=== PATIENT | female | born 1990 | race Caucasian/White ===

== ENCOUNTER 2016-07-06 15:45 | Emergency (ER) | payer OTHER ==
[~2016-07-06] VITALS: Ht 162.6 cm; Wt 69.2 kg
[~2016-07-06 15:45] MED LIST: ALBUAER2 INH; DILT60TA PO; OMEP20CA9 PO; ONDA4TAB46 PO; ZPAK PO
[2016-07-06 15:48] VITALS: TEMP 37; Ht 162.6 cm; Wt 69.2 kg
--- NOTE | 2016-07-06 17:21 | EMERGENCY ROOM VISIT NOTE ---
History Report prepared by Azar: Marguerite Florian Under the Supervision of: Dr. Renae Corona M.D. First contact with patient: 17:01 Chief Complaint: REFERRED BY DOCTOR Stated Complaint: HEART PALPITATIONS History of Present Illness The patient is a 26 year old female who presents to the Emergency Room with complaints of intermittent heart palpitations for the past few days. She has a history of tachycardia that began when she was 20 after having her son. She states that over the past few days she has been having palpitations despite taking her Cardizem. Today she took 120mg of Cardizem and notes that her heart rate was in the 170s while she was watching TV. She began feeling lightheaded and nauseous. She denies experiencing any chest pain with her palpitations. Today she called her Dr. Rodriguez's office (her head machine feeder) and was told by the nurse to come to the ED for further evaluation. She denies any recent changes to her medications. She denies any chance of . She is not currently taking any OCP. She experienced cold symptoms 1 week ago that improved without any medication. The patient reports that she did drink coffee today. Source of History: patient Onset: a few days ago Position: chest Symptom Intensity: HR in 170s Quality: other (palpitations) Timing: intermittent Associated Symptoms: + nausea, No chest pain Note: Pt notes lightheadedness. Review of Systems See HPI for pertinent positives & negatives. A total of 10 systems reviewed and were otherwise negative. Past Medical & Surgical Medical Problems: (1) Asthma (2) Asthma, mild persistent (3) Atrial tachycardia (4) Cellulitis (5) GERD (gastroesophageal reflux disease) (6) HTN (hypertension) (7) Hx of fracture of tibia (8) Ovarian cyst (9) Pharyngitis (10) Sinus tachycardia (11) Sinusitis (12) Sinusitis (13) SVT (supraventricular tachycardia) Surgical Problems: (1) H/O cardiac radiofrequency ablation (2) H/O cardiac radiofrequency ablation (3) H/O section (4) S/P ablation operation for arrhythmia Family History Asthma SISTER Cardiac disorder FATHER GRANDFATHER GRANDMOTHER Gallbladder disease Heart disease Hypertension FATHER BROTHER GRANDFATHER GRANDMOTHER Kidney disease or stones Lung disease Social History Smoking Status: Never Smoker Smokeless Tobacco Use: No Alcohol Use: none Drug Use: none Housing Status: lives with family Occupation Status: employed Current/Historical Medications Scheduled Diltiazem Hcl (Diltiazem Hcl), 60 MG PO TID Fluticasone Prop/Salmeterol (Advair Diskus 500/50 60 Dose), 1 PUFF INH BID Omeprazole (Prilosec), 20 MG PO DAILY Scheduled PRN Albuterol (Ventolin Hfa), 1-2 PUFFS INH QID PRN for cough or wheezing Albuterol Sulf (Proventil 0.083% 2.5MG/3ML), 3 ML NEB Q4H PRN for SOB/Wheezing Allergies Coded Allergies: Penicillins (Verified Allergy, Intermediate, RASH, 06/24/16) Sulfa Antibiotics (Verified Allergy, Intermediate, hives, 06/24/16) Codeine (Verified Allergy, Mild, 06/24/16) Morphine (Verified Allergy, Mild, HALLUCINATES, 06/24/16) Levofloxacin (Verified Allergy, Unknown, RASH, joint pain, 06/24/16) Pseudoephedrine (Verified Allergy, Unknown, FEVER, 06/24/16) Egg (Verified Adverse Reaction, Unknown, HEADACHE, 06/24/16) Physical Exam Vital Signs Date Time Temp Pulse Resp B/P Pulse Ox O2 Delivery O2 Flow Rate FiO2 07/06/16 19:18 79 20 135/87 99 07/06/16 18:00 80 20 130/80 99 07/06/16 17:13 118 07/06/16 15:48 37.0 114 17 140/84 97 Room Air Physical Exam Vital signs reviewed. General: Well-appearing 26 year old female, in no significant distress. HEENT: No scleral icterus, PERRLA, neck supple. Atraumatic. Cardiovascular: Tachycardic rate and regular rhythm, no extra sounds. Pulmonary: Clear to auscultation bilaterally, normal work of breathing. Abdomen: Soft, nontender, nondistended, positive bowel sounds. Musculoskeletal: Atraumatic, no peripheral edema. Neurologic: Patient awake alert and oriented x 3, full strength in all 4 extremities. Cranial nerves 2 through 12 grossly intact. Skin: Warm, dry, no rash Medical Decision & Procedures Laboratory Results 07/06/16 17:31 Red Blood Count 4.32, Mean Corpuscular Volume 92.8, Mean Corpuscular Hemoglobin 32.2, Mean Corpuscular Hemoglobin Concent 34.7, Mean Platelet Volume 10.7, Neutrophils (%) (Auto) 86.1, Lymphocytes (%) (Auto) 7.4, Monocytes (%) (Auto) 5.7, Eosinophils (%) (Auto) 0.3, Basophils (%) (Auto) 0.1, Neutrophils # (Auto) 12.17, Lymphocytes # (Auto) 1.04, Monocytes # (Auto) 0.80, Eosinophils # (Auto) 0.04, Basophils # (Auto) 0.02 07/06/16 17:31 Test 07/06/16 17:31 07/06/16 17:35 07/06/16 17:59 White Blood Count 14.12 K/uL (4.8-10.8) Red Blood Count 4.32 M/uL (4.2-5.4) Hemoglobin 13.9 g/dL (12.0-16.0) Hematocrit 40.1 % (37-47) Mean Corpuscular Volume 92.8 fL (80-100) Mean Corpuscular Hemoglobin 32.2 pg (25-34) Mean Corpuscular Hemoglobin Concent 34.7 g/dl (32-36) Platelet Count 290 K/uL (130-400) Mean Platelet Volume 10.7 fL (7.4-10.4) Neutrophils (%) (Auto) 86.1 % Lymphocytes (%) (Auto) 7.4 % Monocytes (%) (Auto) 5.7 % Eosinophils (%) (Auto) 0.3 % Basophils (%) (Auto) 0.1 % Neutrophils # (Auto) 12.17 K/uL (1.4-6.5) Lymphocytes # (Auto) 1.04 K/uL (1.2-3.4) Monocytes # (Auto) 0.80 K/uL (0.11-0.59) Eosinophils # (Auto) 0.04 K/uL (0-0.5) Basophils # (Auto) 0.02 K/uL (0-0.2) RDW Standard Deviation 43.4 fL (36.4-46.3) RDW Coefficient of Variation 12.7 % (11.5-14.5) Immature Granulocyte % (Auto) 0.4 % Immature Granulocyte # (Auto) 0.05 K/uL (0.00-0.02) Anion Gap 11.0 mmol/L (3-11) Est Creatinine Clear Calc Drug Dose 95.3 ml/min Estimated GFR () 108.1 Estimated GFR (Non- 93.2 BUN/Creatinine Ratio 8.9 (10-20) Calcium Level 9.0 mg/dl (8.5-10.1) Magnesium Level 2.2 mg/dl (1.8-2.4) Total Bilirubin 0.3 mg/dl (0.2-1) Direct Bilirubin 0.1 mg/dl (0-0.2) Aspartate Amino Transf (AST/SGOT) 10 U/L (15-37) Alanine Aminotransferase (ALT/SGPT) 14 U/L (12-78) Alkaline Phosphatase 68 U/L (45-117) Total Creatine Kinase 44 U/L (26-192) Creatine Kinase MB < 0.5 ng/ml (0.5-3.6) Creatine Kinase MB Ratio (0-3.0) Total Protein 7.2 gm/dl (6.4-8.2) Albumin 4.0 gm/dl (3.4-5.0) Thyroid Stimulating Hormone (TSH) 0.466 uIu/ml (0.300-4.500) Urine Color YELLOW Urine Appearance CLOUDY (CLEAR) Urine pH 7.5 (4.5-7.5) Urine Specific [place] 1.013 (1.000-1.030) Urine Protein NEG (NEG) Urine Glucose (UA) NEG (NEG) Urine Ketones NEG (NEG) Urine Occult Blood 1+ (NEG) Urine Nitrite NEG (NEG) Urine Bilirubin NEG (NEG) Urine Urobilinogen NEG (NEG) Urine Leukocyte Esterase NEG (NEG) Urine WBC (Auto) 1-5 /hpf (0-5) Urine RBC (Auto) 0-4 /hpf (0-4) Urine Hyaline Casts (Auto) 1-5 /lpf (0-5) Urine Epithelial Cells (Auto) >30 /lpf (0-5) Urine Bacteria (Auto) NEG (NEG) Bedside D-Dimer 354 ng/mlFEU (0-450) Bedside Troponin I 0.000 ng/ml (0-0.045) Laboratory results per my review. ECG Indication: palpitations Rate (beats per minute): 95 Rhythm: normal sinus Findings: no acute ischemic change, no ectopy, other (RSR prime) ED Course 170: Past medical records reviewed. The patient was evaluated in room B5. A complete history and physical examination was performed. 1844: I reassessed the patient at this time. She is feeling better and resting comfortably. I discussed the results and treatment plan with the patient. I answered all pertaining questions that she had. She expressed understanding and verbalized agreement. The patient will be discharged home. She will follow-up with her head machine feeder this week. 1903: I spoke with Dr. Fleming of cardiology. We discussed the patient's case. He was in agreement with the treatment plan. The patient will be evaluated in the office later this week. Medical Decision Differential diagnoses includes metabolic abnormality, cardiac arrhythmia, PE, medication effect, stimulant use. This pt was evaluated and appeared to be in no distress. IV access was obtained and lab work was drawn. Pt was placed on the cardiac technician. She was found to be in a ST. EKG confirms ST without ectopy or ischemia. 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 This is an ongoing issue for her. Pt lab work is unrevealing. She did have coffee this morning, was advised against any stimulants. She was recently switched to cardizem 120 mg LA for which she has yet to start. This may provide more consistent coverage than the 60 mg TID she is on currently. I did speak with Dr Fleming regarding the case as she was referred from the office to the ED for evaluation. Pt was advised to f/u with cariology this week and return to the ED for worsening of symptoms or any medical concerns. Consults Time Called: 1829 Consulting Physician: Dr. Fleming Returned Call: [address] Fleming of cardiology. We discussed the patient's case. He was in agreement with the treatment plan. Impression Primary Impression: Sinus tachycardia Scribe Attestation The scribe's documentation has been prepared under my direction and personally reviewed by me in its entirety. I confirm that the note above accurately reflects all work, treatment, procedures, and medical decision making performed by me. Departure Information Dispostion Home / Self-Care Referrals Shazia David, (PCP) Eduardo Rodriguez M.D. Forms HOME CARE DOCUMENTATION FORM, IMPORTANT VISIT INFORMATION, WORK / SCHOOL INSTRUCTIONS Patient Instructions A Signature Page, My [facility] Additional Instructions Diagnosis: Sinus tachycardia Drink plenty of clear fluids. Avoid caffeine, alcohol, tobacco or any other stimulants such as energy drinks. Continue your medications as prescribed. Follow-up with cardiology this week, case management will contact you with assistance in making an appointment. Return to the ER for worsening of symptoms or any medical concerns.
[2016-07-06 18:09] LABS: BASO % 0.1 %; BASO ABS # 0.02 K/uL (0-0.2); COMPLETE YES; EOS % 0.3 %; HEMATOCRIT 40.1 % (37-47); IG% 0.4 %; LYMPH % 7.4 %; LYMPH ABS # 1.04 K/uL (1.2-3.4); MEAN CELL VOLUME 92.8 fL (80-100); MEAN CORPUSCULAR HEMOGLOBIN 32.2 pg (25-34); MEAN CORPUSCULAR HGB CONC 34.7 g/dl (32-36); MEAN PLATELET VOLUME 10.7 fL (7.4-10.4); MONO % 5.7 %; NEUT % 86.1 %; PLATELET COUNT 290 K/uL (130-400); RED BLOOD COUNT 4.32 M/uL (4.2-5.4); WHITE BLOOD COUNT 14.12 K/uL (4.8-10.8)
[2016-07-06 18:14] LABS: URINE APPEARANCE CLOUDY (CLEAR); URINE BILIRUBIN NEG (NEG); URINE COLOR YELLOW; URINE EPITHELIAL CELL AUTO >30 /lpf (0-5); URINE NITRITE NEG (NEG); URINE PH 7.5 (4.5-7.5); URINE SPECIFIC GRAVITY 1.013 (1.000-1.030); UROBILINOGEN NEG (NEG); ZZUR CULT IF INDIC CLEAN CATCH NO
[2016-07-06 18:16] LABS: MANUAL MICROSCOPIC REQUIRED? NO; REVIEW REQ? NO
[2016-07-06 18:28] LABS: ALT/SGPT 14 U/L (12-78); BLOOD UREA NITROGEN 8 mg/dl (7-18); BUN/CREATININE RATIO 8.9 (10-20); CARBON DIOXIDE 25 mmol/L (21-32); CHLORIDE 106 mmol/L (98-107); CREATININE 0.87 mg/dl (0.60-1.20); GLUCOSE 95 mg/dl (70-99); MAGNESIUM 2.2 mg/dl (1.8-2.4); POTASSIUM 3.9 mmol/L (3.5-5.1); SODIUM 142 mmol/L (136-145)
[2016-07-06 18:38] LABS: ALKALINE PHOSPHATASE 68 U/L (45-117); AST/SGOT 10 U/L (15-37); THYROID STIMULATING HORMONE 0.466 uIu/ml (0.300-4.500)
[2016-07-06 19:18] VITALS: BP 135/87; PULSE 79; O2SAT 99
[2016-07-10] MEDS ORDERED: AZIT-60 PO (13:20)
[2016-10-21] MEDS ORDERED: PANT40TA PO (10:41)
[2016-10-21] MEDS ORDERED: VNTHFA/IN INH (10:45)
[2016-10-21] MEDS ORDERED: ADVIN50/60 INH (12:48)
[2016-10-21] MEDS ORDERED: ALBINS/ NEB (18:38)
[2017-04-29] MEDS ORDERED: VALA1TAB31 PO (09:49)
[2017-04-29] MEDS ORDERED: NADO20TA PO (09:49)
[2017-04-29] MEDS ORDERED: OXYC1TAB3 PO (10:38)
== END 2016-07-06 19:20 | disposition home or self-care (01) ==
LOC: C.EDB 15:46
DX: R00.0 Tachycardia, unspecified (principal); J45.909 Unspecified asthma, uncomplicated; I10 Essential (primary) hypertension; K21.9 Gastro-esophageal reflux disease without esophagitis; Z82.5 Family history of asthma and other chronic lower respiratory diseases; Z82.49 Family history of ischemic heart disease and other diseases of the circulatory system; Z79.899 Other long term (current) drug therapy

== ENCOUNTER 2016-07-10 12:38 | Emergency (ER) | payer OTHER ==
[~2016-07-10] VITALS: Ht 162.6 cm; Wt 69.1 kg
[~2016-07-10 12:38] MED LIST changes: -ONDA4TAB46 PO; -ZPAK PO
[2016-07-10 12:39] VITALS: BP 131/89; PULSE 97; TEMP 37.1; O2SAT 100; Ht 162.6 cm; Wt 69.1 kg
[2016-07-10] MEDS ORDERED: DEXAMETHASONE SOD INJ 10 MG/ML VIAL IV STA (13:13)
[2016-07-10] MEDS ORDERED: AZIT250T5 PO (13:20)
[2016-07-10] MEDS ORDERED: ONDA4TAB65 PO (13:20)
--- NOTE | 2016-07-10 13:21 | EMERGENCY ROOM VISIT NOTE ---
History First contact with patient: 12:52 Chief Complaint: CONGESTION Stated Complaint: CONGESTION, CHEST TIGHTNESS, SINUS PRESSURE Nursing Triage Summary: having cough and congestion for the past several days. my 2 roommates have been sick as well. History of Present Illness The patient is a 26 year old female who presents to the Emergency Room via private vehicle accompanied by father with complaints of "congestion, chest tightness, sinus pressure". The patient states that 4 days ago she began with sinus pressure and drainage as well as sinus congestion. She notes she has postnasal drip into her chest. She has a history of this before. She's been taking prednisone with minimal relief. She is tried Robitussin and a breathing treatment. The sinus drainage is yellow in nature. For the associated cough and headache she has tried Tessalon Perles. She has used her rescue inhaler today with minimal relief. There is associated fever that is under 100F. There has been no chest pain, chills. Patient does have slight shortness of breath with the congestion. No history of blood clots. Patient states that when she experiences this she typically gets a steroid shot, and a Z-Tomi with Zofran. She states that her roommate has similar symptoms and is just getting over this. Review of Systems A complete 6-point Review of Systems was discussed with the patient, with pertinent positives and negatives listed in the History of Present Illness. All remaining Review of Systems questions can be considered negative unless otherwise specified. Past Medical/Surgical History Medical Problems: (1) Asthma (2) Asthma, mild persistent (3) Atrial tachycardia (4) Cellulitis (5) GERD (gastroesophageal reflux disease) (6) HTN (hypertension) (7) Hx of fracture of tibia (8) Ovarian cyst (9) Pharyngitis (10) Sinus tachycardia (11) Sinusitis (12) Sinusitis (13) SVT (supraventricular tachycardia) Surgical Problems: (1) H/O cardiac radiofrequency ablation (2) H/O cardiac radiofrequency ablation (3) H/O section (4) S/P ablation operation for arrhythmia Family History Asthma SISTER Cardiac disorder FATHER GRANDFATHER GRANDMOTHER Gallbladder disease Heart disease Hypertension FATHER BROTHER GRANDFATHER GRANDMOTHER Kidney disease or stones Lung disease Diabetes, heart disease, high blood pressure, gallbladder disease, kidney disease or Stones, seizures. Social History Smoking Status: Never Smoker Alcohol Use: none Drug Use: none Housing Status: lives with family Occupation Status: employed Social History: Patient lives at home, is not employed and denies tobacco or alcohol products. Current/Historical Medications Scheduled Azithromycin (Zithromax), 250 MG PO DIRECTED Diltiazem Hcl (Diltiazem Hcl), 60 MG PO TID Fluticasone Prop/Salmeterol (Advair Diskus 500/50 60 Dose), 1 PUFF INH BID Omeprazole (Prilosec), 20 MG PO DAILY Scheduled PRN Albuterol (Ventolin Hfa), 1-2 PUFFS INH QID PRN for cough or wheezing Albuterol Sulf (Proventil 0.083% 2.5MG/3ML), 3 ML NEB Q4H PRN for SOB/Wheezing Ondansetron Hcl (Zofran), 1 TAB PO Q6H PRN for Nausea or Vomiting Allergies Coded Allergies: Penicillins (Verified Allergy, Intermediate, RASH, 06/24/16) Sulfa Antibiotics (Verified Allergy, Intermediate, hives, 06/24/16) Codeine (Verified Allergy, Mild, 06/24/16) Morphine (Verified Allergy, Mild, HALLUCINATES, 06/24/16) Levofloxacin (Verified Allergy, Unknown, RASH, joint pain, 06/24/16) Pseudoephedrine (Verified Allergy, Unknown, FEVER, 06/24/16) Egg (Verified Adverse Reaction, Unknown, HEADACHE, 06/24/16) Physical Exam Vital Signs Date Time Temp Pulse Resp B/P Pulse Ox O2 Delivery O2 Flow Rate FiO2 07/10/16 12:39 37.1 97 16 131/89 100 Room Air Physical Exam VITAL SIGNS - Vital signs and nursing notes were reviewed. Patient is afebrile , she is normotensive, she is not tachycardic and saturating well on room air 100%. GENERAL - 26-year-old female appearing her stated age who is in no acute distress. Communicates well with provider and answers questions appropriately. SKIN - Without rashes. HEAD - NC/AT. EYES - PERRL with EOMI bilaterally. Sclera anicteric. Palpebral conjunctiva pink and moist with no injection noted. EARS - No deformities of external structures noted on gross examination bilaterally. No hemotympanum. External auditory canals without discharge or otorrhea. Tympanic membranes pearly haskins without retraction or bulging. No fluid or purulent material visualized behind the TM. Handle of malleus, umbo, cone of light, pars tensa/flaccid all easily visualized. NOSE - Midline and without cyanosis. No epistaxis or purulent drainage noted. Septum midline without deviation or septal hematoma noted. MOUTH/OROPHARYNX - Without perioral cyanosis. Buccal mucosa pink and moist and without leukoplakia. Tongue midline with equal elevation of palate bilaterally. No tonsillar hypertrophy, erythema, or exudates noted. Good dentition noted. NECK - Neck with FROM. Supple to palpation. No lymphadenopathy noted. No nuchal rigidity. LUNGS - Chest wall symmetric without accessory muscle use, intercostals retractions, or central cyanosis. Normal vesicular breath sounds CTA B/L. No wheezes, rales, or rhonchi appreciated. CARDIAC - RRR with S1/S2. No murmur, rubs, or gallops appreciated. EXTREMITIES - No clubbing or peripheral cyanosis. No pretibial edema present. +5 /5 strength noted in UE/LE bilaterally. NEUROLOGIC - Cranial nerves II through XII grossly intact. Sensory intact to light touch throughout. PSYCH - A&Ox3 and cooperates fully with examiner. Pt is very pleasant and interacts well with examiner. Medical Decision & Procedures Medications Administered Medications (Trade) Dose Ordered Sig/Anika Route Start Time Stop Time Status Last Admin Dose Admin Dexamethasone Sodium Phosphate (Decadron Inj) 10 mg NOW STAT IM 07/10/16 13:22 07/10/16 13:23 DC 07/10/16 13:25 10 MG Medical Decision Patient was seen as evaluated as above. After obtaining a thorough history and physical examination the patient was experiencing mildly clinically acute sinusitis with viral URI that may be developing into a bronchitis. Patient does have a history of asthma as well as bronchitis. No evidence of pneumonia on exam and she is afebrile. Then the patient states that due to her allergies she typically by private uses azithromycin, as well as an injection of dexamethasone and Zofran as azithromycin makes her nauseated. She status is what she typically receives. She was on these not long ago. She was given 10 mg IM of Decadron as well as a prescription for a Z-Tomi and Zofran tablets. She was cautioned that Zofran can cause QT prolongation. She will understanding. She was instructed to follow up from today's visit and return if worsening. She was educated on worrisome symptoms in which to return. She had questions answered prior to discharge and was discharged home in good condition. The patient was not tachycardic, did not have any chest pain or risk factors for pulmonary embolism. She has had these symptoms in the past and her roommate shared similar symptoms. She likely has a viral URI with sinusitis and potential early bronchitis. She'll be treated for such. In the evaluation and treatment of this patient the following differential diagnoses were entertained: Pulmonary embolism, viral URI, sinusitis, bronchitis , pneumonia, among others. Impression Primary Impression: Acute sinusitis Additional Impression: Bronchitis Departure Information Dispostion Home / Self-Care Condition GOOD Prescriptions Ondansetron Hcl (ZOFRAN) 4 Mg Tab 1 TAB PO Q6H Y for Nausea or Vomiting for 3 Days, #12 TAB 1 Refill Prov: Harsh Jefferson PA-C 07/10/16 Azithromycin (ZITHROMAX) 250 Mg Tab 250 MG PO DIRECTED for 5 Days, #6 TAB 500 mg by mouth on day 1, then 250 mg on days 2 through 5. Prov: Harsh Jefferson PA-C 07/10/16 Patient Instructions A Signature Page, My [facility] Additional Instructions You were seen emergency Department for a sinus infection/bronchitis. As we discussed and as per your request you have received an injection of dexamethasone here as well as a prescription for azithromycin and Zofran. Please use caution as Zofran may cause heart irregularities. Please schedule follow-up with her family doctor as soon as possible from today' s visit. Please continue your at home remedies that you indicated. Please return to the emergency department with any new/concerning symptoms.
[2016-07-10] MEDS ORDERED: DEXAMETHASONE SOD INJ 10 MG/ML VIAL IM STA (13:22)
[2016-10-21] MEDS ORDERED: PANT40TA PO (10:41)
[2016-10-21] MEDS ORDERED: VNTHFA/IN INH (10:45)
[2016-10-21] MEDS ORDERED: ADVIN50/60 INH (12:48)
[2016-10-21] MEDS ORDERED: ALBINS/ NEB (18:38)
== END 2016-07-10 13:30 | disposition home or self-care (01) ==
LOC: C.EDB 12:38 → C.EDD 13:30
DX: J01.90 Acute sinusitis, unspecified (principal); J40 Bronchitis, not specified as acute or chronic; I10 Essential (primary) hypertension; K21.9 Gastro-esophageal reflux disease without esophagitis; J45.909 Unspecified asthma, uncomplicated; N83.209 Unspecified ovarian cyst, unspecified side; Z87.81 Personal history of (healed) traumatic fracture; Z86.19 Personal history of other infectious and parasitic diseases; Z98.890 Other specified postprocedural states; Z79.899 Other long term (current) drug therapy; Z88.0 Allergy status to penicillin; Z88.1 Allergy status to other antibiotic agents; Z88.5 Allergy status to narcotic agent; Z88.8 Allergy status to other drugs, medicaments and biological substances; Z91.018 Allergy to other foods; Z83.79 Family history of other diseases of the digestive system; Z82.49 Family history of ischemic heart disease and other diseases of the circulatory system; Z84.1 Family history of disorders of kidney and ureter; Z83.3 Family history of diabetes mellitus; Z82.0 Family history of epilepsy and other diseases of the nervous system

== ENCOUNTER 2016-07-28 12:16 | Emergency (ER) | payer OTHER ==
[~2016-07-28] VITALS: Ht 162.6 cm; Wt 70.4 kg
[~2016-07-28 12:16] MED LIST changes: +ONDA4TAB65 PO
[2016-07-28 12:36] VITALS: TEMP 36.6; Ht 162.6 cm; Wt 70.4 kg
--- NOTE | 2016-07-28 13:15 | EMERGENCY ROOM VISIT NOTE ---
History Report prepared by Azar: Miki Perdomo Under the Supervision of: Dr. Lul Flowers M.D. First contact with patient: 12:54 Chief Complaint: PALPITATIONS Stated Complaint: HEART PALPITATIONS Nursing Triage Summary: I was placed on prednisone. I now feel jittery an like my heart is racing. no chest pain at this time. History of Present Illness The patient is a 26 year old female who presents to the Emergency Room with complaints of persistent heart palpitations that started prior to arrival today. The patient notes that she was started on Prednisone, and she took her first dose yesterday (10 mg) around dinner time. She then took 20 mg this morning. The patient has been feeling jittery today, and her heart rate has been ranging between 140 and 160 prior to arrival for a few hours. She takes Diltiazem for tachycardia, and she took it prior to arrival today. The patient has asthma and a history of an ablation. She was sent to [facility] recently to discuss the possibility of a second ablation. The patient took a nebulizer treatment this morning. She denies any chest pain. 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 No other associated symptoms noted. Review of Systems See HPI for pertinent positives & negatives. A total of 10 systems reviewed and were otherwise negative. Past Medical & Surgical Medical Problems: (1) Asthma (2) Asthma, mild persistent (3) Atrial tachycardia (4) Cellulitis (5) GERD (gastroesophageal reflux disease) (6) HTN (hypertension) (7) Hx of fracture of tibia (8) Ovarian cyst (9) Pharyngitis (10) Sinus tachycardia (11) Sinusitis (12) Sinusitis (13) SVT (supraventricular tachycardia) Surgical Problems: (1) H/O cardiac radiofrequency ablation (2) H/O cardiac radiofrequency ablation (3) H/O section (4) S/P ablation operation for arrhythmia Family History Asthma SISTER Cardiac disorder FATHER GRANDFATHER GRANDMOTHER Gallbladder disease Heart disease Hypertension FATHER BROTHER GRANDFATHER GRANDMOTHER Kidney disease or stones Lung disease Social History Smoking Status: Never Smoker Alcohol Use: none Drug Use: none Housing Status: lives with family Occupation Status: employed Current/Historical Medications Scheduled Diltiazem Hcl (Diltiazem Hcl), 60 MG PO TID Fluticasone Prop/Salmeterol (Advair Diskus 500/50 60 Dose), 1 PUFF INH BID Omeprazole (Prilosec), 20 MG PO DAILY Scheduled PRN Albuterol (Ventolin Hfa), 1-2 PUFFS INH QID PRN for cough or wheezing Albuterol Sulf (Proventil 0.083% 2.5MG/3ML), 3 ML NEB Q4H PRN for SOB/Wheezing Ondansetron Hcl (Zofran), 1 TAB PO Q6H PRN for Nausea or Vomiting Allergies Coded Allergies: Penicillins (Verified Allergy, Intermediate, RASH, 07/28/16) Sulfa Antibiotics (Verified Allergy, Intermediate, hives, 07/28/16) Codeine (Verified Allergy, Mild, 07/28/16) Morphine (Verified Allergy, Mild, HALLUCINATES, 07/28/16) Levofloxacin (Verified Allergy, Unknown, RASH, joint pain, 07/28/16) Pseudoephedrine (Verified Allergy, Unknown, FEVER, 07/28/16) Egg (Verified Adverse Reaction, Unknown, HEADACHE, 07/28/16) Physical Exam Vital Signs Date Time Temp Pulse Resp B/P Pulse Ox O2 Delivery O2 Flow Rate FiO2 07/28/16 13:39 118 18 131/84 96 07/28/16 12:54 131 07/28/16 12:48 99 Room Air 07/28/16 12:36 36.6 117 20 116/74 99 Room Air Physical Exam CONSTITUTIONAL: No acute distress. Lethargic. HEENT: No icterus, moist mucous membranes NECK: No meningismus, trachea is midline. CARDIOVASCULAR: Regular rate, normal perfusion RESPIRATORY: Unlabored breathing. Clear to auscultation. GASTROINTESTINAL: Non-tender GENITOURINARY: No flank tenderness MUSCULOSKELETAL: Full range of motion NEUROLOGIC: No acute gross focal deficits. PSYCHIATRIC: Normal affect SKIN: Normal for ethnicity. Medical Decision & Procedures ECG Indication: palpitations Rate (beats per minute): 120 Rhythm: sinus tachycardia Findings: other (normal axis, no WPW, RSR prime noted, no prolonged QT) ED Course 1307: Past medical records reviewed. The patient was evaluated in room B12B. A complete history and physical examination was performed. The patient verbally expressed agreement and understanding of the treatment plan. The patient will be discharged. Medical Decision 26-year-old presents into the emergency department for evaluation of acute on chronic tachycardia after taking prednisone yesterday for asthma exacerbation. She is in no distress on exam with clear lungs and heart rate of 120 in the monitor. EKG demonstrated sinus rhythm without evidence of WPW, prolonged QT or Brugada although an RSR prime was noted in V2. She notes long-standing history of tachycardia as high as [address] followed [address] Saad crockett as well as her she cardiology status post prior EPS evaluations and felt ablation. She has a loop monitor and is scheduled for follow-up at [facility] with possibility of a second ablation coming in August. She notes she takes Cardizem when necessary for this tachycardia. She was discussed with her doctor today who advised her to increase her dose to 90 mg. She was offered observation in the emergency department and declined but agrees to return for any worsening worrisome symptoms. Impression Primary Impression: Sinus tachycardia Scribe Attestation The scribe's documentation has been prepared under my direction and personally reviewed by me in its entirety. I confirm that the note above accurately reflects all work, treatment, procedures, and medical decision making performed by me. Departure Information Dispostion Home / Self-Care Referrals Ramila Welch PA-C (PCP) Forms HOME CARE DOCUMENTATION FORM, IMPORTANT VISIT INFORMATION, WORK / SCHOOL INSTRUCTIONS Patient Instructions My [facility]
[2016-07-28 13:39] VITALS: BP 131/84; PULSE 118; O2SAT 96
[2016-10-21] MEDS ORDERED: PANT40TA PO (10:41)
[2016-10-21] MEDS ORDERED: VNTHFA/IN INH (10:45)
[2016-10-21] MEDS ORDERED: ADVIN50/60 INH (12:48)
[2016-10-21] MEDS ORDERED: ALBINS/ NEB (18:38)
== END 2016-07-28 13:41 | disposition home or self-care (01) ==
LOC: C.EDB 12:17
DX: R00.0 Tachycardia, unspecified (principal); J45.909 Unspecified asthma, uncomplicated; I47.1 Supraventricular tachycardia; L03.90 Cellulitis, unspecified; K21.9 Gastro-esophageal reflux disease without esophagitis; I10 Essential (primary) hypertension; Z82.5 Family history of asthma and other chronic lower respiratory diseases; Z82.49 Family history of ischemic heart disease and other diseases of the circulatory system; Z84.1 Family history of disorders of kidney and ureter

== ENCOUNTER 2016-08-02 10:14 | Emergency (ER) | payer OTHER ==
[~2016-08-02] VITALS: Ht 162.6 cm; Wt 70.0 kg
[2016-08-02 10:17] VITALS: TEMP 36.7; Ht 162.6 cm; Wt 70.0 kg
[2016-08-02] MEDS ORDERED: RBTUDL5 PO (10:47)
[2016-08-02] MEDS ORDERED: ACET-1311 PO (10:47)
[2016-08-02] MEDS ORDERED: ALBUT/IPRATROP 3MG/0.5MG NEB 3 ML VIAL INH STA (11:16)
--- NOTE | 2016-08-02 11:50 | DIAGNOSTIC IMAGING REPORT ---
TWO VIEW CHEST CLINICAL HISTORY: Cough.. FINDINGS: PA and lateral chest radiographs are compared to study dated 05/25/2016. The cardiomediastinal silhouette is unremarkable. The lungs and pleural spaces are clear. There is no pneumothorax. The bony thorax appears intact. An electronic device projects over the left breast. IMPRESSION: No active disease in the chest. Electronically signed by: Ham Velasco M.D. 08/02/2016 11:49 AM Dictated Date/Time: 08/02/2016 11:48 AM
[2016-08-02] MEDS ORDERED: OSELTAMIVIR PHOSPHATE 75 MG CAP PO SCH (12:30)
[2016-08-02] MEDS ORDERED: OSEL75CA12 PO (12:31)
[2016-08-02 12:52] VITALS: BP 128/89; PULSE 97; O2SAT 98
[2016-08-02] MEDS ORDERED: OSELTAMIVIR PHOSPHATE 75 MG CAP PO STA (12:55)
--- NOTE | 2016-08-02 19:31 | EMERGENCY ROOM VISIT NOTE ---
History Report prepared by Azar: Jewell Martinez Under the Supervision of: Dr. Zay Perkins D.O. First contact with patient: 10:56 Chief Complaint: FLU LIKE SX Stated Complaint: FLU SX, CONGESTION, COUGH, CHEST TIGHTNESS History of Present Illness The patient is a 26 year old female who presents to the Emergency Room with complaints of persistent flu like symptoms that began yesterday morning. The patient states that her father tested positive for influenza A yesterday and she believes she developed the same symptoms as him. Today, the patient notes congestion, chest pain, a productive cough, low grade fever, tachycardia, and headache. She notes a history of asthma and states that her symptoms are exacerbating her asthma. The patient states that she could not get in to see her PCP today so she came here for further evaluation. Pt denies headache, change in vision, neck stiffness, shortness of breath, nausea, vomiting, diarrhea, pain with urination, and melena. Source of History: patient Onset: yesterday morning Position: other (global) Quality: other (flu like symptoms) Timing: other (persistent) Associated Symptoms: + chest pain, + cough, + fevers Note: Associated Symptoms: congestion. Review of Systems See HPI for pertinent positives & negatives. A total of 10 systems reviewed and were otherwise negative. Past Medical & Surgical Medical Problems: (1) Asthma (2) Asthma, mild persistent (3) Atrial tachycardia (4) Cellulitis (5) GERD (gastroesophageal reflux disease) (6) HTN (hypertension) (7) Hx of fracture of tibia (8) Ovarian cyst (9) Pharyngitis (10) Sinus tachycardia (11) Sinusitis (12) Sinusitis (13) SVT (supraventricular tachycardia) Surgical Problems: (1) H/O cardiac radiofrequency ablation (2) H/O cardiac radiofrequency ablation (3) H/O section (4) S/P ablation operation for arrhythmia Family History Asthma SISTER Cardiac disorder FATHER GRANDFATHER GRANDMOTHER Gallbladder disease Heart disease Hypertension FATHER BROTHER GRANDFATHER GRANDMOTHER Kidney disease or stones Lung disease Social History Smoking Status: Never Smoker Alcohol Use: none Drug Use: none Housing Status: lives with family Occupation Status: employed Current/Historical Medications Scheduled Acetaminophen (Tylenol), 650 MG PO DAILY Diltiazem Hcl (Diltiazem Hcl), 60 MG PO TID Fluticasone Prop/Salmeterol (Advair Diskus 500/50 60 Dose), 1 PUFF INH BID Guaifenesin (Robitussin), 15 ML PO DAILY Oseltamivir (Tamiflu), 75 MG PO BID Pantoprazole (Protonix), 40 MG PO DAILY Scheduled PRN Albuterol Hfa (Ventolin Hfa), 1-2 PUFFS INH QID PRN for Wheezing Albuterol Sulf (Proventil 0.083% 2.5MG/3ML), 3 ML NEB Q4H PRN for SOB/Wheezing Ondansetron Hcl (Zofran), 1 TAB PO Q6H PRN for Nausea or Vomiting Allergies Coded Allergies: Penicillins (Verified Allergy, Intermediate, RASH, 08/02/16) Sulfa Antibiotics (Verified Allergy, Intermediate, hives, 08/02/16) Codeine (Verified Allergy, Mild, 08/02/16) Morphine (Verified Allergy, Mild, HALLUCINATES, 08/02/16) Levofloxacin (Verified Allergy, Unknown, RASH, joint pain, 08/02/16) Pseudoephedrine (Verified Allergy, Unknown, FEVER, 08/02/16) Egg (Verified Adverse Reaction, Unknown, HEADACHE, 08/02/16) Physical Exam Vital Signs Date Time Temp Pulse Resp B/P Pulse Ox O2 Delivery O2 Flow Rate FiO2 08/02/16 12:52 97 18 128/89 98 08/02/16 10:17 36.7 91 18 138/82 97 Room Air Physical Exam GENERAL: Sitting up in bed, disheveled, nontoxic, no acute distress. Talking in full sentences, dry non-productive cough. EYE EXAM: normal conjunctiva. OROPHARYNX: no exudate, no erythema, lips, buccal mucosa, and tongue normal and mucous membranes are moist EARS: TMs clear bilaterally. NECK: supple, no nuchal rigidity, no adenopathy, non-tender LUNGS: Clear to auscultation. Normal chest wall mechanics HEART: no murmurs, S1 normal and S2 normal ABDOMEN: abdomen soft, non-tender, normo-active bowel sounds, no masses, no rebound or guarding. BACK: Back is symmetrical on inspection and there is no deformity, no midline tenderness, no CVA tenderness. SKIN: no rashes and no bruising UPPER EXTREMITIES: upper extremities are grossly normal. LOWER EXTREMITIES: No pitting edema. Calves are equal bilaterally NEURO EXAM: Normal sensorium, cranial nerves II-XII grossly intact, normal speech, no gross weakness of arms, no gross weakness of legs. Medical Decision & Procedures ER Provider Diagnostic Interpretation: Xray results per the radiologist and my interpretation. Other results have been interpreted by the radiologist and reviewed by me. TWO VIEW CHEST CLINICAL HISTORY: Cough.. FINDINGS: PA and lateral chest radiographs are compared to study dated 05/25/2016. The cardiomediastinal silhouette is unremarkable. The lungs and pleural spaces are clear. There is no pneumothorax. The bony thorax appears intact. An electronic device projects over the left breast. IMPRESSION: No active disease in the chest. Electronically signed by: Ham Velasco M.D. 08/02/2016 11:49 AM Dictated Date/Time: 08/02/2016 11:48 AM Laboratory Results Test 08/02/16 11:15 Influenza Type A Antigen POS for Influ A (NEG) Influenza Type B Antigen Neg for Influ B (NEG) Laboratory results per my review. Medications Administered Medications (Trade) Dose Ordered Sig/Anika Route Start Time Stop Time Status Last Admin Dose Admin Albuterol/ Ipratropium (Duoneb) 3 ml NOW STAT INH 08/02/16 11:16 08/02/16 13:45 DC 08/02/16 11:16 3 ML ED Course ED COURSE: Vital signs were reviewed and showed normal vitals The patients medical record was reviewed The above diagnostic studies were performed and reviewed. ED treatments and interventions as stated above. 1113: The patient was evaluated in room B2. A complete history and physical examination was performed. 1116: Ordered DuoNeb 3 ml INH. 1224: Upon reevaluation, the patient is resting comfortably.I discussed my findings with the patient and she understands and agrees with the treatment plan. Based on the patients age, coexisting illnesses, exam and lab findings the decision to treat as an outpatient was made. The patient remained stable while under my care. The patient appeared well at the time of discharge. 1230: Ordered Tamiflu Cap 75 mg PO. Medical Decision Differential diagnoses includes but is not limited to pneumonia, bronchitis, COPD/Asthma exacerbation, pneumothorax, pulmonary embolism, congestive heart failure, acute coronary syndrome Patient is a 26-year-old female with a past medical history of asthma who presents the ER for shortness of breath and wheezing. Decision shows no focal infiltrate. Vitals are stable. Her father was seen here yesterday and was diagnosed with same symptoms and had influenza A. Mom also has the same symptoms at home.. Was performed and she was influenza A positive. She was given a perception for Tamiflu following a neb treatment and discharged to follow-up with primary care doctor. Discussed with Pt concerning signs and symptoms to watch out for. Pt was instructed to follow up with their PCP and discussed with the patient their option to return to the ED at anytime for persistent or worsening symptoms. The appropriate anticipatory guidance and out- patient management, including indications for return to the emergency department , were explained at length to the patient and understood. Impression Primary Impression: Influenza A Scribe Attestation The scribe's documentation has been prepared under my direction and personally reviewed by me in its entirety. I confirm that the note above accurately reflects all work, treatment, procedures, and medical decision making performed by me. Departure Information Dispostion Home / Self-Care Prescriptions Oseltamivir (Tamiflu) 75 Mg Cap 75 MG PO BID, #10 CAP Prov: Zay Perkins, DO 08/02/16 Referrals No Doctor, Assigned (PCP) Forms HOME CARE DOCUMENTATION FORM, IMPORTANT VISIT INFORMATION Patient Instructions ED URI Viral, My [facility], Oseltamivir Phosphate Oral capsule Additional Instructions Please follow up with your primary care doctor with in the next 24 hours. Any worsening of your symptoms, please return to the ED immediately. This includes persistent fevers greater than 100.4 for 3 more days, passing out, worsening shortness of breath, or any other concerning signs or symptoms from your standpoint.
[2016-10-21] MEDS ORDERED: PANT40TA PO (10:41)
[2016-10-21] MEDS ORDERED: VNTHFA/IN INH (10:45)
[2016-10-21] MEDS ORDERED: ADVIN50/60 INH (12:48)
[2016-10-21] MEDS ORDERED: ALBINS/ NEB (18:38)
== END 2016-08-02 12:54 | disposition home or self-care (01) ==
LOC: C.EDB 10:15
DX: J09.X2 Influenza due to identified novel influenza A virus with other respiratory manifestations (principal); J45.909 Unspecified asthma, uncomplicated; I10 Essential (primary) hypertension; K21.9 Gastro-esophageal reflux disease without esophagitis; N83.209 Unspecified ovarian cyst, unspecified side; Z86.19 Personal history of other infectious and parasitic diseases; Z88.0 Allergy status to penicillin; Z88.2 Allergy status to sulfonamides; Z88.5 Allergy status to narcotic agent; Z88.8 Allergy status to other drugs, medicaments and biological substances; Z91.018 Allergy to other foods

== ENCOUNTER 2016-08-06 00:29 | Emergency (ER) | payer OTHER ==
[~2016-08-06] VITALS: Ht 162.6 cm; Wt 71.4 kg
[~2016-08-06 00:29] MED LIST changes: +ACET-1311 PO; -ALBUAER2 INH; -OMEP20CA9 PO; +OSEL75CA12 PO; +RBTUDL5 PO
[2016-08-06 00:34] VITALS: TEMP 36.7; Ht 162.6 cm; Wt 71.4 kg
[2016-08-06] MEDS ORDERED: ALBUT/IPRATROP 3MG/0.5MG NEB 3 ML VIAL INH STA (00:47)
[2016-08-06] MEDS ORDERED: DEXAMETHASONE SOD INJ 10 MG/ML VIAL PO ONE (01:00)
--- NOTE | 2016-08-06 02:10 | EMERGENCY ROOM VISIT NOTE ---
History First contact with patient: 00:38 Chief Complaint: COUGH Stated Complaint: CHEST TIGHTNESS,WHEEZY,COUGH,CONGEST Nursing Triage Summary: Patient states, "I've been sick with influenza A and now my asthma is acting up. I'm coughing a lot and my chest hurts from it." Dx 3 days ago. History of Present Illness The patient is a 26 year old female who presents to the Emergency Room with complaints of cough and wheezing for the past few days was diagnosed with influenza 3 days ago. She's been taking her Tamiflu. Patient denies neck stiffness, chest pain, abdominal pain, vomiting, ear pain. She is tolerate by mouth fluids and food. She has an inhaler and does have asthma. Review of Systems See HPI for pertinent positives & negatives. A total of 10 systems reviewed and were otherwise negative. Past Medical/Surgical History Medical Problems: (1) Asthma (2) Asthma, mild persistent (3) Atrial tachycardia (4) Cellulitis (5) GERD (gastroesophageal reflux disease) (6) HTN (hypertension) (7) Hx of fracture of tibia (8) Ovarian cyst (9) Pharyngitis (10) Sinus tachycardia (11) Sinusitis (12) Sinusitis (13) SVT (supraventricular tachycardia) Surgical Problems: (1) H/O cardiac radiofrequency ablation (2) H/O cardiac radiofrequency ablation (3) H/O section (4) S/P ablation operation for arrhythmia Family History Asthma SISTER Cardiac disorder FATHER GRANDFATHER GRANDMOTHER Gallbladder disease Heart disease Hypertension FATHER BROTHER GRANDFATHER GRANDMOTHER Kidney disease or stones Lung disease Social History Smoking Status: Never Smoker Alcohol Use: none Drug Use: none Housing Status: lives with family Occupation Status: employed Current/Historical Medications Scheduled Acetaminophen (Tylenol), 650 MG PO DAILY Diltiazem Hcl (Diltiazem Hcl), 60 MG PO TID Fluticasone Prop/Salmeterol (Advair Diskus 500/50 60 Dose), 1 PUFF INH BID Guaifenesin (Robitussin), 15 ML PO DAILY Oseltamivir (Tamiflu), 75 MG PO BID Pantoprazole (Protonix), 40 MG PO DAILY Scheduled PRN Albuterol Hfa (Ventolin Hfa), 1-2 PUFFS INH QID PRN for Wheezing Albuterol Sulf (Proventil 0.083% 2.5MG/3ML), 3 ML NEB Q4H PRN for SOB/Wheezing Ondansetron Hcl (Zofran), 1 TAB PO Q6H PRN for Nausea or Vomiting Allergies Coded Allergies: Penicillins (Verified Allergy, Intermediate, RASH, 08/06/16) Sulfa Antibiotics (Verified Allergy, Intermediate, hives, 08/06/16) Codeine (Verified Allergy, Mild, 08/06/16) Morphine (Verified Allergy, Mild, HALLUCINATES, 08/06/16) Levofloxacin (Verified Allergy, Unknown, RASH, joint pain, 08/06/16) Pseudoephedrine (Verified Allergy, Unknown, FEVER, 08/06/16) Egg (Verified Adverse Reaction, Unknown, HEADACHE, 08/06/16) Physical Exam Vital Signs Date Time Temp Pulse Resp B/P Pulse Ox O2 Delivery O2 Flow Rate FiO2 08/06/16 00:57 Room Air 08/06/16 00:39 98 Room Air 08/06/16 00:34 36.7 112 18 155/97 98 Room Air Physical Exam PHYSICAL EXAM: Vital Signs: Reviewed Nurse's notes. Oxygen saturation was 98% on room air. GENERAL: Pleasant female, Alert, oriented and coherent. The patient is able to speak in complete sentences. NECK: Supple, non-tender. CHEST : Symmetrical expansion. no retractions no accessory muscle use. HEART: Regular rate and normal heart sounds, no murmur, gallop or rub. LUNGS: Breath sounds equal but significantly diminished in intensity on both sides. Bilateral wheezes heard but no rales or pleuritic rub. SKIN: The skin was without rashes, erythema, edema, or bruising. There is no tenting of the skin. Capillary reflex less than 2 seconds. HEAD: Normocephalic atraumatic. EARS: External auditory canals clear, tympanic membranes pearly haskins without erythema or effusion bilaterally. EYES: Pupils equal round and reactive to light and accommodation. Conjunctivae without injection, sclerae without icterus. Extraocular movements intact. NOSE: Patent, turbinates without inflammation or discharge. No sinus tenderness. MOUTH: Mucous membranes moist. Tonsils are not enlarged. Pharynx without erythema or exudate. Uvula midline. Airway patent. Tongue does not deviate. ABDOMEN: Positive bowel sounds x 4. Normal tympanic percussion. Soft, nontender, without masses or organomegaly. Borden sign negative. No guarding or rebound tenderness. MUSCULOSKELETAL: No muscle atrophy, erythema, or edema noted. NEURO: Patient was alert and oriented to person place and time. Normal sensation to light and sharp touch. No focal neurological deficits. Medical Decision & Procedures Laboratory Results Test 08/06/16 00:47 Urine Test NEG (NEG) Medications Administered Medications (Trade) Dose Ordered Sig/Anika Route Start Time Stop Time Status Last Admin Dose Admin Dexamethasone Sodium Phosphate (Decadron Inj) 10 mg NOW ONCE PO 08/06/16 01:00 08/06/16 01:01 DC 08/06/16 00:55 10 MG Albuterol/ Ipratropium (Duoneb) 3 ml NOW STAT INH 08/06/16 00:47 08/06/16 00:50 DC 08/06/16 00:55 3 ML ED Course Prior records/ancillary studies reviewed. Triage Nursing notes reviewed. The patient's history was concerning for respiratory difficulties. Differential diagnosis: Etiologies such as infections, reactive airway disease, pneumonia, pneumothorax , COPD, CHF, cardiac ischemia, pulmonary embolism, musculoskeletal, gastrointestinal, as well as others were entertained. Physical examination: As above. ER treatment provided: Decadron, nebulizer On reassessment the patient felt better. Diagnostic interpretation by me: Negative hCG Imaging studies: Chest x-ray with no acute consolidation or pneumothorax or free air per my interpretation This appears to be consistent with asthmatic bronchitis with positive influenza. Patient felt much better after being medicated as above. She was started on prednisone. She is advised to continue her Tamiflu. She is advised to return to the intermediate for difficulty breathing, high fevers, worsening signs or symptoms or as needed. She will follow-up family medicine this week. By the evaluation outlined above emergent etiologies such as CHF, cardiac ischemia, pulmonary embolism, pneumonia, pneumothorax, musculoskeletal, serious bacterial infections, as well as others were deemed relatively unlikely. The pt informed about the findings as listed above. All questions were answered and pleased with the treatment. Return instructions were outlined and the patient was discharged in stable condition. Outpatient prescription management: prednisone Referral: The patient was referred back to their primary care physician for follow-up in 2 to 3 days for a recheck of the current condition. Medical Decision As above Impression Primary Impression: Asthmatic bronchitis Departure Information Dispostion Home / Self-Care Condition GOOD Referrals Ramila Welch PA-C (PCP) Patient Instructions My [facility] Additional Instructions Prednisone 50mg: Once daily until the prescription is finished. It is best to take this earlier in the day as some patients note occasional difficulty falling asleep when taken in the late evening. Continue your Tamiflu 75 mg as directed from prior visit Acetaminophen(Tylenol) may be used for fever or pain. Use 1000mg every six hours as needed. Avoid using more than 3000mg in a 24 hour period. (AND/OR) Ibuprofen(Motrin, Advil) may be used for fever or pain. Use 600mg every six hours as needed. Take with food. Avoid using more than 2400mg in a 24 hour period. Do not use 2400mg per day for more than three consecutive days without physician direction. Prolonged inappropriate use can lead to stomach upset or ulcers. Afrin nasal spray: 2-3 sprays to each nostril twice daily as needed for congestion. Do not use for more than 3-4 days because it can lead to worsening rebound congestion. Pseudoephedrine(Sudaphed): 30-60mg every 6 hours as needed for nasal congestion. Do not take this with other stimulant products or supplements. Albuterol Inhaler: Take 2 puffs four times daily for seven days, then as needed. Rest and drink plenty of fluids. Controlling your fever with Tylenol and Ibuprofen as above will make you feel better. Wash your hands after nose blowing, sneezing, or coughing. Most germs are spread through contact, therefore improper hygiene may result in your close contacts and loved ones becoming ill just like you. Continue current medications. Return to the ER for severe headache, neck stiffness, chest pain, difficulty breathing, fevers, vomiting, worsening of your condition, or as needed. Follow up with your primary physician this week for a recheck of your current condition. Problem Qualifiers Primary Impression: Asthmatic bronchitis Asthma severity: unspecified severity Asthma complication type: with acute exacerbation Qualified Codes: J45.901 - Unspecified asthma with (acute) exacerbation
[2016-08-06] MEDS ORDERED: PRED50TA PO (02:11)
[2016-08-06 02:17] VITALS: BP 126/69; PULSE 101; O2SAT 96
--- NOTE | 2016-08-06 07:31 | DIAGNOSTIC IMAGING REPORT ---
TWO VIEW CHEST CLINICAL HISTORY: Cough and fever. FINDINGS: PA and lateral chest radiographs are compared to study dated 08/02/2016. The cardiomediastinal silhouette is unremarkable. The lungs and pleural spaces are clear. There is no pneumothorax. The bony thorax appears intact. An electronic device projects over the left breast. IMPRESSION: No active disease in the chest and no significant change from 08/02/2016. Electronically signed by: Ham Velasco M.D. 08/06/2016 7:30 AM Dictated Date/Time: 08/06/2016 7:29 AM
[2016-10-21] MEDS ORDERED: PANT40TA PO (10:41)
[2016-10-21] MEDS ORDERED: VNTHFA/IN INH (10:45)
[2016-10-21] MEDS ORDERED: ADVIN50/60 INH (12:48)
[2016-10-21] MEDS ORDERED: ALBINS/ NEB (18:38)
== END 2016-08-06 02:33 | disposition home or self-care (01) ==
LOC: C.EDB 00:30 → C.EDA 02:33
DX: J44.1 Chronic obstructive pulmonary disease with (acute) exacerbation (principal); K21.9 Gastro-esophageal reflux disease without esophagitis; I10 Essential (primary) hypertension; Z83.3 Family history of diabetes mellitus; Z82.49 Family history of ischemic heart disease and other diseases of the circulatory system; Z84.1 Family history of disorders of kidney and ureter

== ENCOUNTER 2016-08-11 22:23 | Emergency (ER) | payer OTHER ==
[~2016-08-11] VITALS: Ht 162.6 cm; Wt 68.0 kg
[~2016-08-11 22:23] MED LIST changes: +PRED50TA PO
[2016-08-11] MEDS ORDERED: ALBUT/IPRATROP 3MG/0.5MG NEB 3 ML VIAL INH STA ×2 (22:29→23:57)
[2016-08-11] MEDS ORDERED: METHYLPREDNISOLONE 125 MG VIAL IV STA (22:29)
[2016-08-11 22:33] VITALS: TEMP 36.7; Ht 162.6 cm; Wt 68.0 kg
[2016-08-11 22:55] LABS: BASO % 0.2 %; BASO ABS # 0.03 K/uL (0-0.2); COMPLETE YES; HEMATOCRIT 39.7 % (37-47); IG% 1.2 %; LYMPH % 7.5 %; LYMPH ABS # 1.49 K/uL (1.2-3.4); MEAN CELL VOLUME 91.7 fL (80-100); MEAN CORPUSCULAR HEMOGLOBIN 31.4 pg (25-34); MEAN CORPUSCULAR HGB CONC 34.3 g/dl (32-36); MEAN PLATELET VOLUME 10.2 fL (7.4-10.4); MONO % 8.9 %; NEUT % 82.2 %; PLATELET COUNT 347 K/uL (130-400); RED BLOOD COUNT 4.33 M/uL (4.2-5.4); WHITE BLOOD COUNT 19.76 K/uL (4.8-10.8)
--- NOTE | 2016-08-11 22:55 | DIAGNOSTIC IMAGING REPORT ---
CHEST ONE VIEW PORTABLE CLINICAL HISTORY: Atypical chest pain COMPARISON STUDY: August 06, 2016 FINDINGS: The cardiac and mediastinal contours are normal. There is no evidence of focal pulmonary consolidation. There is no evidence of failure. No pleural effusions are visualized.[ IMPRESSION: No active disease in the chest. Electronically signed by: Layton Garcia M.D. 08/11/2016 10:54 PM Dictated Date/Time: 08/11/2016 10:54 PM
[2016-08-11] MEDS ORDERED: PRED10TA PO (23:07)
[2016-08-11] MEDS ORDERED: CEFD300C3 PO (23:07)
[2016-08-11] MEDS ORDERED: ATV5X PO (23:08)
[2016-08-11 23:14] LABS: ALT/SGPT 20 U/L (12-78); AST/SGOT 6 U/L (15-37); BLOOD UREA NITROGEN 8 mg/dl (7-18); BUN/CREATININE RATIO 8.8 (10-20); CALCIUM 8.4 mg/dl (8.5-10.1); CARBON DIOXIDE 25 mmol/L (21-32); CHLORIDE 104 mmol/L (98-107); CREATININE 0.96 mg/dl (0.60-1.20); GLUCOSE 89 mg/dl (70-99); MAGNESIUM 2.2 mg/dl (1.8-2.4); POTASSIUM 3.5 mmol/L (3.5-5.1); SODIUM 140 mmol/L (136-145)
[2016-08-11 23:19] LABS: ALKALINE PHOSPHATASE 70 U/L (45-117); CKMB/CK RATIO 1.3 (0-3.0)
[2016-08-11 23:24] LABS: PREG INTERNAL POSITIVE QC POS CONTROL LINE
[2016-08-11 23:25] LABS: PREG INTERNAL NEGATIVE QC NEG CLEAR BACKGROUND
[2016-08-11] MEDS ORDERED: LIDOCAINE HCL 2% VISC SOLN 20 ML UDC MT STA (23:38)
[2016-08-11] MEDS ORDERED: BENZONATATE 100MG CAP PO ONE (23:45)
[2016-08-11] MEDS ORDERED: LORAZEPAM 2 MG/ML 1 ML VIAL IV STA (23:57)
[2016-08-12] MEDS ORDERED: ATIVAN 1MG HOMEPACK PO ONE (00:30)
--- NOTE | 2016-08-12 00:31 | EMERGENCY ROOM VISIT NOTE ---
History First contact with patient: 22:25 Chief Complaint: RESPIRATORY PROBLEMS Stated Complaint: SOB, FEVER Nursing Triage Summary: Pt diagnosed with acute bronchitis 5 days ago. Today gave herself neb treatment and used inhaler with no relief. Increasing SOB. Pt currently on steriods. Hx persistent tachycardia. Pt is scheduled to have ablation on Tuesday in [place]. History of Present Illness The patient is a 26 year old female who presents to the Emergency Room with complaints of cough, shortness breath and wheezing has gotten progressively worse for the past week was diagnosed with influenza A last week and then was seen the other day as her asthma flared up. Patient has been using her inhaler and steroids with minimal improvement of symptoms. She does not smoke. No control. No recent travel. She has a scheduled ablation on Tuesday for her SVT. Patient denies leg pain or swelling, abdominal pain, fever, chills , numbness, tingling. She does states she feels quite short of breath, worse than normal. Review of Systems See HPI for pertinent positives & negatives. A total of 10 systems reviewed and were otherwise negative. Past Medical/Surgical History Medical Problems: (1) Asthma (2) Asthma, mild persistent (3) Atrial tachycardia (4) Cellulitis (5) GERD (gastroesophageal reflux disease) (6) HTN (hypertension) (7) Hx of fracture of tibia (8) Ovarian cyst (9) Pharyngitis (10) Sinus tachycardia (11) Sinusitis (12) Sinusitis (13) SVT (supraventricular tachycardia) Surgical Problems: (1) H/O cardiac radiofrequency ablation (2) H/O cardiac radiofrequency ablation (3) H/O section (4) S/P ablation operation for arrhythmia Family History Asthma SISTER Cardiac disorder FATHER GRANDFATHER GRANDMOTHER Gallbladder disease Heart disease Hypertension FATHER BROTHER GRANDFATHER GRANDMOTHER Kidney disease or stones Lung disease Social History Smoking Status: Never Smoker Alcohol Use: none Drug Use: none Housing Status: lives with family Occupation Status: employed Current/Historical Medications Scheduled Cefdinir (Cefdinir), 300 MG PO BID Diltiazem Hcl (Diltiazem Hcl), 60 MG PO TID Fluticasone Prop/Salmeterol (Advair Diskus 500/50 60 Dose), 1 PUFF INH BID Pantoprazole (Protonix), 40 MG PO DAILY Prednisone (Prednisone), 10 MG PO UD Scheduled PRN Acetaminophen (Tylenol), 650 MG PO DAILY PRN for Pain Albuterol Hfa (Ventolin Hfa), 1-2 PUFFS INH QID PRN for Wheezing Albuterol Sulf (Proventil 0.083% 2.5MG/3ML), 3 ML NEB Q4H PRN for SOB/Wheezing Lorazepam (Lorazepam), 0.5 MG PO BID PRN for Anxiety Ondansetron Hcl (Zofran), 1 TAB PO Q6H PRN for Nausea or Vomiting Allergies Coded Allergies: Penicillins (Verified Allergy, Intermediate, RASH, 08/06/16) Sulfa Antibiotics (Verified Allergy, Intermediate, hives, 08/06/16) Codeine (Verified Allergy, Mild, 08/06/16) Morphine (Verified Allergy, Mild, HALLUCINATES, 08/06/16) Levofloxacin (Verified Allergy, Unknown, RASH, joint pain, 08/06/16) Pseudoephedrine (Verified Allergy, Unknown, FEVER, 08/06/16) Egg (Verified Adverse Reaction, Unknown, HEADACHE, 08/06/16) Physical Exam Vital Signs Date Time Temp Pulse Resp B/P Pulse Ox O2 Delivery O2 Flow Rate FiO2 08/12/16 00:17 111 21 139/83 97 Room Air 08/11/16 22:52 147 08/11/16 22:33 36.7 114 16 137/84 97 Room Air 08/11/16 22:33 Room Air 97 08/11/16 22:33 Room Air Physical Exam PHYSICAL EXAM: Vital Signs: Reviewed Nurse's notes. Oxygen saturation was 97% on room air. GENERAL: Pleasant female, Alert, oriented and coherent. The patient is able to speak in complete sentences. NECK: Supple, non-tender. CHEST : Symmetrical expansion. no retractions no accessory muscle use. HEART: Regular rate and normal heart sounds, no murmur, gallop or rub. LUNGS: Breath sounds equal but significantly diminished in intensity on both sides. Bilateral wheezes heard but no rales or pleuritic rub. SKIN: The skin was without rashes, erythema, edema, or bruising. There is no tenting of the skin. Capillary reflex less than 2 seconds. HEAD: Normocephalic atraumatic. EARS: External auditory canals clear, tympanic membranes pearly haskins without erythema or effusion bilaterally. EYES: Pupils equal round and reactive to light and accommodation. Conjunctivae without injection, sclerae without icterus. Extraocular movements intact. NOSE: Patent, turbinates without inflammation or discharge. No sinus tenderness. MOUTH: Mucous membranes moist. Tonsils are not enlarged. Pharynx without erythema or exudate. Uvula midline. Airway patent. Tongue does not deviate. ABDOMEN: Positive bowel sounds x 4. Normal tympanic percussion. Soft, nontender, without masses or organomegaly. Borden sign negative. No guarding or rebound tenderness. MUSCULOSKELETAL: No muscle atrophy, erythema, or edema noted. NEURO: Patient was alert and oriented to person place and time. Normal sensation to light and sharp touch. No focal neurological deficits. Medical Decision & Procedures Laboratory Results 08/11/16 22:44 Red Blood Count 4.33, Mean Corpuscular Volume 91.7, Mean Corpuscular Hemoglobin 31.4, Mean Corpuscular Hemoglobin Concent 34.3, Mean Platelet Volume 10.2, Neutrophils (%) (Auto) 82.2, Lymphocytes (%) (Auto) 7.5, Monocytes (%) (Auto) 8.9, Eosinophils (%) (Auto) 0.0, Basophils (%) (Auto) 0.2, Neutrophils # (Auto) 16.25, Lymphocytes # (Auto) 1.49, Monocytes # (Auto) 1.75, Eosinophils # (Auto) 0.00, Basophils # (Auto) 0.03 08/11/16 22:44 Test 08/11/16 22:44 White Blood Count 19.76 K/uL (4.8-10.8) Red Blood Count 4.33 M/uL (4.2-5.4) Hemoglobin 13.6 g/dL (12.0-16.0) Hematocrit 39.7 % (37-47) Mean Corpuscular Volume 91.7 fL (80-100) Mean Corpuscular Hemoglobin 31.4 pg (25-34) Mean Corpuscular Hemoglobin Concent 34.3 g/dl (32-36) Platelet Count 347 K/uL (130-400) Mean Platelet Volume 10.2 fL (7.4-10.4) Neutrophils (%) (Auto) 82.2 % Lymphocytes (%) (Auto) 7.5 % Monocytes (%) (Auto) 8.9 % Eosinophils (%) (Auto) 0.0 % Basophils (%) (Auto) 0.2 % Neutrophils # (Auto) 16.25 K/uL (1.4-6.5) Lymphocytes # (Auto) 1.49 K/uL (1.2-3.4) Monocytes # (Auto) 1.75 K/uL (0.11-0.59) Eosinophils # (Auto) 0.00 K/uL (0-0.5) Basophils # (Auto) 0.03 K/uL (0-0.2) RDW Standard Deviation 41.8 fL (36.4-46.3) RDW Coefficient of Variation 12.4 % (11.5-14.5) Immature Granulocyte % (Auto) 1.2 % Immature Granulocyte # (Auto) 0.24 K/uL (0.00-0.02) D-Dimer < 190 ug/L FEU (0-500) Anion Gap 11.0 mmol/L (3-11) Est Creatinine Clear Calc Drug Dose 85.6 ml/min Estimated GFR () 95.9 Estimated GFR (Non- 82.8 BUN/Creatinine Ratio 8.8 (10-20) Calcium Level 8.4 mg/dl (8.5-10.1) Magnesium Level 2.2 mg/dl (1.8-2.4) Total Bilirubin 0.3 mg/dl (0.2-1) Direct Bilirubin < 0.1 mg/dl (0-0.2) Aspartate Amino Transf (AST/SGOT) 6 U/L (15-37) Alanine Aminotransferase (ALT/SGPT) 20 U/L (12-78) Alkaline Phosphatase 70 U/L (45-117) Total Creatine Kinase 90 U/L (26-192) Creatine Kinase MB 1.2 ng/ml (0.5-3.6) Creatine Kinase MB Ratio 1.3 (0-3.0) Troponin I < 0.015 ng/ml (0-0.045) Total Protein 6.8 gm/dl (6.4-8.2) Albumin 3.7 gm/dl (3.4-5.0) Human Chorionic Gonadotropin, Qual NEG (NEG) Medications Administered Medications (Trade) Dose Ordered Sig/Anika Route Start Time Stop Time Status Last Admin Dose Admin Albuterol/ Ipratropium (Duoneb) 3 ml NOW STAT INH 2/8/17 22:29 08/11/16 22:32 DC 08/11/16 22:55 3 ML Methylprednisolone Sodium Succinate (Solu-Medrol IV) 125 mg NOW STAT IV 08/11/16 22:29 08/11/16 22:32 DC 08/11/16 22:55 125 MG Benzonatate (Tessalon Perles Cap) 100 mg NOW ONCE PO 08/11/16 23:45 08/11/16 23:46 DC 08/11/16 23:45 100 MG Lorazepam (Ativan Inj) 1 mg NOW STAT IV 08/11/16 23:57 08/11/16 23:59 DC 08/12/16 00:17 1 MG Albuterol/ Ipratropium (Duoneb) 3 ml NOW STAT INH 08/11/16 23:57 08/11/16 23:59 DC 08/12/16 00:17 3 ML ED Course Prior records/ancillary studies reviewed. Triage Nursing notes reviewed. Additional history obtained from the EMS The patient's history was concerning for respiratory difficulties. Differential diagnosis: Etiologies such as infections, reactive airway disease, pneumonia, pneumothorax , COPD, CHF, cardiac ischemia, pulmonary embolism, musculoskeletal, gastrointestinal, as well as others were entertained. Physical examination: As above. ER treatment provided: Nebulizer, Solu Medrol On reassessment the patient felt better. Diagnostic interpretation by me: The electrocardiogram was negative for acute ischemic or pathologic change. Normal sinus, normal intervals, no acute ST-T wave changes. Impression sinus tachycardia interpreted by myself The labs revealed leukocytosis most likely a stress reaction from prednisone. Negative d-dimer. Negative troponin Imaging studies: Chest x-ray as above. CT EXTREMITY RIGHT LOWER: Comparison: Right foot radiograph 08/11/16 erosive changes of the head of the second metatarsal with fracture deformity in addition to erosive change at the base of the proximal phalanx of the second toe with air densities in the head of the second metatarsal. Findings are compatible with osteomyelitis involving these bones. There is adjacent prominent soft tissue inflammation with soft tissue swelling extending throughout the second toe and also at the plantar soft tissues of the distal foot at the second metatarsal phalangeal level with some extension posteriorly to the midfoot along the expected flexor digitorum tendon. There is soft tissue ulceration at the plantar distal foot at the level of the second metatarsophalangeal joint level. Subcutaneous edema and inflammatory change in the mid and distal foot are noted. No distinct soft tissue abscess is seen. Amputation of the great toe at the first metatarsophalangeal joint level and also of the fifth toe with old posttraumatic deformity of the third through fifth metatarsals are noted. Degenerative changes of several of the joints are present. No joint dislocation. Radiologist: Teto Cho M.D. This appears to be consistent with asthma exacerbation. Patient felt much better after being medicated as above. She was not hypoxic. She is speaking in full sentences. She requested to leave. She is advised to continue medications from prior visit and follow-up family care in a few days or here in the ER sooner for difficulty breathing, fevers, chest pain, worsening signs or symptoms or as needed. By the evaluation outlined above emergent etiologies such as CHF, cardiac ischemia, pulmonary embolism, pneumonia, pneumothorax, musculoskeletal, serious bacterial infections, as well as others were deemed relatively unlikely. The pt informed about the findings as listed above. All questions were answered and pleased with the treatment. Return instructions were outlined and the patient was discharged in stable condition. Outpatient prescription management: Dieudonne Stewart Referral: The patient was referred back to their primary care physician for follow-up in 2 to 3 days for a recheck of the current condition. Case reviewed with my attending Medical Decision As above Impression Primary Impression: Asthmatic bronchitis Departure Information Dispostion Home / Self-Care Condition GOOD Referrals Ramila Welch PA-C (PCP) Patient Instructions My [facility] Additional Instructions Dieudonne Stewart 100 m tablet every 8 hours as needed for cough. Albuterol Inhaler: Take 2 puffs four times daily for five days, then as needed. Acetaminophen(Tylenol) may be used for fever or pain. Use 1000mg every six hours as needed. Avoid using more than 3000mg in a 24 hour period. (AND/OR) Ibuprofen(Motrin, Advil) may be used for fever or pain. Use 600mg every six hours as needed. Take with food. Avoid using more than 2400mg in a 24 hour period. Do not use 2400mg per day for more than three consecutive days without physician direction. Prolonged inappropriate use can lead to stomach upset or ulcers. Rest and drink plenty of fluids. Avoid smoke/smoking, fumes, dust, or any triggers in the past that may have affected your breathing. Continue current medications. Return to the ER for chest pain, difficulty breathing, fevers, vomiting, worsening of your condition, or as needed. Follow up with your primary physician this week for a recheck of your current condition. Problem Qualifiers Primary Impression: Asthmatic bronchitis Asthma severity: unspecified severity Asthma complication type: with status asthmaticus Qualified Codes: J45.902 - Unspecified asthma with status asthmaticus
[2016-08-12] MEDS ORDERED: BENZ100C18 PO (00:32)
[2016-08-12 00:43] VITALS: BP 139/83; PULSE 111; O2SAT 97
[2016-10-21] MEDS ORDERED: PANT40TA PO (10:41)
[2016-10-21] MEDS ORDERED: VNTHFA/IN INH (10:45)
[2016-10-21] MEDS ORDERED: ADVIN50/60 INH (12:48)
[2016-10-21] MEDS ORDERED: ALBINS/ NEB (18:38)
== END 2016-08-12 00:44 | disposition home or self-care (01) ==
LOC: EDBD 22:23 → C.EDB 22:24
DX: J45.909 Unspecified asthma, uncomplicated (principal); J40 Bronchitis, not specified as acute or chronic; I10 Essential (primary) hypertension; K21.9 Gastro-esophageal reflux disease without esophagitis; N83.209 Unspecified ovarian cyst, unspecified side; Z87.81 Personal history of (healed) traumatic fracture; Z86.19 Personal history of other infectious and parasitic diseases; Z98.890 Other specified postprocedural states; Z79.899 Other long term (current) drug therapy; Z88.0 Allergy status to penicillin; Z88.2 Allergy status to sulfonamides; Z88.5 Allergy status to narcotic agent; Z88.8 Allergy status to other drugs, medicaments and biological substances; Z82.49 Family history of ischemic heart disease and other diseases of the circulatory system; Z84.1 Family history of disorders of kidney and ureter; Z83.79 Family history of other diseases of the digestive system

== ENCOUNTER 2016-09-01 15:05 | Emergency (ER) | payer OTHER ==
[~2016-09-01] VITALS: Ht 162.6 cm; Wt 73.4 kg
[~2016-09-01 15:05] MED LIST changes: +ATV5X PO; +CEFD300C3 PO; -OSEL75CA12 PO; +PRED10TA PO; -PRED50TA PO; -RBTUDL5 PO
[2016-09-01 15:12] VITALS: TEMP 37.1; Ht 162.6 cm; Wt 73.4 kg
--- NOTE | 2016-09-01 15:26 | EMERGENCY ROOM VISIT NOTE ---
History Report prepared by Azar: Jose Clinton Under the Supervision of: Dr. Theo Parra D.O. First contact with patient: 15:14 Chief Complaint: CARDIAC ASSESSMENT Stated Complaint: CHEST PAIN History of Present Illness The patient is a 26 year old female who presents to the Emergency Room with complaints of intermittent left-sided chest pain since 1419 today. The pain is sharp in nature. There are no worsening factors known to the patient. The pain is also felt in the shoulder area but does not radiate to her arm. The patient also complains of nausea all day. She has a history of SVT. The patient follows up with Dr. Rodriguez (Cardiology). The patient had an ablation in 2012. Another ablation was attempted this past week at [facility] two days ago and she was discharged yesterday. The patient recently changed her medication from Diltiazem to Nadolol and notes that her heart rate decreased. Source of History: patient Onset: 1419 today Position: chest (left) Quality: sharp Timing: intermittent Modifying Factors (Worsening): other (none) Associated Symptoms: + nausea Review of Systems See HPI for pertinent positives & negatives. A total of 10 systems reviewed and were otherwise negative. Past Medical & Surgical Medical Problems: (1) Asthma (2) Asthma, mild persistent (3) Atrial tachycardia (4) Cellulitis (5) GERD (gastroesophageal reflux disease) (6) HTN (hypertension) (7) Hx of fracture of tibia (8) Ovarian cyst (9) Pharyngitis (10) Sinus tachycardia (11) Sinusitis (12) Sinusitis (13) SVT (supraventricular tachycardia) Surgical Problems: (1) H/O cardiac radiofrequency ablation (2) H/O cardiac radiofrequency ablation (3) H/O section (4) S/P ablation operation for arrhythmia Family History Asthma SISTER Cardiac disorder FATHER GRANDFATHER GRANDMOTHER Gallbladder disease Heart disease Hypertension FATHER BROTHER GRANDFATHER GRANDMOTHER Kidney disease or stones Lung disease Social History Smoking Status: Never Smoker Alcohol Use: none Drug Use: none Housing Status: lives with family Occupation Status: employed Current/Historical Medications Scheduled Fluticasone Prop/Salmeterol (Advair Diskus 500/50 60 Dose), 1 PUFF INH BID Nadolol (Corgard), 80 MG PO BID Pantoprazole (Protonix), 40 MG PO QAM Scheduled PRN Acetaminophen (Tylenol), 650 MG PO DAILY PRN for Pain Albuterol Hfa (Ventolin Hfa), 1-2 PUFFS INH QID PRN for Wheezing Albuterol Sulf (Proventil 0.083% 2.5MG/3ML), 3 ML NEB Q4H PRN for SOB/Wheezing Lorazepam (Lorazepam), 0.5 MG PO BID PRN for Anxiety Ondansetron Hcl (Zofran), 1 TAB PO Q6H PRN for Nausea or Vomiting Allergies Coded Allergies: Penicillins (Verified Allergy, Intermediate, RASH, 09/01/16) Sulfa Antibiotics (Verified Allergy, Intermediate, hives, 09/01/16) Codeine (Verified Allergy, Mild, 09/01/16) Morphine (Verified Allergy, Mild, HALLUCINATES, 09/01/16) Levofloxacin (Verified Allergy, Unknown, RASH, joint pain, 09/01/16) Pseudoephedrine (Verified Allergy, Unknown, FEVER, 09/01/16) Egg (Verified Adverse Reaction, Unknown, HEADACHE, 09/01/16) Physical Exam Vital Signs Date Time Temp Pulse Resp B/P Pulse Ox O2 Delivery O2 Flow Rate FiO2 09/01/16 17:00 79 16 112/71 99 Room Air 09/01/16 15:29 96 Room Air 09/01/16 15:18 91 09/01/16 15:17 96 Room Air 09/01/16 15:12 37.1 91 16 124/79 96 Room Air 09/01/16 15:12 96 Room Air Physical Exam CONSTITUTIONAL/VITAL SIGNS: Reviewed / noted above. GENERAL: Non-toxic in appearance. INTEGUMENTARY: Warm, dry, and [place]. HEAD: Normocephalic. EYES: without scleral icterus or trauma. ENT/OROPHARYNX: clear and moist. LYMPHADENOPATHY/NECK: Is supple without lymphadenopathy or meningismus. RESPIRATORY: Lungs clear and equal. CARDIOVASCULAR: Regular rate and rhythm. GI/ABDOMEN: Soft and nontender. No organomegaly or pulsatile mass. No rebound or guarding. Normal bowel sounds. EXTREMITIES: Warm and well perfused. BACK: No CVA tenderness. NEUROLOGICAL: Intact without focal deficits. PSYCHIATRIC: normal affect. MUSCULOSKELETAL: Normally developed with good muscle tone. Medical Decision & Procedures ER Provider Diagnostic Interpretation: X ray results and stated below per my interpretation and radiology interpretation. SINGLE VIEW CHEST CLINICAL HISTORY: Fever. Sepsis. FINDINGS: An AP, portable, upright chest radiograph is compared to study dated 08/11/2016. The cardiomediastinal silhouette is unremarkable. The lungs and pleural spaces are clear. No pneumothorax is seen. The bony thorax is grossly intact. An electronic device projects over the left lower chest. IMPRESSION: No active disease in the chest and no significant change from 08/11/2016. Electronically signed by: Ham Velasco M.D. 09/01/2016 3:35 PM Dictated Date/Time: 09/01/2016 3:34 PM Laboratory Results 09/01/16 15:50 Red Blood Count 4.53, Mean Corpuscular Volume 87.2, Mean Corpuscular Hemoglobin 31.6, Mean Corpuscular Hemoglobin Concent 36.2, Mean Platelet Volume 10.5, Neutrophils (%) (Auto) 64.2, Lymphocytes (%) (Auto) 22.5, Monocytes (%) (Auto) 8.9, Eosinophils (%) (Auto) 3.6, Basophils (%) (Auto) 0.4, Neutrophils # (Auto) 5.05, Lymphocytes # (Auto) 1.77, Monocytes # (Auto) 0.70, Eosinophils # (Auto) 0.28, Basophils # (Auto) 0.03 09/01/16 15:50 Test 09/01/16 15:50 White Blood Count 7.86 K/uL (4.8-10.8) Red Blood Count 4.53 M/uL (4.2-5.4) Hemoglobin 14.3 g/dL (12.0-16.0) Hematocrit 39.5 % (37-47) Mean Corpuscular Volume 87.2 fL (80-100) Mean Corpuscular Hemoglobin 31.6 pg (25-34) Mean Corpuscular Hemoglobin Concent 36.2 g/dl (32-36) Platelet Count 225 K/uL (130-400) Mean Platelet Volume 10.5 fL (7.4-10.4) Neutrophils (%) (Auto) 64.2 % Lymphocytes (%) (Auto) 22.5 % Monocytes (%) (Auto) 8.9 % Eosinophils (%) (Auto) 3.6 % Basophils (%) (Auto) 0.4 % Neutrophils # (Auto) 5.05 K/uL (1.4-6.5) Lymphocytes # (Auto) 1.77 K/uL (1.2-3.4) Monocytes # (Auto) 0.70 K/uL (0.11-0.59) Eosinophils # (Auto) 0.28 K/uL (0-0.5) Basophils # (Auto) 0.03 K/uL (0-0.2) RDW Standard Deviation 42.3 fL (36.4-46.3) RDW Coefficient of Variation 13.3 % (11.5-14.5) Immature Granulocyte % (Auto) 0.4 % Immature Granulocyte # (Auto) 0.03 K/uL (0.00-0.02) Red Blood Cell Morphology Unremarkable Prothrombin Time 10.4 SECONDS (9.0-12.0) Prothromb Time International Ratio 1.0 (0.9-1.1) Activated Partial Thromboplast Time 30.3 SECONDS (21.0-31.0) Partial Thromboplastin Ratio 1.2 Anion Gap 7.0 mmol/L (3-11) Est Creatinine Clear Calc Drug Dose 87.8 ml/min Estimated GFR () 94.7 Estimated GFR (Non- 81.7 BUN/Creatinine Ratio 9.6 (10-20) Calcium Level 9.4 mg/dl (8.5-10.1) Total Bilirubin 0.7 mg/dl (0.2-1) Direct Bilirubin 0.1 mg/dl (0-0.2) Aspartate Amino Transf (AST/SGOT) 21 U/L (15-37) Alanine Aminotransferase (ALT/SGPT) 35 U/L (12-78) Alkaline Phosphatase 64 U/L (45-117) Total Creatine Kinase 60 U/L (26-192) Creatine Kinase MB < 0.5 ng/ml (0.5-3.6) Creatine Kinase MB Ratio (0-3.0) Troponin I < 0.015 ng/ml (0-0.045) Total Protein 7.2 gm/dl (6.4-8.2) Albumin 3.7 gm/dl (3.4-5.0) Lipase 180 U/L (73-393) Thyroid Stimulating Hormone (TSH) 1.920 uIu/ml (0.300-4.500) Laboratory results as stated above per my review. ECG Indication: chest pain Rate (beats per minute): 81 Rhythm: normal sinus Findings: no acute ischemic change, no ectopy ED Course 1520: Previous medical records were reviewed. The patient was evaluated in room C4. A complete history and physical examination was performed. 1800: Reassessed the patient. Discussed the findings with her. She verbalized understanding and agreement of the treatment plan. The patient is ready for discharge. Medical Decision The differential that was considered includes acute myocardial infarction, acute coronary syndrome, myocarditis, pericarditis, pericardial effusions / tamponade, esophageal perforation, thoracic aortic dissection, pulmonary embolism, pneumonia, pneumothorax, pancreatitis, shingles, acute cholecystitis, perforated abdominal viscus. This is a 26-year-old female who presents to the ED with a chief complaint of sharp left-sided chest pain and some nausea off and on all day. Symptoms started around 220 this afternoon. She reports the pain is off and on all day. She had an attempted ablation 2 days ago but did not as they were unable to precipitate her SVT. The patient's vital signs are normal. Her physical exam was normal. The pain comes and goes and therefore is not likely to be a PE. EKG showed a normal sinus rhythm. CBC is normal. Complete metabolic panel was unremarkable. Troponin is negative. TSH is normal. Lipase is negative. The patient was told the results of the test. She was felt to be stable for discharge and outpatient follow-up. Impression Primary Impression: Left sided chest pain Scribe Attestation The scribe's documentation has been prepared under my direction and personally reviewed by me in its entirety. I confirm that the note above accurately reflects all work, treatment, procedures, and medical decision making performed by me. Departure Information Dispostion Home / Self-Care Referrals Ramila Welch PA-C (PCP) Forms IMPORTANT VISIT INFORMATION Patient Instructions My [facility] Additional Instructions Use Tylenol or Motrin as needed for pain. Return for any worsening or new concerns. Follow-up with your doctor for recheck.
[2016-09-01 15:29] VITALS: O2SAT 96
--- NOTE | 2016-09-01 15:36 | DIAGNOSTIC IMAGING REPORT ---
SINGLE VIEW CHEST CLINICAL HISTORY: Fever. Sepsis. FINDINGS: An AP, portable, upright chest radiograph is compared to study dated 08/11/2016. The cardiomediastinal silhouette is unremarkable. The lungs and pleural spaces are clear. No pneumothorax is seen. The bony thorax is grossly intact. An electronic device projects over the left lower chest. IMPRESSION: No active disease in the chest and no significant change from 08/11/2016. Electronically signed by: Ham Velasco M.D. 09/01/2016 3:35 PM Dictated Date/Time: 09/01/2016 3:34 PM
[2016-09-01] MEDS ORDERED: NADO80TA PO (16:06)
[2016-09-01 16:10] LABS: HEMATOCRIT 39.5 % (37-47); MEAN CELL VOLUME 87.2 fL (80-100); MEAN CORPUSCULAR HEMOGLOBIN 31.6 pg (25-34); MEAN CORPUSCULAR HGB CONC 36.2 g/dl (32-36); MEAN PLATELET VOLUME 10.5 fL (7.4-10.4); PLATELET COUNT 225 K/uL (130-400); RED BLOOD COUNT 4.53 M/uL (4.2-5.4); WHITE BLOOD COUNT 7.86 K/uL (4.8-10.8)
[2016-09-01 16:19] LABS: PARTIAL THROMBOPLASTIN RATIO 1.2; PROTHROMBIN TIME (PATIENT) 10.4 SECONDS (9.0-12.0)
[2016-09-01 16:30] LABS: ALT/SGPT 35 U/L (12-78); BLOOD UREA NITROGEN 9 mg/dl (7-18); BUN/CREATININE RATIO 9.6 (10-20); CALCIUM 9.4 mg/dl (8.5-10.1); CARBON DIOXIDE 24 mmol/L (21-32); CHLORIDE 109 mmol/L (98-107); CREATININE 0.97 mg/dl (0.60-1.20); GLUCOSE 80 mg/dl (70-99); POTASSIUM 3.8 mmol/L (3.5-5.1); SODIUM 140 mmol/L (136-145)
[2016-09-01 16:40] LABS: ALKALINE PHOSPHATASE 64 U/L (45-117); AST/SGOT 21 U/L (15-37)
[2016-09-01 17:08] LABS: BASO % 0.4 %; BASO ABS # 0.03 K/uL (0-0.2); COMPLETE YES; EOS % 3.6 %; IG% 0.4 %; LYMPH % 22.5 %; LYMPH ABS # 1.77 K/uL (1.2-3.4); MONO % 8.9 %; NEUT % 64.2 %
[2016-09-01 18:19] VITALS: BP 107/79; PULSE 88; O2SAT 97
[2016-10-21] MEDS ORDERED: PANT40TA PO (10:41)
[2016-10-21] MEDS ORDERED: VNTHFA/IN INH (10:45)
[2016-10-21] MEDS ORDERED: ADVIN50/60 INH (12:48)
[2016-10-21] MEDS ORDERED: ALBINS/ NEB (18:38)
== END 2016-09-01 18:20 | disposition home or self-care (01) ==
LOC: EDBD 15:05 → C.EDC 15:06
DX: R07.9 Chest pain, unspecified (principal); R11.0 Nausea; I10 Essential (primary) hypertension; K21.9 Gastro-esophageal reflux disease without esophagitis; J45.909 Unspecified asthma, uncomplicated; N83.209 Unspecified ovarian cyst, unspecified side; Z87.81 Personal history of (healed) traumatic fracture; Z86.19 Personal history of other infectious and parasitic diseases; Z98.890 Other specified postprocedural states; Z88.0 Allergy status to penicillin; Z88.2 Allergy status to sulfonamides; Z88.5 Allergy status to narcotic agent; Z88.8 Allergy status to other drugs, medicaments and biological substances; Z91.018 Allergy to other foods; Z82.49 Family history of ischemic heart disease and other diseases of the circulatory system; Z84.1 Family history of disorders of kidney and ureter

== ENCOUNTER → 2016-09-20 | Outpatient (CLI) | payer OTHER ==
[~2016-09-20] MED LIST changes: +ADVIN50/60 INH; +ALBINS/ NEB; -CEFD300C3 PO; -DILT60TA PO; +DOXY100C2 PO; +IBUP-103 PO; +LETR2TAB PO; +NADO20TA PO; +NADO80TA PO; +PANT40TA PO; -PRED10TA PO; +PRED20TA2 PO; +VALA500T60 PO; +VNTHFA/IN INH
[2016-09-20 12:21] LABS: PREG INTERNAL NEGATIVE QC NEG CLEAR BACKGROUND; PREG INTERNAL POSITIVE QC POS CONTROL LINE
== END | disposition home or self-care (01) ==
LOC: C.LAB1850 11:19
PROVIDERS: ATTEND Obstetrics & Gynecology
DX: N93.9 Abnormal uterine and vaginal bleeding, unspecified (principal)

== ENCOUNTER 2016-10-02 09:37 | Emergency (ER) | payer OTHER ==
[~2016-10-02] VITALS: Ht 160 cm; Wt 69.6 kg
[~2016-10-02 09:37] MED LIST changes: -ADVIN50/60 INH; -ALBINS/ NEB; -DOXY100C2 PO; -IBUP-103 PO; -LETR2TAB PO; -NADO20TA PO; -PANT40TA PO; -PRED20TA2 PO; -VALA500T60 PO; -VNTHFA/IN INH
[2016-10-02 09:46] VITALS: TEMP 36.9; Ht 160 cm; Wt 69.6 kg
[2016-10-02] MEDS ORDERED: DEXAMETHASONE SOD INJ 10 MG/ML VIAL IM STA (09:56)
--- NOTE | 2016-10-02 10:56 | EMERGENCY ROOM VISIT NOTE ---
History First contact with patient: 09:48 Chief Complaint: RASH Stated Complaint: RASH ON FACE, ITCHY History of Present Illness The patient is a 26 year old female who presents to the Emergency Room via private vehicle with complaints of "rash on face, itchy". The patient states that she woke up this morning around 8 AM, with an itchy face and nose. She initially thought it could be related to dairy consumption, however she notes that she did begin to use new acne pads 3-4 days ago. She states that she woke up yesterday with similar, but not as severe. She states that she again use the acne pads this morning. She notes that the rash is only the distribution of where she use the pads. No other rashes on the body. She states that the rash feels like it's hot and burning. She denies any trouble breathing or throat swelling. She denies any other rashes. Review of Systems A complete 6-point Review of Systems was discussed with the patient, with pertinent positives and negatives listed in the History of Present Illness. All remaining Review of Systems questions can be considered negative unless otherwise specified. Past Medical/Surgical History Medical Problems: (1) Asthma (2) Asthma, mild persistent (3) Atrial tachycardia (4) Cellulitis (5) GERD (gastroesophageal reflux disease) (6) HTN (hypertension) (7) Hx of fracture of tibia (8) Ovarian cyst (9) Pharyngitis (10) Sinus tachycardia (11) Sinusitis (12) Sinusitis (13) SVT (supraventricular tachycardia) Surgical Problems: (1) H/O cardiac radiofrequency ablation (2) H/O cardiac radiofrequency ablation (3) H/O section (4) S/P ablation operation for arrhythmia Family History Asthma SISTER Cardiac disorder FATHER GRANDFATHER GRANDMOTHER Gallbladder disease Heart disease Hypertension FATHER BROTHER GRANDFATHER GRANDMOTHER Kidney disease or stones Lung disease Social History Smoking Status: Never Smoker Alcohol Use: none Drug Use: none Housing Status: lives with family Occupation Status: employed Current/Historical Medications Scheduled Fluticasone Prop/Salmeterol (Advair Diskus 500/50 60 Dose), 1 PUFF INH BID Nadolol (Corgard), 80 MG PO BID Pantoprazole (Protonix), 40 MG PO QAM Scheduled PRN Acetaminophen (Tylenol), 650 MG PO DAILY PRN for Pain Albuterol Hfa (Ventolin Hfa), 1-2 PUFFS INH QID PRN for Wheezing Albuterol Sulf (Proventil 0.083% 2.5MG/3ML), 3 ML NEB Q4H PRN for SOB/Wheezing Lorazepam (Lorazepam), 0.5 MG PO BID PRN for Anxiety Ondansetron Hcl (Zofran), 1 TAB PO Q6H PRN for Nausea or Vomiting Allergies Coded Allergies: Penicillins (Verified Allergy, Intermediate, RASH, 10/02/16) Sulfa Antibiotics (Verified Allergy, Intermediate, hives, 10/02/16) Codeine (Verified Allergy, Mild, 10/02/16) Morphine (Verified Allergy, Mild, HALLUCINATES, 10/02/16) Levofloxacin (Verified Allergy, Unknown, RASH, joint pain, 10/02/16) Pseudoephedrine (Verified Allergy, Unknown, FEVER, 10/02/16) Egg (Verified Adverse Reaction, Unknown, HEADACHE, 10/02/16) Physical Exam Vital Signs Date Time Temp Pulse Resp B/P Pulse Ox O2 Delivery O2 Flow Rate FiO2 10/02/16 11:06 68 18 126/79 98 10/02/16 09:46 36.9 99 18 130/65 97 Room Air Physical Exam VITAL SIGNS - Vital signs and nursing notes were reviewed. Patient is afebrile , normotensive, not tachycardic and saturating well on room air 97%. GENERAL -26-year-old female appearing her stated age who is in no acute distress. Communicates well with provider and answers questions appropriately. SKIN - overlying the anterior forehead, to the sides of the nose and on the nose there is an erythematous, slightly raised rash. There is no drainage or evidence of intraoral edema. HEAD - NC/AT. EYES - Sclera anicteric. Palpebral conjunctiva pink and moist with no injection noted. EARS - No deformities of external structures noted on gross examination bilaterally. NOSE - Midline and without cyanosis. No epistaxis or purulent drainage noted. Septum midline without deviation or septal hematoma noted. MOUTH/OROPHARYNX - Without perioral cyanosis. Buccal mucosa pink and moist and without leukoplakia. Tongue midline with equal elevation of palate bilaterally. No tonsillar hypertrophy, erythema, or exudates noted. Good dentition noted. NECK - Neck with FROM. Supple to palpation. No lymphadenopathy noted. No nuchal rigidity. LUNGS - Chest wall symmetric without accessory muscle use, intercostals retractions, or central cyanosis. Normal vesicular breath sounds CTA B/L. No wheezes, rales, or rhonchi appreciated. CARDIAC - RRR with S1/S2. No murmur, rubs, or gallops appreciated. Medical Decision & Procedures Medications Administered Medications (Trade) Dose Ordered Sig/Anika Route Start Time Stop Time Status Last Admin Dose Admin Dexamethasone Sodium Phosphate (Decadron Inj) 10 mg NOW STAT IM 10/02/16 09:56 10/02/16 09:57 DC 10/02/16 10:24 10 MG Medical Decision Patient was seen and evaluated as above. She has contact dermatitis with a slight allergic reaction likely secondary to the acne pads. This is located and exclusively on the face. No other rash noted. No evidence of intraoral involvement or breathing troubles. She had taken Benadryl prior to arrival. She was given Decadron 10 mg IM, was reassessed 1 hour later and was feeling better. No worsening of the reaction. She was instructed to discontinue the hands. She was educated upon worrisome symptoms which to return, had questions prior to discharge and was discharged home in good condition. In the evaluation and treatment of this patient the following differential diagnoses were entertained: Contact dermatitis, allergic reaction, anaphylaxis, among others. Impression Primary Impression: Allergic reaction to chemical substance Additional Impression: Contact dermatitis Departure Information Dispostion Home / Self-Care Condition GOOD Referrals Shazia David DO (PCP) Patient Instructions My [facility] Additional Instructions You have been treated in the Emergency Department for an Allergic Reaction/ contact dermatitis. You have been treated and monitored in the Emergency Department appropriately. You should take Benadryl (diphenhydramine) 25 mg orally every 6 hours for the next 5-7 days. This medication is [id number] and you will NOT need a prescription to purchase this at your local pharmacy. You should continue taking the Benadryl for the COMPLETION of the 5-7 days. This is to prevent a rebound allergic reaction in the event that allergens are still present in your system. As with every Emergency Department visit, you should follow-up with your primary care provider in 2-3 days for reevaluation. Return to the Emergency Department if your current symptoms worsen despite treatment course outlined above, or if you develop any of the following symptoms : wheezing, tongue or face swelling, tightness in your throat, shortness of breath, or fainting. Please discontinue the face wash pads. Please return to emergency department with any new/concerning symptoms. Problem Qualifiers
[2016-10-02 11:06] VITALS: BP 126/79; PULSE 68; O2SAT 98
[2016-10-21] MEDS ORDERED: PANT40TA PO (10:41)
[2016-10-21] MEDS ORDERED: VNTHFA/IN INH (10:45)
[2016-10-21] MEDS ORDERED: ADVIN50/60 INH (12:48)
[2016-10-21] MEDS ORDERED: ALBINS/ NEB (18:38)
[2017-04-29] MEDS ORDERED: NADO20TA PO (09:49)
[2017-04-29] MEDS ORDERED: VALA1TAB31 PO (09:49)
[2017-04-29] MEDS ORDERED: OXYC1TAB3 PO (10:38)
== END 2016-10-02 11:08 | disposition home or self-care (01) ==
LOC: C.EDB 09:38
DX: T78.49XA Other allergy, initial encounter (principal); L24.4 Irritant contact dermatitis due to drugs in contact with skin; X58.XXXA Exposure to other specified factors, initial encounter

== ENCOUNTER 2016-10-21 19:20 | Emergency (ER) | payer OTHER ==
[~2016-10-21] VITALS: Ht 162.6 cm; Wt 66.0 kg
[~2016-10-21 19:20] MED LIST changes: +ADVIN50/60 INH; +ALBINS/ NEB; +PANT40TA PO; +VNTHFA/IN INH
[2016-10-21 19:26] VITALS: Ht 162.6 cm; Wt 66.0 kg
[2016-10-21] MEDS ORDERED: NADO20TA PO (19:59)
[2016-10-21] MEDS ORDERED: DEXAMETHASONE SOD INJ 4 MG/ML VIAL IM ONE (20:00)
[2016-10-21] MEDS ORDERED: IBUP-103 PO (20:00)
[2016-10-21] MEDS ORDERED: DEXAMETHASONE SOD INJ 10 MG/ML VIAL ONE (20:12)
--- NOTE | 2016-10-21 20:25 | EMERGENCY ROOM VISIT NOTE ---
History First contact with patient: 19:33 Chief Complaint: INFECTION Stated Complaint: STAPH INFECTION ON BUTT, PAINFUL UPPER RESP History of Present Illness The patient is a 26 year old female who presents to the Emergency Room with complaints of upper respiratory symptoms and infection of her left buttock. The patient reports that she was initially seen by [facility] for a possible infection of her left buttock. She was placed on doxycycline. She followed up with her primary care provider yesterday, and they gave her an injection of Rocephin. They also scheduled her for an appointment in 2 days for possible incision and drainage if the area worsens. She states that the area is very red and painful and she has not noticed improvement. She rates her discomfort a 6/10. She is taking her antibiotic as prescribed. She is taking ibuprofen and Tylenol for pain. The patient also notes that she has had a cough and a feeling of tightness in her chest. She reports that she typically has upper respiratory infections at this time of year due to seasonal allergies. She has been taking Benadryl without relief. She reports that a steroid injection typically helps her symptoms. He denies any chest pain, shortness of breath, abdominal pain, fevers or chills. Review of Systems A complete 10-point Review of Systems was discussed with the patient, with pertinent positives and negatives listed in the History of Present Illness. All remaining Review of Systems questions can be considered negative unless otherwise specified. Past Medical/Surgical History Medical Problems: (1) Asthma (2) Asthma, mild persistent (3) Atrial tachycardia (4) Cellulitis (5) GERD (gastroesophageal reflux disease) (6) HTN (hypertension) (7) Hx of fracture of tibia (8) Ovarian cyst (9) Pharyngitis (10) Sinus tachycardia (11) Sinusitis (12) Sinusitis (13) SVT (supraventricular tachycardia) Surgical Problems: (1) H/O cardiac radiofrequency ablation (2) H/O cardiac radiofrequency ablation (3) H/O section (4) S/P ablation operation for arrhythmia Family History Asthma SISTER Cardiac disorder FATHER GRANDFATHER GRANDMOTHER Gallbladder disease Heart disease Hypertension FATHER BROTHER GRANDFATHER GRANDMOTHER Kidney disease or stones Lung disease Social History Smoking Status: Never Smoker Alcohol Use: none Drug Use: none Housing Status: lives with family Occupation Status: employed Current/Historical Medications Scheduled Fluticasone Prop/Salmeterol (Advair Diskus 500/50 60 Dose), 1 PUFF INH BID Nadolol (Corgard), 20 MG PO DAILY Pantoprazole (Protonix), 40 MG PO QAM Scheduled PRN Albuterol Hfa (Ventolin Hfa), 1-2 PUFFS INH QID PRN for Wheezing Albuterol Sulf (Proventil 0.083% 2.5MG/3ML), 3 ML NEB Q4H PRN for SOB/Wheezing Ibuprofen Tab (Advil), 400-600 MG PO Q6H PRN for Pain or Fever Ondansetron Hcl (Zofran), 1 TAB PO Q6H PRN for Nausea or Vomiting Allergies Coded Allergies: Penicillins (Verified Allergy, Intermediate, RASH, 10/02/16) Sulfa Antibiotics (Verified Allergy, Intermediate, hives, 10/02/16) Codeine (Verified Allergy, Mild, 10/02/16) Morphine (Verified Allergy, Mild, HALLUCINATES, 10/02/16) Levofloxacin (Verified Allergy, Unknown, RASH, joint pain, 10/02/16) Pseudoephedrine (Verified Allergy, Unknown, FEVER, 10/02/16) Egg (Verified Adverse Reaction, Unknown, HEADACHE, 10/02/16) Physical Exam Vital Signs Date Time Temp Pulse Resp B/P Pulse Ox O2 Delivery O2 Flow Rate FiO2 10/21/16 20:30 37.0 80 16 110/72 99 10/21/16 19:26 37.2 98 16 113/75 98 Room Air Physical Exam VITALS: Vitals are noted on the nurse's note and reviewed by myself. Vital signs stable. GENERAL: This is a 26-year-old female, in no acute distress, nondiaphoretic, well-developed well-nourished. SKIN: There is an area of cellulitis over the left buttock with minimal induration centrally. There is no fluctuance or pointing. EARS: External auditory canals clear, tympanic membranes pearly haskins without erythema or effusion bilaterally. EYES: Pupils equal round and reactive to light and accommodation. MOUTH: Mucous membranes moist. Tonsils are not enlarged. Pharynx without erythema or exudate. NECK: Supple without nuchal rigidity. No lymphadenopathy. HEART: Regular rate and rhythm without murmurs gallops or rubs. LUNGS: Clear to auscultation bilaterally without wheezes, rales or rhonchi. ABDOMEN: Positive bowel sounds x 4. Soft, nontender to palpation. NEURO: Patient was alert and oriented to person place and time. Medical Decision & Procedures Medications Administered Medications (Trade) Dose Ordered Sig/Anika Route Start Time Stop Time Status Last Admin Dose Admin Dexamethasone Sodium Phosphate (Decadron Inj) 10 mg STK-MED ONCE .ROUTE 10/21/16 20:12 10/21/16 20:13 DC 10/21/16 20:09 10 MG Medical Decision Differential diagnosis includes cellulitis, abscess, upper respiratory infection , asthma exacerbation, pneumonia, among others. The patient was evaluated as above. She does have a cellulitis of the left medial buttock. There is minimal induration but I do not feel there is a drainable abscess at this time. I did offer to attempt incision and drainage, but the patient prefers to wait until she sees her primary care provider on Tuesday. I do feel that the doxycycline is appropriate, especially given the patient's allergy list. She was instructed to continue this but should return sooner if she has worsening symptoms. The area of cellulitis was outlined with a skin marker and she was instructed to observe this for any spreading of the redness. The patient was given 10 mg Decadron for her asthma exacerbation. She states that the symptoms are identical to previous asthma exacerbations. Her lungs are clear and I do not feel that imaging is necessary at this time. She was instructed to also follow-up with her primary care provider regarding this finding at her appointment on Tuesday. She verbalized understanding of my assessment and treatment plan and was discharged home in good condition. Impression Primary Impression: Cellulitis of left buttock Additional Impression: Asthma exacerbation Departure Information Dispostion Home / Self-Care Condition GOOD Referrals Shazia David DO (PCP) Patient Instructions My [facility] Additional Instructions Continue doxycycline at home. For pain control, you can use the following [id number] medicines (if >12 yo): - Regular strength (325mg/tab) Tylenol (acetaminophen) 2 tabs every 4-6 hours as needed. Do not exceed 12 tablets in a 24 hour period. Avoid taking more than 4 grams (4000 mg) of Tylenol per day. This includes any other sources of acetaminophen you may take on a regular basis. - Regular strength (200 mg/tab) Advil (ibuprofen) 1-2 tabs every 4-6 hours as needed. Do not exceed a dose of 3200 mg per day. Follow-up with your primary care provider Tuesday scheduled. Apply hot compresses over the area. Return with worsening redness, worsening swelling, fevers or any other new/ concerning symptoms. Problem Qualifiers
[2016-10-21 20:30] VITALS: BP 110/72; PULSE 80; TEMP 37; O2SAT 99
[2017-04-29] MEDS ORDERED: VALA1TAB31 PO (09:49)
[2017-04-29] MEDS ORDERED: NADO20TA PO (09:49)
[2017-04-29] MEDS ORDERED: OXYC1TAB3 PO (10:38)
== END 2016-10-21 20:30 | disposition home or self-care (01) ==
LOC: C.EDB 19:21 → C.EDC 20:30
DX: J45.901 Unspecified asthma with (acute) exacerbation (principal); L03.317 Cellulitis of buttock; I10 Essential (primary) hypertension; K21.9 Gastro-esophageal reflux disease without esophagitis; J45.30 Mild persistent asthma, uncomplicated; N83.209 Unspecified ovarian cyst, unspecified side; Z86.19 Personal history of other infectious and parasitic diseases; Z87.81 Personal history of (healed) traumatic fracture; Z79.899 Other long term (current) drug therapy; Z88.0 Allergy status to penicillin; Z88.2 Allergy status to sulfonamides; Z88.5 Allergy status to narcotic agent; Z88.8 Allergy status to other drugs, medicaments and biological substances; Z91.012 Allergy to eggs

== ENCOUNTER 2016-10-25 08:54 | Emergency (ER) | payer OTHER ==
[~2016-10-25] VITALS: Ht 154.9 cm; Wt 66.1 kg
[~2016-10-25 08:54] MED LIST changes: -ACET-1311 PO; -ATV5X PO; +IBUP-103 PO; +NADO20TA PO; -NADO80TA PO
[2016-10-25 08:57] VITALS: Ht 154.9 cm; Wt 66.1 kg
[2016-10-25 09:12] VITALS: O2SAT 100
[2016-10-25] MEDS ORDERED: ALBUTEROL 0.5% NEB SOLN 2.5 MG/0.5 ML VIAL INH STA (09:38)
--- NOTE | 2016-10-25 09:43 | EMERGENCY ROOM VISIT NOTE ---
History Report prepared by Azar: Moni Garcia Under the Supervision of: Dr. Theo Ghotra M.D. First contact with patient: 09:30 Chief Complaint: RESPIRATORY PROBLEMS Stated Complaint: ASTHMA ACTING UP , WHEEZY, CHEST TIGHTNESS, Nursing Triage Summary: pt states her ida and hollie are "kicking up" pt reports having breathing treatment at home and used her inhaler with no relief pt also said she was treated with steroids for a staff infection "that helped some" History of Present Illness The patient is a 26 year old female who presents to the Emergency Room with complaints of persistent shortness of breath starting a few days ago. She also reports a minor cough. The patient has a history of asthma. She used her inhaler without relief. She received a Decadron Inj by her PCP with some relief. She describes her current symptoms to be similar to her past asthma exacerbation symptoms. She denies fevers, chills, chest pain, abdominal pain, urinary symptoms, or any other complaints. She was placed on Doxycycline for a staph infection 4 days ago and was placed on Keflex today. She is supposed to take the antibiotic for 10 days. Source of History: patient Onset: a few days ago Position: other (global) Quality: other (shortness of breath) Timing: other (persistent) Modifying Factors (Relieving): other (Decadron Inj by her PCP with some relief; inhaler without relief) Associated Symptoms: + cough, No abdominal pain, No chest pain, No chills, No fevers, No urinary symptoms Review of Systems See HPI for pertinent positives & negatives. A total of 10 systems reviewed and were otherwise negative. Past Medical & Surgical Medical Problems: (1) Asthma (2) Asthma, mild persistent (3) Atrial tachycardia (4) Cellulitis (5) GERD (gastroesophageal reflux disease) (6) HTN (hypertension) (7) Hx of fracture of tibia (8) Ovarian cyst (9) Pharyngitis (10) Sinus tachycardia (11) Sinusitis (12) Sinusitis (13) SVT (supraventricular tachycardia) Surgical Problems: (1) H/O cardiac radiofrequency ablation (2) H/O cardiac radiofrequency ablation (3) H/O section (4) S/P ablation operation for arrhythmia Family History Asthma SISTER Cardiac disorder FATHER GRANDFATHER GRANDMOTHER Gallbladder disease Heart disease Hypertension FATHER BROTHER GRANDFATHER GRANDMOTHER Kidney disease or stones Lung disease Social History Smoking Status: Never Smoker Alcohol Use: none Drug Use: none Housing Status: lives with family Occupation Status: employed Current/Historical Medications Scheduled Fluticasone Prop/Salmeterol (Advair Diskus 500/50 60 Dose), 1 PUFF INH BID Nadolol (Corgard), 20 MG PO DAILY Pantoprazole (Protonix), 40 MG PO QAM Prednisone (Prednisone Tab), 0 PO DAILY Scheduled PRN Albuterol Hfa (Ventolin Hfa), 1-2 PUFFS INH QID PRN for Wheezing Albuterol Sulf (Proventil 0.083% 2.5MG/3ML), 3 ML NEB Q4H PRN for SOB/Wheezing Ibuprofen Tab (Advil), 400-600 MG PO Q6H PRN for Pain or Fever Ondansetron Hcl (Zofran), 1 TAB PO Q6H PRN for Nausea or Vomiting Allergies Coded Allergies: Penicillins (Verified Allergy, Intermediate, RASH, 10/02/16) Sulfa Antibiotics (Verified Allergy, Intermediate, hives, 10/02/16) Codeine (Verified Allergy, Mild, 10/02/16) Morphine (Verified Allergy, Mild, HALLUCINATES, 10/02/16) Levofloxacin (Verified Allergy, Unknown, RASH, joint pain, 10/02/16) Pseudoephedrine (Verified Allergy, Unknown, FEVER, 10/02/16) Egg (Verified Adverse Reaction, Unknown, HEADACHE, 10/02/16) Physical Exam Vital Signs Date Time Temp Pulse Resp B/P Pulse Ox O2 Delivery O2 Flow Rate FiO2 10/25/16 10:29 36.7 84 18 128/84 98 10/25/16 09:12 100 Room Air 10/25/16 09:08 99 Room Air 10/25/16 08:57 36.7 93 18 120/86 97 Room Air Physical Exam GENERAL: Patient is a healthy-appearing well-nourished HEAD: Normocephalic atraumatic EYES: Ocular movements intact pupils equal and react to light OROPHARYNX mucous membranes are moist no exudates present no erythema or edema present NECK: Supple no nuchal rigidity CHEST: Good equal expansion LUNGS: Slight wheezes. CARDIAC: Normal S1 and S2 ABDOMEN: Soft nontender no guarding BACK: No CVA tenderness EXTREMITIES: No pain upon palpation normal muscle strength in all groups no clubbing cyanosis or edema NEURO: Patient is following commands is answering questions appropriately. Alert and oriented x3 Cranial Nerves 2-12 grossly intact Medical Decision & Procedures ER Provider Diagnostic Interpretation: X-ray results as stated below per interpretation by me and the radiologist: CHEST ONE VIEW PORTABLE HISTORY: Short of breath. Chest tightness. COMPARISON: Chest 09/01/2016. FINDINGS: The lungs are clear. Cardiac silhouette is normal in size. No pleural effusions. No pneumothorax. Small electronic device is seen overlying the left upper quadrant. This remains unchanged. IMPRESSION: No acute process. Electronically signed by: Los Obando M.D. 10/25/2016 10:06 AM Dictated Date/Time: 10/25/2016 10:05 AM Medications Administered Medications (Trade) Dose Ordered Sig/Anika Route Start Time Stop Time Status Last Admin Dose Admin Albuterol Sulfate (Ventolin 0.5% 2.5MG/0.5ML Neb) 2.5 mg NOW STAT INH 10/25/16 09:38 10/25/16 09:39 DC 10/25/16 09:48 2.5 MG Prednisone (PredniSONE TAB) 60 mg NOW STAT PO 10/25/16 09:38 10/25/16 09:39 DC 10/25/16 09:48 60 MG ED Course 0930: Past medical records reviewed. The patient was evaluated in room C03. A complete history and physical examination was performed. 0938: Prednisone 60 mg PO, Albuterol Sulfate 2.5 mg INH 1015: Upon reexamination the patient is resting comfortably. I discussed results and treatment plan with the patient. She verbalizes agreement and understanding. The patient is ready for discharge. Medical Decision Differential diagnosis: Etiologies such as infections, reactive airway disease, pneumonia, pneumothorax , COPD, CHF, cardiac ischemia, pulmonary embolism, musculoskeletal, gastrointestinal, as well as others were entertained. This is a 26-year-old female who presents emergency department complaining of shortness of breath. The patient does not wish to have laboratory work done as she wishes to get to work. She is complaining of the fact that after the Decadron were off that the patient's asthma did not improve. For this reason the patient was started on prednisone. The patient is already on doxycycline as well as Keflex. Chest x-ray does not show any evidence of pneumonia. I do believe that the patient as well as to be discharged home for follow-up with her primary care physician. Patient was in agreement with the treatment plan. Impression Primary Impression: Asthma exacerbation Scribe Attestation The scribe's documentation has been prepared under my direction and personally reviewed by me in its entirety. I confirm that the note above accurately reflects all work, treatment, procedures, and medical decision making performed by me. Departure Information Dispostion Home / Self-Care Prescriptions Prednisone (Prednisone Tab) 20 Mg Tab 0 PO DAILY, #7 TAB 2 TABS DAILY FOR 2 DAYS, THEN 1 TAB DAILY FOR 2 DAYS, THEN 1/2 TAB DAILY FOR 2 DAYS. Prov: Theo Ghotra MD 10/25/16 Referrals Shazia David DO (PCP) Forms HOME CARE DOCUMENTATION FORM, IMPORTANT VISIT INFORMATION, WORK / SCHOOL INSTRUCTIONS Patient Instructions Asthma - [facility], Asthma Control Triggers Allergens, My [facility] Additional Instructions Use inhaler twice every 6 hours Continue taking doxycyline You have been examined and treated today on an emergency basis only. This is not a substitute for, or an effort to provide, complete comprehensive medical care. It is impossible to recognize and treat all injuries or illnesses in a single emergency department visit. It is therefore important that you follow up closely with Dr David. Call as soon as possible for an appointment. Thank you for your time and consideration. I look forward to speaking with you again soon. Please don't hesitate to call us if you have any questions.
[2016-10-25] MEDS ORDERED: PRED20TA2 PO (10:04)
--- NOTE | 2016-10-25 10:08 | DIAGNOSTIC IMAGING REPORT ---
CHEST ONE VIEW PORTABLE HISTORY: Short of breath. Chest tightness. COMPARISON: Chest 09/01/2016. FINDINGS: The lungs are clear. Cardiac silhouette is normal in size. No pleural effusions. No pneumothorax. Small electronic device is seen overlying the left upper quadrant. This remains unchanged. IMPRESSION: No acute process. Electronically signed by: Los Obando M.D. 10/25/2016 10:06 AM Dictated Date/Time: 10/25/2016 10:05 AM
[2016-10-25 10:29] VITALS: BP 128/84; PULSE 84; TEMP 36.7; O2SAT 98
[2017-04-29] MEDS ORDERED: NADO20TA PO (09:49)
[2017-04-29] MEDS ORDERED: VALA1TAB31 PO (09:49)
[2017-04-29] MEDS ORDERED: OXYC1TAB3 PO (10:38)
== END 2016-10-25 10:30 | disposition home or self-care (01) ==
LOC: C.EDB 08:56 → C.EDC 10:30
DX: J45.901 Unspecified asthma with (acute) exacerbation (principal); I10 Essential (primary) hypertension; K21.9 Gastro-esophageal reflux disease without esophagitis; Z79.899 Other long term (current) drug therapy; Z82.49 Family history of ischemic heart disease and other diseases of the circulatory system; Z83.6 Family history of other diseases of the respiratory system; Z83.79 Family history of other diseases of the digestive system; Z84.1 Family history of disorders of kidney and ureter

== ENCOUNTER 2016-11-29 16:04 | Emergency (ER) | payer OTHER ==
[~2016-11-29] VITALS: Ht 162.6 cm; Wt 64.5 kg
[~2016-11-29 16:04] MED LIST changes: +PRED20TA2 PO
[2016-11-29 16:09] VITALS: TEMP 36.7; Ht 162.6 cm; Wt 64.5 kg
[2016-11-29] MEDS ORDERED: VALA500T60 PO (16:38)
[2016-11-29 16:45] LABS: BASO % 0.7 %; BASO ABS # 0.04 K/uL (0-0.2); COMPLETE YES; EOS % 12.5 %; HEMATOCRIT 40.3 % (37-47); IG% 0.2 %; LYMPH % 32.6 %; LYMPH ABS # 1.88 K/uL (1.2-3.4); MEAN CELL VOLUME 90.2 fL (80-100); MEAN CORPUSCULAR HEMOGLOBIN 31.3 pg (25-34); MEAN CORPUSCULAR HGB CONC 34.7 g/dl (32-36); MEAN PLATELET VOLUME 11.1 fL (7.4-10.4); MONO % 9.9 %; NEUT % 44.1 %; PLATELET COUNT 251 K/uL (130-400); RED BLOOD COUNT 4.47 M/uL (4.2-5.4); WHITE BLOOD COUNT 5.77 K/uL (4.8-10.8)
[2016-11-29 16:57] LABS: URINE APPEARANCE CLEAR (CLEAR); URINE BILIRUBIN NEG (NEG); URINE COLOR YELLOW; URINE NITRITE NEG (NEG); URINE PH 7.5 (4.5-7.5); URINE SPECIFIC GRAVITY 1.006 (1.000-1.030); UROBILINOGEN NEG (NEG); ZZUR CULT IF INDIC CLEAN CATCH NO
[2016-11-29 17:00] LABS: BUN/CREATININE RATIO 7.7 (10-20); CALCIUM 8.9 mg/dl (8.5-10.1); CREATININE 0.84 mg/dl (0.60-1.20); POTASSIUM 3.8 mmol/L (3.5-5.1)
[2016-11-29 17:03] LABS: ALB/GLOB RATIO 1.4 (0.9-2)
[2016-11-29 17:10] LABS: MANUAL MICROSCOPIC REQUIRED? NO; REVIEW REQ? NO
--- NOTE | 2016-11-29 17:42 | DIAGNOSTIC IMAGING REPORT ---
RENAL ULTRASOUND CLINICAL HISTORY: Right flank pain. Urinary symptoms. COMPARISON STUDY: Renal ultrasound February 13, 2015. TECHNIQUE: Sonography of the kidneys and the urinary bladder was performed. FINDINGS: The right kidney measures 10 x 4.2 x 4.8 cm and the left measures 11 x 5 x 4.6 cm. There is no hydronephrosis. Renal echogenicity, size and cortical thickness are normal. No calculi or masses are identified. The urinary bladder is unremarkable. Both ureteral jets were identified. IMPRESSION: Normal renal ultrasound. No hydronephrosis. Electronically signed by: Geoffrey San M.D. 11/29/2016 5:41 PM Dictated Date/Time: 11/29/2016 5:40 PM
[2016-11-29 17:48] VITALS: BP 113/66; PULSE 79; O2SAT 98
--- NOTE | 2016-11-29 18:08 | EMERGENCY ROOM VISIT NOTE ---
History First contact with patient: 16:12 Chief Complaint: URINARY SYMPTOMS Stated Complaint: KIDNEY PAIN, HSV BREAKOUT Nursing Triage Summary: Pt reports she began having back pain approx 4 days ago, developed urinary symptoms today (pain/burning during urination) History of Present Illness The patient is a 26 year old female who presents to the Emergency Room with complaints of right-sided back pain and increased frequency of urination for the past 4 days. The patient states that she has had an aching pain in the right side of her back for the past 4 days. She states that she initially felt that the pain was musculoskeletal, but it has not been improving with over-the- counter pain medication. She states that she has had associated increased frequency of urination but denies any other urinary symptoms. She reports she is also having a herpes simplex outbreak. She has a family history of kidney stones and is concerned about a possible kidney stone. She denies any nausea, vomiting, chest pain, shortness of breath, fevers or chills. She denies any abnormal vaginal discharge. Review of Systems A complete 10 point review of systems was reviewed with the patient with pertinent positives and negatives as per history of present illness. All else were negative. Past Medical/Surgical History Medical Problems: (1) Asthma (2) Asthma, mild persistent (3) Atrial tachycardia (4) Cellulitis (5) GERD (gastroesophageal reflux disease) (6) HTN (hypertension) (7) Hx of fracture of tibia (8) Ovarian cyst (9) Pharyngitis (10) Sinus tachycardia (11) Sinusitis (12) Sinusitis (13) SVT (supraventricular tachycardia) Surgical Problems: (1) H/O cardiac radiofrequency ablation (2) H/O cardiac radiofrequency ablation (3) H/O section (4) S/P ablation operation for arrhythmia Family History Asthma SISTER Cardiac disorder FATHER GRANDFATHER GRANDMOTHER Gallbladder disease Heart disease Hypertension FATHER BROTHER GRANDFATHER GRANDMOTHER Kidney disease or stones Lung disease Social History Smoking Status: Never Smoker Alcohol Use: none Drug Use: none Housing Status: lives with family Occupation Status: employed Current/Historical Medications Scheduled Nadolol (Corgard), 20 MG PO DAILY Scheduled PRN Albuterol Hfa (Ventolin Hfa), 1-2 PUFFS INH QID PRN for Wheezing Albuterol Sulf (Proventil 0.083% 2.5MG/3ML), 3 ML NEB Q4H PRN for SOB/Wheezing Valacyclovir (Valtrex), 500-1,000 MG PO BID PRN for FLARE Allergies Coded Allergies: Penicillins (Verified Allergy, Intermediate, RASH, 10/02/16) Sulfa Antibiotics (Verified Allergy, Intermediate, hives, 10/02/16) Codeine (Verified Allergy, Mild, 10/02/16) Morphine (Verified Allergy, Mild, HALLUCINATES, 10/02/16) Levofloxacin (Verified Allergy, Unknown, RASH, joint pain, 10/02/16) Pseudoephedrine (Verified Allergy, Unknown, FEVER, 10/02/16) Egg (Verified Adverse Reaction, Unknown, HEADACHE, 10/02/16) Physical Exam Vital Signs Date Time Temp Pulse Resp B/P Pulse Ox O2 Delivery O2 Flow Rate FiO2 11/29/16 17:48 79 16 113/66 98 Room Air 11/29/16 16:09 36.7 83 18 118/74 97 Room Air Physical Exam VITALS: Vitals are noted on the nurse's note and reviewed by myself. Vital signs stable. GENERAL: This is a 26-year-old female, in no acute distress, nondiaphoretic, well-developed well-nourished. SKIN: Capillary reflex less than 2 seconds. No rashes noted. HEENT: Normocephalic. PERRLA. EOMI. Nares patent. Mucous membranes moist. Neck is supple without nuchal rigidity. HEART: Regular rate and rhythm without murmurs gallops or rubs. LUNGS: Clear to auscultation bilaterally without wheezes, rales or rhonchi. ABDOMEN: Positive bowel sounds x 4. Soft, nontender to palpation. MUSCULOSKELETAL: Mild tenderness to palpation of the right lower and mid back. No CVA tenderness. NEURO: Patient was alert and oriented to person place and time. Medical Decision & Procedures ER Provider Diagnostic Interpretation: RENAL ULTRASOUND CLINICAL HISTORY: Right flank pain. Urinary symptoms. COMPARISON STUDY: Renal ultrasound February 13, 2015. TECHNIQUE: Sonography of the kidneys and the urinary bladder was performed. FINDINGS: The right kidney measures 10 x 4.2 x 4.8 cm and the left measures 11 x 5 x 4.6 cm. There is no hydronephrosis. Renal echogenicity, size and cortical thickness are normal. No calculi or masses are identified. The urinary bladder is unremarkable. Both ureteral jets were identified. IMPRESSION: Normal renal ultrasound. No hydronephrosis. Laboratory Results 11/29/16 16:35 Red Blood Count 4.47, Mean Corpuscular Volume 90.2, Mean Corpuscular Hemoglobin 31.3, Mean Corpuscular Hemoglobin Concent 34.7, Mean Platelet Volume 11.1, Neutrophils (%) (Auto) 44.1, Lymphocytes (%) (Auto) 32.6, Monocytes (%) (Auto) 9.9, Eosinophils (%) (Auto) 12.5, Basophils (%) (Auto) 0.7, Neutrophils # (Auto ) 2.55, Lymphocytes # (Auto) 1.88, Monocytes # (Auto) 0.57, Eosinophils # (Auto ) 0.72, Basophils # (Auto) 0.04 11/29/16 16:35 Test 11/29/16 16:35 White Blood Count 5.77 K/uL (4.8-10.8) Red Blood Count 4.47 M/uL (4.2-5.4) Hemoglobin 14.0 g/dL (12.0-16.0) Hematocrit 40.3 % (37-47) Mean Corpuscular Volume 90.2 fL (80-100) Mean Corpuscular Hemoglobin 31.3 pg (25-34) Mean Corpuscular Hemoglobin Concent 34.7 g/dl (32-36) Platelet Count 251 K/uL (130-400) Mean Platelet Volume 11.1 fL (7.4-10.4) Neutrophils (%) (Auto) 44.1 % Lymphocytes (%) (Auto) 32.6 % Monocytes (%) (Auto) 9.9 % Eosinophils (%) (Auto) 12.5 % Basophils (%) (Auto) 0.7 % Neutrophils # (Auto) 2.55 K/uL (1.4-6.5) Lymphocytes # (Auto) 1.88 K/uL (1.2-3.4) Monocytes # (Auto) 0.57 K/uL (0.11-0.59) Eosinophils # (Auto) 0.72 K/uL (0-0.5) Basophils # (Auto) 0.04 K/uL (0-0.2) RDW Standard Deviation 39.6 fL (36.4-46.3) RDW Coefficient of Variation 12.0 % (11.5-14.5) Immature Granulocyte % (Auto) 0.2 % Immature Granulocyte # (Auto) 0.01 K/uL (0.00-0.02) Urine Color YELLOW Urine Appearance CLEAR (CLEAR) Urine pH 7.5 (4.5-7.5) Urine Specific Josephine 1.006 (1.000-1.030) Urine Protein NEG (NEG) Urine Glucose (UA) NEG (NEG) Urine Ketones NEG (NEG) Urine Occult Blood NEG (NEG) Urine Nitrite NEG (NEG) Urine Bilirubin NEG (NEG) Urine Urobilinogen NEG (NEG) Urine Leukocyte Esterase NEG (NEG) Urine Test NEG (NEG) Anion Gap 7.0 mmol/L (3-11) Est Creatinine Clear Calc Drug Dose 89.2 ml/min Estimated GFR () 112.7 Estimated GFR (Non- 97.3 BUN/Creatinine Ratio 7.7 (10-20) Calcium Level 8.9 mg/dl (8.5-10.1) Total Bilirubin 0.4 mg/dl (0.2-1) Aspartate Amino Transf (AST/SGOT) 10 U/L (15-37) Alanine Aminotransferase (ALT/SGPT) 16 U/L (12-78) Alkaline Phosphatase 62 U/L (45-117) Total Protein 7.3 gm/dl (6.4-8.2) Albumin 4.2 gm/dl (3.4-5.0) Globulin 3.1 gm/dl (2.5-4.0) Albumin/Globulin Ratio 1.4 (0.9-2) Medical Decision Differential diagnosis includes pyelonephritis, kidney stone, urinary tract infection, musculoskeletal pain, among others. The patient is a 26-year-old female who presents today complaining of right- sided back pain and urinary symptoms. Labs revealed no leukocytosis, anemia or concerning electrolyte abnormalities. Urinalysis was not suggestive of infection, but will be sent for culture given the patient's complaints. Urine was negative. Renal ultrasound was performed and showed no abnormalities. The patient likely has musculoskeletal back pain. She was referred back to her primary care provider for further evaluation of her symptoms. Conservative measures were discussed with the patient. She verbalized understanding of my assessment and treatment plan and was discharged home in good condition. Impression Primary Impression: Right-sided back pain Departure Information Dispostion Home / Self-Care Condition GOOD Referrals Shazia David DO (PCP) Patient Instructions My [facility] Additional Instructions You have been treated in the Emergency Department for Back Pain. Urine culture results will be available in 24-36 hours. For pain control, you can use the following [id number] medicines (if >12 yo): - Regular strength (325mg/tab) Tylenol (acetaminophen) 2 tabs every 4-6 hours as needed. Do not exceed 12 tablets in a 24 hour period. Avoid taking more than 4 grams (4000 mg) of Tylenol per day. This includes any other sources of acetaminophen you may take on a regular basis. - Regular strength (200 mg/tab) Advil (ibuprofen) 1-2 tabs every 4-6 hours as needed. Do not exceed a dose of 3200 mg per day. If this is an acute injury, ice can be applied to the area of pain for the first 3 days to help decrease pain and inflammation. After the first 3 days, a heating pad can be used over the area for continued soothing relief. You should schedule a follow-up appointment in 2-3 days with your Primary Care Provider for further evaluation and treatment of your back pain. Return to the emergency department with any worsening or new/concerning symptoms. Problem Qualifiers Primary Impression: Right-sided back pain Back pain location: low back pain Chronicity: acute Sciatica presence: without sciatica Qualified Codes: M54.5 - Low back pain
[2017-04-29] MEDS ORDERED: VALA1TAB31 PO (09:49)
[2017-04-29] MEDS ORDERED: NADO20TA PO (09:49)
[2017-04-29] MEDS ORDERED: OXYC1TAB3 PO (10:38)
== END 2016-11-29 18:19 | disposition home or self-care (01) ==
LOC: C.EDB 16:05 → C.EDC 18:19
DX: M54.5 Low back pain (principal); M54.9 Dorsalgia, unspecified; R35.0 Frequency of micturition; I10 Essential (primary) hypertension; K21.9 Gastro-esophageal reflux disease without esophagitis; J45.909 Unspecified asthma, uncomplicated; Z79.899 Other long term (current) drug therapy; Z86.79 Personal history of other diseases of the circulatory system; Z87.42 Personal history of other diseases of the female genital tract; Z87.828 Personal history of other (healed) physical injury and trauma; Z82.49 Family history of ischemic heart disease and other diseases of the circulatory system; Z83.6 Family history of other diseases of the respiratory system; Z83.79 Family history of other diseases of the digestive system; Z84.1 Family history of disorders of kidney and ureter

== ENCOUNTER → 2017-01-11 | Outpatient (CLI) | payer OTHER ==
[~2017-01-11] MED LIST changes: -ADVIN50/60 INH; +DOXY100C2 PO; -IBUP-103 PO; +LETR2TAB PO; -ONDA4TAB65 PO; -PANT40TA PO; -PRED20TA2 PO; +VALA500T60 PO
== END | disposition home or self-care (01) ==
LOC: C.LAB 11:40
PROVIDERS: ATTEND Obstetrics & Gynecology
DX: Z34.81 Encounter for supervision of other normal pregnancy, first trimester (principal)

== ENCOUNTER → 2017-01-11 | Outpatient (CLI) | payer OTHER ==
[2017-01-14 13:22] LABS: CHLAMYDIA TRACH RNA*** NOT DETECTED (NOT DETECTED); GC (NEIS GONORRHOEAE)RNA** NOT DETECTED (NOT DETECTED)
== END | disposition home or self-care (01) ==
LOC: C.LABSPEC 14:59
PROVIDERS: ATTEND Obstetrics & Gynecology
DX: Z34.01 Encounter for supervision of normal first pregnancy, first trimester (principal)

== ENCOUNTER → 2017-01-13 | Outpatient (CLI) | payer OTHER ==
[~2017-01-13] MED LIST changes: -DOXY100C2 PO; -LETR2TAB PO
== END | disposition home or self-care (01) ==
LOC: C.LAB 15:40
PROVIDERS: ATTEND Obstetrics & Gynecology
DX: O20.0 Threatened abortion (principal); Z3A.00 Weeks of gestation of pregnancy not specified

== ENCOUNTER 2017-02-03 22:39 | Emergency (ER) | payer OTHER ==
[~2017-02-03] VITALS: Ht 162.6 cm; Wt 60.4 kg
[2017-02-03 22:41] VITALS: TEMP 36.8; Ht 162.6 cm; Wt 60.4 kg
[2017-02-03] MEDS ORDERED: SODIUM CHLORIDE 0.9% 1000ML 1,000 ML IV ONE (23:15)
[2017-02-03 23:38] LABS: BASO % 0.6 %; BASO ABS # 0.03 K/uL (0-0.2); COMPLETE YES; EOS % 16.9 %; HEMATOCRIT 38.7 % (37-47); IG% 0.2 %; LYMPH % 34.5 %; LYMPH ABS # 1.67 K/uL (1.2-3.4); MEAN CORPUSCULAR HEMOGLOBIN 30.9 pg (25-34); MEAN CORPUSCULAR HGB CONC 35.1 g/dl (32-36); MEAN PLATELET VOLUME 11.8 fL (7.4-10.4); MONO % 9.3 %; NEUT % 38.5 %; PLATELET COUNT 226 K/uL (130-400); WHITE BLOOD COUNT 4.84 K/uL (4.8-10.8)
[2017-02-03 23:44] LABS: ALT/SGPT 16 U/L (12-78); BLOOD UREA NITROGEN 8 mg/dl (7-18); BUN/CREATININE RATIO 8.6 (10-20); CALCIUM 8.7 mg/dl (8.5-10.1); CARBON DIOXIDE 24 mmol/L (21-32); CHLORIDE 109 mmol/L (98-107); CREATININE 0.96 mg/dl (0.60-1.20); GLUCOSE 75 mg/dl (70-99); POTASSIUM 3.6 mmol/L (3.5-5.1); SODIUM 140 mmol/L (136-145)
[2017-02-03 23:49] LABS: ALB/GLOB RATIO 1.2 (0.9-2); ALKALINE PHOSPHATASE 51 U/L (45-117); AST/SGOT 14 U/L (15-37)
[2017-02-03 23:55] LABS: URINE APPEARANCE CLEAR (CLEAR); URINE BILIRUBIN NEG (NEG); URINE COLOR YELLOW; URINE NITRITE NEG (NEG); URINE PH 6.5 (4.5-7.5); URINE SPECIFIC GRAVITY 1.006 (1.000-1.030); UROBILINOGEN NEG (NEG); ZZUR CULT IF INDIC CLEAN CATCH NO
[2017-02-03 23:57] LABS: MANUAL MICROSCOPIC REQUIRED? NO; REVIEW REQ? NO
[2017-02-04 00:56] VITALS: BP 116/76; PULSE 79; O2SAT 99
--- NOTE | 2017-02-04 06:59 | DIAGNOSTIC IMAGING REPORT ---
GALLBLADDER-ABD LIMITED CLINICAL HISTORY: Epigastric pain after eating nausea TECHNIQUE: Ultrasound COMPARISON STUDY: 11/29/2016 FINDINGS: Moderately contracted gallbladder. No shadowing gallstones. Liver spleen and pancreas are unremarkable. Right kidney is negative for hydronephrosis. Common bile duct 4 mm IMPRESSION: Contracted gallbladder. Otherwise negative study. The above report was generated using voice recognition software. It may contain grammatical, syntax or spelling errors. Electronically signed by: Juice Lima M.D. 02/04/2017 6:57 AM Dictated Date/Time: 02/04/2017 6:56 AM
--- NOTE | 2017-02-04 07:08 | DIAGNOSTIC IMAGING REPORT ---
TWO VIEW CHEST CLINICAL HISTORY: Atypical chest pain. FINDINGS: PA and lateral chest radiographs are compared to study dated 10/25/2016. The cardiomediastinal silhouette is unremarkable. The lungs and pleural spaces are clear. There is no pneumothorax. The bony thorax appears intact. Electronic device projects over the left lower chest. IMPRESSION: No active disease in the chest. Electronically signed by: Ham Velasco M.D. 02/04/2017 7:07 AM Dictated Date/Time: 02/04/2017 7:07 AM
--- NOTE | 2017-02-04 22:15 | EMERGENCY ROOM VISIT NOTE ---
History First contact with patient: 22:52 Chief Complaint: CHEST PAIN Stated Complaint: PAIN IN CHEST, NAUSEA Nursing Triage Summary: patient reports chest,abdominal,back pain for one hour after eating,patient reports nausea,patient reports hx of two ablations History of Present Illness The patient is a 26 year old female who presents to the Emergency Room with complaints of epigastric abdominal and chest pain for about the past one hour. The patient states that her symptoms began after eating dinner and feels like a tightness that radiates to her back. The patient has not had fever or chills. She is nauseated without vomiting. No diarrhea or constipation. The patient states that her father had his gallbladder removed last week, and she is concerned that she may need hers removed as well. The patient does have a history of cardiac ablation. She does not have diaphoresis, lightheadedness, dizziness, shortness of breath, or lower abdominal discomfort. She has been eating and drinking as normal otherwise. She denies chance of and has not taken anything [id number] for her discomfort which she currently rates a 7/10. Review of Systems More than 10 systems were reviewed and otherwise negative with the exception of history of present illness. Past Medical/Surgical History Medical Problems: (1) Asthma (2) Asthma, mild persistent (3) Atrial tachycardia (4) Cellulitis (5) GERD (gastroesophageal reflux disease) (6) HTN (hypertension) (7) Hx of fracture of tibia (8) Ovarian cyst (9) Pharyngitis (10) Sinus tachycardia (11) Sinusitis (12) Sinusitis (13) SVT (supraventricular tachycardia) Surgical Problems: (1) H/O cardiac radiofrequency ablation (2) H/O cardiac radiofrequency ablation (3) H/O section (4) S/P ablation operation for arrhythmia Family History Asthma SISTER Cardiac disorder FATHER GRANDFATHER GRANDMOTHER Gallbladder disease Heart disease Hypertension FATHER BROTHER GRANDFATHER GRANDMOTHER Kidney disease or stones Lung disease Social History Smoking Status: Never Smoker Alcohol Use: none Drug Use: none Housing Status: lives with family Occupation Status: employed Current/Historical Medications Scheduled Nadolol (Corgard), 20 MG PO DAILY Scheduled PRN Albuterol Hfa (Ventolin Hfa), 1-2 PUFFS INH QID PRN for Wheezing Albuterol Sulf (Proventil 0.083% 2.5MG/3ML), 3 ML NEB Q4H PRN for SOB/Wheezing Valacyclovir (Valtrex), 500-1,000 MG PO BID PRN for FLARE Physical Exam Vital Signs Date Time Temp Pulse Resp B/P (MAP) Pulse Ox O2 Delivery O2 Flow Rate FiO2 02/04/17 00:56 79 18 116/76 99 02/03/17 22:41 36.8 76 18 122/84 94 Room Air Pain Rating (0-10): 0 Physical Exam VITALS: Vitals are noted on the nurse's note and reviewed by myself. Vital signs stable. GENERAL: Well-developed, well-nourished, white female, who is in no acute distress and resting comfortably. Patient is cooperative with the examination. HEART: Regular rate and rhythm without murmurs gallops or rubs. LUNGS: Clear to auscultation bilaterally without wheezes, rales or rhonchi. No retractions or accessory muscle use. ABDOMEN: Positive normal bowel sounds x 4. Soft with mild epigastric tenderness on palpation. No rebound or guarding. No lower abdominal tenderness. No CVA tenderness. MUSCULOSKELETAL: No muscle atrophy, erythema, or edema noted. Full range of motion without joint tenderness in all extremities. Medical Decision & Procedures ER Provider Diagnostic Interpretation: TWO VIEW CHEST CLINICAL HISTORY: Atypical chest pain. FINDINGS: PA and lateral chest radiographs are compared to study dated 10/25/2016. The cardiomediastinal silhouette is unremarkable. The lungs and pleural spaces are clear. There is no pneumothorax. The bony thorax appears intact. Electronic device projects over the left lower chest. IMPRESSION: No active disease in the chest. GALLBLADDER-ABD LIMITED CLINICAL HISTORY: Epigastric pain after eating nausea TECHNIQUE: Ultrasound COMPARISON STUDY: 11/29/2016 FINDINGS: Moderately contracted gallbladder. No shadowing gallstones. Liver spleen and pancreas are unremarkable. Right kidney is negative for hydronephrosis. Common bile duct 4 mm IMPRESSION: Contracted gallbladder. Otherwise negative study. Laboratory Results 02/03/17 23:06 Red Blood Count 4.40, Mean Corpuscular Volume 88.0, Mean Corpuscular Hemoglobin 30.9, Mean Corpuscular Hemoglobin Concent 35.1, Mean Platelet Volume 11.8, Neutrophils (%) (Auto) 38.5, Lymphocytes (%) (Auto) 34.5, Monocytes (%) (Auto) 9.3, Eosinophils (%) (Auto) 16.9, Basophils (%) (Auto) 0.6, Neutrophils # (Auto ) 1.86, Lymphocytes # (Auto) 1.67, Monocytes # (Auto) 0.45, Eosinophils # (Auto ) 0.82, Basophils # (Auto) 0.03 02/03/17 23:06 Test 02/03/17 23:06 02/03/17 23:07 White Blood Count 4.84 K/uL (4.8-10.8) Red Blood Count 4.40 M/uL (4.2-5.4) Hemoglobin 13.6 g/dL (12.0-16.0) Hematocrit 38.7 % (37-47) Mean Corpuscular Volume 88.0 fL (80-100) Mean Corpuscular Hemoglobin 30.9 pg (25-34) Mean Corpuscular Hemoglobin Concent 35.1 g/dl (32-36) Platelet Count 226 K/uL (130-400) Mean Platelet Volume 11.8 fL (7.4-10.4) Neutrophils (%) (Auto) 38.5 % Lymphocytes (%) (Auto) 34.5 % Monocytes (%) (Auto) 9.3 % Eosinophils (%) (Auto) 16.9 % Basophils (%) (Auto) 0.6 % Neutrophils # (Auto) 1.86 K/uL (1.4-6.5) Lymphocytes # (Auto) 1.67 K/uL (1.2-3.4) Monocytes # (Auto) 0.45 K/uL (0.11-0.59) Eosinophils # (Auto) 0.82 K/uL (0-0.5) Basophils # (Auto) 0.03 K/uL (0-0.2) RDW Standard Deviation 40.8 fL (36.4-46.3) RDW Coefficient of Variation 12.7 % (11.5-14.5) Immature Granulocyte % (Auto) 0.2 % Immature Granulocyte # (Auto) 0.01 K/uL (0.00-0.02) Anion Gap 7.0 mmol/L (3-11) Est Creatinine Clear Calc Drug Dose 78.1 ml/min Estimated GFR () 95.9 Estimated GFR (Non- 82.8 BUN/Creatinine Ratio 8.6 (10-20) Calcium Level 8.7 mg/dl (8.5-10.1) Total Bilirubin 0.5 mg/dl (0.2-1) Aspartate Amino Transf (AST/SGOT) 14 U/L (15-37) Alanine Aminotransferase (ALT/SGPT) 16 U/L (12-78) Alkaline Phosphatase 51 U/L (45-117) Troponin I < 0.015 ng/ml (0-0.045) Total Protein 7.2 gm/dl (6.4-8.2) Albumin 3.9 gm/dl (3.4-5.0) Globulin 3.3 gm/dl (2.5-4.0) Albumin/Globulin Ratio 1.2 (0.9-2) Lipase 153 U/L (73-393) Urine Color YELLOW Urine Appearance CLEAR (CLEAR) Urine pH 6.5 (4.5-7.5) Urine Specific Jewett 1.006 (1.000-1.030) Urine Protein NEG (NEG) Urine Glucose (UA) NEG (NEG) Urine Ketones NEG (NEG) Urine Occult Blood NEG (NEG) Urine Nitrite NEG (NEG) Urine Bilirubin NEG (NEG) Urine Urobilinogen NEG (NEG) Urine Leukocyte Esterase NEG (NEG) Urine Test NEG (NEG) Medications Administered Medications (Trade) Dose Ordered Sig/Anika Route Start Time Stop Time Status Last Admin Dose Admin Sodium Chloride 1,000 ml @ 999 mls/hr Q1H1M ONCE IV 02/03/17 23:15 02/04/17 00:15 DC 02/03/17 23:29 999 MLS/HR ECG Change: Normal sinus rhythm @78bpm Normal ECG When compared with ECG of 01-SEP-2016 15:15, No significant change was found Confirmed by MIKAEL ESPOSITO ([id number]) on 02/04/2017 11:29:09 AM ED Course Physical exam and history were performed. Nursing notes, EMR, and Medication List were personally reviewed. Patient appears to have reports of epigastric abdominal/chest pain. Her primary concern is for her gallbladder today. The patient does not appear toxic on examination. IV access was established and labs were obtained. EKG was normal sinus rhythm at 78 beats per minute as above. There is no evidence of cardiac ischemia on EKG. . Chest x-ray and ultrasound were performed. The patient was hydrated with normal saline. The patient spoke is as above and was reviewed. She does not have a significantly elevated white blood cell count, gross anemia, bandemia, her lipase and transaminases are nondiagnostic. Troponin 1 is negative. Chest x- ray does not show acute process. Ultrasound of the gallbladder reveals a contracted gallbladder, but no acute cholecystitis or other etiology for her symptoms. Overall the patient appears stable for discharge home. She needs to follow with her primary care physician for further care and management. I do not suspect that this is a cardiac cause, and could be related to gastritis or GERD. She also may have biliary colic/anxiety. She may be a good candidate for outpatient HIDA scan if she has a strong family history of gallbladder disease. The patient was asked to eat conservatively and monitor for worsening symptoms. She was otherwise invited back to the ER with any new, worsening, or concerning symptoms. The chart was completed utilizing [employer] Speech Voice Recognition Software. Grammatical errors, random word insertions, pronoun errors, and incomplete sentences are an occasional consequence of this system due to software limitations, ambient noise, and hardware issues. Any formal questions or concerns about the content, text, or information contained within the body of this dictation should be directly addressed to the provider for clarification. . Medical Decision Differential diagnosis: Etiologies such as appendicitis, diverticulitis, PUD, biliary pathology, UTI, pancreatitis, obstruction, mesenteric ischemia, aortic pathology, infections, inflammatory bowel disease, renal colic, as well as others were entertained. Medication Reconcilliation Current Medication List: was personally reviewed by me Blood Pressure Screening Patient's blood pressure: Normal blood pressure Impression Primary Impression: Non-cardiac chest pain Departure Information Dispostion Home / Self-Care Condition GOOD Referrals Ramila Welch PA-C (PCP) Forms HOME CARE DOCUMENTATION FORM, IMPORTANT VISIT INFORMATION Patient Instructions My [facility] Additional Instructions You were seen and evaluated today on an emergency basis only. This is not a substitute for, or an effort to provide, complete comprehensive medical care. It is not possible to recognize and treat all injuries or illnesses in a single emergency department visit. For this reason it is recommended that you followup with your primary care physician for ongoing care and evaluation. Drink plenty fluids and remain well hydrated. You are welcome to return to the emergency department anytime with new, worsening, or concerning symptoms.
== END 2017-02-04 00:57 | disposition home or self-care (01) ==
LOC: C.EDB 22:40 → C.EDC 02-04 00:57
DX: R07.89 Other chest pain (principal); J45.909 Unspecified asthma, uncomplicated; I47.1 Supraventricular tachycardia; K21.9 Gastro-esophageal reflux disease without esophagitis; I10 Essential (primary) hypertension; Z82.49 Family history of ischemic heart disease and other diseases of the circulatory system

== ENCOUNTER 2017-04-07 08:29 | Emergency (ER) | payer OTHER ==
[~2017-04-07] VITALS: Ht 162.6 cm; Wt 57.2 kg
[2017-04-07 08:32] VITALS: PULSE 97; TEMP 36.8; O2SAT 99; Ht 162.6 cm; Wt 57.2 kg
[2017-04-07] MEDS ORDERED: XYLOCAINE 1%/SOD BICARB 20 ML VIAL INFIL ONE (09:45)
[2017-04-07 09:56] VITALS: BP 112/80
[2017-04-07] MEDS ORDERED: DOXYCYCLINE HYCLATE 100 MG CAP PO STA (10:05)
[2017-04-07] MEDS ORDERED: DOXY100C2 PO (10:08)
[2017-04-07] MEDS ORDERED: LETR2TAB PO (10:12)
--- NOTE | 2017-04-07 10:29 | EMERGENCY ROOM VISIT NOTE ---
History Report prepared by Nicolasaiblaura: Shaka Cain Under the Supervision of: Dr. Balwinder Negrete M.D. First contact with patient: 09:30 Chief Complaint: WOUND INFECTION Stated Complaint: CYST UNDER LEFT ARMPIT History of Present Illness The patient is a 26 year old female who presents to the Emergency Room with complaints of a worsening left armpit infection beginning four days ago. The patient has a history of similar symptoms on her buttocks before. She states that the previous cysts required drained. She states that her previous cyst was Staph and MRSA positive. The patient denies chance of . She denies any chest pain, SOB, or abdominal pain. She has used warm compresses on the area, but has not been able to elicit any pus. Source of History: patient Onset: Four weeks ago Position: other (left armpit) Quality: other (infection) Timing: worsening Associated Symptoms: No chest pain, No SOB, No abdominal pain Review of Systems See HPI for pertinent positives & negatives. A total of 10 systems reviewed and were otherwise negative. Past Medical & Surgical Medical Problems: (1) Asthma (2) Asthma, mild persistent (3) Atrial tachycardia (4) Cellulitis (5) GERD (gastroesophageal reflux disease) (6) HTN (hypertension) (7) Hx of fracture of tibia (8) Ovarian cyst (9) Pharyngitis (10) Sinus tachycardia (11) Sinusitis (12) Sinusitis (13) SVT (supraventricular tachycardia) Surgical Problems: (1) H/O cardiac radiofrequency ablation (2) H/O cardiac radiofrequency ablation (3) H/O section (4) S/P ablation operation for arrhythmia Old medical records were reviewed. Nurse's notes were reviewed and I agree with. Family History Asthma SISTER Cardiac disorder FATHER GRANDFATHER GRANDMOTHER Gallbladder disease Heart disease Hypertension FATHER BROTHER GRANDFATHER GRANDMOTHER Kidney disease or stones Lung disease Social History Smoking Status: Never Smoker Alcohol Use: none Drug Use: none Housing Status: lives with family Occupation Status: employed Current/Historical Medications Scheduled Doxycycline Hyclate (Vibramycin), 100 MG PO BID Allergies Coded Allergies: Penicillins (Verified Allergy, Intermediate, RASH, 02/03/17) Sulfa Antibiotics (Verified Allergy, Intermediate, hives, 02/03/17) Codeine (Verified Allergy, Mild, 02/03/17) Morphine (Verified Allergy, Mild, HALLUCINATES, 02/03/17) Levofloxacin (Verified Allergy, Unknown, RASH, joint pain, 02/03/17) Pseudoephedrine (Verified Allergy, Unknown, FEVER, 02/03/17) Egg (Verified Adverse Reaction, Unknown, HEADACHE, 02/03/17) Physical Exam Vital Signs Date Time Temp Pulse Resp B/P (MAP) Pulse Ox O2 Delivery O2 Flow Rate FiO2 04/07/17 09:56 15 112/80 04/07/17 08:32 36.8 97 16 107/70 99 Room Air Physical Exam General: Well developed well nourished in no acute distress, breathing comfortably on room air. Normal speech HEENT: Normal cephalic atraumatic. Pupils are equal round and reactive to light. Extraocular movements are intact. Oropharynx is pink with moist mucous membranes. No swelling of the mouth lips or tongue. Neck: Supple with a midline trachea. No meningeal signs or stiffness, no JVD or bruits. No Stridor. Chest: Clear to auscultation bilaterally. No wheezes or rhonchi. No increased work of breathing. Heart: regular rate and rhythm. Abdomen: Soft nontender, nondistended without rebound guarding or rigidity. Extremities: No cyanosis clubbing. No calf tenderness or assymetry. Left axilla with a small indurated area. No fluctuance. Area is tender. No overt cellulitis. No pus draining. Spine/Back. Non tender to palpation. No CVA tenderness Skin: Good turgor without rashes. Neurologic exam: Cranial nerves two through 12 are intact. Motor and sensation are intact and symmetrical throughout. Medical Decision & Procedures Medications Administered Medications (Trade) Dose Ordered Sig/Anika Route Start Time Stop Time Status Last Admin Dose Admin Doxycycline Hyclate (Vibramycin Cap) 100 mg NOW STAT PO 04/07/17 10:05 04/07/17 10:06 DC 04/07/17 10:09 100 MG Procedure Incision & Drainage Indication: Abscess. Location: left axilla Verbal consent was obtained after the risks and benefits were explained, including but not limited to bleeding, scarring, infection, pain, and bone/joint /nerve damage. At this time, the risks of the procedure are less than the risks of NOT performing the procedure. A time out was taken and the correct patient and site identified. The skin was prepped with betadine and a sterile field set. The wound was anesthetized with 1 ml of 1% lidocaine without epinephrine. The abscess cavity was entered with a number 11 blade and purulent material material expressed. Copious irrigation was performed using saline. The wound was explored for foreign bodies and none found. Debridement was not performed. Packing placed and a sterile dressing applied. Detailed wound care instructions and signs and symptoms of worsening infection reviewed with the patient. No complications and the patient tolerated the procedure well. ED Course 09: Past medical records reviewed. The patient was evaluated in room B5, and a complete history and physical examination were performed. 0945: Ordered Buffered Lidocaine 1% Inj 20 mL INFIL. 0953: I conducted the incision and drainage. See the procedure note for details. 1005: Ordered Vibramycin Cap 100 mg PO. 1010: Upon reevaluation, the patient is resting comfortably. I discussed the results and treatment plan with her. She verbalized agreement of the treatment plan. The patient was discharged home. Medical Decision Differentials include, but are not limited to; abscess, cellulitis, MRSA and lymphadenopathy. This patient comes in as described above. She's complains of a swollen area in her left axilla . She's had abscesses in her axilla and groin before. On exam , it is tender and is not fluctuant or red. I numbed it with 1% lidocaine and the area got bigger indicating an abscess cavity. I used an 18-gauge needle and there was a small amount of pus. I then made a small stab with a #11 blade and a small amount of pus was obtained the abscess cavity could be felt with dissection but there is no other further abscess. This was left open and can be further drained. There was no packing required. She will be put on doxycycline 100 mg twice a day. She is to rest and use warm compresses. Return if: increasing pain or problems, redness or warmth, bleeding, any new problems or concerns. She was happy with plan discharge to home. Medication Reconcilliation Current Medication List: was personally reviewed by me Blood Pressure Screening Patient's blood pressure: Normal blood pressure Blood pressure disposition: Did not require urgent referral Impression Primary Impression: Abscess of left axilla Scribe Attestation The scribe's documentation has been prepared under my direction and personally reviewed by me in its entirety. I confirm that the note above accurately reflects all work, treatment, procedures, and medical decision making performed by me. Departure Information Dispostion Home / Self-Care Prescriptions Doxycycline Hyclate (VIBRAMYCIN) 100 Mg Cap 100 MG PO BID for 10 Days, #20 CAP Prov: Balwinder Negrete M.D. 04/07/17 Referrals Ramila Weclh PA-C (PCP) Forms HOME CARE DOCUMENTATION FORM, IMPORTANT VISIT INFORMATION, WORK / SCHOOL INSTRUCTIONS Patient Instructions My [facility] Additional Instructions Rest Drink plenty of fluids Use Doxycycline 100 mg twice a day for 10 days Doxycycline may make you very sensitive sunlight Return if: worsening of symptoms, fever or chills, increasing pain or bleeding, fever, redness or warmth, any new problems or concerns Follow-up doctor for recheck in 2-4 days or return here at any point
== END 2017-04-07 10:17 | disposition home or self-care (01) ==
LOC: C.EDB 08:31
DX: L02.412 Cutaneous abscess of left axilla (principal); J45.909 Unspecified asthma, uncomplicated; K21.9 Gastro-esophageal reflux disease without esophagitis; I10 Essential (primary) hypertension; I47.1 Supraventricular tachycardia; Z82.5 Family history of asthma and other chronic lower respiratory diseases; Z82.49 Family history of ischemic heart disease and other diseases of the circulatory system

== ENCOUNTER 2017-04-21 08:16 | Emergency (ER) | payer OTHER ==
[~2017-04-21] VITALS: Ht 162.6 cm; Wt 57.5 kg
[~2017-04-21 08:16] MED LIST changes: -ALBINS/ NEB; +DOXY100C2 PO; -NADO20TA PO; -VALA500T60 PO; -VNTHFA/IN INH
[2017-04-21 08:19] VITALS: TEMP 36.4; Ht 162.6 cm; Wt 57.5 kg
[2017-04-21] MEDS ORDERED: DEXAMETHASONE SOD INJ 10 MG/ML VIAL IM STA (08:27)
[2017-04-21] MEDS ORDERED: RANITIDINE HCL 150 MG TAB PO STA (08:27)
[2017-04-21] MEDS ORDERED: PRED20TA2 PO (08:29)
--- NOTE | 2017-04-21 08:29 | EMERGENCY ROOM VISIT NOTE ---
History Report prepared by Azar: Jewell Martinez Under the Supervision of: Dr. Theo Ghotra M.D. First contact with patient: 08:22 Chief Complaint: RASH Stated Complaint: HIVES ON BACK THIGHS AND BUTTOCKS History of Present Illness The patient is a 26 year old female who presents to the Emergency Room with complaints of a persistent rash to her buttocks and posterior thighs that began this morning. The patient states that she woke this morning with a burning, itchy rash to her posterior thighs and buttocks. She states that she tried using Benadryl and Hydrocortisone cream without relief of her symptoms. The patient denies any new detergents, bedding, or exposures. She denies ever having this in the past. The patient denies any new foods. She states that her whole body feels itchy, but only notices the rash to her posterior thighs and buttocks. Source of History: patient Onset: this morning Position: buttock, other (posterior thighs) Quality: burning, other (rash) Timing: other (persistent) Note: Associated Symptoms: feeling itchy Review of Systems See HPI for pertinent positives & negatives. A total of 10 systems reviewed and were otherwise negative. Past Medical & Surgical Medical Problems: (1) Asthma (2) Asthma, mild persistent (3) Atrial tachycardia (4) Cellulitis (5) GERD (gastroesophageal reflux disease) (6) HTN (hypertension) (7) Hx of fracture of tibia (8) Ovarian cyst (9) Pharyngitis (10) Sinus tachycardia (11) Sinusitis (12) Sinusitis (13) SVT (supraventricular tachycardia) Surgical Problems: (1) H/O cardiac radiofrequency ablation (2) H/O cardiac radiofrequency ablation (3) H/O section (4) S/P ablation operation for arrhythmia Family History Asthma SISTER Cardiac disorder FATHER GRANDFATHER GRANDMOTHER Gallbladder disease Heart disease Hypertension FATHER BROTHER GRANDFATHER GRANDMOTHER Kidney disease or stones Lung disease Social History Smoking Status: Never Smoker Alcohol Use: none Drug Use: none Housing Status: lives with family Occupation Status: employed Current/Historical Medications Scheduled Doxycycline Hyclate (Vibramycin), 100 MG PO BID Prednisone (Prednisone Tab), 0 PO DAILY Ranitidine Hcl (Zantac), 150 MG PO BID Allergies Coded Allergies: Penicillins (Verified Allergy, Intermediate, RASH, 02/03/17) Sulfa Antibiotics (Verified Allergy, Intermediate, hives, 02/03/17) Codeine (Verified Allergy, Mild, 02/03/17) Morphine (Verified Allergy, Mild, HALLUCINATES, 02/03/17) Levofloxacin (Verified Allergy, Unknown, RASH, joint pain, 02/03/17) Pseudoephedrine (Verified Allergy, Unknown, FEVER, 02/03/17) Egg (Verified Adverse Reaction, Unknown, HEADACHE, 02/03/17) Physical Exam Vital Signs Date Time Temp Pulse Resp B/P (MAP) Pulse Ox O2 Delivery O2 Flow Rate FiO2 04/21/17 08:40 89 16 116/72 93 04/21/17 08:19 36.4 89 16 116/72 93 Room Air Physical Exam GENERAL: Patient is a healthy-appearing well-nourished female HEAD: Normocephalic atraumatic EYES: Ocular movements intact pupils equal and react to light OROPHARYNX mucous membranes are moist no exudates present no erythema or edema present NECK: Supple no nuchal rigidity CHEST: Good equal expansion LUNGS: Clear and equal to auscultation CARDIAC: Normal S1 and S2 ABDOMEN: Soft nontender no guarding BACK: No CVA tenderness EXTREMITIES: No pain upon palpation normal muscle strength in all groups no clubbing cyanosis or edema NEURO: Patient is following commands and answering questions appropriately. Alert and oriented x3 Cranial Nerves 2-12 grossly intact SKIN: Urticarial rash that is present to her buttocks and upper thighs. Medical Decision & Procedures Medications Administered Medications (Trade) Dose Ordered Sig/Anika Route Start Time Stop Time Status Last Admin Dose Admin Dexamethasone Sodium Phosphate (Decadron Inj) 10 mg NOW STAT IM 04/21/17 08:27 04/21/17 08:28 DC 04/21/17 08:36 10 MG Ranitidine HCl (zANTac TAB) 150 mg NOW STAT PO 04/21/17 08:27 04/21/17 08:28 DC 04/21/17 08:35 150 MG ED Course 0823: Past medical records reviewed. The patient was evaluated in room B12B. A complete history and physical examination was performed. I discussed the exam findings with her and I discussed the treatment plan. She verbalized complete understanding and agreement. She is ready to go home. 0827: Ordered Zantac Tab 150 mg PO, Decadron Inj 10 mg IM. Medical Decision Differential diagnosis: Etiologies such as contact dermatitis, viral exanthem, urticaria, allergic reaction, Callaway-Eitan syndrome, toxic epidermal necrolysis, erythema multiforme, cellulitis, scabies, HSV, varicella, zoster, eczema, staph scalded skin syndrome, fungal infection, as well as others were entertained. This is a 26-year-old female who presents emergency department complaining of itchy rash to her Botox and posterior thighs. The patient also has itchiness to her flanks. The patient is requesting a steroid shot so she was given 10 of Decadron. She was also given Zantac. I encouraged her to continue taking 50 of Benadryl. Patient was in agreement with the treatment plan. Medication Reconcilliation Current Medication List: was personally reviewed by me Impression Primary Impression: Rash and nonspecific skin eruption Scribe Attestation The scribe's documentation has been prepared under my direction and personally reviewed by me in its entirety. I confirm that the note above accurately reflects all work, treatment, procedures, and medical decision making performed by me. Departure Information Dispostion Home / Self-Care Prescriptions Ranitidine Hcl (ZANTAC) 150 Mg Tab 150 MG PO BID for 7 Days, #14 TAB Prov: Theo Ghotra MD 04/21/17 Prednisone (Prednisone Tab) 20 Mg Tab 0 PO DAILY, #7 TAB 2 TABS DAILY FOR 2 DAYS, THEN 1 TAB DAILY FOR 2 DAYS, THEN 1/2 TAB DAILY FOR 2 DAYS. Prov: Theo Ghotra MD 04/21/17 Referrals Ramila Welch PA-C (PCP) Forms HOME CARE DOCUMENTATION FORM, IMPORTANT VISIT INFORMATION, WORK / SCHOOL INSTRUCTIONS Patient Instructions My [facility] Additional Instructions Use 50 mg Benadryl every 6 hours You have been examined and treated today on an emergency basis only. This is not a substitute for, or an effort to provide, complete comprehensive medical care. It is impossible to recognize and treat all injuries or illnesses in a single emergency department visit. It is therefore important that you follow up closely with Dr Welch. Call as soon as possible for an appointment. Thank you for your time and consideration. I look forward to speaking with you again soon. Please don't hesitate to call us if you have any questions.
[2017-04-21] MEDS ORDERED: RANI150T3 PO (08:31)
[2017-04-21 08:40] VITALS: BP 116/72; PULSE 89; O2SAT 93
== END 2017-04-21 08:40 | disposition home or self-care (01) ==
LOC: C.EDB 08:17
DX: R21 Rash and other nonspecific skin eruption (principal); J45.30 Mild persistent asthma, uncomplicated; K21.9 Gastro-esophageal reflux disease without esophagitis; I10 Essential (primary) hypertension; I47.1 Supraventricular tachycardia; Z82.5 Family history of asthma and other chronic lower respiratory diseases; Z82.49 Family history of ischemic heart disease and other diseases of the circulatory system; Z84.1 Family history of disorders of kidney and ureter

== ENCOUNTER 2017-05-20 16:16 | Emergency (ER) | payer OTHER ==
[~2017-05-20] VITALS: Ht 162.6 cm; Wt 57.9 kg
[~2017-05-20 16:16] MED LIST changes: -DOXY100C2 PO; +NADO20TA PO; +VALA1TAB31 PO
[2017-05-20 16:21] VITALS: TEMP 36.6; Ht 162.6 cm; Wt 57.9 kg
--- NOTE | 2017-05-20 16:51 | EMERGENCY ROOM VISIT NOTE ---
History Report prepared by Azar: Gregg Mccann Under the Supervision of: Dr. Ham Bhatia M.D. First contact with patient: 16:37 Chief Complaint: CHEST PAIN Stated Complaint: CHEST PAIN History of Present Illness The patient is a 26 year old female who presents to the Emergency Room with complaints of constant sharp chest pain beginning three hours ago. The patient states that her pain occurs in the middle of her chest, and radiates out to the sides to her upper back. She notes that she has had similar pain before. She reports that her pain worsens with exertion but does not worsen when she breathes. She denies any SOB and cough, but states that she has been congested for the past week. The patient denies any history of heart attack, kidney problems, blood clots, and diabetes, but notes that her asthma has been acting up more than usual for the past week. She reports that both her father and grandfather had to be placed on blood thinners for blood clots. The patient states that she has a history of tachycardia and had an event recorder placed a year ago. She notes taking medication for palpitations this morning. She reports her pain as a 7/10. Source of History: patient Onset: three hours ago Position: chest Symptom Intensity: 7/10 Quality: sharp Modifying Factors (Worsening): exertion Associated Symptoms: No cough, No SOB Note: She complains of congestion. Review of Systems See HPI for pertinent positives & negatives. A total of 10 systems reviewed and were otherwise negative. Past Medical & Surgical Medical Problems: (1) Asthma (2) Asthma, mild persistent (3) Atrial tachycardia (4) Cellulitis (5) GERD (gastroesophageal reflux disease) (6) HTN (hypertension) (7) Hx of fracture of tibia (8) Ovarian cyst (9) Pharyngitis (10) Sinus tachycardia (11) Sinusitis (12) Sinusitis (13) SVT (supraventricular tachycardia) Surgical Problems: (1) H/O cardiac radiofrequency ablation (2) H/O cardiac radiofrequency ablation (3) H/O section (4) S/P ablation operation for arrhythmia Family History Asthma SISTER Cardiac disorder FATHER GRANDFATHER GRANDMOTHER Gallbladder disease Heart disease Hypertension FATHER BROTHER GRANDFATHER GRANDMOTHER Kidney disease or stones Lung disease Social History Smoking Status: Current Every Day Smoker Alcohol Use: none Drug Use: none Housing Status: lives with family Occupation Status: employed Current/Historical Medications Scheduled Nadolol (Corgard), 20 MG PO NEEDED Scheduled PRN Albuterol Hfa (Ventolin Hfa), 2-4 PUFFS INH Q6H PRN for Shortness of Breath Albuterol Sulf (Albuterol Sulfate), 1 DOSE INH Q4 PRN for SOB/Wheezing Valacyclovir Hcl (Valtrex), 1 GM PO TID PRN for . Allergies Coded Allergies: Penicillins (Verified Allergy, Intermediate, RASH, 05/20/17) Sulfa Antibiotics (Verified Allergy, Intermediate, hives, 05/20/17) Codeine (Verified Allergy, Mild, 05/20/17) Morphine (Verified Allergy, Mild, HALLUCINATES, 05/20/17) Levofloxacin (Verified Allergy, Unknown, RASH, joint pain, 05/20/17) Pseudoephedrine (Verified Allergy, Unknown, FEVER, 05/20/17) Egg (Verified Adverse Reaction, Unknown, HEADACHE, 05/20/17) Physical Exam Vital Signs Date Time Temp Pulse Resp B/P (MAP) Pulse Ox O2 Delivery O2 Flow Rate FiO2 05/20/17 17:57 104 131/74 99 Room Air 05/20/17 16:57 92 123/85 99 Room Air 05/20/17 16:56 100 Room Air 05/20/17 16:55 99 Room Air 05/20/17 16:31 99 05/20/17 16:21 36.6 94 16 134/83 98 Room Air Physical Exam GENERAL: Patient is in no acute distress. HEENT: No acute trauma, normocephalic atraumatic, mucous membranes moist, no nasal congestion, no scleral icterus. NECK: No stridor, no adenopathy, no meningismus, trachea is midline. LUNGS: Clear to auscultation bilaterally, no wheeze, no rhonchi, breath sounds equal. HEART: Without murmurs gallops or rubs, regular rate and rhythm. CHEST: Tender to left anterior chest wall--superior and medial to breast. ABDOMEN: Soft, nontender, bowel sounds positive, no hernias, no peritonitis. EXTREMITIES: No cyanosis or edema, full range of motion of all the joints without pain or difficulty, no signs for acute trauma. NEUROLOGIC: Oriented x 3, no acute motor or sensory deficits, no focal weakness. SKIN: No rash, no jaundice, no diaphoresis. Medical Decision & Procedures ER Provider Diagnostic Interpretation: Radiology results as stated below per my review and radiologist interpretation: CT ANGIOGRAPHY OF THE CHEST, PULMONARY EMBOLUS PROTOCOL FINDINGS: This exam is markedly compromised by motion artifact. No central pulmonary embolus is identified. There is no evidence of thoracic aortic dissection. The size of the heart is normal. There is no pericardial effusion. There are no enlarged thoracic lymph nodes. Lungs are grossly clear. There is no pneumothorax or pleural effusion. Bony thorax is suboptimally assessed. Upper abdomen is unremarkable. IMPRESSION: 1. Exam markedly compromised by motion artifact. No central pulmonary embolus. 2. No acute intrathoracic findings identified. Electronically signed by: Geoffrey San M.D. 05/20/2017 5:54 PM CHEST ONE VIEW PORTABLE FINDINGS: Lung volumes are normal. No pneumothorax or pleural effusion is present. Pulmonary vascularity is normal. Cardiomediastinal silhouette is normal. There is no evidence of pulmonary edema. Electronic device projects over the left lower chest. IMPRESSION: No acute cardiopulmonary findings. Electronically signed by: Geoffrey San M.D. 05/20/2017 5:39 PM Laboratory Results 05/20/17 16:35 05/20/17 16:35 Test 05/20/17 16:35 05/20/17 16:55 Red Blood Count 4.54 M/uL (4.2-5.4) Mean Corpuscular Volume 89.2 fL (80-100) Mean Corpuscular Hemoglobin 31.5 pg (25-34) Mean Corpuscular Hemoglobin Concent 35.3 g/dl (32-36) RDW Standard Deviation 40.0 fL (36.4-46.3) RDW Coefficient of Variation 12.4 % (11.5-14.5) Mean Platelet Volume 10.9 fL (7.4-10.4) Prothrombin Time 10.6 SECONDS (9.0-12.0) Prothromb Time International Ratio 1.0 (0.9-1.1) Activated Partial Thromboplast Time 27.1 SECONDS (21.0-31.0) Partial Thromboplastin Ratio 1.0 Anion Gap 8.0 mmol/L (3-11) Est Creatinine Clear Calc Drug Dose 79.7 ml/min Estimated GFR () 98.4 Estimated GFR (Non- 84.9 BUN/Creatinine Ratio 6.6 (10-20) Calcium Level 8.8 mg/dl (8.5-10.1) Total Bilirubin 0.3 mg/dl (0.2-1) Aspartate Amino Transf (AST/SGOT) 7 U/L (15-37) Alanine Aminotransferase (ALT/SGPT) 15 U/L (12-78) Alkaline Phosphatase 74 U/L (45-117) Total Protein 7.3 gm/dl (6.4-8.2) Albumin 3.8 gm/dl (3.4-5.0) Globulin 3.5 gm/dl (2.5-4.0) Albumin/Globulin Ratio 1.1 (0.9-2) Bedside D-Dimer > 450 ng/mlFEU (0-450) Bedside Troponin I < 0.030 ng/ml (0-0.045) Laboratory results reviewed by me. ECG Indication: chest pain Rate (beats per minute): 93 Rhythm: normal sinus Findings: no acute ischemic change, no ectopy ED Course 1643: The patient was evaluated in room A4. A complete history and physical exam was performed. 172: I reevaluated and updated the patient. I spoke to her about having a chest CT done. 180: I reevaluated and updated the patient. 182: Reevaluated the patient. Discussed results and discharge instructions: She verbalized understanding and agreement. The patient is ready for discharge. Medical Decision Differential diagnoses include: musculoskeletal pain, aortic dissection, pneumothorax, [place], PE, and dysrhythmia. There is no leukocytosis or concerning anemia. No significant electrolyte abnormality, kidney failure or hepatitis. There is no coagulopathy. Chest x- ray does not show mediastinal widening, pneumonia or pneumothorax. EKG shows a normal sinus rhythm, no acute ischemia. Cardiac enzyme testing times one is not consistent with acute cardiac injury. D-dimer testing is positive. Chest CT shows no evidence for PE, no evidence for aortic dissection. The patient presents with anterior chest pain. Her workup is benign and reassuring. Her pain does seem reproducible. I suspect the pain is musculoskeletal. The patient is being discharged with conservative measures, heat, naproxen were suggested. If worsening, she can return. Blood Pressure Screening Patient's blood pressure: Elevated blood pressure Blood pressure disposition: Elevated BP felt to be situational Impression Primary Impression: Precordial chest pain Scribe Attestation The scribe's documentation has been prepared under my direction and personally reviewed by me in its entirety. I confirm that the note above accurately reflects all work, treatment, procedures, and medical decision making performed by me. Departure Information Dispostion Home / Self-Care Referrals Ramila Welch PA-C (PCP) Forms HOME CARE DOCUMENTATION FORM, IMPORTANT VISIT INFORMATION Patient Instructions My [facility] Additional Instructions naproxen/aleve for pain heat to the chest wall may help return if worsening heart and lung testing was all ok today no blood clot found
[2017-05-20 16:55] LABS: HEMATOCRIT 40.5 % (37-47); MEAN CELL VOLUME 89.2 fL (80-100); MEAN CORPUSCULAR HEMOGLOBIN 31.5 pg (25-34); MEAN CORPUSCULAR HGB CONC 35.3 g/dl (32-36); MEAN PLATELET VOLUME 10.9 fL (7.4-10.4); PLATELET COUNT 293 K/uL (130-400); RED BLOOD COUNT 4.54 M/uL (4.2-5.4); WHITE BLOOD COUNT 7.52 K/uL (4.8-10.8)
[2017-05-20 16:56] VITALS: O2SAT 100
[2017-05-20 17:02] LABS: PROTHROMBIN TIME (PATIENT) 10.6 SECONDS (9.0-12.0)
[2017-05-20] MEDS ORDERED: RRALBUT2.5 INH (17:05)
[2017-05-20] MEDS ORDERED: VNTHFA/IN INH (17:05)
[2017-05-20 17:09] LABS: BUN/CREATININE RATIO 6.6 (10-20); CALCIUM 8.8 mg/dl (8.5-10.1); CREATININE 0.94 mg/dl (0.60-1.20); POTASSIUM 3.1 mmol/L (3.5-5.1)
[2017-05-20 17:12] LABS: ALB/GLOB RATIO 1.1 (0.9-2)
[2017-05-20 17:15] LABS: POINT OF CARE TROPONIN I < 0.030 ng/ml (0-0.045)
[2017-05-20] MEDS ORDERED: OPTIRAY 320 IV PRN (17:30)
--- NOTE | 2017-05-20 17:40 | DIAGNOSTIC IMAGING REPORT ---
CHEST ONE VIEW PORTABLE CLINICAL HISTORY: Chest pain. COMPARISON STUDY: Chest radiograph February 04, 2017. FINDINGS: Lung volumes are normal. No pneumothorax or pleural effusion is present. Pulmonary vascularity is normal. Cardiomediastinal silhouette is normal. There is no evidence of pulmonary edema. Electronic device projects over the left lower chest. IMPRESSION: No acute cardiopulmonary findings. Electronically signed by: Geoffrey San M.D. 05/20/2017 5:39 PM Dictated Date/Time: 05/20/2017 5:38 PM
--- NOTE | 2017-05-20 17:56 | DIAGNOSTIC IMAGING REPORT ---
CT ANGIOGRAPHY OF THE CHEST, PULMONARY EMBOLUS PROTOCOL CLINICAL HISTORY: Chest pain. COMPARISON STUDY: Chest CT December 22, 2013 and chest radiograph performed earlier today. TECHNIQUE: Following IV administration of 94 mL of Optiray-320, helical axial images of the chest were obtained utilizing the pulmonary embolus protocol. Maximal intensity projections and sagittal and coronal reformats were viewed on an independent 3D workstation. IV contrast was administered without complication. A dose lowering technique was utilized adhering to the principles of ALARA. CT DOSE: 210.96 mGy.cm FINDINGS: This exam is markedly compromised by motion artifact. No central pulmonary embolus is identified. There is no evidence of thoracic aortic dissection. The size of the heart is normal. There is no pericardial effusion. There are no enlarged thoracic lymph nodes. Lungs are grossly clear. There is no pneumothorax or pleural effusion. Bony thorax is suboptimally assessed. Upper abdomen is unremarkable. IMPRESSION: 1. Exam markedly compromised by motion artifact. No central pulmonary embolus. 2. No acute intrathoracic findings identified. Electronically signed by: Geoffrey San M.D. 05/20/2017 5:54 PM Dictated Date/Time: 05/20/2017 5:49 PM
[2017-05-20 18:37] VITALS: BP 127/78; PULSE 99; O2SAT 98
== END 2017-05-20 18:38 | disposition home or self-care (01) ==
LOC: C.EDB 16:17 → C.EDA 18:38
DX: R07.2 Precordial pain (principal); I10 Essential (primary) hypertension; K21.9 Gastro-esophageal reflux disease without esophagitis; N83.209 Unspecified ovarian cyst, unspecified side; J45.30 Mild persistent asthma, uncomplicated; F17.200 Nicotine dependence, unspecified, uncomplicated; Z86.19 Personal history of other infectious and parasitic diseases; Z88.0 Allergy status to penicillin; Z88.2 Allergy status to sulfonamides; Z88.5 Allergy status to narcotic agent; Z88.8 Allergy status to other drugs, medicaments and biological substances; Z91.012 Allergy to eggs

== ENCOUNTER 2017-06-12 12:19 | Emergency (ER) | payer OTHER ==
[~2017-06-12] VITALS: Ht 162.6 cm; Wt 58.7 kg
[~2017-06-12 12:19] MED LIST changes: +RRALBUT2.5 INH; +VNTHFA/IN INH
[2017-06-12 12:23] VITALS: TEMP 36.8; Ht 162.6 cm; Wt 58.7 kg
[2017-06-12] MEDS ORDERED: METHYLPREDNISOLONE 125 MG VIAL IV STA (12:35)
[2017-06-12 13:07] LABS: BASO % 0.2 %; BASO ABS # 0.02 K/uL (0-0.2); COMPLETE YES; EOS % 2.2 %; HEMATOCRIT 38.8 % (37-47); IG% 0.7 %; LYMPH % 37.1 %; LYMPH ABS # 3.49 K/uL (1.2-3.4); MEAN CELL VOLUME 90.4 fL (80-100); MEAN CORPUSCULAR HGB CONC 34.3 g/dl (32-36); MEAN PLATELET VOLUME 10.2 fL (7.4-10.4); MONO % 9.4 %; NEUT % 50.4 %; PLATELET COUNT 311 K/uL (130-400); RED BLOOD COUNT 4.29 M/uL (4.2-5.4)
--- NOTE | 2017-06-12 13:20 | DIAGNOSTIC IMAGING REPORT ---
CHEST 2 VIEWS ROUTINE HISTORY: 26 years-old Female sob,wheezing acute shortness of breath and wheezing COMPARISON: Chest radiograph 05/20/2017, CTA chest 05/20/2017 TECHNIQUE: PA and lateral views of the chest FINDINGS: Unchanged electronic device projects over the left heart border suggesting a loop recorder. Cardiomediastinal and hilar silhouettes are within normal limits. No pneumothorax, pleural effusion, focal airspace consolidation or overt pulmonary edema. The lungs are symmetrically inflated. Bones of the chest appear grossly intact. IMPRESSION: No acute cardiopulmonary process. The above report was generated using voice recognition software. It may contain grammatical, syntax or spelling errors. Electronically signed by: Galileo Moreno M.D. 06/12/2017 1:19 PM Dictated Date/Time: 06/12/2017 1:17 PM
[2017-06-12 13:25] LABS: BUN/CREATININE RATIO 9.2 (10-20); CALCIUM 8.6 mg/dl (8.5-10.1); CREATININE 0.91 mg/dl (0.60-1.20); POTASSIUM 3.6 mmol/L (3.5-5.1)
[2017-06-12] MEDS ORDERED: ALBUT/IPRATROP 3MG/0.5MG NEB 3 ML VIAL INH STA (13:40)
[2017-06-12] MEDS ORDERED: PRED20TA PO (14:07)
--- NOTE | 2017-06-12 14:08 | EMERGENCY ROOM VISIT NOTE ---
History First contact with patient: 12:30 Chief Complaint: CONGESTION Stated Complaint: CONGESTED,SORETHROAT,WHEEZY Nursing Triage Summary: cough congestion and sorethroat for the past 3 days History of Present Illness The patient is a 26 year old female with a history of asthma presents to the Emergency Room with complaints of sore throat, chest tightness and wheezing. The patient states that the symptoms started 3 days ago but but got worse today. The patient states that she has been using her albuterol inhaler and breathing treatments. Her last breathing treatment was at 9 AM. The patient denies any fever or head congestion. She does admit to a dry cough which has irritated her throat. She is able to drink and eat but it is painful. Review of Systems 10 system review was performed and was negative unless stated otherwise history of present illness. Past Medical/Surgical History Medical Problems: (1) Asthma (2) Asthma, mild persistent (3) Atrial tachycardia (4) Cellulitis (5) GERD (gastroesophageal reflux disease) (6) HTN (hypertension) (7) Hx of fracture of tibia (8) Ovarian cyst (9) Pharyngitis (10) Sinus tachycardia (11) Sinusitis (12) Sinusitis (13) SVT (supraventricular tachycardia) Surgical Problems: (1) H/O cardiac radiofrequency ablation (2) H/O cardiac radiofrequency ablation (3) H/O section (4) S/P ablation operation for arrhythmia Family History Asthma SISTER Cardiac disorder FATHER GRANDFATHER GRANDMOTHER Gallbladder disease Heart disease Hypertension FATHER BROTHER GRANDFATHER GRANDMOTHER Kidney disease or stones Lung disease Social History Smoking Status: Never Smoker Alcohol Use: none Drug Use: none Housing Status: lives with family Occupation Status: employed Current/Historical Medications Scheduled Nadolol (Corgard), 20 MG PO NEEDED Scheduled PRN Albuterol Hfa (Ventolin Hfa), 2-4 PUFFS INH Q6H PRN for Shortness of Breath Albuterol Sulf (Albuterol Sulfate), 1 DOSE INH Q4 PRN for SOB/Wheezing Valacyclovir Hcl (Valtrex), 1 GM PO TID PRN for . Physical Exam Vital Signs Date Time Temp Pulse Resp B/P (MAP) Pulse Ox O2 Delivery O2 Flow Rate FiO2 06/12/17 13:58 84 16 123/72 100 Room Air 06/12/17 12:24 99 Room Air 06/12/17 12:23 36.8 97 18 118/81 99 Room Air Physical Exam PHYSICAL EXAM: Vital Signs were reviewed: Temperature 36.8, blood pressure 118/ 81, pulse 97, respiratory rate 18 Reviewed Nurse's notes and agree. Oxygen saturation is 99 % on room air which is normal . GENERAL: 26-year-old male appears in no acute distress. MENTAL STATUS: Alert, oriented, coherent. EARS: Canals clear. TMs good light reflex, no erythema or fluid level noted. NOSE: Nasal mucosa with moderate erythema engorgement. PHARYNX: Moderate erythema, no edema noted. No exudate noted. Airway is adequate. NECK: Supple, non-tender. No lymphadenopathy noted. LUNGS: Faint expiratory wheeze noted bilaterally. No rales or rhonchi noted. Good air exchange noted. CARDIAC: Regular rate and rhythm without murmur. SKIN: No rashes noted. Medical Decision & Procedures ER Provider Diagnostic Interpretation: CHEST 2 VIEWS ROUTINE HISTORY: 26 years-old Female sob,wheezing acute shortness of breath and wheezing COMPARISON: Chest radiograph 05/20/2017, CTA chest 05/20/2017 TECHNIQUE: PA and lateral views of the chest FINDINGS: Unchanged electronic device projects over the left heart border suggesting a loop recorder. Cardiomediastinal and hilar silhouettes are within normal limits. No pneumothorax, pleural effusion, focal airspace consolidation or overt pulmonary edema. The lungs are symmetrically inflated. Bones of the chest appear grossly intact. IMPRESSION: No acute cardiopulmonary process. The above report was generated using voice recognition software. It may contain grammatical, syntax or spelling errors. Electronically signed by: Galileo Moreno M.D. 06/12/2017 1:19 PM Laboratory Results 06/12/17 12:40 Red Blood Count 4.29, Mean Corpuscular Volume 90.4, Mean Corpuscular Hemoglobin 31.0, Mean Corpuscular Hemoglobin Concent 34.3, Mean Platelet Volume 10.2, Neutrophils (%) (Auto) 50.4, Lymphocytes (%) (Auto) 37.1, Monocytes (%) (Auto) 9.4, Eosinophils (%) (Auto) 2.2, Basophils (%) (Auto) 0.2, Neutrophils # (Auto) 4.73, Lymphocytes # (Auto) 3.49, Monocytes # (Auto) 0.88, Eosinophils # (Auto) 0.21, Basophils # (Auto) 0.02 06/12/17 12:40 Test 06/12/17 12:40 White Blood Count 9.40 K/uL (4.8-10.8) Red Blood Count 4.29 M/uL (4.2-5.4) Hemoglobin 13.3 g/dL (12.0-16.0) Hematocrit 38.8 % (37-47) Mean Corpuscular Volume 90.4 fL (80-100) Mean Corpuscular Hemoglobin 31.0 pg (25-34) Mean Corpuscular Hemoglobin Concent 34.3 g/dl (32-36) Platelet Count 311 K/uL (130-400) Mean Platelet Volume 10.2 fL (7.4-10.4) Neutrophils (%) (Auto) 50.4 % Lymphocytes (%) (Auto) 37.1 % Monocytes (%) (Auto) 9.4 % Eosinophils (%) (Auto) 2.2 % Basophils (%) (Auto) 0.2 % Neutrophils # (Auto) 4.73 K/uL (1.4-6.5) Lymphocytes # (Auto) 3.49 K/uL (1.2-3.4) Monocytes # (Auto) 0.88 K/uL (0.11-0.59) Eosinophils # (Auto) 0.21 K/uL (0-0.5) Basophils # (Auto) 0.02 K/uL (0-0.2) RDW Standard Deviation 41.7 fL (36.4-46.3) RDW Coefficient of Variation 12.7 % (11.5-14.5) Immature Granulocyte % (Auto) 0.7 % Immature Granulocyte # (Auto) 0.07 K/uL (0.00-0.02) Anion Gap 2.0 mmol/L (3-11) Est Creatinine Clear Calc Drug Dose 82.4 ml/min Estimated GFR () 102.3 Estimated GFR (Non- 88.3 BUN/Creatinine Ratio 9.2 (10-20) Calcium Level 8.6 mg/dl (8.5-10.1) Medications Administered Medications (Trade) Dose Ordered Sig/Anika Route Start Time Stop Time Status Last Admin Dose Admin Methylprednisolone Sodium Succinate (Solu-Medrol IV) 125 mg NOW STAT IV 06/12/17 12:35 06/12/17 12:38 DC 06/12/17 12:48 125 MG Albuterol/ Ipratropium (Duoneb) 3 ml NOW STAT INH 06/12/17 13:40 06/12/17 13:42 DC 06/12/17 13:44 3 ML ED Course The patient was evaluated. The patient's EMR medication list were reviewed. IV access was obtained. CBC and differential and renal profile was ordered. The patient was given Solu-Medrol 125 mg IV. The patient's labs are reviewed and were unremarkable. Chest x-ray was ordered interpreted by the radiologist as above without any acute findings. The patient was given a DuoNeb. Post treatment the patient was feeling much better. The patient was discharged home in stable condition. Medical Decision Differential diagnosis include pneumonia, bronchitis, asthma exacerbation, viral URI [place] Drug Monitoring Program Search Results: patient reviewed within database Medication Reconcilliation Current Medication List: was personally reviewed by ok Blood Pressure Screening Patient's blood pressure: Normal blood pressure Impression Primary Impression: Asthma exacerbation Additional Impression: Sore throat Departure Information Dispostion Home / Self-Care Condition GOOD Prescriptions Prednisone (Prednisone) 20 Mg Tab 0 PO DAILY, #18 TAB 3 DAILY FOR 3 DAYS, THEN 2 DAILY FOR 3 DAYS, THEN 1 DAILY FOR 3 DAYS. Prov: Paulette Lima PA-C 06/12/17 Referrals Ramila Welch PA-C (PCP) Forms HOME CARE DOCUMENTATION FORM, IMPORTANT VISIT INFORMATION Patient Instructions Asthma - [facility], [place], [facility], Sore Throat - [facility] [place] Additional Instructions Continue your albuterol inhaler and/or breathing treatments as needed. Recommend [id number] steroid nasal spray as directed on the label. Take prednisone taper as prescribed. If symptoms are not improving, follow-up with your family physician for reevaluation. Problem Qualifiers Primary Impression: Asthma exacerbation Asthma severity: mild Asthma persistence: intermittent Qualified Codes: J45.21 - Mild intermittent asthma with (acute) exacerbation
[2017-06-12 14:39] VITALS: BP 119/80; PULSE 81; O2SAT 99
== END 2017-06-12 14:37 | disposition home or self-care (01) ==
LOC: C.EDB 12:20 → C.EDD 14:37
DX: J45.21 Mild intermittent asthma with (acute) exacerbation (principal); J02.9 Acute pharyngitis, unspecified; I10 Essential (primary) hypertension; Z98.891 History of uterine scar from previous surgery; Z98.890 Other specified postprocedural states; Z82.5 Family history of asthma and other chronic lower respiratory diseases; Z82.49 Family history of ischemic heart disease and other diseases of the circulatory system

== ENCOUNTER 2017-06-24 08:58 | Emergency (ER) | payer OTHER ==
[~2017-06-24] VITALS: Ht 162.6 cm; Wt 58.0 kg
[~2017-06-24 08:58] MED LIST changes: +PRED20TA PO
[2017-06-24 09:08] VITALS: TEMP 36.7; Ht 162.6 cm; Wt 58.0 kg
[2017-06-24 09:10] VITALS: O2SAT 99
[2017-06-24] MEDS ORDERED: ALUMINUM/MAGNESIUM SUSP 30 ML UDC PO STA (09:43)
--- NOTE | 2017-06-24 10:04 | DIAGNOSTIC IMAGING REPORT ---
CHEST ONE VIEW PORTABLE HISTORY: 27 years-old Female chest pain acute atypical chest pain chest COMPARISON: Chest radiographs 06/12/2017 TECHNIQUE: Portable AP view of the chest FINDINGS: Cardiomediastinal and hilar silhouettes are within normal limits. There is no pneumothorax, pleural effusion, focal airspace consolidation or overt pulmonary edema. The bones of the chest are grossly intact. IMPRESSION: No acute process. The above report was generated using voice recognition software. It may contain grammatical, syntax or spelling errors. Electronically signed by: Galileo Moreno M.D. 06/24/2017 10:03 AM Dictated Date/Time: 06/24/2017 10:02 AM
[2017-06-24 10:06] LABS: BASO % 0.2 %; BASO ABS # 0.02 K/uL (0-0.2); COMPLETE YES; EOS % 1.1 %; HEMATOCRIT 41.7 % (37-47); IG% 0.3 %; LYMPH % 37.6 %; LYMPH ABS # 3.29 K/uL (1.2-3.4); MEAN CELL VOLUME 92.9 fL (80-100); MEAN CORPUSCULAR HEMOGLOBIN 31.6 pg (25-34); MEAN CORPUSCULAR HGB CONC 34.1 g/dl (32-36); MEAN PLATELET VOLUME 10.1 fL (7.4-10.4); MONO % 9.2 %; NEUT % 51.6 %; PLATELET COUNT 284 K/uL (130-400); RED BLOOD COUNT 4.49 M/uL (4.2-5.4); WHITE BLOOD COUNT 8.76 K/uL (4.8-10.8)
[2017-06-24 10:09] LABS: PREG INTERNAL NEGATIVE QC NEG CLEAR BACKGROUND; PREG INTERNAL POSITIVE QC POS CONTROL LINE
[2017-06-24 10:14] LABS: ALT/SGPT 37 U/L (12-78); BLOOD UREA NITROGEN 18 mg/dl (7-18); BUN/CREATININE RATIO 17.4 (10-20); CALCIUM 8.8 mg/dl (8.5-10.1); CARBON DIOXIDE 30 mmol/L (21-32); CHLORIDE 102 mmol/L (98-107); CREATININE 1.05 mg/dl (0.60-1.20); GLUCOSE 73 mg/dl (70-99); MAGNESIUM 2.4 mg/dl (1.8-2.4); POTASSIUM 3.5 mmol/L (3.5-5.1); SODIUM 137 mmol/L (136-145)
--- NOTE | 2017-06-24 10:17 | EMERGENCY ROOM VISIT NOTE ---
History Report prepared by Azar: Guerline Heck Under the Supervision of: Dr. Flor Andino D.O. First contact with patient: 09:26 Chief Complaint: CHEST PAIN Stated Complaint: CHEST PAIN, RIGHT SHOULDER PAIN, CARD HX Nursing Triage Summary: pt reports hx of svt with hx of ablasion x 2. pt reports she has a pacemaker which was placed in 2016. pt reports she has had generalized chest pain with radation into right shoulder blade since last night. pt reports taking tums with no relief. pt reports taking aleve last night with no relief. History of Present Illness The patient is a 27 year old female who presents to the Emergency Room with complaints of intermittent sharp chest pain for three months [employer]. She notes the chest pain begins during her menstrual cycle and radiates to her right shoulder. She notes the pain comes and goes every 15 minutes for a few days at a time. She notes that alternating positions does not alleviate the pain. She currently rates her pain a 7/10 in severity. She notes these symptoms appear during her menstrual cycle every month for the last three months. She notes mild abdominal pain, diarrhea and a rash on her back. She denies any palpitations, fevers, urinary symptoms, leg pain, leg swelling, or abnormal vaginal discharge. She notes her menstrual cycles are abnormal and only last for 2 to 3 days at a time. She denies any history of blood clots and UTI. She denies any fevers. She notes that she has been recovering from a "cold," and has been on Doxycycline for three days. She is also taking prednisone for recent asthma exacerbation. She took a breathing treatment this morning. She has taken Aleve and Tums, though nothing has alleviated the symptoms. She has a history of dysrhythmia and two ablations, with the last one in Aug 2016. She regularly sees her ldr rn, Dr. Rodriguez. She has an event recorder in place near her left breast. 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 She denies any palpitation, abnormal vaginal discharge leg pain and leg swelling. Review of Systems See HPI for pertinent positives & negatives. A total of 10 systems reviewed and were otherwise negative. Past Medical & Surgical Medical Problems: (1) Asthma (2) Asthma, mild persistent (3) Atrial tachycardia (4) Cellulitis (5) GERD (gastroesophageal reflux disease) (6) HTN (hypertension) (7) Hx of fracture of tibia (8) Ovarian cyst (9) Pharyngitis (10) Sinus tachycardia (11) Sinusitis (12) Sinusitis (13) SVT (supraventricular tachycardia) Surgical Problems: (1) H/O cardiac radiofrequency ablation (2) H/O cardiac radiofrequency ablation (3) H/O section (4) S/P ablation operation for arrhythmia Family History Asthma SISTER Cardiac disorder FATHER GRANDFATHER GRANDMOTHER Gallbladder disease Heart disease Hypertension FATHER BROTHER GRANDFATHER GRANDMOTHER Kidney disease or stones Lung disease Social History Smoking Status: Never Smoker Alcohol Use: none Drug Use: none Housing Status: lives with family Occupation Status: employed Current/Historical Medications Scheduled Nadolol (Corgard), 20 MG PO NEEDED Prednisone (Prednisone), 0 PO DAILY Scheduled PRN Albuterol Hfa (Ventolin Hfa), 2-4 PUFFS INH Q6H PRN for Shortness of Breath Albuterol Sulf (Albuterol Sulfate), 1 DOSE INH Q4 PRN for SOB/Wheezing Valacyclovir Hcl (Valtrex), 1 GM PO TID PRN for . Allergies Coded Allergies: Penicillins (Verified Allergy, Intermediate, RASH, 06/24/17) Sulfa Antibiotics (Verified Allergy, Intermediate, hives, 06/24/17) Codeine (Verified Allergy, Mild, 06/24/17) Morphine (Verified Allergy, Mild, HALLUCINATES, 06/24/17) Levofloxacin (Verified Allergy, Unknown, RASH, joint pain, 06/24/17) Pseudoephedrine (Verified Allergy, Unknown, FEVER, 06/24/17) Egg (Verified Adverse Reaction, Unknown, HEADACHE, 06/24/17) Physical Exam Vital Signs Date Time Temp Pulse Resp B/P (MAP) Pulse Ox O2 Delivery O2 Flow Rate FiO2 06/24/17 11:50 97 21 112/83 99 06/24/17 11:00 82 16 122/86 95 Room Air 06/24/17 09:54 100 18 118/88 99 Room Air 06/24/17 09:10 92 06/24/17 09:10 99 Room Air 06/24/17 09:09 99 Room Air 06/24/17 09:08 36.7 86 16 132/97 99 Room Air Physical Exam GENERAL: alert, well appearing, well nourished, no distress, non-toxic EYE EXAM: normal conjunctiva, PERRL and EOM's grossly intact OROPHARYNX: no exudate, no erythema, lips, buccal mucosa, and tongue normal and mucous membranes are moist NECK: supple, no nuchal rigidity, no adenopathy, non-tender LUNGS: Clear to auscultation. Normal chest wall mechanics HEART: no murmurs, S1 normal and S2 normal. Event recorder palpable in left medial breast. No reproducible chest pain. ABDOMEN: abdomen soft, non-tender, normo-active bowel sounds, no masses, no rebound or guarding. BACK: Back is symmetrical on inspection and there is no deformity, no midline tenderness, no CVA tenderness. SKIN: no rashes and no bruising UPPER EXTREMITIES: upper extremities are grossly normal. LOWER EXTREMITIES: No pitting edema. NEURO EXAM: Normal sensorium, cranial nerves II-XII grossly intact, normal speech, no gross weakness of arms, no gross weakness of legs. Medical Decision & Procedures ER Provider Diagnostic Interpretation: Radiology results have been interpreted by the radiologist and reviewed by me. CHEST ONE VIEW PORTABLE HISTORY: 27 years-old Female chest pain acute atypical chest pain chest COMPARISON: Chest radiographs 06/12/2017 TECHNIQUE: Portable AP view of the chest FINDINGS: Cardiomediastinal and hilar silhouettes are within normal limits. There is no pneumothorax, pleural effusion, focal airspace consolidation or overt pulmonary edema. The bones of the chest are grossly intact. IMPRESSION: No acute process. The above report was generated using voice recognition software. It may contain grammatical, syntax or spelling errors. Electronically signed by: Galileo Moreno M.D. 06/24/2017 10:03 AM Dictated Date/Time: 06/24/2017 10:02 AM Laboratory Results 06/24/17 08:20 Red Blood Count 4.49, Mean Corpuscular Volume 92.9, Mean Corpuscular Hemoglobin 31.6, Mean Corpuscular Hemoglobin Concent 34.1, Mean Platelet Volume 10.1, Neutrophils (%) (Auto) 51.6, Lymphocytes (%) (Auto) 37.6, Monocytes (%) (Auto) 9.2, Eosinophils (%) (Auto) 1.1, Basophils (%) (Auto) 0.2, Neutrophils # (Auto) 4.51, Lymphocytes # (Auto) 3.29, Monocytes # (Auto) 0.81, Eosinophils # (Auto) 0.10, Basophils # (Auto) 0.02 06/24/17 08:20 Test 06/24/17 08:20 White Blood Count 8.76 K/uL (4.8-10.8) Red Blood Count 4.49 M/uL (4.2-5.4) Hemoglobin 14.2 g/dL (12.0-16.0) Hematocrit 41.7 % (37-47) Mean Corpuscular Volume 92.9 fL (80-100) Mean Corpuscular Hemoglobin 31.6 pg (25-34) Mean Corpuscular Hemoglobin Concent 34.1 g/dl (32-36) Platelet Count 284 K/uL (130-400) Mean Platelet Volume 10.1 fL (7.4-10.4) Neutrophils (%) (Auto) 51.6 % Lymphocytes (%) (Auto) 37.6 % Monocytes (%) (Auto) 9.2 % Eosinophils (%) (Auto) 1.1 % Basophils (%) (Auto) 0.2 % Neutrophils # (Auto) 4.51 K/uL (1.4-6.5) Lymphocytes # (Auto) 3.29 K/uL (1.2-3.4) Monocytes # (Auto) 0.81 K/uL (0.11-0.59) Eosinophils # (Auto) 0.10 K/uL (0-0.5) Basophils # (Auto) 0.02 K/uL (0-0.2) RDW Standard Deviation 44.6 fL (36.4-46.3) RDW Coefficient of Variation 13.1 % (11.5-14.5) Immature Granulocyte % (Auto) 0.3 % Immature Granulocyte # (Auto) 0.03 K/uL (0.00-0.02) Anion Gap 5.0 mmol/L (3-11) Est Creatinine Clear Calc Drug Dose 70.8 ml/min Estimated GFR () 85.5 Estimated GFR (Non- 73.8 BUN/Creatinine Ratio 17.4 (10-20) Calcium Level 8.8 mg/dl (8.5-10.1) Magnesium Level 2.4 mg/dl (1.8-2.4) Total Bilirubin 0.5 mg/dl (0.2-1) Aspartate Amino Transf (AST/SGOT) 17 U/L (15-37) Alanine Aminotransferase (ALT/SGPT) 37 U/L (12-78) Alkaline Phosphatase 64 U/L (45-117) Troponin I < 0.015 ng/ml (0-0.045) Total Protein 7.1 gm/dl (6.4-8.2) Albumin 3.6 gm/dl (3.4-5.0) Globulin 3.5 gm/dl (2.5-4.0) Albumin/Globulin Ratio 1.0 (0.9-2) Lipase 163 U/L (73-393) Human Chorionic Gonadotropin, Qual NEG (NEG) Laboratory results per my review. Medications Administered Medications (Trade) Dose Ordered Sig/Anika Route Start Time Stop Time Status Last Admin Dose Admin Al Hydroxide/Mg Hydroxide (Maalox Susp) 30 ml NOW STAT PO 06/24/17 09:43 06/24/17 09:45 DC 06/24/17 09:53 30 ML ED Course 0930: The patient was evaluated in room A4B. A complete history and physical exam was performed. 0943: Ordered Maalox 30 ml PO 1058: I reassessed the patient at this time. Her pain is less severe, though she is still having intermittent episodes of pain. 1120: I reassessed the patient at this time. She is feeling better and resting comfortably. I discussed the results and treatment plan with the patient. I answered all pertaining questions that she had. She expressed understanding and verbalized agreement. The patient will be discharged home. Medical Decision Prior records/ancillary studies reviewed. Triage Nursing notes reviewed. The patient's history was concerning for chest pain. Differential diagnosis: Etiologies such as cardiac ischemia, aortic dissection, pulmonary embolism, pneumonia, pneumothorax, musculoskeletal, infections, pericarditis, myocarditis , esophageal rupture, gastrointestinal, as well as others were entertained. HEART score 0 PERC negative, low risk Wells Patient well-appearing here despite complaints. Symptoms and recent history suggestive of possible GI origin for pain. Given low risk Wells score and Perc score negative as well as recent CT angio of the chest 1 month ago, did not feel patient warranted repeat CT imaging of the chest. Patient improved here following Maalox, however symptoms not completely resolved. Patient with history of GERD at baseline, and given acidic diet as well as recent use of prednisone and doxycycline, feel GERD/gastritis/esophagitis most likely the cause. Doubt ACS, dissection, PE, tamponade, effusion, occult infectious etiology, SVC syndrome, no evidence of dysrhythmia on telemetry. Discussed with patient follow-up with her regular doctor, symptoms to watch and return for , she verbalized understanding was agreeable with plan. Medication Reconcilliation Current Medication List: was personally reviewed by me Blood Pressure Screening Patient's blood pressure: Normal blood pressure Blood pressure disposition: Did not require urgent referral Impression Primary Impression: Chest pain Additional Impression: GERD (gastroesophageal reflux disease) Scribe Attestation The scribe's documentation has been prepared under my direction and personally reviewed by me in its entirety. I confirm that the note above accurately reflects all work, treatment, procedures, and medical decision making performed by me. Departure Information Dispostion Home / Self-Care Referrals Ramila Welch PA-C (PCP) Forms HOME CARE DOCUMENTATION FORM, IMPORTANT VISIT INFORMATION Patient Instructions Chest Pain - [facility], GERD, GERD Lifestyle Changes, My [facility] Additional Instructions Please continue regular medications as prescribed. Please consider starting a daily acid reducing medication given your history of reflux and the medications you're currently taking which could exacerbate this. Please avoid any additional acidic foods in your diet such as alcohol, coffee, soda, tomato- based products, citrus fruits. If you develop recurrent or worsening pain, develop fevers, dizziness, vomiting, abdominal pain, noticed black or bloody stools, develop trouble breathing, or you have any other new or concerning symptoms, please return the emergency room. Problem Qualifiers Primary Impression: Chest pain Chest pain type: unspecified Qualified Codes: R07.9 - Chest pain, unspecified Additional Impression: GERD (gastroesophageal reflux disease) Esophagitis presence: esophagitis presence not specified Qualified Codes: K21.9 - Gastro-esophageal reflux disease without esophagitis
[2017-06-24 10:19] LABS: ALKALINE PHOSPHATASE 64 U/L (45-117); AST/SGOT 17 U/L (15-37)
[2017-06-24 11:50] VITALS: BP 112/83; PULSE 97; O2SAT 99
== END 2017-06-24 11:47 | disposition home or self-care (01) ==
LOC: C.EDB 08:59 → C.EDA 11:47
DX: R07.89 Other chest pain (principal); K21.9 Gastro-esophageal reflux disease without esophagitis; Z95.0 Presence of cardiac pacemaker

== ENCOUNTER 2017-06-27 11:55 | Emergency (ER) | payer OTHER ==
[~2017-06-27] VITALS: Ht 162.6 cm; Wt 59.3 kg
[2017-06-27 11:58] VITALS: TEMP 37.1; Ht 162.6 cm; Wt 59.3 kg
--- NOTE | 2017-06-27 12:21 | EMERGENCY ROOM VISIT NOTE ---
History Report prepared by Nicolasaibe: Ella Son Under the Supervision of: Dr. Torito Patten M.D. First contact with patient: 12:14 Chief Complaint: VOMITING Stated Complaint: NAUSEA, DIARREA, VOMITING Nursing Triage Summary: patient c/o vomiting and diarrhea since this AM. patient states she has been around many people who have the "stomach bug" History of Present Illness The patient is a 27 year old female who presents to the Emergency Room with complaints of persistent vomiting and diarrhea since this 0600 this morning. She admits she has been around multiple sick contacts recently with the stomach flu. 8 mg of Zofran has provided no relief for the vomiting. She has not eaten since midday yesterday. She has tried drinking water and Gatorade, but states she just vomits any liquids right up. The patient admits to the chills and body aches but has not checked her temperature. She denies any hematuria or dysuria but admits to decreased urinary frequency. She complains of a "burning" type pain in her throat, but believes it's from vomiting. She has experienced some lower abdominal pain. The patient denies any chance of . Her periods have been normal. Source of History: patient Onset: 0600 this morning Position: other (global) Timing: other (persistent) Modifying Factors (Relieving): anti-emetics (Zofran) Associated Symptoms: + chills, + sorethroat, + nausea, + abdominal pain, No fevers, No urinary symptoms Review of Systems All systems have been listed, reviewed, and are negative other than those previously mentioned. Please see Additional Medical History Sheet. Past Medical & Surgical Medical Problems: (1) Asthma (2) Asthma, mild persistent (3) Atrial tachycardia (4) Cellulitis (5) GERD (gastroesophageal reflux disease) (6) HTN (hypertension) (7) Hx of fracture of tibia (8) Ovarian cyst (9) Pharyngitis (10) Sinus tachycardia (11) Sinusitis (12) Sinusitis (13) SVT (supraventricular tachycardia) Surgical Problems: (1) H/O cardiac radiofrequency ablation (2) H/O cardiac radiofrequency ablation (3) H/O section (4) S/P ablation operation for arrhythmia Family History Asthma SISTER Cardiac disorder FATHER GRANDFATHER GRANDMOTHER Gallbladder disease Heart disease Hypertension FATHER BROTHER GRANDFATHER GRANDMOTHER Kidney disease or stones Lung disease Social History Smoking Status: Never Smoker Alcohol Use: none Drug Use: none Marital Status: in relationship Housing Status: lives with family Occupation Status: employed Current/Historical Medications Scheduled Nadolol (Corgard), 20 MG PO NEEDED Ondasetron Odt (Zofran Odt), 4 MG SL Q6H Scheduled PRN Albuterol Hfa (Ventolin Hfa), 2-4 PUFFS INH Q6H PRN for Shortness of Breath Albuterol Sulf (Albuterol Sulfate), 1 DOSE INH Q4 PRN for SOB/Wheezing Valacyclovir Hcl (Valtrex), 1 GM PO TID PRN for . Allergies Coded Allergies: Penicillins (Verified Allergy, Intermediate, RASH, 06/24/17) Sulfa Antibiotics (Verified Allergy, Intermediate, hives, 06/24/17) Codeine (Verified Allergy, Mild, 06/24/17) Morphine (Verified Allergy, Mild, HALLUCINATES, 06/24/17) Amoxicillin (Verified Allergy, Unknown, SWELLING, 06/27/17) Latex1 -Allergic Contact Dermititis (Verified Allergy, Unknown, HIVES, ) Levofloxacin (Verified Allergy, Unknown, RASH, joint pain, 06/24/17) Pseudoephedrine (Verified Allergy, Unknown, FEVER, 06/24/17) Egg (Verified Adverse Reaction, Unknown, HEADACHE, 06/24/17) Physical Exam Vital Signs Date Time Temp Pulse Resp B/P (MAP) Pulse Ox O2 Delivery O2 Flow Rate FiO2 06/27/17 15:55 84 14 116/78 99 06/27/17 13:30 102 14 123/82 06/27/17 11:58 37.1 120 18 124/86 99 Room Air Physical Exam GENERAL: Patient awake, alert, oriented x 3. Patient follows commands. Patient does not appear toxic. Patient is adequately hydrated and well- nourished. SKIN: No erythema, pallor, cyanosis or rash HEENT: Normal head, pupils equal, reactive to light and accommodation. Ears normal. Oral cavity and posterior pharynx appear normal. Neck: Without adenopathy, no neck vein distention. LUNGS: Clear to auscultation. No wheezes, no rales, no rhonchi. HEART: No murmurs. No gallops. No rubs ABDOMEN: Generalized lower abdominal tenderness. No masses, no rebound, no hepatomegaly or splenomegaly. EXTREMITIES: No signs of trauma. No pedal or pretibial edema. No calf or thigh tenderness. NEUROLOGIC: Cranial nerves II-XII within normal limits. No gross motor sensory function deficits. Medical Decision & Procedures Laboratory Results 06/27/17 12:27 Red Blood Count 4.54, Mean Corpuscular Volume 91.4, Mean Corpuscular Hemoglobin 31.9, Mean Corpuscular Hemoglobin Concent 34.9, Mean Platelet Volume 9.7, Neutrophils (%) (Auto) 79.0, Lymphocytes (%) (Auto) 12.5, Monocytes (%) (Auto) 6.2, Eosinophils (%) (Auto) 1.7, Basophils (%) (Auto) 0.1, Neutrophils # (Auto) 6.68, Lymphocytes # (Auto) 1.06, Monocytes # (Auto) 0.52, Eosinophils # (Auto) 0.14, Basophils # (Auto) 0.01 06/27/17 12:27 Test 06/27/17 00:00 06/27/17 12:27 Urine Color YELLOW Urine Appearance CLEAR (CLEAR) Urine pH 5.0 (4.5-7.5) Urine Specific Padroni 1.018 (1.000-1.030) Urine Protein NEG (NEG) Urine Glucose (UA) NEG (NEG) Urine Ketones NEG (NEG) Urine Occult Blood NEG (NEG) Urine Nitrite NEG (NEG) Urine Bilirubin NEG (NEG) Urine Urobilinogen NEG (NEG) Urine Leukocyte Esterase NEG (NEG) Urine Test NEG (NEG) White Blood Count 8.45 K/uL (4.8-10.8) Red Blood Count 4.54 M/uL (4.2-5.4) Hemoglobin 14.5 g/dL (12.0-16.0) Hematocrit 41.5 % (37-47) Mean Corpuscular Volume 91.4 fL (80-100) Mean Corpuscular Hemoglobin 31.9 pg (25-34) Mean Corpuscular Hemoglobin Concent 34.9 g/dl (32-36) Platelet Count 215 K/uL (130-400) Mean Platelet Volume 9.7 fL (7.4-10.4) Neutrophils (%) (Auto) 79.0 % Lymphocytes (%) (Auto) 12.5 % Monocytes (%) (Auto) 6.2 % Eosinophils (%) (Auto) 1.7 % Basophils (%) (Auto) 0.1 % Neutrophils # (Auto) 6.68 K/uL (1.4-6.5) Lymphocytes # (Auto) 1.06 K/uL (1.2-3.4) Monocytes # (Auto) 0.52 K/uL (0.11-0.59) Eosinophils # (Auto) 0.14 K/uL (0-0.5) Basophils # (Auto) 0.01 K/uL (0-0.2) RDW Standard Deviation 42.7 fL (36.4-46.3) RDW Coefficient of Variation 12.8 % (11.5-14.5) Immature Granulocyte % (Auto) 0.5 % Immature Granulocyte # (Auto) 0.04 K/uL (0.00-0.02) Anion Gap 6.0 mmol/L (3-11) Est Creatinine Clear Calc Drug Dose 76.6 ml/min Estimated GFR () 94.1 Estimated GFR (Non- 81.2 BUN/Creatinine Ratio 12.1 (10-20) Calcium Level 8.3 mg/dl (8.5-10.1) Laboratory results as stated above per my review. Medications Administered Medications (Trade) Dose Ordered Sig/Anika Route Start Time Stop Time Status Last Admin Dose Admin Ondansetron HCl (Zofran Inj) 4 mg Q1HWA PRN IV 06/27/17 12:30 06/27/17 16:12 DC 06/27/17 14:20 4 MG Sodium Chloride 1,000 ml @ 1,000 mls/hr Q1H ONCE IV 06/27/17 12:30 06/27/17 13:29 DC 06/27/17 12:35 1,000 MLS/HR Hyoscyamine Sulfate (Levsin Tab) 0.125 mg NOW STAT PO 06/27/17 13:18 06/27/17 13:20 DC 06/27/17 13:32 0.125 MG Al Hydroxide/Mg Hydroxide (Maalox Susp) 30 ml NOW STAT PO 06/27/17 14:47 06/27/17 14:48 DC 06/27/17 14:51 30 ML Acetaminophen/ Hydrocodone Bitart (Pocola 5/325 Tab) 1 tab ONE ONCE PO 06/27/17 15:45 06/27/17 15:46 DC 06/27/17 15:50 1 TAB Acetaminophen/ Hydrocodone Bitart (Pocola 5/325mg Home Pack) 1 homepack UD ONCE PO 06/27/17 15:45 06/27/17 15:46 DC 06/27/17 15:51 1 HOMEPACK Ondansetron HCl (ZOFRAN ODT 4MG Home Pack) 1 homepack UD ONCE PO 06/27/17 15:45 06/27/17 15:46 DC 06/27/17 15:51 1 HOMEPACK ED Course 1214: Past medical records reviewed. The patient was evaluated in room A11. A complete history and physical examination was performed. 1230: NSS 1000 ml @ 1000 mls/hr IV, Zofran 4 mg IV. 1318: Levsin 0.125 mg PO. 1420: I reevaluated the patient. She still complains of nausea and abdominal pain. 1440: Nursing informed me the patient is complaining of indigestion. I will place medication orders. 1447: Maalox Susp 30 ml PO. 1530: I reevaluated the patient. She is still in some pain but would like to go home. I discussed her discharge instructions and she verbalized complete understanding and agreement. 1545: Zofran 4 mg 1 homepack PO, Pocola 5/325 mg 1 homepack PO, Pocola 5/325 1 tab PO. Medical Decision The differential diagnoses considered include gastroenteritis, dehydration, metabolic disorder and C-Diff. The patient is here with nausea vomiting and diarrhea. Others in her family were sick with similar type symptoms. The patient did get some relief with Zofran. She will continue that medication at home as needed. The patient was able to drink fluids. Labs were evaluated. Please see above. The patient is allergic to multiple medications but was treated initially with Levsin which did not seem to help. The patient later complained of some indigestion and was given Mylanta which also did not seem to help. The patient finally stated that she could take Vicodin. She was given 1 pill here and a home pack. She was also given a home pack of Zofran. The patient most likely has a viral gastroenteritis. She was unable to provide a stool specimen. Medication Reconcilliation Current Medication List: was personally reviewed by me Blood Pressure Screening Patient's blood pressure: Normal blood pressure Blood pressure disposition: Did not require urgent referral Impression Primary Impression: Acute gastroenteritis Additional Impression: Hypokalemia Scribe Attestation The scribe's documentation has been prepared under my direction and personally reviewed by me in its entirety. I confirm that the note above accurately reflects all work, treatment, procedures, and medical decision making performed by me. Departure Information Dispostion Home / Self-Care Prescriptions Ondasetron Odt (ZOFRAN ODT) 4 Mg Tab 4 MG SL Q6H for Nausea, #6 TAB Prov: Torito Patten M.D. 06/27/17 Referrals Ramila Welch PA-C (PCP) Patient Instructions My [facility] Additional Instructions 1 Zofran every 4 hours as needed for nausea. One Pocola every 4 hours as needed for moderate to severe pain. Drink extra fluids. Rest Off work today and tomorrow. Work Instructions Specific Date: 06/29/17 Problem Qualifiers
[2017-06-27 12:27] LABS: URINE APPEARANCE CLEAR (CLEAR); URINE BILIRUBIN NEG (NEG); URINE COLOR YELLOW; URINE NITRITE NEG (NEG); URINE SPECIFIC GRAVITY 1.018 (1.000-1.030); UROBILINOGEN NEG (NEG); ZZUR CULT IF INDIC CLEAN CATCH NO
[2017-06-27 12:30] LABS: MANUAL MICROSCOPIC REQUIRED? NO; REVIEW REQ? NO
[2017-06-27] MEDS ORDERED: SODIUM CHLORIDE 0.9% 1000ML 1,000 ML IV ONE (12:30)
[2017-06-27] MEDS: ONDANSETRON INJ 2 MG/ML 2 ML VIAL IV PRN ×2 (12:35→14:20)
[2017-06-27 12:40] LABS: BASO % 0.1 %; BASO ABS # 0.01 K/uL (0-0.2); COMPLETE YES; EOS % 1.7 %; HEMATOCRIT 41.5 % (37-47); IG% 0.5 %; LYMPH % 12.5 %; LYMPH ABS # 1.06 K/uL (1.2-3.4); MEAN CELL VOLUME 91.4 fL (80-100); MEAN CORPUSCULAR HEMOGLOBIN 31.9 pg (25-34); MEAN CORPUSCULAR HGB CONC 34.9 g/dl (32-36); MEAN PLATELET VOLUME 9.7 fL (7.4-10.4); MONO % 6.2 %; PLATELET COUNT 215 K/uL (130-400); RED BLOOD COUNT 4.54 M/uL (4.2-5.4); WHITE BLOOD COUNT 8.45 K/uL (4.8-10.8)
[2017-06-27 12:57] LABS: BUN/CREATININE RATIO 12.1 (10-20); CALCIUM 8.3 mg/dl (8.5-10.1); CREATININE 0.97 mg/dl (0.60-1.20); POTASSIUM 3.2 mmol/L (3.5-5.1)
[2017-06-27] MEDS ORDERED: HYOSCYAMINE SULFATE 0.125 MG SL TAB PO STA (13:18)
[2017-06-27] MEDS ORDERED: ALUMINUM/MAGNESIUM SUSP 30 ML UDC PO STA (14:47)
[2017-06-27] MEDS ORDERED: ONDA4TAB10 SL (15:38)
[2017-06-27] MEDS ORDERED: NORCO 5/325MG HOME PACK PO ONE (15:45)
[2017-06-27] MEDS ORDERED: ONDANSETRON HOME PACK 4MG OD TAB PO ONE (15:45)
[2017-06-27] MEDS ORDERED: HYDROCODONE/ACETAMOPHEN 5/325MG TAB PO ONE (15:45)
[2017-06-27 15:55] VITALS: BP 116/78; PULSE 84; O2SAT 99
== END 2017-06-27 15:57 | disposition home or self-care (01) ==
LOC: C.EDB 11:57 → C.EDA 15:57
DX: K52.9 Noninfective gastroenteritis and colitis, unspecified (principal); E87.6 Hypokalemia; J45.909 Unspecified asthma, uncomplicated; I10 Essential (primary) hypertension

== ENCOUNTER 2017-08-06 10:50 | Emergency (ER) | payer OTHER ==
[~2017-08-06] VITALS: Ht 162.6 cm; Wt 59.6 kg
[~2017-08-06 10:50] MED LIST changes: +ONDA4TAB10 SL; -PRED20TA PO
[2017-08-06 10:52] VITALS: TEMP 36.6; Ht 162.6 cm; Wt 59.6 kg
[2017-08-06] MEDS ORDERED: ALBUT/IPRATROP 3MG/0.5MG NEB 3 ML VIAL INH STA (11:12)
[2017-08-06] MEDS ORDERED: DEXAMETHASONE SOD INJ 4 MG/ML 5 ML VIAL IM STA (11:12)
[2017-08-06] MEDS ORDERED: DEXAMETHASONE **PF** INJ 10 MG/ML VIAL IM ONE (11:30)
--- NOTE | 2017-08-06 11:41 | DIAGNOSTIC IMAGING REPORT ---
CHEST 2 VIEWS ROUTINE CLINICAL HISTORY: 2 wk cough, URI, asthma COMPARISON STUDY: Chest radiograph June 24, 2017. FINDINGS: Electronic device projects over the lower chest. No pneumothorax or pleural effusion is noted. Cardiac size is normal. Mediastinal contours are normal. Lungs are clear. Pulmonary vascularity is normal. IMPRESSION: No acute cardiopulmonary findings. Electronically signed by: Geoffrey San M.D. 08/06/2017 11:39 AM Dictated Date/Time: 08/06/2017 11:38 AM
[2017-08-06] MEDS ORDERED: DOXY100C PO (12:09)
[2017-08-06] MEDS ORDERED: METH4PAK PO (12:09)
[2017-08-06 12:21] VITALS: BP 115/76; PULSE 75; O2SAT 98
--- NOTE | 2017-08-06 17:25 | EMERGENCY ROOM VISIT NOTE ---
History First contact with patient: 11:02 Chief Complaint: RESPIRATORY PROBLEMS Stated Complaint: ASTHMA FLARE UP, POSSBILE SINUS INFECTION History of Present Illness The patient is a 27 year old female who presents to the Emergency Room with complaints of a 2 week history of cough, runny nose, sinus congestion and not responding well to albuterol inhaler treatments. The patient reports that she saw her family doctor approximately 5-6 days after onset of her infection. She completed a Z-Tomi without any significant change in her symptoms. The patient does not have any corticosteroids left at home. Patient does report intermittent fevers. She denies chest pain, shortness of breath, nausea or vomiting. Review of Systems 10 system review was performed and was negative except for pertinent positives and negatives as indicated in history of present illness Past Medical/Surgical History Medical Problems: (1) Asthma (2) Asthma, mild persistent (3) Atrial tachycardia (4) Cellulitis (5) GERD (gastroesophageal reflux disease) (6) HTN (hypertension) (7) Hx of fracture of tibia (8) Ovarian cyst (9) Pharyngitis (10) Sinus tachycardia (11) Sinusitis (12) Sinusitis (13) SVT (supraventricular tachycardia) Surgical Problems: (1) H/O cardiac radiofrequency ablation (2) H/O cardiac radiofrequency ablation (3) H/O section (4) S/P ablation operation for arrhythmia Family History Asthma SISTER Cardiac disorder FATHER GRANDFATHER GRANDMOTHER Gallbladder disease Heart disease Hypertension FATHER BROTHER GRANDFATHER GRANDMOTHER Kidney disease or stones Lung disease Social History Smoking Status: Never Smoker Alcohol Use: none Drug Use: none Marital Status: in relationship Housing Status: lives with family Occupation Status: employed Current/Historical Medications Scheduled Doxycycline Hyclate (Vibramycin), 100 MG PO BID Methylprednisolone (Medrol Dosepak), 0 PO DAILY Nadolol (Corgard), 20 MG PO NEEDED Scheduled PRN Albuterol Hfa (Ventolin Hfa), 2-4 PUFFS INH Q6H PRN for Shortness of Breath Albuterol Sulf (Albuterol Sulfate), 1 DOSE INH Q4 PRN for SOB/Wheezing Valacyclovir Hcl (Valtrex), 1 GM PO TID PRN for . Physical Exam Vital Signs Date Time Temp Pulse Resp B/P (MAP) Pulse Ox O2 Delivery O2 Flow Rate FiO2 08/06/17 12:21 75 16 115/76 98 2/3/18 11:30 98 08/06/17 10:52 36.6 111 18 117/61 97 Room Air Physical Exam CONSTITUTIONAL: Healthy and well nourished. Alert and oriented X 3 with positive affect. Patient does not appear in any acute respiratory distress. HEENT: Normocephalic, atraumatic. Pupils equal, round and reactive. Ears and nares are clear. NECK: Full active range of motion without discomfort. No nuchal rigidity. RESPIRATORY: Clear to auscultation bilaterally with no wheezing, crackles, rhonchi or stridor. CARDIOVASCULAR: Tachycardic with no murmurs, rubs or gallops. GASTROINTESTINAL: Bowel sounds present in all quadrants. Soft and nontender to palpation. MUSCULOSKELETAL: Full range of motion of all joints without discomfort. INTEGUMENTARY: No rash or other significant dermatologic conditions noted. NEUROLOGIC: No focal neurologic deficits noted. Medical Decision & Procedures ER Provider Diagnostic Interpretation: My interpretation of a two-view chest x-ray does not show any consolidations, cardiomegaly or pneumothorax. Radiologist report is as follows: CHEST 2 VIEWS ROUTINE CLINICAL HISTORY: 2 wk cough, URI, asthma COMPARISON STUDY: Chest radiograph June 24, 2017. FINDINGS: Electronic device projects over the lower chest. No pneumothorax or pleural effusion is noted. Cardiac size is normal. Mediastinal contours are normal. Lungs are clear. Pulmonary vascularity is normal. IMPRESSION: No acute cardiopulmonary findings. Medications Administered Medications (Trade) Dose Ordered Sig/Anika Route Start Time Stop Time Status Last Admin Dose Admin Albuterol/ Ipratropium (Duoneb) 3 ml NOW STAT INH 08/06/17 11:12 08/06/17 11:14 DC 08/06/17 11:52 3 ML Dexamethasone Sodium Phosphate (Dexamethasone Inj Pf) 10 mg 1130 ONCE IM 08/06/17 11:30 08/06/17 11:31 DC 08/06/17 11:30 10 MG ED Course Patient history and physical exam were performed. Nurse's notes were reviewed. Vital signs were reviewed and grossly normal except for mild tachycardia. The patient was administered Decadron 10 mg IM. A two-view chest x-ray was normal. The patient was administered a unit dose DuoNeb treatment with notable relief of her symptoms. The patient will be provided prescriptions for doxycycline and a Medrol Dosepak. She was encouraged to continue with her albuterol 2 puffs every 4 hours. She was encouraged to follow-up with her PCP as needed for any persistent symptoms. Return to the emergency department for any progressively worsening symptoms. The patient was happy with plan of care, and voiced understanding of all discharge instructions. Medical Decision Blood Pressure Screening Patient's blood pressure: Normal blood pressure Impression Primary Impression: Acute bronchitis Additional Impression: Asthma exacerbation Departure Information Prescriptions Methylprednisolone (MEDROL DOSEPAK) 4 Mg Tomi 0 PO DAILY, #1 PKT Prov: Elliott Turner PA 08/06/17 Doxycycline Hyclate (VIBRAMYCIN) 100 Mg Cap 100 MG PO BID for 10 Days, #20 CAP Prov: Elliott Turner PA 08/06/17 Referrals Ramila Welch PA-C (PCP) Patient Instructions [facility] Problem Qualifiers Primary Impression: Acute bronchitis Bronchitis organism: unspecified organism Qualified Codes: J20.9 - Acute bronchitis, unspecified Additional Impression: Asthma exacerbation Asthma severity: mild Asthma persistence: persistent Qualified Codes: J45.31 - Mild persistent asthma with (acute) exacerbation
== END 2017-08-06 12:23 | disposition home or self-care (01) ==
LOC: C.EDB 10:52 → C.EDC 12:23
DX: J45.31 Mild persistent asthma with (acute) exacerbation (principal); J20.9 Acute bronchitis, unspecified; K21.9 Gastro-esophageal reflux disease without esophagitis; I10 Essential (primary) hypertension; Z82.5 Family history of asthma and other chronic lower respiratory diseases; Z82.49 Family history of ischemic heart disease and other diseases of the circulatory system; Z84.1 Family history of disorders of kidney and ureter; R00.0 Tachycardia, unspecified

== ENCOUNTER 2017-09-02 09:05 | Emergency (ER) | payer OTHER ==
[~2017-09-02] VITALS: Ht 162.6 cm; Wt 60.6 kg
[~2017-09-02 09:05] MED LIST changes: -ONDA4TAB10 SL
[2017-09-02 09:11] VITALS: TEMP 36.8; Ht 162.6 cm; Wt 60.6 kg
--- NOTE | 2017-09-02 09:41 | EMERGENCY ROOM VISIT NOTE ---
History Report prepared by Azar: Kevin Escobedo Under the Supervision of: Dr. Claude Duran D.O. First contact with patient: 09:26 Chief Complaint: SORETHROAT Stated Complaint: RIB PAIN, RIGHT OVARY PAIN, BAD SORE THROAT History of Present Illness The patient is a 27 year old female who presents to the Emergency Room with complaints of a worsening sorethroat that began two days prior to arrival. The patient states that she has not been feeling well for the past two days. She describes her throat pain as a "burning" sensation. She notes that her son was here in the department last night and was diagnosed with strep throat. He was started on Keflex. She has drank from the same cup as her son recently. She has also had a fever and has vomited. The patient continued to add that she has been experiencing right sided rib/abdominal pain, as well as pain "over her right ovary." The patient is currently 7 weeks in her 4th . P:1 A:2. She has not had an ultra sound to verify this to this point. She has an appointment with her OBGYN on Tuesday. The patient did have a caesarean section for her full-term . She did not yenny any fertility drugs for this . Source of History: patient Onset: Two days Position: throat Quality: burning Timing: worsening Associated Symptoms: + fevers, + vomiting, + abdominal pain Review of Systems See HPI for pertinent positives & negatives. A total of 10 systems reviewed and were otherwise negative. Past Medical & Surgical Medical Problems: (1) Asthma (2) Asthma, mild persistent (3) Atrial tachycardia (4) Cellulitis (5) GERD (gastroesophageal reflux disease) (6) HTN (hypertension) (7) Hx of fracture of tibia (8) Ovarian cyst (9) Pharyngitis (10) Sinus tachycardia (11) Sinusitis (12) Sinusitis (13) SVT (supraventricular tachycardia) Surgical Problems: (1) H/O cardiac radiofrequency ablation (2) H/O cardiac radiofrequency ablation (3) H/O section (4) S/P ablation operation for arrhythmia Family History Asthma SISTER Cardiac disorder FATHER GRANDFATHER GRANDMOTHER Gallbladder disease Heart disease Hypertension FATHER BROTHER GRANDFATHER GRANDMOTHER Kidney disease or stones Lung disease Social History Smoking Status: Never Smoker Alcohol Use: none Drug Use: none Marital Status: in relationship Housing Status: lives with family Occupation Status: employed Current/Historical Medications Scheduled Cephalexin Monohydrate (Keflex), 500 MG PO QID Verapamil HCl (Verapamil HCl), 1 TAB PO DAILY Scheduled PRN Albuterol Hfa (Ventolin Hfa), 2-4 PUFFS INH Q6H PRN for Shortness of Breath Albuterol Sulf (Albuterol Sulfate), 1 DOSE INH Q4 PRN for SOB/Wheezing Allergies Coded Allergies: Penicillins (Verified Allergy, Intermediate, RASH, 09/02/17) Sulfa Antibiotics (Verified Allergy, Intermediate, hives, 09/02/17) Codeine (Verified Allergy, Mild, 09/02/17) Morphine (Verified Allergy, Mild, HALLUCINATES, 09/02/17) Amoxicillin (Verified Allergy, Unknown, SWELLING, 09/02/17) Latex1 -Allergic Contact Dermititis (Verified Allergy, Unknown, HIVES, 09/02) Levofloxacin (Verified Allergy, Unknown, RASH, joint pain, 09/02/17) Pseudoephedrine (Verified Allergy, Unknown, FEVER, 09/02/17) Egg (Verified Adverse Reaction, Unknown, HEADACHE, 09/02/17) Physical Exam Vital Signs Date Time Temp Pulse Resp B/P (MAP) Pulse Ox O2 Delivery O2 Flow Rate FiO2 09/02/17 10:00 109 18 122/87 99 09/02/17 09:13 99 Room Air 09/02/17 09:11 36.8 109 18 122/87 99 Room Air Physical Exam GENERAL: Patient is awake, alert, and in no acute distress. Patient is resting comfortably and showing no signs of anxiety EYES: The conjunctivae are clear. The pupils are round and reactive. EARS, NOSE, MOUTH AND THROAT: The nose is without any evidence of any deformity. Mucous membranes are moist tongue is midline. Mild erythema and cobblestoning appreciated to the posterior oropharynx. No significant swelling or peritonsillar mass noted. NECK: The neck is nontender and supple. Anterior cervical adenopathy appreciated. No meningismus. RESPIRATORY: Normal respiratory effort is noted there is no evidence of wheezing rhonchi or rales CARDIOVASCULAR: Regular rate and rhythm noted there no murmurs rubs or gallops normal S1 normal S2 GASTROINTESTINAL: The abdomen is soft. Bowel sounds are present in all quadrants. Abdomen is nontender MUSCULOSKELETAL/EXTREMITIES: There is no evidence of gross deformity full range of motion is noted in the hips and shoulders SKIN: There is no obvious evidence of any rash. There are no petechiae, pallor or cyanosis noted. NEUROLOGIC: Patient is awake alert and oriented x3 strength is symmetric patellar reflexes are 2+ bilaterally Medical Decision & Procedures ED Course 0931: The patient was evaluated in room A4. A complete history and physical examination were performed. 0934: I performed a bed side US at this time. Intrauterine gestational sac was noted, heart beat was noted with Doppler. 0955: Upon reevaluation, the patient is resting in bed. I discussed the results and treatment plan with her. After the bed side US the patient is reassured. She verbalized agreement of the treatment plan. The patient was discharged home. Medical Decision Differential diagnosis: Etiologies such as viral syndrome, tonsillitis, streptococcal pharyngitis, mononucleosis, peritonsillar abscess, retropharyngeal abscess, otitis, pneumonia , influenza, as well as others were entertained. Nursing notes reviewed. The patient is a 27-year-old female who presented to the emergency department for an evaluation of sore throat. The patient has a son who was recently diagnosed with strep throat. She now started having symptoms of sore throat. The patient's overall history and physical exam were not completely consistent with a strep pharyngitis but given the exposure she was started on an antibiotic that would cover strep throat. The patient is also recently diagnosed with being . She did not use fertility drugs for this but she was scheduled with a fertility specialist upcoming. At this time there was a true uterine gestational sac noted and a heart beat was able to be obtained using the ultrasound Doppler mode. I discussed patient's ultrasound with her. She was encouraged to follow-up with her [employer] physician for further evaluation. She was also encouraged to continue using Tylenol as directed for pain and continue the antibiotic as prescribed. Otherwise he was encouraged to return to the emergency department immediately if symptoms change worsen or the need arises. Medication Reconcilliation Current Medication List: was personally reviewed by me Blood Pressure Screening Patient's blood pressure: Normal blood pressure Impression Primary Impression: Strep throat Additional Impressions: Pelvic pain Scribe Attestation The scribe's documentation has been prepared under my direction and personally reviewed by me in its entirety. I confirm that the note above accurately reflects all work, treatment, procedures, and medical decision making performed by me. Departure Information Dispostion Home / Self-Care Prescriptions Cephalexin Monohydrate (KEFLEX) 500 Mg Cap 500 MG PO QID, #28 CAP Prov: Claude Duran, DO 09/02/17 Referrals Ramila Welch PA-C (PCP) Forms HOME CARE DOCUMENTATION FORM, IMPORTANT VISIT INFORMATION Patient Instructions My [facility] Additional Instructions Follow-up with your primary [employer] physician as scheduled. Rest and avoid any strenuous activity. Continue taking Tylenol as directed for fever and body aches. Return to the emergency department immediately if symptoms change worsen or the need arises. Problem Qualifiers Additional Impressions: Weeks of gestation: less than 8 weeks Qualified Codes: Z3A.01 - Less than 8 weeks gestation of
[2017-09-02] MEDS ORDERED: CEPH500C2 PO (09:52)
[2017-09-02] MEDS ORDERED: VRP40 PO (09:58)
[2017-09-02 10:00] VITALS: BP 122/87; PULSE 109; O2SAT 99
== END 2017-09-02 10:01 | disposition home or self-care (01) ==
LOC: C.EDB 09:06 → C.EDA 10:01
DX: J02.0 Streptococcal pharyngitis (principal); O99.511 Diseases of the respiratory system complicating pregnancy, first trimester; R10.2 Pelvic and perineal pain; Z3A.01 Less than 8 weeks gestation of pregnancy; J45.909 Unspecified asthma, uncomplicated; K21.9 Gastro-esophageal reflux disease without esophagitis; I47.1 Supraventricular tachycardia; Z83.6 Family history of other diseases of the respiratory system; Z83.79 Family history of other diseases of the digestive system; Z82.49 Family history of ischemic heart disease and other diseases of the circulatory system; Z84.1 Family history of disorders of kidney and ureter; Z88.0 Allergy status to penicillin; Z88.2 Allergy status to sulfonamides; Z88.5 Allergy status to narcotic agent; Z88.1 Allergy status to other antibiotic agents; Z88.8 Allergy status to other drugs, medicaments and biological substances; Z91.018 Allergy to other foods

== ENCOUNTER 2017-09-08 17:49 | Emergency (ER) | payer OTHER ==
[~2017-09-08] VITALS: Ht 162.6 cm; Wt 59.6 kg
[~2017-09-08 17:49] MED LIST changes: +CEPH500C2 PO; -NADO20TA PO; -VALA1TAB31 PO; +VRP40 PO
[2017-09-08 17:51] VITALS: TEMP 36.7; Ht 162.6 cm; Wt 59.6 kg
[2017-09-08] MEDS ORDERED: ALBUTEROL 0.5% NEB SOLN 2.5 MG/0.5 ML VIAL INH STA (18:02)
[2017-09-08] MEDS ORDERED: ALBUTEROL 0.083% NEBU SOLN 3 ML VIAL INH STA (19:00)
--- NOTE | 2017-09-08 19:10 | EMERGENCY ROOM VISIT NOTE ---
History Report prepared by Azar: Kevin Escobedo Under the Supervision of: Dr. Arsenio Ramirez M.D. First contact with patient: 17:54 Chief Complaint: RESPIRATORY PROBLEMS Stated Complaint: CHEST TIGHTNESS, ASTHMA History of Present Illness The patient is a 27 year old female who presents to the Emergency Room with complaints of sudden onset difficulty breathing that occurred just prior to arrival while the patient was working. 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 and notes that she started to become short of breath while seated at her desk. She does have a history of asthma and used one of her nebulizer treatment when her symptoms began. She does have a cough currently, but notes that this is common with her asthma. The patient also states that she feels as though her heart is beating rapidly. She also took 10 mg of Prednisone after her symptoms began. The patient is currently 8 weeks and has an appointment with OBGYN in October. The patient was here on the 2nd, 6 days ago for strep throat. She was placed on Keflex following this visit. Pt denies LOC , headache, fevers, chills, diaphoresis, visual changes, neck pain, chest pain, vaginal bleeding, vaginal fluid leaking, nausea, vomiting, abdominal pain, back pain, melena, hematochezia, urinary symptoms, numbness, weakness, lymphadenopathy, rash, or other complaints. Source of History: patient Onset: Just BLIND EYELETTER Position: chest (Respiratory) Quality: other (SOB) Timing: other (Sudden Onset) Associated Symptoms: + cough, No chest pain (Rapid HR) Review of Systems See HPI for pertinent positives and negatives. A total of ten systems were reviewed and were otherwise negative. Past Medical & Surgical Medical Problems: (1) Asthma (2) Asthma, mild persistent (3) Atrial tachycardia (4) Cellulitis (5) GERD (gastroesophageal reflux disease) (6) HTN (hypertension) (7) Hx of fracture of tibia (8) Ovarian cyst (9) Pharyngitis (10) Sinus tachycardia (11) Sinusitis (12) Sinusitis (13) SVT (supraventricular tachycardia) Surgical Problems: (1) H/O cardiac radiofrequency ablation (2) H/O cardiac radiofrequency ablation (3) H/O section (4) S/P ablation operation for arrhythmia Family History Asthma SISTER Cardiac disorder FATHER GRANDFATHER GRANDMOTHER Gallbladder disease Heart disease Hypertension FATHER BROTHER GRANDFATHER GRANDMOTHER Kidney disease or stones Lung disease Social History Smoking Status: Never Smoker Alcohol Use: none Drug Use: none Marital Status: in relationship Housing Status: lives with family Occupation Status: employed Current/Historical Medications Scheduled Cephalexin Monohydrate (Keflex), 500 MG PO QID Verapamil HCl (Verapamil HCl), 1 TAB PO DAILY Scheduled PRN Albuterol Hfa (Ventolin Hfa), 2-4 PUFFS INH Q6H PRN for Shortness of Breath Albuterol Sulf (Albuterol Sulfate), 1 DOSE INH Q4 PRN for SOB/Wheezing Allergies Coded Allergies: Penicillins (Verified Allergy, Intermediate, RASH, 09/08/17) Sulfa Antibiotics (Verified Allergy, Intermediate, hives, 09/08/17) Codeine (Verified Allergy, Mild, 09/08/17) Morphine (Verified Allergy, Mild, HALLUCINATES, 09/08/17) Amoxicillin (Verified Allergy, Unknown, SWELLING, 09/08/17) Latex1 -Allergic Contact Dermititis (Verified Allergy, Unknown, HIVES, 09/08) Levofloxacin (Verified Allergy, Unknown, RASH, joint pain, 09/08/17) Pseudoephedrine (Verified Allergy, Unknown, FEVER, 09/08/17) Egg (Verified Adverse Reaction, Unknown, HEADACHE, 09/08/17) Physical Exam Vital Signs Date Time Temp Pulse Resp B/P (MAP) Pulse Ox O2 Delivery O2 Flow Rate FiO2 09/08/17 19:42 113 16 120/71 97 09/08/17 18:17 100 Room Air 09/08/17 17:51 36.7 91 18 120/74 100 Room Air Physical Exam GENERAL: Awake, alert, well-appearing, in no distress HENT: Normocephalic, atraumatic. Oropharynx unremarkable. EYES: Normal conjunctiva. Sclera non-icteric. NECK: Supple. No nuchal rigidity. FROM. No masses. RESPIRATORY: Clear to auscultation. No wheezes. Normal respiratory effort with a frequent tight cough present on exam. Pulse Ox is 93%. CARDIAC: Tachycardic rate. Normal rhythm. No murmurs. No rubs. Extremities warm and well perfused. Pulses equal. No JVD. GI: Soft, non-distended. No tenderness to palpation. No rebound or guarding. No masses. RECTAL: Deferred. MUSCULOSKELETAL: Atraumatic. Chest examination reveals no tenderness. The back is symmetrical on inspection without obvious abnormality. There is no CVA tenderness to palpation. No joint edema. LOWER EXTREMITIES: Calves are equal size bilaterally and non-tender. No edema. No discoloration. NEURO: Normal sensorium. No sensory or motor deficits noted. SKIN: No rash or jaundice noted. Medical Decision & Procedures Medications Administered Medications (Trade) Dose Ordered Sig/Anika Route Start Time Stop Time Status Last Admin Dose Admin Albuterol Sulfate (Ventolin 0.5% 2.5MG/0.5ML Neb) 2.5 mg NOW STAT INH 09/08/17 18:02 09/08/17 18:04 DC 09/08/17 18:19 2.5 MG Prednisone (PredniSONE TAB) 40 mg NOW STAT PO 09/08/17 18:03 09/08/17 18:09 DC 09/08/17 18:19 40 MG Albuterol Sulfate (Ventolin 0.083% 2.5MG/3ML Neb) 2.5 mg NOW STAT INH 09/08/17 19:00 09/08/17 19:01 DC 09/08/17 19:06 2.5 MG Procedure BEDSIDE US: Limited Bedside US showed a IUP present. HR of 160 BPM. ED Course 1800: The patient was evaluated in room B11B. A complete history and physical exam was performed. 1801: Ordered Albuterol Sulfate 2.5 mg INH. 180: Ordered Prednisone 40 mg PO. 1810: Limited Bedside US showed a IUP present. HR of 160 BPM. 1899: Ordered Albuterol Sulfate 2.5 mg INH. 1936: I reevaluated the patient. Discussed results and discharge instructions: she verbalized understanding and agreement. The patient is ready for discharge. Medical Decision Triage Nursing notes reviewed. The patient's presentation and history were concerning for respiratory issues, recent strep infection, , and history of asthma Etiologies such as pneumonia, reactive airway disease, CHF, cardiac ischemia, pulmonary embolism, pneumothorax, musculoskeletal, infections, gastrointestinal , competition , as well as others were entertained. The patient was evaluated. She had a moderate dry cough present. Her pulse oximetry was mildly decreased but still within the normal range. She had no abnormal pulmonary sounds to suggest pneumonia. Chest imaging was deferred. I did discuss this with the patient and she was in agreement. The patient had taken a tiny dose of prednisone prior to arrival. She was given 40 mg orally here. A nebulizer treatment was performed. She was feeling better with this. I did discuss the risks and benefits of the medication. The patient was concerned about her and asked for the heart rate to be checked. A limited bedside ultrasound was performed. She has an IUP with a heart rate of 160 bpm. Further evaluation of the was not performed. The patient was given a second nebulizer treatment. She felt significantly better. Her cough nearly resolved. Her oxygen saturations were 99-100%. She had no increased work of breathing. She felt much, much better. I discussed conservative management as an outpatient. She felt comfortable with this. She will follow-up with her primary physician if she has any worsening problems she will come back to the emergency department. She has prescription prednisone at home. She will use 20 mg a day for the next 3 days. She will continue her albuterol. By the evaluation outlined above other emergent etiologies such as those listed in the differential, as well as others, were deemed relatively unlikely. The patient was educated about the findings as listed above. All questions were answered and the patient was pleased with the treatment. Return instructions were outlined and the patient was discharged in stable condition. The patient was referred to her PCP for follow-up for a recheck of the current condition. Medication Reconcilliation Current Medication List: was personally reviewed by me Blood Pressure Screening Patient's blood pressure: Normal blood pressure Impression Primary Impression: Reactive airway disease Additional Impression: Cough Scribe Attestation The scribe's documentation has been prepared under my direction and personally reviewed by me in its entirety. I confirm that the note above accurately reflects all work, treatment, procedures, and medical decision making performed by me. Departure Information Dispostion Home / Self-Care Referrals Ramila Welch PA-C (PCP) Forms HOME CARE DOCUMENTATION FORM, IMPORTANT VISIT INFORMATION, WORK / SCHOOL INSTRUCTIONS Patient Instructions My [facility] Additional Instructions Continue your albuterol Inhaler: Take 2 puffs four times daily for five days, then as needed. If necessary you may substitute a nebulizer treatment. Prednisone 20mg: Once daily for 3 days. It is best to take this earlier in the day as some patients note occasional difficulty falling asleep when taken in the late evening. Finish the Keflex Acetaminophen(Tylenol) may be used for fever or pain. Use 1000mg every six hours as needed. Avoid using more than 3000mg in a 24 hour period. Rest and drink plenty of fluids. Avoid smoke/smoking, fumes, dust, or any triggers in the past that may have affected your breathing. Continue current medications. Return to the ER for chest pain, difficulty breathing, fevers, vomiting, worsening of your condition, or as needed. Follow up with your primary physician this coming week for a recheck of your current condition. Follow-up with BUSINESS SUPPORT ASSOCIATE as scheduled. Problem Qualifiers
[2017-09-08 19:42] VITALS: BP 120/71; PULSE 113; O2SAT 97
[2017-09-12] MEDS ORDERED: ONDA-63 PO (10:15)
== END 2017-09-08 19:43 | disposition home or self-care (01) ==
LOC: C.EDB 17:50
DX: O99.89 Other specified diseases and conditions complicating pregnancy, childbirth and the puerperium (principal); J45.30 Mild persistent asthma, uncomplicated; Z3A.08 8 weeks gestation of pregnancy; K21.9 Gastro-esophageal reflux disease without esophagitis; I10 Essential (primary) hypertension; Z82.5 Family history of asthma and other chronic lower respiratory diseases; Z82.49 Family history of ischemic heart disease and other diseases of the circulatory system; Z84.1 Family history of disorders of kidney and ureter; Z88.0 Allergy status to penicillin; Z88.2 Allergy status to sulfonamides; Z88.5 Allergy status to narcotic agent; Z88.1 Allergy status to other antibiotic agents; Z91.012 Allergy to eggs

== ENCOUNTER 2017-09-15 08:59 | Emergency (ER) | payer OTHER ==
[~2017-09-15] VITALS: Ht 162.6 cm; Wt 59.8 kg
[~2017-09-15 08:59] MED LIST changes: +ONDA-63 PO
[2017-09-15 09:09] VITALS: TEMP 36.8; Ht 162.6 cm; Wt 59.8 kg
[2017-09-15] MEDS ORDERED: SODIUM CHLORIDE 0.9% 1000ML 2,000 ML IV STA (09:45)
--- NOTE | 2017-09-15 10:42 | EMERGENCY ROOM VISIT NOTE ---
History Report prepared by Azar: Felicia Ceballos Under the Supervision of: Dr. Antolin Malone M.D. First contact with patient: 09:41 Chief Complaint: ILLNESS Stated Complaint: HSV BREAKOUT, SWOLLEN LYMPH NODES, BODY ACHES History of Present Illness The patient is a 27 year old female who presents to the Emergency Room with complaints of persistent illness starting a couple days ago. The patient is currently 9 weeks . She was not having any problems when she saw her fertility doctor 10 days ago. A couple days ago, she started having an HSV breakout. The patient started taking Valtrex a couple days ago, but is still having pain from the breakout. She reports body aches and some swollen lymph nodes. She reports a puffy and painful lymph node in her right groin. She has had a low grade fever. She feels sore across her upper chest and thinks she might have some lymph nodes there. She has had some cough after an asthma flare several days ago which is improving. She denies any chills, nausea, vomiting, diarrhea, burning with urination, or vaginal bleeding. This is not her first . She has a child at home. Source of History: patient Onset: couple days ago Position: other (constitutional) Quality: other (illness) Timing: other (persistent) Associated Symptoms: + fevers (low grade), + cough, + chest pain, No chills , No nausea, No vomiting, No diarrhea, No urinary symptoms Note: Pt denies vaginal bleeding. Review of Systems See HPI for pertinent positives and negatives. A total of ten systems were reviewed and were otherwise negative. Past Medical & Surgical Medical Problems: (1) Asthma (2) Asthma, mild persistent (3) Atrial tachycardia (4) Cellulitis (5) GERD (gastroesophageal reflux disease) (6) HTN (hypertension) (7) Hx of fracture of tibia (8) Ovarian cyst (9) Pharyngitis (10) Sinus tachycardia (11) Sinusitis (12) Sinusitis (13) SVT (supraventricular tachycardia) Surgical Problems: (1) H/O cardiac radiofrequency ablation (2) H/O cardiac radiofrequency ablation (3) H/O section (4) S/P ablation operation for arrhythmia Family History Asthma SISTER Cardiac disorder FATHER GRANDFATHER GRANDMOTHER Gallbladder disease Heart disease Hypertension FATHER BROTHER GRANDFATHER GRANDMOTHER Kidney disease or stones Lung disease Social History Smoking Status: Never Smoker Alcohol Use: none Drug Use: none Marital Status: in relationship Housing Status: lives with family Occupation Status: employed Current/Historical Medications Scheduled Ondansetron (Ondansetron HCl), 1 TAB PO UD Valacyclovir Hcl (Valtrex), 1 GM PO BID Verapamil HCl (Verapamil HCl), 1 TAB PO DAILY Scheduled PRN Albuterol Hfa (Ventolin Hfa), 2-4 PUFFS INH Q6H PRN for Shortness of Breath Albuterol Sulf (Albuterol Sulfate), 1 DOSE INH Q4 PRN for SOB/Wheezing Allergies Coded Allergies: Penicillins (Verified Allergy, Intermediate, RASH, 09/15/17) Sulfa Antibiotics (Verified Allergy, Intermediate, hives, 09/15/17) Codeine (Verified Allergy, Mild, 09/15/17) Morphine (Verified Allergy, Mild, HALLUCINATES, 09/15/17) Amoxicillin (Verified Allergy, Unknown, SWELLING, 09/15/17) Latex1 -Allergic Contact Dermititis (Verified Allergy, Unknown, HIVES, ) Levofloxacin (Verified Allergy, Unknown, RASH, joint pain, 09/15/17) Pseudoephedrine (Verified Allergy, Unknown, FEVER, 09/15/17) Egg (Verified Adverse Reaction, Unknown, HEADACHE, 09/15/17) Physical Exam Vital Signs Date Time Temp Pulse Resp B/P (MAP) Pulse Ox O2 Delivery O2 Flow Rate FiO2 09/15/17 14:17 101 18 99/63 100 Room Air 09/15/17 12:19 99 18 114/64 99 Room Air 09/15/17 10:55 93 09/15/17 10:36 100 16 94/61 99 Room Air 09/15/17 09:09 36.8 119 17 120/79 98 Room Air Physical Exam GENERAL: Awake, alert, well-appearing, in no distress HENT: Normocephalic, atraumatic. Dry mucous membranes. EYES: Normal conjunctiva. Sclera non-icteric. NECK: Supple. No nuchal rigidity. FROM. No JVD. RESPIRATORY: Clear to auscultation. CARDIAC: Regular rate, normal rhythm. Extremities warm and well perfused. Pulses equal. ABDOMEN: Soft, non-distended. No tenderness to palpation. No rebound or guarding. No masses. Mild right inguinal lymphadenopathy, mild tenderness, no erythema or warmth. PELVIC: Scattered isolated vesicles bilaterally on the labia and vaginal faye as well as the cervix with thin white discharge. No CMT. No adnexal tenderness. RECTAL: Deferred. MUSCULOSKELETAL: Chest examination reveals no tenderness. The back is symmetrical on inspection without obvious abnormality. There is no CVA tenderness to palpation. No joint edema. LOWER EXTREMITIES: Calves are equal size bilaterally and non-tender. No edema. No discoloration. NEURO: Normal sensorium. No sensory or motor deficits noted. SKIN: No rash or jaundice noted. 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 Estimated gestational age 8 weeks 2 days. heart rate is confirmed at 1 65 bpm. 2.0 cm right ovarian cyst. 2.5 cm complex left ovarian cyst. IMPRESSION: Single, viable intrauterine . age is estimated at 8 weeks 2 days. Small bilateral ovarian cysts. The above report was generated using voice recognition software. It may contain grammatical, syntax or spelling errors. Electronically signed by: Juice Lima M.D. 09/15/2017 12:04 PM Dictated Date/Time: 09/15/2017 12:02 PM Laboratory Results 09/15/17 10:25 Red Blood Count 4.16, Mean Corpuscular Volume 89.2, Mean Corpuscular Hemoglobin 31.5, Mean Corpuscular Hemoglobin Concent 35.3, Mean Platelet Volume 10.2, Neutrophils (%) (Auto) 58.3, Lymphocytes (%) (Auto) 25.3, Monocytes (%) (Auto) 11.2, Eosinophils (%) (Auto) 4.5, Basophils (%) (Auto) 0.3, Neutrophils # (Auto ) 4.62, Lymphocytes # (Auto) 2.01, Monocytes # (Auto) 0.89, Eosinophils # (Auto ) 0.36, Basophils # (Auto) 0.02 09/15/17 10:25 Test 09/15/17 10:15 09/15/17 10:25 09/15/17 10:26 09/15/17 13:15 Influenza Type A Antigen Neg for Influ A (NEG) Influenza Type B Antigen Neg for Influ B (NEG) White Blood Count 7.93 K/uL (4.8-10.8) Red Blood Count 4.16 M/uL (4.2-5.4) Hemoglobin 13.1 g/dL (12.0-16.0) Hematocrit 37.1 % (37-47) Mean Corpuscular Volume 89.2 fL (80-100) Mean Corpuscular Hemoglobin 31.5 pg (25-34) Mean Corpuscular Hemoglobin Concent 35.3 g/dl (32-36) Platelet Count 286 K/uL (130-400) Mean Platelet Volume 10.2 fL (7.4-10.4) Neutrophils (%) (Auto) 58.3 % Lymphocytes (%) (Auto) 25.3 % Monocytes (%) (Auto) 11.2 % Eosinophils (%) (Auto) 4.5 % Basophils (%) (Auto) 0.3 % Neutrophils # (Auto) 4.62 K/uL (1.4-6.5) Lymphocytes # (Auto) 2.01 K/uL (1.2-3.4) Monocytes # (Auto) 0.89 K/uL (0.11-0.59) Eosinophils # (Auto) 0.36 K/uL (0-0.5) Basophils # (Auto) 0.02 K/uL (0-0.2) RDW Standard Deviation 39.6 fL (36.4-46.3) RDW Coefficient of Variation 12.3 % (11.5-14.5) Immature Granulocyte % (Auto) 0.4 % Immature Granulocyte # (Auto) 0.03 K/uL (0.00-0.02) Anion Gap 6.0 mmol/L (3-11) Est Creatinine Clear Calc Drug Dose 109.3 ml/min Estimated GFR () 140.9 Estimated GFR (Non- 121.6 BUN/Creatinine Ratio 15.2 (10-20) Calcium Level 8.6 mg/dl (8.5-10.1) Total Bilirubin 0.2 mg/dl (0.2-1) Aspartate Amino Transf (AST/SGOT) 6 U/L (15-37) Alanine Aminotransferase (ALT/SGPT) 15 U/L (12-78) Alkaline Phosphatase 48 U/L (45-117) Total Protein 6.6 gm/dl (6.4-8.2) Albumin 3.5 gm/dl (3.4-5.0) Globulin 3.1 gm/dl (2.5-4.0) Albumin/Globulin Ratio 1.1 (0.9-2) Human Chorionic Gonadotropin, Quant 19224 mIU/mL Urine Color YELLOW Urine Appearance TURBID (CLEAR) Urine pH 7.5 (4.5-7.5) Urine Specific [place] 1.016 (1.000-1.030) Urine Protein NEG (NEG) Urine Glucose (UA) NEG (NEG) Urine Ketones NEG (NEG) Urine Occult Blood NEG (NEG) Urine Nitrite NEG (NEG) Urine Bilirubin NEG (NEG) Urine Urobilinogen NEG (NEG) Urine Leukocyte Esterase NEG (NEG) Urine WBC (Auto) 1-5 /hpf (0-5) Urine RBC (Auto) 0-4 /hpf (0-4) Urine Hyaline Casts (Auto) 1-5 /lpf (0-5) Urine Epithelial Cells (Auto) >30 /lpf (0-5) Urine Bacteria (Auto) NEG (NEG) Date/Time Source Procedure Growth Status 09/15/17 13:15 Vaginal Drainage Trichomonas Preparation - Final Complete Laboratory results reviewed by me Medications Administered Medications (Trade) Dose Ordered Sig/Anika Route Start Time Stop Time Status Last Admin Dose Admin Sodium Chloride 2,000 ml @ 999 mls/hr Q2H1M STAT IV 09/15/17 09:45 09/15/17 11:45 DC 09/15/17 10:35 999 MLS/HR Valacyclovir HCl (Valtrex Tab) 500 mg NOW ONCE PO 09/15/17 13:30 09/15/17 13:31 DC 09/15/17 14:14 500 MG ED Course 0943: The patient was evaluated in room B7. A complete history and physical exam was performed. 1309: I performed a pelvic exam in the presence of a female nurse pattern marker. 1344: I reevaluated the patient. Discussed results and discharge instructions: She verbalized understanding and agreement. The patient is ready for discharge. Medical Decision I reviewed the patient's past medical history, medications, and the nursing notes as described above. Differential diagnosis: UTI, HSV outbreak, STI, dehydration, electrolyte abnormality. The patient is a 27-year-old woman currently 10 weeks who presents emergency department with generalized fatigue as well as report of a recurrence of her genital HSV. Patient reports she started taking her Valtrex but feels like it is not improving since yesterday and so comes to the ED for evaluation. On arrival the patient is relatively well-appearing, no acute distress, afebrile stable vital signs. Abdomen soft nontender nondistended. Labs unremarkable including WBC within normal limits. UA negative. Transvaginal ultrasound demonstrates a viable IUP at 8 weeks. Pelvic exam demonstrates scattered vesicles along the labia bilaterally and vaginal faye as well as cervix. Has thin white discharge. No CMT or adnexal tenderness. Patient denies any concerns for any STI's and thus defers empiric treatment for gonorrhea and chlamydia. Given the patient reports no improvement with Valtrex 500 mg twice daily, will begin course of 1 g twice daily. The patient is to follow-up with her HAIR ROOTING MACHINE OPERATOR for reevaluation. Findings and plan for follow-up reviewed with patient. Patient agreeable and d/c'd per discharge instructions. Medication Reconcilliation Current Medication List: was personally reviewed by me Blood Pressure Screening Patient's blood pressure: Normal blood pressure Blood pressure disposition: Did not require urgent referral Impression Primary Impression: Genital HSV Scribe Attestation The scribe's documentation has been prepared under my direction and personally reviewed by me in its entirety. I confirm that the note above accurately reflects all work, treatment, procedures, and medical decision making performed by me. Departure Information Dispostion Home / Self-Care Prescriptions Valacyclovir Hcl (VALTREX) 1 Gm Tab 1 GM PO BID for 10 Days, #20 TAB Prov: Antolin Malone M.D. 09/15/17 Referrals Ramila Welch PA-C (PCP) Patient Instructions Herpes, My [facility] Additional Instructions Please follow up with your HAIR ROOTING MACHINE OPERATOR in the next 1-3 days for re-evaluation. You have a herpes genital infection. Otherwise, your exam, lab results, and ultrasound did not show signs of an emergent condition at this time. Acetaminophen for pain and fevers as needed. Valtrex as directed. Drink plenty of fluids to ensure hydration. Return to the emergency department for worsening symptoms as described in the accompanying instructions.
[2017-09-15 10:51] LABS: BASO % 0.3 %; BASO ABS # 0.02 K/uL (0-0.2); EOS % 4.5 %; EOS ABS # 0.36 K/uL (0-0.5); HEMATOCRIT 37.1 % (37-47); HEMOGLOBIN 13.1 g/dL (12.0-16.0); IG# 0.03 K/uL (0.00-0.02); LYMPH % 25.3 %; LYMPH ABS # 2.01 K/uL (1.2-3.4); MEAN CELL VOLUME 89.2 fL (80-100); MEAN CORPUSCULAR HEMOGLOBIN 31.5 pg (25-34); MEAN CORPUSCULAR HGB CONC 35.3 g/dl (32-36); MEAN PLATELET VOLUME 10.2 fL (7.4-10.4); MONO % 11.2 %; MONO ABS # 0.89 K/uL (0.11-0.59); NEUT % 58.3 %; NEUT ABS # 4.62 K/uL (1.4-6.5); PLATELET COUNT 286 K/uL (130-400); RED CELL DISTRIBUTION WIDTH CV 12.3 % (11.5-14.5); RED CELL DISTRIBUTION WIDTH SD 39.6 fL (36.4-46.3); WHITE BLOOD COUNT 7.93 K/uL (4.8-10.8)
[2017-09-15 11:01] LABS: ALBUMIN 3.5 gm/dl (3.4-5.0); CALCIUM 8.6 mg/dl (8.5-10.1); CREATININE 0.68 mg/dl (0.60-1.20); POTASSIUM 3.5 mmol/L (3.5-5.1)
[2017-09-15 11:02] LABS: INFLUENZA B ANTIGEN Neg for Influ B (NEG)
[2017-09-15 11:03] LABS: TOTAL PROTEIN 6.6 gm/dl (6.4-8.2)
--- NOTE | 2017-09-15 12:05 | DIAGNOSTIC IMAGING REPORT ---
LIMITED (US) CLINICAL HISTORY: EVALUATE OB-BUSINESS ASSISTANT/VAGINAL BLEEDING TECHNIQUE: Ultrasound COMPARISON STUDY: None FINDINGS: Single, viable intrauterine . Estimated gestational age 8 weeks 2 days. heart rate is confirmed at 1 65 bpm. 2.0 cm right ovarian cyst. 2.5 cm complex left ovarian cyst. IMPRESSION: Single, viable intrauterine . age is estimated at 8 weeks 2 days. Small bilateral ovarian cysts. The above report was generated using voice recognition software. It may contain grammatical, syntax or spelling errors. Electronically signed by: Juice Lima M.D. 09/15/2017 12:04 PM Dictated Date/Time: 09/15/2017 12:02 PM
[2017-09-15] MEDS ORDERED: VALA1TAB31 PO (13:31)
[2017-09-15 14:17] VITALS: BP 99/63; PULSE 101; O2SAT 100
[2017-09-20 12:36] LABS: HERPES SIMPLEX VIRUS CULT NOT ISOLATED (NOT ISOLATED)
== END 2017-09-15 14:15 | disposition home or self-care (01) ==
LOC: C.EDB 09:01
DX: O98.311 Other infections with a predominantly sexual mode of transmission complicating pregnancy, first trimester (principal); A60.09 Herpesviral infection of other urogenital tract; O26.811 Pregnancy related exhaustion and fatigue, first trimester; O34.219 Maternal care for unspecified type scar from previous cesarean delivery; O10.011 Pre-existing essential hypertension complicating pregnancy, first trimester; O99.511 Diseases of the respiratory system complicating pregnancy, first trimester; O99.611 Diseases of the digestive system complicating pregnancy, first trimester; Z3A.08 8 weeks gestation of pregnancy; J45.909 Unspecified asthma, uncomplicated; K21.9 Gastro-esophageal reflux disease without esophagitis; Z86.79 Personal history of other diseases of the circulatory system; Z87.2 Personal history of diseases of the skin and subcutaneous tissue; Z87.09 Personal history of other diseases of the respiratory system; Z98.890 Other specified postprocedural states; Z82.49 Family history of ischemic heart disease and other diseases of the circulatory system; Z83.79 Family history of other diseases of the digestive system; Z84.1 Family history of disorders of kidney and ureter; Z83.6 Family history of other diseases of the respiratory system; Z88.0 Allergy status to penicillin; Z88.2 Allergy status to sulfonamides; Z88.6 Allergy status to analgesic agent; Z88.1 Allergy status to other antibiotic agents; Z91.040 Latex allergy status; Z88.8 Allergy status to other drugs, medicaments and biological substances; Z91.012 Allergy to eggs

== ENCOUNTER 2017-10-05 08:52 | Emergency (ER) | payer OTHER ==
[~2017-10-05] VITALS: Ht 162.6 cm; Wt 59.8 kg
[~2017-10-05 08:52] MED LIST changes: -CEPH500C2 PO
[2017-10-05 08:54] VITALS: TEMP 36.9
[2017-10-05 09:11] VITALS: O2SAT 99
[2017-10-05] MEDS ORDERED: SODIUM CHLORIDE 0.9% 1000ML 1,000 ML IV STA (09:12)
[2017-10-05 09:15] VITALS: Ht 162.6 cm; Wt 59.8 kg
--- NOTE | 2017-10-05 09:45 | DIAGNOSTIC IMAGING REPORT ---
CHEST ONE VIEW PORTABLE CLINICAL HISTORY: Respiratory distress. Dyspnea. 12 weeks . COMPARISON STUDY: Chest radiograph August 16, 2017. TECHNIQUE: The abdomen and pelvis were double shielded due to . Portable upright AP chest radiograph was obtained. FINDINGS: Lung volumes are normal. Lungs are clear. No pneumothorax or pleural effusion is noted. Cardiac size is normal. Mediastinal contours are normal. There is no evidence for pulmonary edema. IMPRESSION: No acute cardiopulmonary findings. Electronically signed by: Geoffrey Sna M.D. 10/05/2017 9:44 AM Dictated Date/Time: 10/05/2017 9:43 AM
[2017-10-05 09:47] LABS: BASO % 0.2 %; BASO ABS # 0.02 K/uL (0-0.2); EOS % 3.1 %; EOS ABS # 0.26 K/uL (0-0.5); HEMATOCRIT 34.2 % (37-47); HEMOGLOBIN 12.4 g/dL (12.0-16.0); IG# 0.02 K/uL (0.00-0.02); LYMPH % 12.4 %; LYMPH ABS # 1.04 K/uL (1.2-3.4); MEAN CELL VOLUME 85.7 fL (80-100); MEAN CORPUSCULAR HEMOGLOBIN 31.1 pg (25-34); MEAN CORPUSCULAR HGB CONC 36.3 g/dl (32-36); MEAN PLATELET VOLUME 10.3 fL (7.4-10.4); MONO % 7.3 %; MONO ABS # 0.61 K/uL (0.11-0.59); NEUT % 76.8 %; NEUT ABS # 6.45 K/uL (1.4-6.5); PLATELET COUNT 264 K/uL (130-400); RED CELL DISTRIBUTION WIDTH CV 12.2 % (11.5-14.5); RED CELL DISTRIBUTION WIDTH SD 38.2 fL (36.4-46.3)
--- NOTE | 2017-10-05 09:49 | EMERGENCY ROOM VISIT NOTE ---
History Report prepared by Azar: Marguerite Florian Under the Supervision of: Dr. Claude Duran D.O. First contact with patient: 09:08 Chief Complaint: SHORTNESS OF BREATH Stated Complaint: 12 wks , cramping and SOB, wheezing Nursing Triage Summary: pt rpeorts sob and cramping called pcp and ob told to come to ed. sob started a few days ago worse last night has hx of asthma. cramping started last night and sharp bilat lower abd pain. no bleeding pt approx 12 weeks preg History of Present Illness The patient is a 27 year old female who presents to the Emergency Room with complaints of shortness of breath. The patient called her [facility] physician and was sent to the emergency department. Currently she is 12 weeks . She has been seen in our facility previously for abdominal cramping. She has a history of high risk due to previous miscarriages as well as preeclampsia. The patient denies having any vaginal bleeding but does have some cramping. She had an ultrasound on September 15 which did show a single live intrauterine . The patient denies having any wheezing or coughing but states that she has been trying her asthma medication including prednisone without relief. She states that she has shortness of breath at rest as well as with exertion but denies any orthopnea or lower extremity edema. She has not noticed any dysuria or frequency. She denies having any fevers or chills. The patient states that she try to call her primary care physician but no return call was made. The patient denies having any leg cramping. She denies having any chest pain. 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 Denies vaginal bleeding or discharge. Review of Systems See HPI for pertinent positives & negatives. A total of 10 systems reviewed and were otherwise negative. Past Medical & Surgical Medical Problems: (1) Asthma (2) Asthma, mild persistent (3) Atrial tachycardia (4) Cellulitis (5) GERD (gastroesophageal reflux disease) (6) HTN (hypertension) (7) Hx of fracture of tibia (8) Ovarian cyst (9) Pharyngitis (10) Sinus tachycardia (11) Sinusitis (12) Sinusitis (13) SVT (supraventricular tachycardia) Surgical Problems: (1) H/O cardiac radiofrequency ablation (2) H/O cardiac radiofrequency ablation (3) H/O section (4) S/P ablation operation for arrhythmia Family History Asthma SISTER Cardiac disorder FATHER GRANDFATHER GRANDMOTHER Gallbladder disease Heart disease Hypertension FATHER BROTHER GRANDFATHER GRANDMOTHER Kidney disease or stones Lung disease Social History Smoking Status: Never Smoker Alcohol Use: none Drug Use: none Marital Status: in relationship Housing Status: lives with family Occupation Status: employed Current/Historical Medications Scheduled Ondansetron (Ondansetron HCl), 8 MG PO UD Verapamil HCl (Verapamil HCl), 40 MG PO DAILY Scheduled PRN Albuterol Hfa (Ventolin Hfa), 2-4 PUFFS INH Q6H PRN for Shortness of Breath Albuterol Sulf (Albuterol Sulfate), 1 DOSE INH Q4 PRN for SOB/Wheezing Allergies Coded Allergies: Penicillins (Verified Allergy, Intermediate, RASH, 10/05/17) Sulfa Antibiotics (Verified Allergy, Intermediate, hives, 10/05/17) Codeine (Verified Allergy, Mild, 10/05/17) Morphine (Verified Allergy, Mild, HALLUCINATES, 10/05/17) Amoxicillin (Verified Allergy, Unknown, SWELLING, 10/05/17) Latex1 -Allergic Contact Dermititis (Verified Allergy, Unknown, HIVES, 10/05) Levofloxacin (Verified Allergy, Unknown, RASH, joint pain, 10/05/17) Pseudoephedrine (Verified Allergy, Unknown, FEVER, 10/05/17) Egg (Verified Adverse Reaction, Unknown, HEADACHE, 10/05/17) Physical Exam Vital Signs Date Time Temp Pulse Resp B/P (MAP) Pulse Ox O2 Delivery O2 Flow Rate FiO2 10/05/17 12:54 98 16 121/76 99 10/05/17 12:46 97 10/05/17 12:34 98 18 125/77 98 Room Air 10/05/17 11:04 99 16 121/75 100 Room Air 10/05/17 10:15 89 20 113/72 99 Room Air 10/05/17 09:14 101 10/05/17 09:11 99 Room Air 10/05/17 08:54 36.9 102 18 118/72 99 Room Air Physical Exam GENERAL: Patient is awake alert in no acute distress patient is resting comfortably and showing no signs of anxiety EYES: The conjunctivae are clear. The pupils are round and reactive. EARS, NOSE, MOUTH AND THROAT: The nose is without any evidence of any deformity. Mucous membranes are moist tongue is midline NECK: The neck is nontender and supple. RESPIRATORY: Normal respiratory effort is noted there is no evidence of wheezing rhonchi or rales CARDIOVASCULAR: Regular rate and rhythm noted there no murmurs rubs or gallops normal S1 normal S2 GASTROINTESTINAL: The abdomen is soft. There is no guarding or rigidity appreciated. BACK: No midline tenderness or or step-off noted range of motion in flexion extension as well as rotation no signs of muscle spasm noted MUSCULOSKELETAL/EXTREMITIES: There is no evidence of gross deformity full range of motion is noted in the hips and shoulders SKIN: There is no obvious evidence of any rash. There are no petechiae, pallor or cyanosis noted. NEUROLOGIC: Patient is awake alert and oriented x3 Medical Decision & Procedures ER Provider Diagnostic Interpretation: Bedside FAST US as performed by myself reveals a single, live IUP noted. Good movement with a heart rate noted. Radiology results as stated below per my review and radiologist interpretation: CHEST ONE VIEW PORTABLE CLINICAL HISTORY: Respiratory distress. Dyspnea. 12 weeks . COMPARISON STUDY: Chest radiograph August 16, 2017. TECHNIQUE: The abdomen and pelvis were double shielded due to . Portable upright AP chest radiograph was obtained. FINDINGS: Lung volumes are normal. Lungs are clear. No pneumothorax or pleural effusion is noted. Cardiac size is normal. Mediastinal contours are normal. There is no evidence for pulmonary edema. IMPRESSION: No acute cardiopulmonary findings. Electronically signed by: Geoffrey San M.D. 10/05/2017 9:44 AM Dictated Date/Time: 10/05/2017 9:[address] ANGIOGRAM OF THE CHEST CLINICAL HISTORY: Respiratory distress. . COMPARISON STUDY: 05/20/2017 TECHNIQUE: Following the IV administration of 89 mL of Optiray-320, CT angiogram of the thorax was performed from the thoracic inlet to the lung bases utilizing the pulmonary embolus protocol. Images are reviewed in the axial, sagittal, and coronal planes. IV contrast was administered without complication. MIP imaging was performed. A dose lowering technique was utilized adhering to the principles of ALARA. CT DOSE: 196.51 mGy.cm FINDINGS: No pathologically enlarged axillary mediastinal or hilar lymph nodes were visualized. There was no evidence of thoracic aortic dilatation. The study is compromised due to significant respiratory motion artifact. No central emboli are visualized. Multiple hypodensities within lower lobe pulmonary artery branches, are likely artifactual. If there is a strong clinical suspicion over the presence of pulmonary embolic disease, then correlation with serial leg ultrasonography should be considered in follow-up. Alternatively, a nuclear medicine V/Q scan could be obtained, as this is performed with the patient breathing. No pleural effusions are visualized. The examination is limited due to motion artifact. There is no focal pulmonary consolidation. IMPRESSION: 1. Examination significantly limited due to motion artifact. No central pulmonary emboli identified. Correlation with serial leg ultrasonography could be considered in follow-up. 2. No evidence of focal pulmonary consolidation Electronically signed by: Layton Garcia M.D. 10/05/2017 11:05 AM Dictated Date/Time: 10/05/2017 10:59 AM VENOUS DOPPLER LWR EXT BILA CLINICAL HISTORY: 27 years-old Female presenting with SOB, poor CT imaging. TECHNIQUE: Real-time grayscale and color and spectral Doppler ultrasound imaging of the veins of the bilateral lower extremities was performed. Compression and augmentation were also utilized. COMPARISON: 07/22/2014. FINDINGS: Right: Common femoral vein: Patent. Greater saphenous vein: Patent. Deep femoral vein: Patent. Femoral vein: Patent. Popliteal vein: Patent. Calf veins: Patent. Left: Common femoral vein: Patent. Greater saphenous vein: Patent. Deep femoral vein: Patent. Femoral vein: Patent. Popliteal vein: Patent. Calf veins: Patent. Other: None. IMPRESSION: No evidence of deep venous thrombosis. Electronically signed by: Ki Bonds M.D. 10/05/2017 12:23 PM Dictated Date/Time: 10/05/2017 12:22 PM Laboratory Results 10/05/17 09:30 Red Blood Count 3.99, Mean Corpuscular Volume 85.7, Mean Corpuscular Hemoglobin 31.1, Mean Corpuscular Hemoglobin Concent 36.3, Mean Platelet Volume 10.3, Neutrophils (%) (Auto) 76.8, Lymphocytes (%) (Auto) 12.4, Monocytes (%) (Auto) 7.3, Eosinophils (%) (Auto) 3.1, Basophils (%) (Auto) 0.2, Neutrophils # (Auto) 6.45, Lymphocytes # (Auto) 1.04, Monocytes # (Auto) 0.61, Eosinophils # (Auto) 0.26, Basophils # (Auto) 0.02 10/05/17 09:30 Test 10/05/17 09:30 10/05/17 09:33 10/05/17 11:02 White Blood Count 8.40 K/uL (4.8-10.8) Red Blood Count 3.99 M/uL (4.2-5.4) Hemoglobin 12.4 g/dL (12.0-16.0) Hematocrit 34.2 % (37-47) Mean Corpuscular Volume 85.7 fL (80-100) Mean Corpuscular Hemoglobin 31.1 pg (25-34) Mean Corpuscular Hemoglobin Concent 36.3 g/dl (32-36) Platelet Count 264 K/uL (130-400) Mean Platelet Volume 10.3 fL (7.4-10.4) Neutrophils (%) (Auto) 76.8 % Lymphocytes (%) (Auto) 12.4 % Monocytes (%) (Auto) 7.3 % Eosinophils (%) (Auto) 3.1 % Basophils (%) (Auto) 0.2 % Neutrophils # (Auto) 6.45 K/uL (1.4-6.5) Lymphocytes # (Auto) 1.04 K/uL (1.2-3.4) Monocytes # (Auto) 0.61 K/uL (0.11-0.59) Eosinophils # (Auto) 0.26 K/uL (0-0.5) Basophils # (Auto) 0.02 K/uL (0-0.2) RDW Standard Deviation 38.2 fL (36.4-46.3) RDW Coefficient of Variation 12.2 % (11.5-14.5) Immature Granulocyte % (Auto) 0.2 % Immature Granulocyte # (Auto) 0.02 K/uL (0.00-0.02) Prothrombin Time 10.3 SECONDS (9.0-12.0) Prothromb Time International Ratio 1.0 (0.9-1.1) Activated Partial Thromboplast Time 26.0 SECONDS (21.0-31.0) Partial Thromboplastin Ratio 1.0 Anion Gap 8.0 mmol/L (3-11) Est Creatinine Clear Calc Drug Dose 100.4 ml/min Estimated GFR () 130.5 Estimated GFR (Non- 112.6 BUN/Creatinine Ratio 11.1 (10-20) Calcium Level 8.7 mg/dl (8.5-10.1) Total Bilirubin 0.3 mg/dl (0.2-1) Aspartate Amino Transf (AST/SGOT) 12 U/L (15-37) Alanine Aminotransferase (ALT/SGPT) 17 U/L (12-78) Alkaline Phosphatase 51 U/L (45-117) Troponin I < 0.015 ng/ml (0-0.045) Total Protein 7.3 gm/dl (6.4-8.2) Albumin 3.7 gm/dl (3.4-5.0) Globulin 3.6 gm/dl (2.5-4.0) Albumin/Globulin Ratio 1.0 (0.9-2) Bedside D-Dimer > 450 ng/mlFEU (0-450) Urine Color YELLOW Urine Appearance CLOUDY (CLEAR) Urine pH 6.5 (4.5-7.5) Urine Specific [place] 1.037 (1.000-1.030) Urine Protein NEG (NEG) Urine Glucose (UA) NEG (NEG) Urine Ketones NEG (NEG) Urine Occult Blood NEG (NEG) Urine Nitrite NEG (NEG) Urine Bilirubin NEG (NEG) Urine Urobilinogen NEG (NEG) Urine Leukocyte Esterase NEG (NEG) Urine WBC (Auto) 1-5 /hpf (0-5) Urine RBC (Auto) 0-4 /hpf (0-4) Urine Hyaline Casts (Auto) 1-5 /lpf (0-5) Urine Epithelial Cells (Auto) >30 /lpf (0-5) Urine Bacteria (Auto) NEG (NEG) Laboratory results per my review. Medications Administered Medications (Trade) Dose Ordered Sig/Anika Route Start Time Stop Time Status Last Admin Dose Admin Sodium Chloride 1,000 ml @ 999 mls/hr Q1H1M STAT IV 10/05/17 09:12 10/05/17 10:12 DC 10/05/17 09:37 999 MLS/HR ECG Per My Interpretation Indication: SOB/dyspnea Rate (beats per minute): 100 Rhythm: normal sinus Findings: no acute ischemic change, no ectopy Change: no significant change (06/24/2017) ED Course 0908: The patient was evaluated in room A2. A complete history and physical examination were performed. 0912: NSS 1000 ml @ 999 mls/hr IV 1017: At this time I performed a bedside FAST ultrasound. Please see above for my findings. 1115: I updated the patient and she is doing well. 1251: I reassessed the patient at this time. She is feeling better and resting comfortably. I discussed the results and treatment plan with the patient. I answered all pertaining questions that she had. She expressed understanding and verbalized agreement. The patient will be discharged home. Medical Decision Differential diagnosis: Etiologies such as infections, reactive airway disease, pneumonia, pneumothorax , COPD, CHF, cardiac ischemia, pulmonary embolism, musculoskeletal, gastrointestinal, as well as others were entertained. Nursing notes reviewed. The patient is a 27-year-old female who presented to the emergency department for an evaluation of shortness of breath. Currently the patient is . She called her primary [employer] physician and was sent to the emergency department for the possibility of a pulmonary embolism. The patient denied any lower extremity swelling. She was initially tachycardic. She was treated with IV fluids and on subsequent reevaluation was feeling much better. The patient has a history of bronchospasm and asthma but her lung sounds were normal. Her d -dimer is elevated. This led to a CT of the chest which did not show any definite pulmonary embolism. Ultrasound of the legs did not reveal any venous thrombolic disease. I discussed patient's laboratory and radiographic studies with her. She was encouraged to follow-up with her primary care physician as soon as possible. She was also encouraged to rest and avoid any strenuous activity. I also encouraged her to return to the emergency department immediately if symptoms change worsen or the need arises. Medication Reconcilliation Current Medication List: was personally reviewed by me Blood Pressure Screening Patient's blood pressure: Normal blood pressure Impression Primary Impression: Shortness of breath Scribe Attestation The scribe's documentation has been prepared under my direction and personally reviewed by me in its entirety. I confirm that the note above accurately reflects all work, treatment, procedures, and medical decision making performed by me. Departure Information Dispostion Home / Self-Care Referrals Ramila Welhc PA-C (PCP) Forms HOME CARE DOCUMENTATION FORM, IMPORTANT VISIT INFORMATION Patient Instructions ED Dyspnea Shortness of Breath, My [facility] Additional Instructions Follow-up with your [facility] physician for further evaluation. Rest and avoid any strenuous activity. Continue all medications as prescribed. Return to the emergency department immediately if symptoms change worsen or the need arises.
[2017-10-05 10:00] LABS: ALBUMIN 3.7 gm/dl (3.4-5.0); ALT/SGPT 17 U/L (12-78); BLOOD UREA NITROGEN 8 mg/dl (7-18); CALCIUM 8.7 mg/dl (8.5-10.1); CARBON DIOXIDE 24 mmol/L (21-32); CREATININE 0.74 mg/dl (0.60-1.20); GLUCOSE 83 mg/dl (70-99); POTASSIUM 3.2 mmol/L (3.5-5.1); SODIUM 138 mmol/L (136-145)
[2017-10-05 10:05] LABS: ALKALINE PHOSPHATASE 51 U/L (45-117); AST/SGOT 12 U/L (15-37); TOTAL PROTEIN 7.3 gm/dl (6.4-8.2)
[2017-10-05] MEDS ORDERED: OPTIRAY 320 IV PRN (10:15)
--- NOTE | 2017-10-05 11:06 | DIAGNOSTIC IMAGING REPORT ---
CT ANGIOGRAM OF THE CHEST CLINICAL HISTORY: Respiratory distress. . COMPARISON STUDY: 05/20/2017 TECHNIQUE: Following the IV administration of 89 mL of Optiray-320, CT angiogram of the thorax was performed from the thoracic inlet to the lung bases utilizing the pulmonary embolus protocol. Images are reviewed in the axial, sagittal, and coronal planes. IV contrast was administered without complication. MIP imaging was performed. A dose lowering technique was utilized adhering to the principles of ALARA. CT DOSE: 196.51 mGy.cm FINDINGS: No pathologically enlarged axillary mediastinal or hilar lymph nodes were visualized. There was no evidence of thoracic aortic dilatation. The study is compromised due to significant respiratory motion artifact. No central emboli are visualized. Multiple hypodensities within lower lobe pulmonary artery branches, are likely artifactual. If there is a strong clinical suspicion over the presence of pulmonary embolic disease, then correlation with serial leg ultrasonography should be considered in follow-up. Alternatively, a nuclear medicine V/Q scan could be obtained, as this is performed with the patient breathing. No pleural effusions are visualized. The examination is limited due to motion artifact. There is no focal pulmonary consolidation. IMPRESSION: 1. Examination significantly limited due to motion artifact. No central pulmonary emboli identified. Correlation with serial leg ultrasonography could be considered in follow-up. 2. No evidence of focal pulmonary consolidation Electronically signed by: Layton Garcia M.D. 10/05/2017 11:05 AM Dictated Date/Time: 10/05/2017 10:59 AM
--- NOTE | 2017-10-05 12:25 | DIAGNOSTIC IMAGING REPORT ---
VENOUS DOPPLER LWR EXT BILA CLINICAL HISTORY: 27 years-old Female presenting with SOB, poor CT imaging. TECHNIQUE: Real-time grayscale and color and spectral Doppler ultrasound imaging of the veins of the bilateral lower extremities was performed. Compression and augmentation were also utilized. COMPARISON: 07/22/2014. FINDINGS: Right: Common femoral vein: Patent. Greater saphenous vein: Patent. Deep femoral vein: Patent. Femoral vein: Patent. Popliteal vein: Patent. Calf veins: Patent. Left: Common femoral vein: Patent. Greater saphenous vein: Patent. Deep femoral vein: Patent. Femoral vein: Patent. Popliteal vein: Patent. Calf veins: Patent. Other: None. IMPRESSION: No evidence of deep venous thrombosis. Electronically signed by: Ki Bonds M.D. 10/05/2017 12:23 PM Dictated Date/Time: 10/05/2017 12:22 PM
[2017-10-05 12:54] VITALS: BP 121/76; PULSE 98; O2SAT 99
== END 2017-10-05 12:55 | disposition home or self-care (01) ==
LOC: C.EDB 08:54 → C.EDA 12:55
DX: O99.52 Diseases of the respiratory system complicating childbirth (principal); O26.21 Pregnancy care for patient with recurrent pregnancy loss, first trimester; O09.291 Supervision of pregnancy with other poor reproductive or obstetric history, first trimester; O99.411 Diseases of the circulatory system complicating pregnancy, first trimester; Z3A.12 12 weeks gestation of pregnancy; J45.909 Unspecified asthma, uncomplicated; I10 Essential (primary) hypertension; Z91.040 Latex allergy status; Z88.0 Allergy status to penicillin; Z88.2 Allergy status to sulfonamides; Z88.6 Allergy status to analgesic agent; Z88.1 Allergy status to other antibiotic agents; Z88.8 Allergy status to other drugs, medicaments and biological substances; Z91.012 Allergy to eggs; Z82.5 Family history of asthma and other chronic lower respiratory diseases; Z82.49 Family history of ischemic heart disease and other diseases of the circulatory system; Z83.79 Family history of other diseases of the digestive system; Z84.1 Family history of disorders of kidney and ureter; Z83.6 Family history of other diseases of the respiratory system

== ENCOUNTER 2017-10-10 12:25 | Emergency (ER) | payer OTHER ==
[~2017-10-10] VITALS: Ht 162.6 cm; Wt 54.4 kg
[2017-10-10 12:48] VITALS: TEMP 36.6; Ht 162.6 cm; Wt 54.4 kg
[2017-10-10 13:29] VITALS: O2SAT 100
[2017-10-10] MEDS ORDERED: SNG10 PO (13:36)
[2017-10-10] MEDS ORDERED: PRENTAB26 PO (13:36)
[2017-10-10 13:38] LABS: HEMATOCRIT 31.8 % (37-47); HEMOGLOBIN 11.3 g/dL (12.0-16.0); MEAN CELL VOLUME 87.6 fL (80-100); MEAN CORPUSCULAR HEMOGLOBIN 31.1 pg (25-34); MEAN CORPUSCULAR HGB CONC 35.5 g/dl (32-36); MEAN PLATELET VOLUME 10.4 fL (7.4-10.4); PLATELET COUNT 256 K/uL (130-400); RED CELL DISTRIBUTION WIDTH CV 12.4 % (11.5-14.5); RED CELL DISTRIBUTION WIDTH SD 40.1 fL (36.4-46.3); WHITE BLOOD COUNT 8.16 K/uL (4.8-10.8)
--- NOTE | 2017-10-10 13:40 | DIAGNOSTIC IMAGING REPORT ---
CHEST ONE VIEW PORTABLE HISTORY: 27 years-old Female chest pain acute atypical chest pain COMPARISON: Chest radiograph 10/05/2017 TECHNIQUE: Portable AP view of the chest FINDINGS: Cardiomediastinal and hilar silhouettes are within normal limits. Loop recorder device is again noted projecting over the medial left breast. There is no pneumothorax, pleural effusion, focal airspace consolidation or overt pulmonary edema. The bones of the chest appear grossly intact. IMPRESSION: No acute process. The above report was generated using voice recognition software. It may contain grammatical, syntax or spelling errors. Electronically signed by: Galileo Moreno M.D. 10/10/2017 1:39 PM Dictated Date/Time: 10/10/2017 1:37 PM
[2017-10-10 13:42] LABS: PTT PATIENT 26.9 SECONDS (21.0-31.0)
[2017-10-10 13:45] LABS: ALBUMIN 3.1 gm/dl (3.4-5.0); ALT/SGPT 14 U/L (12-78); BLOOD UREA NITROGEN 9 mg/dl (7-18); CALCIUM 8.3 mg/dl (8.5-10.1); CARBON DIOXIDE 23 mmol/L (21-32); CREATININE 0.66 mg/dl (0.60-1.20); GLUCOSE 79 mg/dl (70-99); POTASSIUM 3.6 mmol/L (3.5-5.1); SODIUM 138 mmol/L (136-145)
[2017-10-10 13:50] LABS: ALKALINE PHOSPHATASE 45 U/L (45-117); AST/SGOT 10 U/L (15-37); CKMB < 0.5 ng/ml (0.5-3.6); TOTAL PROTEIN 6.2 gm/dl (6.4-8.2)
[2017-10-10] MEDS ORDERED: ACETAMINOPHEN 500 MG TAB PO STA (14:12)
[2017-10-10] MEDS ORDERED: FAMOTIDINE IV INJ 20 MG in DEXTROSE 5% 100ML 100 ML IV STA (14:12)
[2017-10-10] MEDS ORDERED: FAMOTIDINE 20MG/5ML IV PUSH IV ONE (14:24)
--- NOTE | 2017-10-10 15:17 | DIAGNOSTIC IMAGING REPORT ---
GALLBLADDER-ABD LIMITED HISTORY: 27 years-old Female epigastric pain acute epigastric abdominal pain COMPARISON: Right upper quadrant ultrasound 02/03/2017 TECHNIQUE: Multiple real-time sonographic images of the abdominal right upper quadrant were obtained assessing grayscale appearance and color flow FINDINGS: The imaged pancreas is unremarkable. The liver also appears be within normal limits measuring up to 17.6 cm in length. No intrahepatic biliary ductal dilation or suspicious mass lesions of the liver. Contracted gallbladder without cholelithiasis or pericholecystic fluid. No gallbladder wall thickening. Common bile duct is normal, 2 mm. The right kidney measures 10.8 cm in length and is also within normal limits. IMPRESSION: 1. Contracted gallbladder without cholelithiasis or sonographic evidence of acute cholecystitis. 2. No biliary ductal dilation. The above report was generated using voice recognition software. It may contain grammatical, syntax or spelling errors. Electronically signed by: Galileo Moreno M.D. 10/10/2017 3:16 PM Dictated Date/Time: 10/10/2017 3:14 PM
[2017-10-10 16:25] VITALS: BP 113/73; PULSE 91; O2SAT 99
[2017-10-10] MEDS ORDERED: RANI150T85 PO (16:41)
--- NOTE | 2017-10-10 19:58 | EMERGENCY ROOM VISIT NOTE ---
History Report prepared by Azar: Felicia Ceballos Under the Supervision of: Dr. Ham Bhatia M.D. First contact with patient: 14:05 Chief Complaint: CHEST PAIN Stated Complaint: CHEST PAIN/ ABDOMINAL PAIN Nursing Triage Summary: pt states back pain yesturday. states cp and abd pain this am at work. denies sob. pt states she is 12.5 weeks . hx of preeclampsia. pt states hx of sinus tach. History of Present Illness The patient is a 27 year old female who presents to the Emergency Room with complaints of worsening chest pain starting 3.5 hours ago. The patient has had bilateral lower back pain for the past 3 days which has been worsening. The pain is constantly dull with intermittent sharp pains. The pain started wrapping around to the front of her abdomen and chest today while she was at work. She was sitting when the pain started. The pain worsens with standing. She denies any fever, cough, vaginal bleeding, or SOB. She denies any falls. The patient is 12.5 weeks . This is her 3rd . Her 2 previous pregnancies ended in miscarriage. She has a history of acid reflux for which she takes Tums. She has a family history of gallbladder disease. She has had a C section, but no other abdominal surgeries. The patient was seen in the ED October 05 for SOB. She had a CT chest for PE and US of her legs which were all negative. Source of History: patient Onset: 3.5 hours ago Position: chest Quality: sharp, dull Timing: worsening Modifying Factors (Worsening): other (standing) Associated Symptoms: + abdominal pain, + back pain, No fevers, No cough, No SOB Note: Pt denies vaginal bleeding. Review of Systems See HPI for pertinent positives & negatives. A total of 10 systems reviewed and were otherwise negative. Past Medical & Surgical Medical Problems: (1) Asthma (2) Asthma, mild persistent (3) Atrial tachycardia (4) Cellulitis (5) GERD (gastroesophageal reflux disease) (6) HTN (hypertension) (7) Hx of fracture of tibia (8) Ovarian cyst (9) Pharyngitis (10) Sinus tachycardia (11) Sinusitis (12) Sinusitis (13) SVT (supraventricular tachycardia) Surgical Problems: (1) H/O cardiac radiofrequency ablation (2) H/O cardiac radiofrequency ablation (3) H/O section (4) S/P ablation operation for arrhythmia Family History Asthma SISTER Cardiac disorder FATHER GRANDFATHER GRANDMOTHER Gallbladder disease Heart disease Hypertension FATHER BROTHER GRANDFATHER GRANDMOTHER Kidney disease or stones Lung disease Social History Smoking Status: Never Smoker Alcohol Use: none Drug Use: none Marital Status: in relationship Housing Status: lives with family Occupation Status: employed Current/Historical Medications Scheduled Montelukast Sod (Montelukast Sodium), 10 MG PO DAILY Multivit/Min/Iron/Fol Ac/Pren ( Vitamin), 1 TAB PO DAILY Ondansetron (Ondansetron HCl), 8 MG PO UD Ranitidine (Zantac), 150 MG PO BID Verapamil HCl (Verapamil HCl), 40 MG PO DAILY Scheduled PRN Albuterol Hfa (Ventolin Hfa), 2-4 PUFFS INH Q6H PRN for Shortness of Breath Albuterol Sulf (Albuterol Sulfate), 1 DOSE INH Q4 PRN for SOB/Wheezing Allergies Coded Allergies: Penicillins (Verified Allergy, Intermediate, RASH, 10/05/17) Sulfa Antibiotics (Verified Allergy, Intermediate, hives, 10/05/17) Codeine (Verified Allergy, Mild, 10/05/17) Morphine (Verified Allergy, Mild, HALLUCINATES, 10/05/17) Amoxicillin (Verified Allergy, Unknown, SWELLING, 10/05/17) Latex1 -Allergic Contact Dermititis (Verified Allergy, Unknown, HIVES, 10/05) Levofloxacin (Verified Allergy, Unknown, RASH, joint pain, 10/05/17) Pseudoephedrine (Verified Allergy, Unknown, FEVER, 10/05/17) Egg (Verified Adverse Reaction, Unknown, HEADACHE, 10/05/17) Physical Exam Vital Signs Date Time Temp Pulse Resp B/P (MAP) Pulse Ox O2 Delivery O2 Flow Rate FiO2 10/10/17 16:25 91 18 113/73 99 Room Air 10/10/17 14:35 78 18 105/67 99 Room Air 10/10/17 13:29 100 Room Air 10/10/17 13:29 100 Room Air 10/10/17 13:07 105 10/10/17 12:48 36.6 106 22 127/76 100 Room Air 10/10/17 12:48 Room Air 10/10/17 12:48 97 Room Air Physical Exam GENERAL: Patient is tearful and upset, slightly anxious. HEENT: No acute trauma, normocephalic atraumatic, mucous membranes moist, no nasal congestion, no scleral icterus. NECK: No stridor, no adenopathy, no meningismus, trachea is midline. LUNGS: Clear to auscultation bilaterally, no wheeze, no rhonchi, breath sounds equal. HEART: Without murmurs gallops or rubs, regular rate and rhythm. ABDOMEN: Soft, tender in the epigastrium, bowel sounds positive, no hernias, no peritonitis. EXTREMITIES: No cyanosis or edema, full range of motion of all the joints without pain or difficulty, no signs for acute trauma. NEUROLOGIC: Oriented x 3, no acute motor or sensory deficits, no focal weakness. SKIN: No rash, no jaundice, no diaphoresis. Back: No focal areas of discomfort with palpation--pain worsens with movement. Medical Decision & Procedures ER Provider Diagnostic Interpretation: X-ray results as stated below per interpretation by me and the radiologist. Radiology results as stated below per my review and radiologist interpretation: CHEST ONE VIEW PORTABLE HISTORY: 27 years-old Female chest pain acute atypical chest pain COMPARISON: Chest radiograph 10/05/2017 TECHNIQUE: Portable AP view of the chest FINDINGS: Cardiomediastinal and hilar silhouettes are within normal limits. Loop recorder device is again noted projecting over the medial left breast. There is no pneumothorax, pleural effusion, focal airspace consolidation or overt pulmonary edema. The bones of the chest appear grossly intact. IMPRESSION: No acute process. The above report was generated using voice recognition software. It may contain grammatical, syntax or spelling errors. Electronically signed by: Galileo Moreno M.D. 10/10/2017 1:39 PM Dictated Date/Time: 10/10/2017 1:37 PM GALLBLADDER-ABD LIMITED HISTORY: 27 years-old Female epigastric pain acute epigastric abdominal pain COMPARISON: Right upper quadrant ultrasound 02/03/2017 TECHNIQUE: Multiple real-time sonographic images of the abdominal right upper quadrant were obtained assessing grayscale appearance and color flow FINDINGS: The imaged pancreas is unremarkable. The liver also appears be within normal limits measuring up to 17.6 cm in length. No intrahepatic biliary ductal dilation or suspicious mass lesions of the liver. Contracted gallbladder without cholelithiasis or pericholecystic fluid. No gallbladder wall thickening. Common bile duct is normal, 2 mm. The right kidney measures 10.8 cm in length and is also within normal limits. IMPRESSION: 1. Contracted gallbladder without cholelithiasis or sonographic evidence of acute cholecystitis. 2. No biliary ductal dilation. The above report was generated using voice recognition software. It may contain grammatical, syntax or spelling errors. Electronically signed by: Galileo Moreno M.D. 10/10/2017 3:16 PM Dictated Date/Time: 10/10/2017 3:14 PM Laboratory Results 10/10/17 12:41 10/10/17 12:41 Test 10/10/17 12:41 10/10/17 12:48 10/10/17 13:50 Red Blood Count 3.63 M/uL (4.2-5.4) Mean Corpuscular Volume 87.6 fL (80-100) Mean Corpuscular Hemoglobin 31.1 pg (25-34) Mean Corpuscular Hemoglobin Concent 35.5 g/dl (32-36) RDW Standard Deviation 40.1 fL (36.4-46.3) RDW Coefficient of Variation 12.4 % (11.5-14.5) Mean Platelet Volume 10.4 fL (7.4-10.4) Prothrombin Time 10.2 SECONDS (9.0-12.0) Prothromb Time International Ratio 1.0 (0.9-1.1) Activated Partial Thromboplast Time 26.9 SECONDS (21.0-31.0) Partial Thromboplastin Ratio 1.0 Anion Gap 10.0 mmol/L (3-11) Est Creatinine Clear Calc Drug Dose 111.9 ml/min Estimated GFR () 142.3 Estimated GFR (Non- 122.8 BUN/Creatinine Ratio 13.0 (10-20) Calcium Level 8.3 mg/dl (8.5-10.1) Total Bilirubin 0.3 mg/dl (0.2-1) Aspartate Amino Transf (AST/SGOT) 10 U/L (15-37) Alanine Aminotransferase (ALT/SGPT) 14 U/L (12-78) Alkaline Phosphatase 45 U/L (45-117) Total Creatine Kinase 36 U/L (26-192) Creatine Kinase MB < 0.5 ng/ml (0.5-3.6) Creatine Kinase MB Ratio (0-3.0) Total Protein 6.2 gm/dl (6.4-8.2) Albumin 3.1 gm/dl (3.4-5.0) Globulin 3.1 gm/dl (2.5-4.0) Albumin/Globulin Ratio 1.0 (0.9-2) Lipase 118 U/L (73-393) Bedside Troponin I < 0.030 ng/ml (0-0.045) Urine Color YELLOW Urine Appearance CLOUDY (CLEAR) Urine pH 7.5 (4.5-7.5) Urine Specific [place] 1.011 (1.000-1.030) Urine Protein NEG (NEG) Urine Glucose (UA) NEG (NEG) Urine Ketones NEG (NEG) Urine Occult Blood NEG (NEG) Urine Nitrite NEG (NEG) Urine Bilirubin NEG (NEG) Urine Urobilinogen NEG (NEG) Urine Leukocyte Esterase TRACE (NEG) Urine WBC (Auto) 5-10 /hpf (0-5) Urine RBC (Auto) 0-4 /hpf (0-4) Urine Hyaline Casts (Auto) 1-5 /lpf (0-5) Urine Epithelial Cells (Auto) >30 /lpf (0-5) Urine Bacteria (Auto) 1+ (NEG) Laboratory results reviewed by me. Medications Administered Medications (Trade) Dose Ordered Sig/Anika Route Start Time Stop Time Status Last Admin Dose Admin Acetaminophen (Tylenol Tab) 1,000 mg NOW STAT PO 10/10/17 14:12 10/10/17 14:20 DC 10/10/17 14:24 1,000 MG Diphenhydramine HCl (Benadryl Cap) 25 mg NOW ONCE PO 10/10/17 14:15 10/10/17 14:20 DC 10/10/17 14:25 25 MG Famotidine 20 mg/ Dextrose 102 ml @ 200 mls/hr NOW STAT IV 10/10/17 14:12 10/10/17 14:42 DC 10/10/17 14:12 200 MLS/HR ECG Per My Interpretation Indication: chest pain Rate (beats per minute): 95 Rhythm: normal sinus Findings: no ectopy, other (no ST elevation, no PVC) ED Course 1407: The patient was evaluated in room C1B. A complete history and physical exam was performed. 1412: Famotidine 20 mg/Dextrose 102 ml @ 200 mls/hr IV, Acetaminophen 1000 mg PO. 1415: Benadryl Cap 25 mg PO. 1632: heart tones were 152. 1636: Reevaluated the patient. Discussed results and discharge instructions: She verbalized understanding and agreement. The patient is ready for discharge. Medical Decision Differential diagnoses considered include gastritis, reflux, biliary colic, cardiac ischemia, DC, pneumonia, pneumothorax, musculoskeletal pain, UTI. There is no leukocytosis or concerning anemia. No significant electrolyte abnormality, kidney failure or hepatitis. No evidence for pancreatitis. EKG shows a normal sinus rhythm, no acute ischemia. Cardiac enzyme testing 1 is not consistent with acute cardiac injury. Urinalysis did not show infection. heart tones were strong and regular. Chest film did not show pneumonia or mediastinal widening, no CHF. Gallbladder ultrasound showed no gallstones or gallbladder thickening to suggest acute cholecystitis. On exam, the patient was somewhat tender in the epigastrium, she had lower back pain with any movement. Patient is and her is higher risk. She was given Tylenol orally, oral Benadryl. She was given IV Pepcid. She still is having pain but seems more comfortable as she is texting on her phone. The patient was reassured. This pain is likely musculoskeletal and/or related to some reflux. Nothing worrisome was found. I did review her workup from a few days ago, a chest CT had been done at that time, there was no PE, there was no evidence for clot in the legs by ultrasound. The patient is being discharged with rest, heat, Tylenol. I have prescribed Zantac as well. If worsening, she can return. OB follow-up was suggested. Medication Reconcilliation Current Medication List: was personally reviewed by me Blood Pressure Screening Patient's blood pressure: Normal blood pressure Blood pressure disposition: Did not require urgent referral Impression Primary Impression: Lower back pain Additional Impressions: Epigastric abdominal pain Scribe Attestation The scribe's documentation has been prepared under my direction and personally reviewed by me in its entirety. I confirm that the note above accurately reflects all work, treatment, procedures, and medical decision making performed by me. Departure Information Dispostion Home / Self-Care Prescriptions Ranitidine (Zantac) 150 Mg Tab 150 MG PO BID for 30 Days, #60 TAB 3 Refills Prov: Feese, Ham J.,M.D. 10/10/17 Referrals Ramila Welch PA-C (PCP) Forms HOME CARE DOCUMENTATION FORM, IMPORTANT VISIT INFORMATION Patient Instructions My [facility] Additional Instructions tylenol and or benadryl for pain heat to the back may help rest use zantac 2x per day for 2-3 weeks to help the stomach all imaging and lab testing was ok today return if worsening or have vaginal bleeding Problem Qualifiers
== END 2017-10-10 17:20 | disposition home or self-care (01) ==
LOC: EDBD 12:25 → C.EDC 12:25
DX: R07.89 Other chest pain (principal); R10.13 Epigastric pain; O26.21 Pregnancy care for patient with recurrent pregnancy loss, first trimester

== ENCOUNTER 2017-11-10 12:48 | Emergency (ER) | payer OTHER ==
[~2017-11-10] VITALS: Ht 162.6 cm; Wt 63.0 kg
[~2017-11-10 12:48] MED LIST changes: +PRENTAB26 PO; +RANI150T85 PO; +SNG10 PO
[2017-11-10 13:10] VITALS: TEMP 36.7; Ht 162.6 cm; Wt 63.0 kg
[2017-11-10] MEDS ORDERED: ALBUT/IPRATROP 3MG/0.5MG NEB 3 ML VIAL INH STA (13:25)
--- NOTE | 2017-11-10 13:25 | EMERGENCY ROOM VISIT NOTE ---
History Report prepared by Azar: Steven David Under the Supervision of: Dr. Antolin Maloen M.D. First contact with patient: 13:14 Chief Complaint: RESPIRATORY PROBLEMS Stated Complaint: ASTHMA FLARE UP History of Present Illness The patient is a 27 year old female who presents to the Emergency Room with complaints of worsening asthma symptoms for the past 5 days. Patient states that she has been "dealing with her asthma for the past couple of weeks". She states that she had an asthma attack last night. She states that she took one DuoNeb last night and one 8 hours ago to try and relieve the symptoms. She adds that she used her inhaler 1 hour ago. Patient adds that she has been dealing with an ongoing sinus infection as well. She states that she has used Flonase. Patient adds that she has shortness of breath, chest tightness, and cough. She describes the cough as "barky". Pertinent past medical history includes tachycardia. Patient adds that she is 17 weeks . She denies any problems with the . She adds that she has a history of 2 miscarriages. She states that she has a 7 year old son. She adds that she does not typically notice worsening asthma around her pregnancies. Patient adds that pollen can be a trigger for her asthma. Patient denies cramping and vaginal bleeding. Patient states that she sees her OB doctor tomorrow. Source of History: patient Onset: 5 days Position: other (Lungs) Timing: worsening Associated Symptoms: + cough ("Barky"), + chest pain (Chest tightness), + SOB Note: Patient denies cramping and vaginal bleeding. Review of Systems See HPI for pertinent positives and negatives. A total of ten systems were reviewed and were otherwise negative. Past Medical & Surgical Medical Problems: (1) Asthma (2) Asthma, mild persistent (3) Atrial tachycardia (4) Cellulitis (5) GERD (gastroesophageal reflux disease) (6) HTN (hypertension) (7) Hx of fracture of tibia (8) Ovarian cyst (9) Pharyngitis (10) Sinus tachycardia (11) Sinusitis (12) Sinusitis (13) SVT (supraventricular tachycardia) Surgical Problems: (1) H/O cardiac radiofrequency ablation (2) H/O cardiac radiofrequency ablation (3) H/O section (4) S/P ablation operation for arrhythmia Family History Asthma SISTER Cardiac disorder FATHER GRANDFATHER GRANDMOTHER Gallbladder disease Heart disease Hypertension FATHER BROTHER GRANDFATHER GRANDMOTHER Kidney disease or stones Lung disease Social History Smoking Status: Never Smoker Alcohol Use: none Drug Use: none Marital Status: in relationship Housing Status: lives with family Occupation Status: employed Current/Historical Medications Scheduled Fluticasone Propionate (Nasal) (Flonase Allergy Relief), 2 SPRAY TUCKER BID Multivit/Min/Iron/Fol Ac/Pren ( Vitamin), 1 TAB PO DAILY Prednisone (Prednisone), 3 TAB PO DAILY Ranitidine (Zantac), 150 MG PO BID Scheduled PRN Albuterol Hfa (Ventolin Hfa), 2-4 PUFFS INH Q6H PRN for Shortness of Breath Albuterol Sulf (Albuterol Sulfate), 1 DOSE INH Q4 PRN for SOB/Wheezing Allergies Coded Allergies: Penicillins (Verified Allergy, Intermediate, RASH, 11/10/17) Sulfa Antibiotics (Verified Allergy, Intermediate, hives, 11/10/17) Codeine (Verified Allergy, Mild, 11/10/17) Morphine (Verified Allergy, Mild, HALLUCINATES, 11/10/17) Amoxicillin (Verified Allergy, Unknown, SWELLING, 11/10/17) Latex1 -Allergic Contact Dermititis (Verified Allergy, Unknown, HIVES, 04/20) Levofloxacin (Verified Allergy, Unknown, RASH, joint pain, 11/10/17) Pseudoephedrine (Verified Allergy, Unknown, FEVER, 11/10/17) Egg (Verified Adverse Reaction, Unknown, HEADACHE, 11/10/17) Physical Exam Vital Signs Date Time Temp Pulse Resp B/P (MAP) Pulse Ox O2 Delivery O2 Flow Rate FiO2 11/10/17 15:19 93 16 115/73 100 11/10/17 14:29 105 16 117/75 100 Room Air 11/10/17 13:45 98 18 114/67 100 Room Air 11/10/17 13:45 99 Room Air 11/10/17 13:10 36.7 94 20 119/68 100 Room Air Physical Exam GENERAL: Awake, alert, in no distress HENT: Normocephalic, atraumatic. Boggy nasal turbulence. Dry mucous membranes. EYES: Normal conjunctiva. Sclera non-icteric. NECK: Supple. No nuchal rigidity. FROM. No JVD. RESPIRATORY: Scant intermittent wheeze, otherwise clear. CARDIAC: Regular rate, normal rhythm. Extremities warm and well perfused. Pulses equal. ABDOMEN: Soft, non-distended. No tenderness to palpation. No rebound or guarding. No masses. RECTAL: Deferred. MUSCULOSKELETAL: Chest examination reveals no tenderness. The back is symmetrical on inspection without obvious abnormality. There is no CVA tenderness to palpation. No joint edema. LOWER EXTREMITIES: Calves are equal size bilaterally and non-tender. No edema. No discoloration. NEURO: Normal sensorium. No sensory or motor deficits noted. SKIN: No rash or jaundice noted. Medical Decision & Procedures Medications Administered Medications (Trade) Dose Ordered Sig/Anika Route Start Time Stop Time Status Last Admin Dose Admin Albuterol/ Ipratropium (Duoneb) 3 ml NOW STAT INH 11/10/17 13:25 11/10/17 13:33 DC 11/10/17 13:42 3 ML Cetirizine HCl (zyrTEC TAB) 10 mg NOW ONCE PO 11/10/17 13:30 11/10/17 13:33 DC 11/10/17 13:42 10 MG Prednisone (PredniSONE TAB) 60 mg NOW STAT PO 11/10/17 14:15 11/10/17 14:16 DC 11/10/17 14:28 60 MG ED Course 1316: The patient was evaluated in room C2. A complete history and physical exam was performed. 1421: I reassessed the patient. She states that she is feeling better. 1434: I reevaluated the patient. Discussed results and discharge instructions. She verbalized understanding and agreement. The patient is ready for discharge. Medical Decision I reviewed the patient's past medical history, medications, and the nursing notes as described above. Differential diagnosis: Etiologies such as infections, reactive airway disease, pneumonia, pneumothorax , COPD, CHF, cardiac ischemia, pulmonary embolism, musculoskeletal, gastrointestinal, as well as others were entertained. The patient is a 27-year-old woman presents emergency department at 17 weeks complaining of worsening of her asthma over the past several days per hpi. Arrival patient is well-appearing in no acute distress, afebrile stable vital signs. Denies abdominal pain, n/v, vaginal bleeding/discharge. The patient has a very scant intermittent isolated wheeze but otherwise clear to auscultation. She has notable nasal congestion with boggy nasal turbinates. Patient was given nebulizer and Zyrtec in the ED with improvement in her symptoms. I explained to the patient there are risks and benefits to prednisone during regnancy and if her symptoms are severe enough the risks of a worsening asthma exacerbation make steroids appropriate. Patient reports that she feels like this is a moment where she needs steroids for improvement. She had been on prednisone last month for similar exacerbation. 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 Findings and plan for follow-up reviewed with patient. Patient agreeable and d/c'd per discharge instructions. Medication Reconcilliation Current Medication List: was personally reviewed by me Blood Pressure Screening Patient's blood pressure: Normal blood pressure Blood pressure disposition: Did not require urgent referral Impression Primary Impression: Asthma exacerbation Additional Impression: Seasonal allergies Scribe Attestation The scribe's documentation has been prepared under my direction and personally reviewed by me in its entirety. I confirm that the note above accurately reflects all work, treatment, procedures, and medical decision making performed by me. Departure Information Dispostion Home / Self-Care Prescriptions Prednisone (Prednisone) 20 Mg Tab 3 TAB PO DAILY for 4 Days, #12 TAB FOR 4 DAYS Prov: Antolin Malone M.D. 11/10/17 Referrals Balwinder Negrete M.D. 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 Your asthma is likely being exacerbated by seasonal allergies. Otherwise, your exam did not show signs of an emergent condition at this time. Prednisone as directed. Continue albuterol as prescribed. Use daily Zyrtec to help control your allergies as needed. Nasal saline to help thin and clear mucus. Drink plenty of fluids to ensure hydration. Return to the emergency department for worsening symptoms as described in the accompanying instructions. Problem Qualifiers
[2017-11-10] MEDS ORDERED: CETIRIZINE HCL 10 MG TAB PO ONE (13:30)
[2017-11-10] MEDS ORDERED: FLUT0.15 NAE (13:31)
[2017-11-10] MEDS ORDERED: PRED20TA PO (14:56)
[2017-11-10 15:19] VITALS: BP 115/73; PULSE 93; O2SAT 100
== END 2017-11-10 15:15 | disposition home or self-care (01) ==
LOC: C.EDB 12:50 → C.EDC 15:15
DX: O99.512 Diseases of the respiratory system complicating pregnancy, second trimester (principal); J45.901 Unspecified asthma with (acute) exacerbation; J30.2 Other seasonal allergic rhinitis; Z3A.17 17 weeks gestation of pregnancy; K21.9 Gastro-esophageal reflux disease without esophagitis; I10 Essential (primary) hypertension; Z79.899 Other long term (current) drug therapy; Z88.0 Allergy status to penicillin; Z88.2 Allergy status to sulfonamides; Z88.5 Allergy status to narcotic agent; Z88.1 Allergy status to other antibiotic agents; Z91.040 Latex allergy status; Z88.8 Allergy status to other drugs, medicaments and biological substances; Z91.018 Allergy to other foods

== ENCOUNTER 2018-01-31 06:54 | Emergency (ER) | payer OTHER ==
[~2018-01-31] VITALS: Ht 162.6 cm; Wt 76.7 kg
[~2018-01-31 06:54] MED LIST changes: +FERR1TAB23 PO; +IPRA-64 INH; -ONDA-63 PO; +PRED10TA PO; +RANI150T3 PO; -RANI150T85 PO; -RRALBUT2.5 INH; -SNG10 PO; -VRP40 PO
[2018-01-31 06:58] VITALS: TEMP 37; Ht 162.6 cm; Wt 76.7 kg
[2018-01-31] MEDS ORDERED: ALBUT/IPRATROP 3MG/0.5MG NEB 3 ML VIAL INH STA (07:39)
[2018-01-31] MEDS ORDERED: SODIUM CHLORIDE 0.9% 1000ML 1,000 ML IV STA (07:39)
[2018-01-31 08:12] VITALS: O2SAT 99
[2018-01-31 08:14] LABS: BASO % 0.1 %; BASO ABS # 0.02 K/uL (0-0.2); EOS % 1.1 %; EOS ABS # 0.15 K/uL (0-0.5); HEMOGLOBIN 10.1 g/dL (12.0-16.0); IG# 0.41 K/uL (0.00-0.02); LYMPH % 9.9 %; LYMPH ABS # 1.39 K/uL (1.2-3.4); MEAN CELL VOLUME 92.6 fL (80-100); MEAN CORPUSCULAR HEMOGLOBIN 31.2 pg (25-34); MEAN CORPUSCULAR HGB CONC 33.7 g/dl (32-36); MEAN PLATELET VOLUME 10.7 fL (7.4-10.4); MONO % 8.8 %; MONO ABS # 1.24 K/uL (0.11-0.59); NEUT % 77.2 %; NEUT ABS # 10.86 K/uL (1.4-6.5); PLATELET COUNT 272 K/uL (130-400); RED CELL DISTRIBUTION WIDTH CV 14.3 % (11.5-14.5); RED CELL DISTRIBUTION WIDTH SD 48.9 fL (36.4-46.3); WHITE BLOOD COUNT 14.07 K/uL (4.8-10.8)
[2018-01-31 08:24] LABS: PTT PATIENT 22.6 SECONDS (21.0-31.0)
[2018-01-31 08:36] LABS: BLOOD UREA NITROGEN 7 mg/dl (7-18); CALCIUM 8.3 mg/dl (8.5-10.1); CARBON DIOXIDE 22 mmol/L (21-32); CREATININE 0.64 mg/dl (0.60-1.20); GLUCOSE 103 mg/dl (70-99); POTASSIUM 3.1 mmol/L (3.5-5.1); SODIUM 139 mmol/L (136-145)
--- NOTE | 2018-01-31 08:41 | DIAGNOSTIC IMAGING REPORT ---
TWO VIEW CHEST CLINICAL HISTORY: Dyspnea. FINDINGS: PA and lateral chest radiographs are compared to study dated 12/20/2017. The cardiomediastinal silhouette is unremarkable. The lungs and pleural spaces are clear. There is no pneumothorax. The bony thorax appears intact. IMPRESSION: No active disease in the chest. Electronically signed by: Ham Velasco M.D. 01/31/2018 8:39 AM Dictated Date/Time: 01/31/2018 8:39 AM
[2018-01-31] MEDS ORDERED: DEXAMETHASONE SOD INJ 4 MG/ML VIAL IV STA (09:01)
[2018-01-31 09:51] VITALS: BP 106/68; PULSE 116; O2SAT 95
--- NOTE | 2018-02-03 15:00 | EMERGENCY ROOM VISIT NOTE ---
ED Visit Note First contact with patient: 07:05 Chief Complaint: I am having a hard time breathing. History of Present Illness: Ms. Leonard is a 27-year-old white female who ambulates into the ED complaining of having a hard time breathing. Historically patient reports she has a history of asthma and bronchitis. Patient reports her current symptoms started approximately 10 days ago with a nonproductive cough, chest tightness and wheezing. She was seen by pulmonology on Tuesday, 7 days ago, and reports they felt this was her normal asthma exacerbation and she was started on steroids. Additionally she was seen at [facility] on Tuesday, 4 days ago, and they felt this was a sinusitis and started her on antibiotics. Currently she is describing her chest discomfort as a tightness sensation. She rates her discomfort 7/10. Her pain is nonradiating. Her pain worsens with cough. She has not identified any alleviating factors related to the chest discomfort. She has not taken any medication specifically for the chest discomfort but has continued her prednisone and antibiotics. Additionally she reports for her wheezing she has been using her inhaler 2-3 times during the day. Associated with her symptoms she reports her cough is now productive of clear and sometimes greenish sputum, this morning she reports she felt like she might have a fever because of having hot sensation and chills but did not check her temperature and she has been feeling fatigued and intermittently lightheaded with cough. She denies sweats, skin eruptions, skin color changes, headache, dizziness, lightheadedness, ear pain, throat pain, voice changes, painful talking, drooling , neck pain/stiffness, hemoptysis, previous clots, claudication, cramping, recent surgery/inactivity/extended travel, abdominal pain, nausea, vomiting, posttussive vomiting, back/flank pain. Review of Systems: As noted above in history of present illness. All body systems were reviewed and found to be negative as noted above. Past Medical History: As noted previously, hypertension, status post section, unspecified right ankle surgery, high risk , polycystic ovary syndrome, tachyarrhythmias, anemia Current Medications: As previously noted and vitamins, albuterol, iron , DuoNeb, Zantac. Allergies to Medications: Amoxicillin, codeine, latex, Levaquin, morphine, penicillins Social History: Patient is currently employed; she feels safe in her home environment; she denies tobacco and alcohol use. Physical Examination: Vital Signs: Date Time Temp Pulse Resp B/P (MAP) Pulse Ox O2 Delivery O2 Flow Rate FiO2 01/31/18 09:51 116 18 106/68 95 01/31/18 09:06 131 16 116/69 98 Room Air 01/31/18 08:16 116 01/31/18 08:12 99 Room Air 01/31/18 08:11 133 16 138/86 99 Room Air 01/31/18 06:58 37.0 114 20 137/83 97 Room Air GENERAL: 27-year-old female in mild distress due to symptoms, nontoxic-appearing , afebrile and hemodynamically stable. NEUROLOGICAL: Awake, alert and oriented to person, place and time. Answering questions appropriately and following commands. Normal gait. Good hand eye coordination. No focal motor sensory deficits. SKIN: Warm, dry and pink. No soft tissue eruptions or trauma noted. HEENT: Atraumatic and normocephalic. PERRLA. Sclera white and conjunctiva pink. No drainage from naris. Oral cavity moist and pink. Pharynx is nonerythematous or edematous. Speech normal. No lymphadenopathy. Trachea midline. No jugular venous distention. No carotid bruits. BACK: No tenderness over the bony spine. No CVA tenderness. THORAX: Lungs sounds are diffuse wheezing in all lund with decreased air movement in all lund. Equal bilaterally with symmetrical chest wall. No rales or rhonchi. No crepitus, tenderness, subcutaneous air or deformities noted. No increased respiratory effort or rate. HEART: Regular rate and rhythm. No gallops, rubs or murmurs are appreciated. PMI is not displaced. No lifts, heaves or thrills. ABDOMEN: Flat, soft and nontender. Positive bowel sounds in all quadrants. No guarding, rigidity or organomegaly. EXTREMITIES: Moves all extremities well on command and with purpose. All distal neurovascular statuses are intact and equal bilaterally. No calf tenderness or cords. ED Course: Patient is assessed as noted above. Patient's medication list was reviewed. Laboratory Testing: Test 01/31/18 07:55 01/31/18 08:05 Range/Units White Blood Count 14.07 4.8-10.8 K/uL Red Blood Count 3.24 4.2-5.4 M/uL Hemoglobin 10.1 12.0-16.0 g/dL Hematocrit 30.0 37-47 % Mean Corpuscular Volume 92.6 80-100 fL Mean Corpuscular Hemoglobin 31.2 25-34 pg Mean Corpuscular Hemoglobin Concent 33.7 32-36 g/dl Platelet Count 272 130-400 K/uL Mean Platelet Volume 10.7 7.4-10.4 fL Neutrophils (%) (Auto) 77.2 % Lymphocytes (%) (Auto) 9.9 % Monocytes (%) (Auto) 8.8 % Eosinophils (%) (Auto) 1.1 % Basophils (%) (Auto) 0.1 % Neutrophils # (Auto) 10.86 1.4-6.5 K/uL Lymphocytes # (Auto) 1.39 1.2-3.4 K/uL Monocytes # (Auto) 1.24 0.11-0.59 K/uL Eosinophils # (Auto) 0.15 0-0.5 K/uL Basophils # (Auto) 0.02 0-0.2 K/uL RDW Standard Deviation 48.9 36.4-46.3 fL RDW Coefficient of Variation 14.3 11.5-14.5 % Immature Granulocyte % (Auto) 2.9 % Immature Granulocyte # (Auto) 0.41 0.00-0.02 K/uL Prothrombin Time 10.0 9.0-12.0 SECONDS Prothromb Time International Ratio 1.0 0.9-1.1 Activated Partial Thromboplast Time 22.6 21.0-31.0 SECONDS Partial Thromboplastin Ratio 0.9 Sodium Level 139 136-145 mmol/L Potassium Level 3.1 3.5-5.1 mmol/L Chloride Level 107 98-107 mmol/L Carbon Dioxide Level 22 21-32 mmol/L Anion Gap 10.0 3-11 mmol/L Blood Urea Nitrogen 7 7-18 mg/dl Creatinine 0.64 0.60-1.20 mg/dl Est Creatinine Clear Calc Drug Dose 134.7 ml/min Estimated GFR () 143.7 Estimated GFR (Non- 124.0 BUN/Creatinine Ratio 10.1 10-20 Random Glucose 103 70-99 mg/dl Calcium Level 8.3 8.5-10.1 mg/dl Troponin I < 0.015 0-0.045 ng/ml Urine Color YELLOW Urine Appearance CLEAR CLEAR Urine pH 7.0 4.5-7.5 Urine Specific [place] 1.011 1.000-1.030 Urine Protein NEG NEG Urine Glucose (UA) NEG NEG Urine Ketones NEG NEG Urine Occult Blood NEG NEG Urine Nitrite NEG NEG Urine Bilirubin NEG NEG Urine Urobilinogen NEG NEG Urine Leukocyte Esterase TRACE NEG Urine WBC (Auto) 1-5 0-5 /hpf Urine RBC (Auto) 0-4 0-4 /hpf Urine Hyaline Casts (Auto) 1-5 0-5 /lpf Urine Epithelial Cells (Auto) >30 0-5 /lpf Urine Bacteria (Auto) NEG NEG EKG: Was read by myself and reviewed with Dr. Ms. Guerrier; shows sinus tachycardia with a ventricular rate of 113 bpm. Possible left atrial enlargement. Normal intervals. No ST changes indicating ischemia, injury or infarction. This was compared to a previous from December 2017 and no acute changes were noted. Chest X-Rays: Were read by myself and the radiologist showing no filtrates, effusions or pneumothorax. Normal heart silhouette and bony anatomy. Patient was hydrated with normal saline and received an albuterol/Atrovent nebulizer breathing treatment and 10 mg of Decadron IV. Patient was reassessed multiple times during her stay in the emergency department. She was reassessed after her breathing treatment and she had resolution of all wheezing and improved air movement in all lund. She also subjectively reported she no longer felt like she was having difficulty breathing or shortness of breath. Patient's case was reviewed with Dr. Parra; we agreed on diagnostic approach, treatment, disposition and plan. Patient was educated about today's findings and instructed on her treatment plan ; she verbalized understanding and agreement with this plan. Clinical Impression: Asthma exacerbation. Decision-Making: Initially my differential diagnosis I considered asthma exacerbation, pulmonary embolism, pneumothorax, pneumonia, bronchitis and other causes. Disposition: Patient discharged home in stable condition; prior to departure she was reassessed and subjectively reported she was feeling much better. She continued to have chest discomfort rated 3/10 but reported resolution of difficulty breathing/shortness of breath. Plan: Patient was encouraged to continue her current medications as prescribed but increase her albuterol with a spacer to every 4 hours for the next 5 days. Patient was encouraged to follow-up with primary care provider for recheck in 2- 3 days if no better. Patient was encouraged return the ED for worsening symptoms, fevers, coughing up blood, worsening chest discomfort or any new/concerning symptoms.
== END 2018-01-31 09:52 | disposition home or self-care (01) ==
LOC: C.EDB 06:55
DX: J45.901 Unspecified asthma with (acute) exacerbation (principal); R00.0 Tachycardia, unspecified; R94.31 Abnormal electrocardiogram [ECG] [EKG]; Z79.899 Other long term (current) drug therapy; Z88.0 Allergy status to penicillin; Z88.6 Allergy status to analgesic agent; Z88.8 Allergy status to other drugs, medicaments and biological substances; Z91.040 Latex allergy status

== ENCOUNTER 2019-05-22 13:23 | Observation (INO) ==
[2019-05-22] MEDS ORDERED: ONDANSETRON INJ 2 MG/ML 2 ML VIAL IV STA ×2 (14:27→17:18)
[2019-05-22] MEDS ORDERED: fentaNYL citrate 100 MCG/2 ML VIAL IV STA ×2 (14:27→17:18)
[2019-05-22] MEDS ORDERED: DiphenhydrAMINE HCL 50 MG/ML VIAL IV STA (14:27)
[2019-05-22] MEDS ORDERED: SODIUM CHLORIDE 0.9% 1000ML 1,000 ML IV ONE (14:27)
[2019-05-22 15:05] LABS: Basophils # (auto) 0.02 K/uL (0-0.2); Basophils % (auto) 0.3 %; Eosinophils # (auto) 0.27 K/uL (0-0.5); Eosinophils % (auto) 4.6 %; Hematocrit (blood only) 37.2 % (37-47); Hemoglobin 12.1 g/dL (12.0-16.0); Lymphocytes % (auto) 30.7 %; Mean Corpuscular Hemoglobin 26.9 pg (25-34); Mean Corpuscular Hgb Conc 32.5 g/dL (32-36); Mean Corpuscular Volume 82.9 fL (80-100); Monocytes # (auto) 0.52 K/uL (0.11-0.59); Monocytes % (auto) 8.9 %; Neutrophils # (auto) 3.25 K/uL (1.4-6.5); Neutrophils % (auto) 55.5 %; Platelet Count 285 K/uL (130-400); RDW Coefficient of Variation 14.5 % (11.5-14.5); RDW Standard Deviation 44.1 fL (36.4-46.3); Red Blood Count 4.49 M/uL (4.2-5.4); White Blood Count 5.86 K/uL (4.8-10.8)
[2019-05-22 15:10] LABS: Appearance Urine Clear (Clear); Bilirubin Urine Negative (Negative); Blood Urine Negative (Negative); Color Urine Yellow; Glucose Urine UA Negative (Negative); Ketones Urine Negative (Negative); Leukocyte Esterase Urine Negative (Negative); Nitrite Urine Negative (Negative); Protein Urine Negative (Negative); Specific Gravity Urine 1.012 (1.000-1.030); Urobilinogen Urine Negative (Negative); pH Urine 7.5 (4.5-7.5)
[2019-05-22 15:22] LABS: Pregnancy Test, Urine Negative (Negative)
[2019-05-22 15:31] LABS: Albumin Level 4.2 gm/dl (3.4-5.0); BUN Creatinine Ratio 9.9 (10-20); Creatinine Clr Calc Pharmacy 95.8 ml/min; Est GFR (African American) 111.2; Est GFR (Non-African American) 95.9; Potassium 3.6 mmol/L (3.5-5.1)
[2019-05-22 15:34] LABS: Albumin Globulin Ratio 1.2 (0.9-2); Bilirubin,Total 0.3 mg/dl (0.2-1); Globulin 3.6 gm/dl (2.5-4.0); Total Protein 7.8 gm/dl (6.4-8.2)
--- NOTE | 2019-05-22 15:46 | Ultrasound Report ---
US gallbladder HISTORY: 28 years-old Female RUQ pain, abnormal HIDA acute right upper quadrant abdominal pain COMPARISON: Upper abdominal ultrasound 05/08/2019 TECHNIQUE: Multiple real-time sonographic images of the abdominal right upper quadrant were obtained assessing grayscale appearance and color flow FINDINGS: Visualized pancreas is unremarkable. The liver is within normal limits without focal mass or intrahep atic biliary ductal dilation. Unremarkable gallbladder without definite sludge, cholelithiasis, wall thickening or pericholecystic fluid. Sonographic Borden sign was unable to be assessed secondary to r ecent pain medication administered to the patient. Normal common bile duct, 3 mm. Unremarkable right kidney without hydronephrosis. IMPRESSION: Unremarkable right upper quadrant abdominal ultrasound. The above report was generated using voice recognition software. It may contain grammatical, syntax o r spelling errors. Electronically signed by: Galileo Moreno M.D. 05/22/2019 3:44 PM
--- NOTE | 2019-05-22 17:16 | History & Physical Report ---
Date of Service May 22, 2019 Assessment & Plan (1) Right upper quadrant abdominal pain: 28-year-old female presented to the emergency department with persistent and increasing right upper quadrant abdominal pain associated intractable nausea and vomiting postprandial. Has had outpatient work-up by Dr. Lamar with negative ultrasound but HIDA scan showing ejection fraction of 86%. Scheduled for elective cholecystectomy on June 08. Repeat labs and ultrasound completely within normal limits. Examination with right upper quadrant abdominal pain. Plan: Given patient's continuous right upper quadrant abdominal pain with intractable nausea and vomiting recommend admitting to the hospital overnight and plan for cholecystectomy tomorrow with Dr. Davis. Discussed with patient that there is possibility that she could have some upper GI etiology of her pain such as peptic ulcer disease however she is not having any increased heartburn reflux blood in the stools or mid epigastric abdominal pain. May need to be further evaluated if she continues to have pain after cholecystectomy. We will start on IV fluids, keep n.p.o., IV Dilaudid as needed for pain, IV Zofran as needed for nausea, IV Benadryl as needed given history of multiple allergies. SCDs for DVT prophylaxis and activity as tolerated Repeat a.m. labs including CBC and CMP. (2) Intractable nausea and vomiting: Plan as above Discussed with Dr. Davis who agrees with above and who will evaluate patient later this evening. History of Present Illness Chief Complaint: Right upper quadrant abdominal pain with intractable nausea and vomiting Primary Care Provider: DO Laila Zambrano is a 28-year-old female who presented to the emergency room after calling the outpatient surgical office of Dr. Lamar's with continued right upper quadrant abdominal pain with associated nausea and vomiting and unable to keep anything down. She states she is scheduled for laparoscopic cholecystectomy by Dr. Lamar on June 08 but does not feel like she could wait until then given amount of pain and nausea. She has had a work-up for her gallbladder as an outpatient with negative ultrasound, no gallstones, HIDA scan with ejection fraction of 86%. She does have a history of gastric ulcer however she states that she is never had an EGD and this was diagnosed via imaging. She states she takes Protonix and has had no increase in heartburn reflux. She denies of any mid upper abdominal pain and no similar pain to her prior history of ulcers. She states this pain is right upper abdomen with radiation around to her back and immediately after anything she eats. States she also has had diarrhea. Denies of any increasing heartburn/reflux, vomiting blood, blood in the stools, melena. She also has a history of kidney stones however this pain is not similar. ER work-up included labs which showed no leukocytosis and CMP completely within normal limits with total bilirubin and LFTs normal. Ultrasound completely unremarkable with no stones gallbladder wall thickness or pericholecystic fluid. Allergies Allergy/AdvReac Type Severity Reaction Status Date / Time amoxicillin Allergy Intermediate SWELLING Verified 05/22/19 14:40 codeine Allergy Intermediate Hives Verified 05/22/19 14:40 latex Allergy Intermediate HIVES Verified 05/22/19 14:40 levofloxacin Allergy Intermediate RASH, Verified 05/22/19 14:40 joint pain Penicillins Allergy Intermediate RASH Verified 05/22/19 14:40 Sulfa (Sulfonamide Allergy Intermediate hives Verified 05/22/19 14:40 Antibiotics) budesonide AdvReac Intermediate nausea Verified 05/22/19 14:40 egg AdvReac Intermediate HEADACHE Verified 05/22/19 14:40 formoterol AdvReac Intermediate nausea Verified 05/22/19 14:40 morphine AdvReac Intermediate HALLUCINATE Verified 05/22/19 14:40 S pseudoephedrine AdvReac Unknown FEVER Verified 05/22/19 14:40 Home Medications Home Medications Medication Instructions Recorded Confirmed Type albuterol sulfate 2 puff INHALATION Q4H PRN 04/30/18 05/22/19 History ipratropium-albuterol 3 ml INHALATION Q4H PRN 04/30/18 05/22/19 History ondansetron 4 mg PO Q6H PRN #10 tab 05/08/19 05/22/19 Rx acetaminophen [Tylenol Extra 500 mg PO Q6H PRN 05/22/19 05/22/19 History Strength] Past Med/Surg History Medical History Anemia Asthma 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 (Acute) GERD (gastroesophageal reflux disease) Gestational diabetes (~02/14/18) History of PCOS (Acute) Hypoxemia Decreased oxygen sata at night. Uses two liters at night. SVT (supraventricular tachycardia) TIA (transient ischemic attack) Surgical History delivery delivered History of cardiac radiofrequency ablation Family History Other Kidney stone Social History Preferred Language: Moldovan Communication Ability: Effective Trimming Department Blocker Required: No Beliefs That Will Affect Care: None marital status: Current Living Situation: Family Feels Safe at Home: Yes Smoking Status: Never smoker Second Hand Exposure: No ; Hx Alcohol Use: No Hx Substance Use: Yes (has medical marijuana) substance use type: marijuana Last Used Substance: Hours (ago) Review of Systems Review of Systems: All systems reviewed & are unremarkable except as noted in HPI & below Physical Exam Constitutional: WD/WN, vitals as above no acute distress Respiratory: normal respiratory effort, lungs clear to auscultation Cardiovascular: RRR, no murmur, no edema Gastrointestinal (Abdomen): Inspection/Auscultation: abdomen normal to inspection; abdomen not distended and + abnormal bowel sounds Percussion/Palpation: + abdomen tender (Right upper quadrant) and abdomen soft; no guarding and abdomen not rigid Skin: no rashes, warm and dry no jaundice Psychiatric: A+Ox3, euthymic affect Results & Data Vital Signs (Past 12 Hours) Vital Signs Temp Pulse Pulse Resp BP BP Pulse Ox 05/22/19 15:23 76 20 144/80 H 99 05/22/19 13:43 36.8 C 96 H 20 145/88 H 100 Laboratory Results 05/22/19 05/22/19 05/22/19 Range/Units 14:50 14:50 14:50 WBC (4.8-10.8) K/uL RBC (4.2-5.4) M/uL Hgb (12.0-16.0) g/dL Hct (37-47) % MCV (80-100) fL MCH (25-34) pg MCHC (32-36) g/dL RDW Std Deviation (36.4-46.3) fL RDW Coeff of Jey (11.5-14.5) % Plt Count (130-400) K/uL MPV (7.4-10.4) fL Immature Gran % (Auto) % Neut % (Auto) % Lymph % (Auto) % [place] % (Auto) % Eos % (Auto) % Baso % (Auto) % Immature Gran # (Auto) (0.00-0.02) K/uL Neut # (Auto) (1.4-6.5) K/uL Lymph # (Auto) (1.2-3.4) K/uL [place] # (Auto) (0.11-0.59) K/uL Eos # (Auto) (0-0.5) K/uL Baso # (Auto) (0-0.2) K/uL Sodium 140 (136-145) mmol/L Potassium 3.6 (3.5-5.1) mmol/L Chloride 108 H (98-107) mmol/L Carbon Dioxide 26 (21-32) mmol/L Anion Gap 6.0 (3-11) BUN 8 (7-18) mg/dl Creatinine 0.84 (0.6-1.2) mg/dl Est Cr Clr Drug Dosing 95.8 ml/min Est GFR ( Amer) 111.2 Est GFR (Non-Af Amer) 95.9 BUN/Creatinine Ratio 9.9 L (10-20) Glucose 78 (70-99) mg/dl Calcium 9.0 (8.5-10.1) mg/dl Total Bilirubin 0.3 (0.2-1) mg/dl AST 8 L (15-37) U/L ALT 15 (12-78) U/L Alkaline Phosphatase 84 (45-117) U/L Total Protein 7.8 (6.4-8.2) gm/dl Albumin 4.2 (3.4-5.0) gm/dl Globulin 3.6 (2.5-4.0) gm/dl Albumin/Globulin Ratio 1.2 (0.9-2) Lipase 165 (73-393) U/L Urine Color Yellow Urine Appearance Clear (Clear) Urine pH 7.5 (4.5-7.5) Ur Specific [place] 1.012 (1.000-1.030) Urine Protein Negative (Negative) Urine Glucose (UA) Negative (Negative) Urine Ketones Negative (Negative) Urine Blood Negative (Negative) Urine Nitrite Negative (Negative) Urine Bilirubin Negative (Negative) Urine Urobilinogen Negative (Negative) Ur Leukocyte Esterase Negative (Negative) Urine Test Negative (Negative) 05/22/19 Range/Units 14:50 WBC 5.86 (4.8-10.8) K/uL RBC 4.49 (4.2-5.4) M/uL Hgb 12.1 (12.0-16.0) g/dL Hct 37.2 (37-47) % MCV 82.9 (80-100) fL MCH 26.9 (25-34) pg MCHC 32.5 (32-36) g/dL RDW Std Deviation 44.1 (36.4-46.3) fL RDW Coeff of Jey 14.5 (11.5-14.5) % Plt Count 285 (130-400) K/uL MPV 11.0 H (7.4-10.4) fL Immature Gran % (Auto) 0.0 % Neut % (Auto) 55.5 % Lymph % (Auto) 30.7 % [place] % (Auto) 8.9 % Eos % (Auto) 4.6 % Baso % (Auto) 0.3 % Immature Gran # (Auto) 0.00 (0.00-0.02) K/uL Neut # (Auto) 3.25 (1.4-6.5) K/uL Lymph # (Auto) 1.80 (1.2-3.4) K/uL [place] # (Auto) 0.52 (0.11-0.59) K/uL Eos # (Auto) 0.27 (0-0.5) K/uL Baso # (Auto) 0.02 (0-0.2) K/uL Sodium (136-145) mmol/L Potassium (3.5-5.1) mmol/L Chloride (98-107) mmol/L Carbon Dioxide (21-32) mmol/L Anion Gap (3-11) BUN (7-18) mg/dl Creatinine (0.6-1.2) mg/dl Est Cr Clr Drug Dosing ml/min Est GFR ( Amer) Est GFR (Non-Af Amer) BUN/Creatinine Ratio (10-20) Glucose (70-99) mg/dl Calcium (8.5-10.1) mg/dl Total Bilirubin (0.2-1) mg/dl AST (15-37) U/L ALT (12-78) U/L Alkaline Phosphatase (45-117) U/L Total Protein (6.4-8.2) gm/dl Albumin (3.4-5.0) gm/dl Globulin (2.5-4.0) gm/dl Albumin/Globulin Ratio (0.9-2) Lipase (73-393) U/L Urine Color Urine Appearance (Clear) Urine pH (4.5-7.5) Ur Specific [place] (1.000-1.030) Urine Protein (Negative) Urine Glucose (UA) (Negative) Urine Ketones (Negative) Urine Blood (Negative) Urine Nitrite (Negative) Urine Bilirubin (Negative) Urine Urobilinogen (Negative) Ur Leukocyte Esterase (Negative) Urine Test (Negative) Diagnostic Findings US gallbladder HISTORY: 28 years-old Female RUQ pain, abnormal HIDA acute right upper quadrant abdominal pain COMPARISON: Upper abdominal ultrasound 05/08/2019 TECHNIQUE: Multiple real-time sonographic images of the abdominal right upper qu adrant were obtained assessing grayscale appearance and color flow FINDINGS: Visualized pancreas is unremarkable. The liver is within normal limits without focal mass or intrahepatic biliary ductal dilation. Unremarkable gallbladder without definite sludge, cholelithiasis, wall thickening or pericholecystic fluid. Sonographic Borden sign was unable to be assessed secondary to recent pain medication administered to the patient. Normal common bile duct, 3 mm. Unremarkable right kidney without hydronephrosis. IMPRESSION: Unremarkable right upper quadrant abdominal ultrasound. Code Status & VTE Plan VTE Prophylaxis Plan VTE Prophylaxis will be ordered: Yes
[2019-05-22] MEDS ORDERED: HYDROmorphone INJ 1 MG/ML SYRINGE IV PRN (18:02)
[2019-05-22] MEDS ORDERED: ALBUTEROL HFA 8 GM INHALER INH PRN (18:02)
[2019-05-22] MEDS ORDERED: DiphenhydrAMINE HCL 50 MG/ML VIAL IV PRN (18:02)
[2019-05-22] MEDS ORDERED: HYDROmorphone INJ 0.5 MG/0.5 ML SYR IV PRN (18:02)
[2019-05-22] MEDS: ALBUT/IPRATROP 3MG/0.5MG NEB 3 ML VIAL INH PRN (18:25)
[2019-05-22] MEDS: LACTATED RINGER'S 1,000 ML IV SCH (18:37)
--- NOTE | 2019-05-22 19:05 | Emergency Department Note ---
Entered by Rachel Gaviria acting as a scribe for ED Provider Note Name: DAVIS NG Age: 28 Arrives Via: Walk-In Informant: Patient CC: Right Flank Pain HPI: 28F arrives for evaluation of persistent right sided flank pain that worsened in the past 1.5 weeks. The patient reports that she is unable to eat as she feels nauseous every time she tries. She states that she tried to eat a bag of chips this morning and became nauseous, vomiting 2 times at work this afternoon. She denies any urinary symptoms, rashes, falls, or trauma to the area. She notes that movement, palpation, and breathing deeply worsens the pain. She states that that the pain radiates into her lower back. She states that she has tried Tylenol without any relief in her symptoms. The patient reports that she has lost 10lbs in the past 1.5 weeks. She states that she is scheduled to have her gall bladder removed by Dr. Feng, General Surgery, on 06/08/2019. She notes that she called his office and was told to come to the ED today. She states that she is allergic to morphine and has issues with nausea when she takes any pain medications. She denies any history of addiction. The patient states that she had 2 c-sections in the past. ROS: See above HPI for pertinent positives & negatives. A total of 10 systems reviewed and were otherwise negative. Past Medical History: GERD, Asthma, SVT, anemia, cellulitis, (x2), herpes Past Surgical History: section (x2), right ankle surgery Family History:No significant family history Social History:Employed, lives with and children Home Medications:Albuterol Allergies:Amoxicillin, Codeine, Latex, Levofloxacin, Sulfa, Egg, Morphine Vitals:BP: 145/88; Pulse: 96; Resp 20; Temp: 98.2F; O2 Sat 100% RA Physical Exam: GENERAL: Patient is uncomfortable appearing and in moderate distress. EYES: No scleral icterus, unremarkable pupils. ENT: Mucous membranes moist, no nasal congestion. NECK: No masses appreciated, nomeningismus, trachea is midline. RESPIRATORY: No dyspnea. Clear to auscultation and equal bilaterally. No wheeze, no rhonchi. CARDIOVASCULAR: Regular rate and rhythm.No murmurs, rubs, gallops appreciated. GASTROINTESTINAL: Abdomen soft, no peritonitis.Bowel sounds positive.No masses appreciated. Severe RUQ tenderness BACK: No midline tenderness, no CVA tenderness EXTREMITIES: Normal motion all extremities, no cyanosis, no edema. NEUROLOGIC: Alert and oriented, no acute motor or sensory deficits, no focal weakness, cranial nerves grossly intact. SKIN: No rash, no jaundice, no diaphoresis. ED Course: Prior Medical Record, Triage/Nursing Notes, Medications, Allergies reviewed by Me Vital Signs: reviewed and remarkable for HTN Labs:Reviewed and remarkable for no significant abnormalities Interventions: saline lock, fentanyl 50mcg IV x 2, zofran 4mg IV x 2, NSS bolus 1 L IV Imaging: Radiology results as stated below per my review and the radiologist's interpretation: US gallbladder HISTORY: 28 years-old Female RUQ pain, abnormal HIDA acute right upper quadrant abdominal pain COMPARISON: Upper abdominal ultrasound 05/08/2019 TECHNIQUE: Multiple real-time sonographic images of the abdominal right upper quadrant were obtained assessing grayscale appearance and color flow FINDINGS: Visualized pancreas is unremarkable. The liver is within normal limits without focal mass or intrahepatic biliary ductal dilation. Unremarkable gallbladder without definite sludge, cholelithiasis, wall thickening or pericholecystic fluid. Sonographic Borden sign was unable to be assessed secondary to recent pain medication administered to the patient. Normal common bile duct, 3 mm. Unremarkable right kidney without hydronephrosis. IMPRESSION: Unremarkable right upper quadrant abdominal ultrasound. The above report was generated using voice recognition software. It may contain grammatical, syntax or spelling errors. Electronically signed by: Galileo Moreno M.D. 05/22/2019 3:44 PM Reassessments/Times: 1423:The patient was evaluated in room A04B. A complete history and physical examination was performed. 1504: I reevaluated the patient at this time. Patient is still experiencing pain and is waiting on medications. 1552: I discussed the patients case with General Surgery, who will come to the ED to evaluate the patient further. 1604: Patient is declining pain medication. She is waiting on general surgery e valuation. Blood pressure:Elevated - [place] to be Situational. Disposition: Being evaluated by a surgeon. Condition: Good.Disposition: Operating Room. Prescriptions:none. Differentials:Etiologies such as cholecystitis, gall bladder dysfunction, kidney infection, kidney stone, pancreatitis, liver issue, PUD amongst other pathologies. Medical Decision Making: Pleasant 28 yr old female with several weeks of RUQ abdominal pain and pain/nausea with eating. Already with several work-ups including US GB and HIDA which were not overly remarkable. No bloody stools nor reflux symptoms. Arrives again for worsening pain and has been loosing weight. She is uncomfortable appearing and after meds a bit better. Repeat US again unremarkable but given amount of discomfort, TTP and referral here by surgical team I asked surgeon to evaluate who will bring her in for further management. Discussed possibility of PUD but will defer to surgical service for further management. Impression: Gall bladder dysfunction Right Upper Quadrant abdominal pain The scribe's documentation has been prepared under my direction and personally reviewed by me in its entirety. I confirm that the note above accurately reflects all work, treatment, procedures, and medical decision making performed by me. Romero Salinas MD Impression & Plan Gall bladder pain, Right upper quadrant abdominal pain Past Med/Surg History Medical History Anemia Asthma 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 (Acute) GERD (gastroesophageal reflux disease) Gestational diabetes (~02/14/18) History of PCOS (Acute) Hypoxemia Decreased oxygen sata at night. Uses two liters at night. 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 Beliefs That Will Affect Care: None marital status: Current Living Situation: Spouse and Family Other Information That Helps Us Care for You: No Feels Safe at Home: Yes Safety Concerns: Feels Safe At This Time Smoking Status: Never smoker Second Hand Exposure: No ; Hx Alcohol Use: No Hx Substance Use: Yes (has medical marijuana) substance use type: marijuana Last Used Substance: Hours (ago) Results & Data Vital Signs Vital Signs - 24 hr 05/22/19 13:43 05/22/19 15:23 05/22/19 17:00 Temperature 36.8 C Temperature Source Oral Pulse Rate 96 H Pulse Rate [Finger] 76 88 Respiratory Rate 20 20 20 Respiratory Effort / Characteristics Non-Labored Spontaneous Respiratory Depth Normal Blood Pressure 145/88 H Blood Pressure [Right Arm] 144/80 H 125/90 Blood Pressure Mean 107 Blood Pressure Mean [Right Arm] 101 101 Pulse Oximetry 100 99 99 Oxygen Delivery Method Room Air Sepsis Recent Fever Within 48 Hours No Sepsis Action Taken by Nursing No Action Required Home Medications Current Medication List: was personally reviewed by me Laboratory Data Attestation: I reviewed the patient's lab results. Result diagrams: 05/22/19 14:50 05/22/19 14:50 Lab Results 05/22/19 05/22/19 05/22/19 Range/Units 14:50 14:50 14:50 WBC 5.86 (4.8-10.8) K/uL RBC 4.49 (4.2-5.4) M/uL Hgb 12.1 (12.0-16.0) g/dL Hct 37.2 (37-47) % MCV 82.9 (80-100) fL MCH 26.9 (25-34) pg MCHC 32.5 (32-36) g/dL RDW Std Deviation 44.1 (36.4-46.3) fL RDW Coeff of Jey 14.5 (11.5-14.5) % Plt Count 285 (130-400) K/uL MPV 11.0 H (7.4-10.4) fL Immature Gran % (Auto) 0.0 % Neut % (Auto) 55.5 % Lymph % (Auto) 30.7 % [place] % (Auto) 8.9 % Eos % (Auto) 4.6 % Baso % (Auto) 0.3 % Immature Gran # (Auto) 0.00 (0.00-0.02) K/uL Neut # (Auto) 3.25 (1.4-6.5) K/uL Lymph # (Auto) 1.80 (1.2-3.4) K/uL [place] # (Auto) 0.52 (0.11-0.59) K/uL Eos # (Auto) 0.27 (0-0.5) K/uL Baso # (Auto) 0.02 (0-0.2) K/uL Sodium 140 (136-145) mmol/L Potassium 3.6 (3.5-5.1) mmol/L Chloride 108 H (98-107) mmol/L Carbon Dioxide 26 (21-32) mmol/L Anion Gap 6.0 (3-11) BUN 8 (7-18) mg/dl Creatinine 0.84 (0.6-1.2) mg/dl Est Cr Clr Drug Dosing 95.8 ml/min Est GFR ( Amer) 111.2 Est GFR (Non-Af Amer) 95.9 BUN/Creatinine Ratio 9.9 L (10-20) Glucose 78 (70-99) mg/dl Calcium 9.0 (8.5-10.1) mg/dl Total Bilirubin 0.3 (0.2-1) mg/dl AST 8 L (15-37) U/L ALT 15 (12-78) U/L Alkaline Phosphatase 84 (45-117) U/L Total Protein 7.8 (6.4-8.2) gm/dl Albumin 4.2 (3.4-5.0) gm/dl Globulin 3.6 (2.5-4.0) gm/dl Albumin/Globulin Ratio 1.2 (0.9-2) Lipase 165 (73-393) U/L Urine Color Yellow Urine Appearance Clear (Clear) Urine pH 7.5 (4.5-7.5) Ur Specific [place] 1.012 (1.000-1.030) Urine Protein Negative (Negative) Urine Glucose (UA) Negative (Negative) Urine Ketones Negative (Negative) Urine Blood Negative (Negative) Urine Nitrite Negative (Negative) Urine Bilirubin Negative (Negative) Urine Urobilinogen Negative (Negative) Ur Leukocyte Esterase Negative (Negative) Urine Test (Negative) 05/22/19 Range/Units 14:50 WBC (4.8-10.8) K/uL RBC (4.2-5.4) M/uL Hgb (12.0-16.0) g/dL Hct (37-47) % MCV (80-100) fL MCH (25-34) pg MCHC (32-36) g/dL RDW Std Deviation (36.4-46.3) fL RDW Coeff of Jey (11.5-14.5) % Plt Count (130-400) K/uL MPV (7.4-10.4) fL Immature Gran % (Auto) % Neut % (Auto) % Lymph % (Auto) % [place] % (Auto) % Eos % (Auto) % Baso % (Auto) % Immature Gran # (Auto) (0.00-0.02) K/uL Neut # (Auto) (1.4-6.5) K/uL Lymph # (Auto) (1.2-3.4) K/uL [place] # (Auto) (0.11-0.59) K/uL Eos # (Auto) (0-0.5) K/uL Baso # (Auto) (0-0.2) K/uL Sodium (136-145) mmol/L Potassium (3.5-5.1) mmol/L Chloride (98-107) mmol/L Carbon Dioxide (21-32) mmol/L Anion Gap (3-11) BUN (7-18) mg/dl Creatinine (0.6-1.2) mg/dl Est Cr Clr Drug Dosing ml/min Est GFR ( Amer) Est GFR (Non-Af Amer) BUN/Creatinine Ratio (10-20) Glucose (70-99) mg/dl Calcium (8.5-10.1) mg/dl Total Bilirubin (0.2-1) mg/dl AST (15-37) U/L ALT (12-78) U/L Alkaline Phosphatase (45-117) U/L Total Protein (6.4-8.2) gm/dl Albumin (3.4-5.0) gm/dl Globulin (2.5-4.0) gm/dl Albumin/Globulin Ratio (0.9-2) Lipase (73-393) U/L Urine Color Urine Appearance (Clear) Urine pH (4.5-7.5) Ur Specific [place] (1.000-1.030) Urine Protein (Negative) Urine Glucose (UA) (Negative) Urine Ketones (Negative) Urine Blood (Negative) Urine Nitrite (Negative) Urine Bilirubin (Negative) Urine Urobilinogen (Negative) Ur Leukocyte Esterase (Negative) Urine Test Negative (Negative) Administered Medications Albuterol (Duoneb) 3 ml INH Q4H PRN PRN Reason: Wheezing Stop: 06/21/19 18:01 Last Admin: 05/22/19 18:25 Dose: 3 ml Documented by: [id number] Lactated Ringer's (Lr) 1,000 mls @ 100 mls/hr IV .Q10H JEFF Stop: 06/21/19 18:01 Last Admin: 05/22/19 18:37 Dose: 100 mls/hr Documented by: [id number] Discontinued Medications Diphenhydramine HCl (Benadryl) 25 mg IV NOW STA Stop: 05/22/19 14:28 Last Admin: 05/22/19 15:07 Dose: 25 mg Documented by: [id number] Fentanyl Citrate (Fentanyl Citrate) 50 mcg IV NOW STA Stop: 05/22/19 14:28 Last Admin: 05/22/19 15:06 Dose: 50 mcg Documented by: [id number] Fentanyl Citrate (Fentanyl Citrate) 50 mcg IV NOW STA Stop: 05/22/19 17:19 Last Admin: 05/22/19 17:24 Dose: 50 mcg Documented by: [id number] Sodium Chloride (Nss 1000ml) 1,000 mls @ 999 mls/hr IV .Q1H1M ONE Stop: 05/22/19 15:27 Last Infusion: 05/22/19 16:26 Dose: 0 mls/hr Documented by: [id number] Admin: 05/22/19 15:07 Dose: 999 mls/hr Documented by: [id number] Ondansetron HCl (Zofran) 4 mg IV NOW STA Stop: 05/22/19 14:28 Last Admin: 05/22/19 15:07 Dose: 4 mg Documented by: [id number] Ondansetron HCl (Zofran) 4 mg IV NOW STA Stop: 05/22/19 17:19 Last Admin: 05/22/19 17:23 Dose: 4 mg Documented by: [id number] Blood Pressure Blood Pressure Findings: Elevated blood pressure Blood Pressure Disposition: elevated BP felt to be situational Discharge Plan Visit Data *Final* Discharge Date/Time: 05/22/19 18:08 Chief Complaint: Flank Pain Stated Complaint: LOWER BACK, KIDNEY PAIN SENT BY ED Provider: Romero Salinas Discharge Problem: Gall bladder pain, Right upper quadrant abdominal pain Patient Disposition: Admitted As Inpatient Discharge Instructions Interventions: ED Discharge Assessment Last Done: 05/22/19 18:08 The scribe's documentation has been prepared under my direction and personally reviewed by me in its entirety. I confirm that the note above accurately reflects all work, treatment, procedures, and medical decision making performed by me.
[2019-05-22] MEDS ORDERED: ACETAMINOPHEN 1,000 MG/100 ML VIAL IV PRN (20:04)
[2019-05-22] MEDS ORDERED: PROMETHAZINE HCL 12.5 MG in SODIUM CHLORIDE 0.9% 50 ML IV PRN (20:04)
[2019-05-23] MEDS: LACTATED RINGER'S 1,000 ML IV SCH ×2 (03:39→22:11)
[2019-05-23 05:11] LABS: Basophils # (auto) 0.02 K/uL (0-0.2); Basophils % (auto) 0.5 %; Eosinophils # (auto) 0.29 K/uL (0-0.5); Eosinophils % (auto) 6.8 %; Hematocrit (blood only) 32.7 % (37-47); Hemoglobin 10.5 g/dL (12.0-16.0); Lymphocytes # (auto) 1.86 K/uL (1.2-3.4); Lymphocytes % (auto) 43.5 %; Mean Corpuscular Hemoglobin 27.1 pg (25-34); Mean Corpuscular Hgb Conc 32.1 g/dL (32-36); Mean Corpuscular Volume 84.3 fL (80-100); Mean Platelet Volume 10.6 fL (7.4-10.4); Monocytes # (auto) 0.47 K/uL (0.11-0.59); Neutrophils # (auto) 1.64 K/uL (1.4-6.5); Neutrophils % (auto) 38.2 %; Platelet Count 238 K/uL (130-400); RDW Coefficient of Variation 14.6 % (11.5-14.5); RDW Standard Deviation 45.1 fL (36.4-46.3); Red Blood Count 3.88 M/uL (4.2-5.4); White Blood Count 4.28 K/uL (4.8-10.8)
[2019-05-23 05:44] LABS: Albumin Level 3.1 gm/dl (3.4-5.0); BUN Creatinine Ratio 10.7 (10-20); Calcium 8.2 mg/dl (8.5-10.1); Creatinine Clr Calc Pharmacy 101.9 ml/min; Est GFR (African American) 119.7; Est GFR (Non-African American) 103.3; Potassium 4.1 mmol/L (3.5-5.1)
[2019-05-23 05:49] LABS: Albumin Globulin Ratio 1.1 (0.9-2); Bilirubin,Total 0.3 mg/dl (0.2-1); Globulin 2.8 gm/dl (2.5-4.0); Total Protein 5.9 gm/dl (6.4-8.2)
[2019-05-23] MEDS: ONDANSETRON INJ 2 MG/ML 2 ML VIAL IV PRN ×3 (09:46→20:08)
[2019-05-23] MEDS ORDERED: fentaNYL citrate 100 MCG/2 ML VIAL ONE ×3 (10:28→13:11)
[2019-05-23] MEDS ORDERED: DEXAMETHASONE SOD INJ 4 MG/ML VIAL ONE (10:28)
[2019-05-23] MEDS ORDERED: GLYCOPYRROLATE 0.2 MG/ML VIAL ONE (10:28)
[2019-05-23] MEDS ORDERED: MIDAZOLAM HCL 1 MG/ML 2ML VIAL ONE (10:28)
[2019-05-23] MEDS ORDERED: LARYING-O-JET KIT (LTA) ONE (10:28)
[2019-05-23] MEDS ORDERED: ROCURONIUM BROMIDE 10 MG/ML 5 ML VIAL ONE (10:28)
[2019-05-23] MEDS ORDERED: LIDOCAINE HCL 2% 2 ML VIAL/AMP(20MG/ML) INFIL ONE (10:28)
[2019-05-23] MEDS ORDERED: PROPOFOL IV EMULSION 10 MG/ML 20 ML VIAL IV ONE (10:28)
[2019-05-23] MEDS ORDERED: ONDANSETRON INJ 2 MG/ML 2 ML VIAL ONE (10:28)
[2019-05-23] MEDS ORDERED: NEOSTIGMINE METHYLSULFATE 5 MG/5 ML SYR ONE (10:28)
[2019-05-23] MEDS ORDERED: CLINDAMYCIN 600 MG in DEXTROSE 5% 50 ML IV ONE (10:56)
--- NOTE | 2019-05-23 10:56 | History & Physical Bridge Note ---
Date of Service May 23, 2019 History & Physical Bridge Note I have examined the patient, reviewed the History & Physical and in the interval since the performance of the History & Physical I have noted the following changes of clinical significance: no changes noted, pt has ventral hernia just above umbilical area, pt wants to do open repair her ventral hernia, possible mesh, D/W benefits, risks and alternatives of the surgery, the risks- hernia recurrence, pt understood, she signed consent, I answered all questions,
[2019-05-23] MEDS ORDERED: LIDOCAINE HCL 1% 20 ML VIAL ONE (11:00)
[2019-05-23] MEDS ORDERED: BUPIVACAINE 0.5 % 5 MG/1 ML MPF 30ML VIAL ONE (11:00)
[2019-05-23] MEDS ORDERED: BACITRACIN OINT 15 GM TUBE ONE (11:00)
[2019-05-23] MEDS ORDERED: CLINDAMYCIN 600 MG/54 ML D5W IV ONE (11:01)
--- NOTE | 2019-05-23 11:02 | Anesthesiology Consultation ---
Date of Service May 23, 2019 Moderate asthma PUD PCOS Assessment & Plan (1) Encounter for pre-operative examination: Chart Review Chart Review: Acceptable Risk for Surgery and Patient NOT seen in Pre Admission Testing Consults Requested none ASA ASA2 Proposed Anesthesia Anesthesia Type: General Risk / Benefits Reviewed With: PT / POA / Parent / Guardian, Accepts Plan and Informed Consent Obtained History Surgery Operation Date: 05/23/19 09:50 Proposed Procedures p Laparoscopic Cholecystectomy, No Cholangiogram - Jordy Davis MD s Open Repair Ventral Hernia - Jordy Davis MD Height/Weight Height: 5 ft 4 in Weight: 67.5 kg Allergies Allergy/AdvReac Type Severity Reaction Status Date / Time amoxicillin Allergy Intermediate SWELLING Verified 05/23/19 10:57 codeine Allergy Intermediate Hives Verified 05/23/19 10:57 latex Allergy Intermediate HIVES Verified 05/23/19 10:57 levofloxacin Allergy Intermediate RASH, Verified 05/23/19 10:57 joint pain Penicillins Allergy Intermediate RASH Verified 05/23/19 10:57 Sulfa (Sulfonamide Allergy Intermediate hives Verified 05/23/19 10:57 Antibiotics) budesonide AdvReac Intermediate nausea Verified 05/23/19 10:57 egg AdvReac Intermediate HEADACHE Verified 05/23/19 10:57 formoterol AdvReac Intermediate nausea Verified 05/23/19 10:57 morphine AdvReac Intermediate HALLUCINATE Verified 05/23/19 10:57 S pseudoephedrine AdvReac Unknown FEVER Verified 05/23/19 10:57 Medications Home Medications Medication Instructions Recorded Confirmed Last Taken albuterol sulfate 2 puff INHALATION Q4H PRN 04/30/18 05/22/19 05/22/19 ipratropium-albuterol 3 ml INHALATION Q4H PRN 04/30/18 05/22/19 05/22/19 ondansetron 4 mg PO Q6H PRN #10 tab 05/08/19 05/22/19 05/22/19 acetaminophen [Tylenol Extra 500 mg PO Q6H PRN 05/22/19 05/22/19 05/22/19 09:15 Strength] Active Medications Generic Name Dose Route Start Last Admin Trade Name Freq PRN Reason Stop Dose Admin Albuterol 3 ml 05/22/19 18:02 05/22/19 18:25 Duoneb INH 06/21/19 18:01 3 ml Q4H PRN Administration Wheezing Hydromorphone HCl 1 mg 05/22/19 18:02 05/22/19 19:09 Dilaudid IV 06/05/19 18:01 1 mg Q3H PRN Administration SEVERE Pain (Scale 7,8,9,10) Lactated Ringer's 1,000 mls @ 100 mls/hr 05/22/19 18:02 05/23/19 03:39 Lr IV 06/21/19 18:01 100 mls/hr .Q10H JEFF Administration Promethazine HCl 12.5 mg/ 50.5 mls @ 202 mls/hr 05/22/19 20:04 05/22/19 21:31 Sodium Chloride IV 06/21/19 20:03 Infused Q6H PRN Infusion Nausea And Vomiting Ondansetron HCl 4 mg 05/22/19 18:02 05/23/19 09:46 Zofran IV 06/21/19 18:01 4 mg Q4H PRN Administration Nausea And Vomiting NPO Date Last Intake of Fluids: 05/22/19 Time Last Intake of Fluids: 09:00 Date Last Intake of Solids: 05/22/19 Time Last Intake of Solids: 09:00 Past Medical History Medical History Anemia Asthma 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 (Acute) GERD (gastroesophageal reflux disease) Gestational diabetes (~02/14/18) History of PCOS (Acute) Hypoxemia Decreased oxygen sata at night. Uses two liters at night. SVT (supraventricular tachycardia) TIA (transient ischemic attack) Exercise / Class Metabolic Activity II 4-5 Yardwork/Stairs/Walk up hill Past Family History Family History Other Kidney stone Past Surgical History Surgical History delivery delivered History of cardiac radiofrequency ablation Past Anesthesia History No Hx of Anesthesia Complications and No Family Hx of Anesthesia Complications History of PONV No Hx of PONV and No Hx of Motion Sickness Social History Smoking Status: Never smoker Hx Alcohol Use: No Hx Substance Use: Yes (has medical marijuana) substance use type: marijuana Last Used Substance: Hours (ago) Physical Exam Vital Signs Last Vital Signs Temp 36.3 C L 05/23/19 10:47 Pulse 91 H 05/23/19 10:47 Resp 18 05/23/19 10:47 BP 119/77 05/23/19 10:47 Pulse Ox 99 05/23/19 10:47 ENMT Mouth: no dentition abnormality Thyromental Distance: > or= 3.5 Finger Breadths Mallampati Class: II Neck normal visual inspection Respiratory normal respiratory effort Auscultation: lungs clear to auscultation bilaterally Cardiovascular Rate/Rhythm: regular rate and regular rhythm Psychiatric Orientation: alert Testing Laboratory Results 05/23/19 05:02 05/23/19 05:02 Urine Color Yellow 05/22/19 14:50 Urine Appearance Clear (Clear) 05/22/19 14:50 Urine pH 7.5 (4.5-7.5) 05/22/19 14:50 Ur Specific [place] 1.012 (1.000-1.030) 05/22/19 14:50 Urine Protein Negative (Negative) 05/22/19 14:50 Urine Glucose (UA) Negative (Negative) 05/22/19 14:50 Urine Ketones Negative (Negative) 05/22/19 14:50 Urine Nitrite Negative (Negative) 05/22/19 14:50 Ur Leukocyte Esterase Negative (Negative) 05/22/19 14:50 Urine Test Negative (Negative) 05/22/19 14:50 05/22/19 14:50 Urine Test Negative
--- NOTE | 2019-05-23 12:33 | Post Operative Brief Note ---
Immediate Post Op Note v1 Date of Surgery May 23, 2019 Pre & Post Diagnosis Operation Date: 05/23/19 09:50 Pre-Op Diagnosis: dysfunction gallbladder, Ventral Hernia Post-Op Diagnosis: dysfunction gallbladder, Ventral Hernia I identified the patient and participated in the time-out.: Yes Procedure Operation Date: 05/23/19 09:50 Actual Procedures p Laparoscopic Cholecystectomy with Repair of Ventral Hernia(Not Applicable) - Jordy Davis MD Surgeon Jordy Davis MD Forest Supervisor KAMERON Haile Estimated Blood Loss 20 Findings Consistent with Post-Op Diagnosis adhesion scar on gallbladder, Fluids 600ml Specimens gallbladder Anesthesia Type General Complications none Disposition Accompanied Patient To Recovery: Yes Disposition: Recovery Room Overlapping Procedure I was immediately available: during the entire case.
[2019-05-23] MEDS: fentaNYL citrate 100 MCG/2 ML VIAL IV PRN ×4 (13:12→13:35)
[2019-05-23] MEDS ORDERED: ATROPINE SULFATE 0.1 MG/ML 10ML SYR IV PRN (13:15)
[2019-05-23] MEDS ORDERED: fentaNYL citrate 100 MCG/2 ML VIAL IV PRN (13:15)
[2019-05-23] MEDS ORDERED: PROMETHAZINE HCL 6.25 MG in SODIUM CHLORIDE 0.9% 50 ML IV PRN (13:15)
[2019-05-23] MEDS ORDERED: ePHEDrine sulfate 50 MG/ML AMP IV PRN (13:15)
[2019-05-23] MEDS ORDERED: ONDANSETRON INJ 2 MG/ML 2 ML VIAL IV PRN (13:15)
--- NOTE | 2019-05-23 13:25 | Anesthesiology Progress Note ---
Date of Service May 23, 2019 Anesthesia Post Procedure Vital Signs Vital Signs: Temp Pulse Pulse Pulse Resp BP BP 05/23/19 13:10 126 H 24 134/85 05/23/19 13:00 77 15 113/76 05/23/19 12:53 36.5 C 77 14 113/65 05/23/19 10:47 36.3 C L 91 H 18 119/77 05/23/19 08:05 36.8 C 90 16 98/54 L 05/22/19 23:20 36.6 C 81 16 05/22/19 18:23 36.6 C 84 18 05/22/19 18:15 68 16 05/22/19 17:30 108 H 20 05/22/19 17:00 88 20 05/22/19 15:23 76 20 05/22/19 13:43 36.8 C 96 H 20 145/88 H BP Pulse Ox 05/23/19 13:10 100 05/23/19 13:00 100 05/23/19 12:53 100 05/23/19 10:47 99 05/23/19 08:05 97 05/22/19 23:20 102/63 98 05/22/19 18:23 121/78 99 05/22/19 18:15 99 05/22/19 17:30 150/90 H 100 05/22/19 17:00 125/90 99 05/22/19 15:23 144/80 H 99 05/22/19 13:43 100 Pain Intensity Right Abdomen: Pain Intensity: 7 Transfer of Care Handoff Completed per policy Notes Mental Status: alert / awake / arousable Patient Amnestic to Procedure: Yes Nausea / Vomiting: adequately controlled Pain: adequately controlled Airway Patency, RR, SpO2: stable & adequate BP & HR: stable & adequate Hydration State: stable & adequate Anesthetic Complications: no major complications apparent
[2019-05-23] MEDS: HYDROmorphone INJ 2 MG/ML SYR/VIAL IV PRN ×2 (13:42→13:47)
[2019-05-23] MEDS ORDERED: ACETAMINOPHEN 500 MG TAB PO PRN (14:24)
[2019-05-23] MEDS ORDERED: ONDANSETRON 4 MG OD TAB PO PRN (14:30)
--- NOTE | 2019-05-23 14:53 | Operative Report ---
DATE OF OPERATION: 05/23/2019 PREOPERATIVE DIAGNOSES: Dysfunctional gallbladder, ventral hernia. POSTOPERATIVE DIAGNOSES: Dysfunctional gallbladder, ventral hernia. OPERATION: Laparoscopic cholecystectomy, open repair of ventral hernia. SURGEON: Jordy Davis MD. [employer] SUPERVISOR: Megan Morales PA-C. ANESTHESIA: General. ESTIMATED BLOOD LOSS: About 20 mL. FINDINGS: Scar, adhesion to the gallbladder, omental adhesion to gallbladder and dysfunctional gallbladder; ventral hernia size about 1.5 x 1.5 cm. COMPLICATIONS: None. INTRAVENOUS FLUIDS: 600 mL. INDICATIONS FOR THE PROCEDURE: This is a 28-year-old female who was admitted to the hospital for nausea, vomiting. The patient had a HIDA scan done and also the patient was diagnosed with dysfunctional gallbladder. Also, patient had a ventral hernia. The patient is required to do laparoscopic cholecystectomy, possible open, possible cholangiogram and open repair of ventral hernia, possible mesh. I did talk to the patient about the benefit, risk, alternate procedure. I indicated the risks may include but not limited to such as bleeding, infection, injury to common bile duct, may need ERCP, bile leak, hernia recurrence. The patient understands. She signed informed consent and I answered all questions. DETAILS OF PROCEDURE: We brought the patient to the OR, put the patient in the supine position. The patient received SCD on bilateral legs to prevent DVT. Also, patient received 600 mg of clindamycin IV for prophylactic antibiotic and patient received general anesthesia without difficulties. Abdomen was prepped and draped in routine sterile fashion. After timeout, I injected local anesthesia around the ventral hernia area. The ventral hernia was located just above the umbilicus. Now, I made about 2 cm incision on the ventral hernia and found the patient had a hernia sac and reduced the hernia sac and found the patient's hernia size about 1.5 x 1.5 cm and then we opened the hernia sac, got into the abdomen. We put a Marlene trocar in, connected to CO2 to create pneumoperitoneum, flow rate at 6 liter per minute, pressure not more than 14 mmHg. Then, we put the camera in, looked around the abdomen. Normal finding on the liver. However, there are significant scar, adhesions of omentum to the gallbladder and the gallbladder wall showed some edema, so dysfunctional gallbladder, chronic cholecystitis. At this moment, we put another three 5 mm trocars on the right upper quadrant. Once all trocars in, we put a grasper to hold the base of the gallbladder and used the Bovie to take down the old scar, adhesion to the gallbladder. Rechecked, no active bleeding and then we put another grasper to hold the pouch of gallbladder, put a lateral to explore the triangle of Calot. The cystic duct was identified and mobilized. Then, I put two 5 mm metal clips on the proximal cystic duct, one on the distal cystic duct. Then, used a scissor for transection of the cystic duct. Rechecked and no bile leak, no active bleeding. The cystic artery was identified and mobilized. I put two 5 mm metal clips on the proximal cystic artery and one on the distal cystic artery and used a scissor for transection of the cystic artery. Rechecked, no active bleeding and then we used the Bovie to take down gallbladder from the liver bed. Rechecked, no active bleeding, no bile leak from the liver bed. Then, we removed gallbladder through the catch bag. Then, we reinserted the Marlene trocar in, connected to CO2 to create pneumoperitoneum, again looked around the abdomen, no active bleeding, no bile leak from the liver bed. Pneumoperitoneum was released. Then, we concentrated on the ventral hernia. We mobilized the ventral hernia sac and then we used 0 Ethibond interruptedly and closed the ventral hernia. The suture closed nicely, no tension. Then, we closed subcutaneous layer by using 2-0 Vicryl continuous running, closed skin by using 4-0 Vicryl continuous running, closed another three 5 mm trocar sites skin only by using 4-0 Vicryl. Then, we put the dressing on. The patient tolerated the procedure well. All instrument, needle and sponge count were correct x2 at the end of the case. The patient was transferred to recovery room in stable condition. After the procedure, I did talk to the patient and family member about the OR finding and the procedure we did, they understand. The specimens were sent to pathology. I attest to the content of the Intraoperative Record and any orders documented therein. Any exceptions are noted below. LEYLA
[2019-05-23] MEDS: HYDROmorphone INJ 0.5 MG/0.5 ML SYR IV PRN ×2 (16:11→20:08)
[2019-05-23] MEDS: ALBUT/IPRATROP 3MG/0.5MG NEB 3 ML VIAL INH PRN ×2 (16:14→23:54)
[2019-05-24] MEDS: OXYCODONE/ACETAMINOPHEN 5mg/325mg TAB PO PRN ×3 (00:34→12:45)
[2019-05-24] MEDS: ONDANSETRON INJ 2 MG/ML 2 ML VIAL IV PRN (00:35)
[2019-05-24 06:09] LABS: Basophils # (auto) 0.01 K/uL (0-0.2); Basophils % (auto) 0.1 %; Eosinophils # (auto) 0.04 K/uL (0-0.5); Eosinophils % (auto) 0.5 %; Hematocrit (blood only) 32.2 % (37-47); Hemoglobin 10.7 g/dL (12.0-16.0); Immature Granulocytes # (auto) 0.01 K/uL (0.00-0.02); Immature Granulocytes % (auto) 0.1 %; Lymphocytes # (auto) 1.38 K/uL (1.2-3.4); Lymphocytes % (auto) 17.3 %; Mean Corpuscular Hemoglobin 27.3 pg (25-34); Mean Corpuscular Hgb Conc 33.2 g/dL (32-36); Mean Corpuscular Volume 82.1 fL (80-100); Monocytes # (auto) 0.78 K/uL (0.11-0.59); Monocytes % (auto) 9.8 %; Neutrophils # (auto) 5.75 K/uL (1.4-6.5); Neutrophils % (auto) 72.2 %; Platelet Count 268 K/uL (130-400); RDW Coefficient of Variation 14.4 % (11.5-14.5); Red Blood Count 3.92 M/uL (4.2-5.4); White Blood Count 7.97 K/uL (4.8-10.8)
[2019-05-24] MEDS: LACTATED RINGER'S 1,000 ML IV SCH ×2 (06:21→08:32)
[2019-05-24 06:35] LABS: Albumin Level 3.1 gm/dl (3.4-5.0); BUN Creatinine Ratio 11.2 (10-20); Calcium 8.7 mg/dl (8.5-10.1); Creatinine Clr Calc Pharmacy 116.7 ml/min; Est GFR (African American) 139.2; Est GFR (Non-African American) 120.1; Potassium 3.7 mmol/L (3.5-5.1)
[2019-05-24 06:38] LABS: Albumin Globulin Ratio 1.1 (0.9-2); Bilirubin,Total 0.3 mg/dl (0.2-1); Globulin 2.9 gm/dl (2.5-4.0); Total Protein 6.1 gm/dl (6.4-8.2)
[2019-05-24] MEDS: ALBUT/IPRATROP 3MG/0.5MG NEB 3 ML VIAL INH PRN ×2 (07:28→11:37)
--- NOTE | 2019-05-24 10:17 | Surgery Progress Note ---
Date of Service May 24, 2019 Assessment & Plan (1) Right upper quadrant abdominal pain: POD # 1 s/p laparoscopic cholecystectomy and ventral hernia repair without mesh -vitals stable, mild tachycardia, afebrile - post op pain controlled - n/v resolved - t. bili, lfts wnl Plan: Advance diet as tolerated continue Percocet prn pain ambulate hallway will evaluate later this morning if does well d/c home (2) Intractable nausea and vomiting: resolved Dr. Davis has seen pt, agrees with above Subjective feeling better this morning gas pains in abdomen ate liquids last night and did not get sick pain controlled with percocet Physical Exam Constitutional: WD/WN, vitals as above no acute distress Gastrointestinal (Abdomen): Inspection/Auscultation: abdomen normal to inspection; abdomen not distended Percussion/Palpation: + abdomen tender (at incision sites) and abdomen soft; no guarding and abdomen not rigid Skin: no rashes, warm and dry + incision (covered with dry dressings) Psychiatric: A+Ox3, euthymic affect Results & Data Vital Signs (Past 12 Hours) Vital Signs Temp Pulse Pulse Resp BP Pulse Ox 05/24/19 07:51 36.4 C L 101 H 16 108/66 99 05/24/19 07:28 80 20 96 05/24/19 03:13 36.7 C 90 16 112/63 97 05/23/19 23:55 88 16 96 05/23/19 23:37 36.6 C 92 H 16 122/76 100 Laboratory Results 05/24/19 05/24/19 Range/Units 05:52 05:52 WBC 7.97 (4.8-10.8) K/uL RBC 3.92 L (4.2-5.4) M/uL Hgb 10.7 L (12.0-16.0) g/dL Hct 32.2 L (37-47) % MCV 82.1 (80-100) fL MCH 27.3 (25-34) pg MCHC 33.2 (32-36) g/dL RDW Std Deviation 43.0 (36.4-46.3) fL RDW Coeff of Jey 14.4 (11.5-14.5) % Plt Count 268 (130-400) K/uL MPV 11.0 H (7.4-10.4) fL Immature Gran % (Auto) 0.1 % Neut % (Auto) 72.2 % Lymph % (Auto) 17.3 % [place] % (Auto) 9.8 % Eos % (Auto) 0.5 % Baso % (Auto) 0.1 % Immature Gran # (Auto) 0.01 (0.00-0.02) K/uL Neut # (Auto) 5.75 (1.4-6.5) K/uL Lymph # (Auto) 1.38 (1.2-3.4) K/uL [place] # (Auto) 0.78 H (0.11-0.59) K/uL Eos # (Auto) 0.04 (0-0.5) K/uL Baso # (Auto) 0.01 (0-0.2) K/uL Sodium 138 (136-145) mmol/L Potassium 3.7 (3.5-5.1) mmol/L Chloride 108 H (98-107) mmol/L Carbon Dioxide 23 (21-32) mmol/L Anion Gap 7.0 (3-11) BUN 8 (7-18) mg/dl Creatinine 0.69 (0.6-1.2) mg/dl Est Cr Clr Drug Dosing 116.7 ml/min Est GFR ( Amer) 139.2 Est GFR (Non-Af Amer) 120.1 BUN/Creatinine Ratio 11.2 (10-20) Glucose 96 (70-99) mg/dl Calcium 8.7 (8.5-10.1) mg/dl Total Bilirubin 0.3 (0.2-1) mg/dl AST 8 L (15-37) U/L ALT 14 (12-78) U/L Alkaline Phosphatase 68 (45-117) U/L Total Protein 6.1 L (6.4-8.2) gm/dl Albumin 3.1 L (3.4-5.0) gm/dl Globulin 2.9 (2.5-4.0) gm/dl Albumin/Globulin Ratio 1.1 (0.9-2)
--- NOTE | 2019-05-24 10:23 | Anesthesiology Progress Note ---
Date of Service May 24, 2019 Anesthesia Post Procedure Vital Signs Vital Signs: Temp Pulse Pulse Resp BP Pulse Ox 05/24/19 07:51 36.4 C L 101 H 16 108/66 99 05/24/19 07:28 80 20 96 05/24/19 03:13 36.7 C 90 16 112/63 97 05/23/19 23:55 88 16 96 05/23/19 23:37 36.6 C 92 H 16 122/76 100 05/23/19 17:37 36.7 C 96 H 16 110/69 98 05/23/19 16:20 36.6 C 81 17 103/65 100 05/23/19 16:15 87 16 99 05/23/19 15:28 36.8 C 91 H 15 104/71 97 05/23/19 15:20 36.8 C 93 H 17 118/77 98 05/23/19 14:50 36.8 C 84 17 115/78 99 05/23/19 14:20 36.9 C 88 18 125/81 98 05/23/19 14:04 37 C 76 20 138/64 99 05/23/19 13:50 100 H 20 130/82 100 05/23/19 13:40 129 H 20 131/89 100 05/23/19 13:30 129 H 21 127/92 100 05/23/19 13:20 126 H 24 134/95 100 05/23/19 13:10 126 H 24 134/85 100 05/23/19 13:00 77 15 113/76 100 05/23/19 12:53 36.5 C 77 14 113/65 100 05/23/19 10:47 36.3 C L 91 H 18 119/77 99 Pain Intensity Right Abdomen: Pain Intensity: 7 Transfer of Care Handoff Completed per policy Notes Mental Status: alert / awake / arousable and participated in evaluation Patient Amnestic to Procedure: Yes Nausea / Vomiting: adequately controlled Pain: adequately controlled Airway Patency, RR, SpO2: stable & adequate BP & HR: stable & adequate Hydration State: stable & adequate Anesthetic Complications: no major complications apparent and Pt Satisfied with anesthetic care
[2019-05-24] MEDS ORDERED: SIMETHICONE 80 MG CHEW PO PRN (12:33)
--- NOTE | 2019-05-25 14:35 | Discharge Summary ---
Date of Service May 25, 2019 Admission HPI Per Admitting Provider Laila is a 28-year-old female who presented to the emergency room after calling the outpatient surgical office of Dr. Lamar'henok with continued right upper quadrant abdominal pain with associated nausea and vomiting and unable to keep anything down. She states she is scheduled for laparoscopic cholecystectomy by Dr. Lamar on June 08 but does not feel like she could wait until then given amount of pain and nausea. She has had a work-up for her gallbladder as an outpatient with negative ultrasound, no gallstones, HIDA scan with ejection fraction of 86%. She does have a history of gastric ulcer however she states that she is never had an EGD and this was diagnosed via imaging. She states she takes Protonix and has had no increase in heartburn reflux. She denies of any mid upper abdominal pain and no similar pain to her prior history of ulcers. She states this pain is right upper abdomen with radiation around to her back and immediately after anything she eats. States she also has had diar kiki. Denies of any increasing heartburn/reflux, vomiting blood, blood in the stools, melena. She also has a history of kidney stones however this pain is not similar. ER work-up included labs which showed no leukocytosis and CMP completely within normal limits with total bilirubin and LFTs normal. Ultrasound completely unremarkable with no stones gallbladder wall thickness or pericholecystic fluid. Principal Diagnosis Right upper quadrant abdominal pain with intractable nausea and vomiting Biliary dyskinesia Discharge Data Allergies Allergy/AdvReac Type Severity Reaction Status Date / Time amoxicillin Allergy Intermediate SWELLING Verified 05/23/19 10:57 codeine Allergy Intermediate Hives Verified 05/23/19 10:57 latex Allergy Intermediate HIVES Verified 05/23/19 10:57 levofloxacin Allergy Intermediate RASH, Verified 05/23/19 10:57 joint pain Penicillins Allergy Intermediate RASH Verified 05/23/19 10:57 Sulfa (Sulfonamide Allergy Intermediate hives Verified 05/23/19 10:57 Antibiotics) budesonide AdvReac Intermediate nausea Verified 05/23/19 10:57 egg AdvReac Intermediate HEADACHE Verified 05/23/19 10:57 formoterol AdvReac Intermediate nausea Verified 05/23/19 10:57 morphine AdvReac Intermediate HALLUCINATE Verified 05/23/19 10:57 S pseudoephedrine AdvReac Unknown FEVER Verified 05/23/19 10:57 Procedures Performed Operation Date: 05/23/19 09:50 Actual Procedures p Laparoscopic Cholecystectomy (Not Applicable) - Jordy Davis MD s with Repair of Ventral Hernia(Not Applicable) - Jordy Davis MD Ordered Studies 05/22/19 14:27 US gallbladder Stat Hospital Course (1) Right upper quadrant abdominal pain: Patient was admitted to the medical/surgical floor from the emergency department and started on IV fluids, IV Dilaudid as needed for pain, IV Zofran as needed for nausea, activity as tolerated and kept n.p.o. given intractable nausea and vomiting with any food intake. Patient was scheduled for laparoscopic cholecystectomy in the following morning. Patient was taken to the operating room for laparoscopic cholecystectomy by Dr. Davis. Patient found to have omentum stuck to the gallbladder and some findings of chronic cholecystitis. Patient tolerated procedure well and was transferred back to medical/surgical floor for postoperative care. Her diet was advanced to clear liquids and then as tolerated. POD # 1 vital signs stable pain minimal at incisions and controlled with p.o. Percocet. She tolerated clear liquids and was ambulating the hallway. Patient evaluated around lunchtime and had some shortness of breath due to walking the hallway and her chronic asthma was receiving a breathing treatment. She was stable after breathing treatment and discharge instructions were reviewed and patient was discharged home on postop day #1 in stable condition. (2) Intractable nausea and vomiting: resolved post cholecystectomy Total Time Total Time Spent Total Time Spent (In Minutes): 30 Total Time Includes: Examination of the Patient, Discharge Planning and Medication Reconciliation Discharge Plan Discharge Items Patient Disposition: Home - Self-Care Reason For Visit: RUQ ABDOMINAL PAIN,INTRACTABLE NAUSEA AND VOMITING Discharge Diagnosis: RUQ abdominal pain, intractable nausea and vomiting Biliary dyskinesia Ventral hernia Activity: Per Instructions section Non-emergency contact: Surgeon Call non-emergency contact if: your symptoms worsen, your pain is not controlled, your pain is worsening, your pain is concerning for you, you have a fever, your temperature is above 101, your wound has increased redness, your wound has increased drainage and your wound pain has increased Follow-up/Referrals: Nehemias Ceja DO [Primary Care Provider] - Diet: Regular Addtl Attending Provider Instructions: Surgical discharge instructions: - No heavy lifting over 20 pounds for 4 weeks - No strenuous activity until cleared by surgeon - No submerging incisions underwater for 2 weeks (no bathing, swimming, or hot tubs) - No driving while taking narcotic pain medication or if you are still having pain - You may shower 3-4 days after your surgery. Keep dressings dry and on until then. You may wash hair and let water hit your back in meantime. Sponge bath around dressings. After 4 days, remove outer dressings and completely shower. - Leave steri strips on incisions for 7 days and then remove -Walking is encouraged multiple times daily to prevent blood clots from forming in your legs - You will be given prescription for narcotic pain medication as needed for moderate to severe pain. Take as directed. This medication may cause drowsiness or constipation. -You may take extra strength Tylenol as needed if you are only having mild pain however do not alternate Tylenol with Percocet as Percocet has Tylenol in it. - 650 mg of Tylenol every 6 hours as needed - Recommend taking stool softener (Colace) daily while taking narcotic pain medication. - Follow-up in surgical office in 2 weeks. Please call office at [phone] to make an appointment. Pending Studies at Discharge: Yes (gallbladder pathology, will be reviewed at follow up visit) Stand-Alone Forms: [facility], Opioid Pain Management, Work/School Release (Inpt), Smoking Cessation Medications and DC Order Prescriptions: New oxycodone-acetaminophen [Percocet] 5-325 mg Tablet 1 tab PO Q4H PRN (Reason: pain) Qty: 10 RF: 0 ondansetron 4 mg Tablet,Disintegrating 4 mg PO Q6H PRN (Reason: nausea) Qty: 30 RF: 0 Continued ipratropium-albuterol 0.5 mg-3 mg(2.5 mg base)/3 mL Solution For Nebulization 3 ml INHALATION Q4H PRN (Reason: Wheezing) RF: 0 albuterol sulfate 90 mcg/actuation Hfa Aerosol Inhaler 2 puff INHALATION Q4H PRN (Reason: Shortness Of Breath) RF: 0 acetaminophen [Tylenol Extra Strength] 500 mg Tablet 500 mg PO Q6H PRN (Reason: Pain) RF: 0 Discontinued ondansetron 4 mg tablet,disintegrating 4 mg PO Q6H PRN (Reason: nausea and vomiting) Qty: 10 RF: 0 Discharge Orders: Discharge Order (Routine); Ordered 05/24/19 Ordered By: Megan Morales Admission Data Admit Date/Time: 05/22/19 17:03 Attending Provider: Jordy Davis Admit Provider: Jordy Davis Primary Care Provider: Nehemias Ceja Other Interventions: Discharge Summary Assessment (RN) Last Done: 05/24/19 12:50 DC Date/Time DO NOT enter until pt leaves facility: 05/24/19 13:22
--- NOTE | 2019-05-25 14:51 | Discharge Summary ---
ADMITTING DIAGNOSIS: Dysfunctioning gallbladder with ventral hernia. DISCHARGE DIAGNOSIS: Same. OPERATION: Laparoscopic cholecystectomy, open repair of ventral hernia. SURGEON: Jordy Davis MD DETAILS OF DISCHARGE SUMMARY: This is a 28-year-old female who was admitted to hospital for dysfunctional gallbladder with significant abdominal pain with ventral hernia. The patient was required to do laparoscopic cholecystectomy, open repair of ventral hernia. I did the procedure. The patient tolerated the procedure well and after procedure the patient went to recovery room and later on to regular floor. The patient is doing fine. She tolerated diet. No nausea, no vomiting, no significant abdominal pain. PHYSICAL EXAMINATION: VITAL SIGNS: Temperature is 36.4, respiratory rate 16, heart rate 99, blood pressure 108/66, O2 saturation 99% on room air. GENERAL: The patient is alert, awake, oriented x3. HEENT: Within normal limitation. NEUROLOGIC: Intact. NECK: No JVD. CHEST: Bilateral lung sounds clear. HEART: Normal S1, S2. No murmur. ABDOMEN: Soft, no distention. All dressing intact. Incision no redness, no drainage, no significant tenderness. Bowel sounds positive. EXTREMITIES: No edema. PLAN: The patient wanted to go home. We gave the patient postop care instruction. The patient understands. I will follow the patient in 2 weeks.
== END 2019-05-24 13:22 | disposition home or self-care (01) ==
LOC: ED 13:23 → 3W 13:23

== ENCOUNTER 2019-07-31 03:47 | Observation (INO) ==
[2019-07-31] MEDS ORDERED: SODIUM CHLORIDE 0.9% 1000ML 1,000 ML IV ONE (04:03)
[2019-07-31] MEDS ORDERED: ONDANSETRON INJ 2 MG/ML 2 ML VIAL IV STA (04:03)
[2019-07-31] MEDS ORDERED: KETOROLAC TROMETHAMINE 15 MG/ML VIAL IV STA (04:03)
--- NOTE | 2019-07-31 04:10 | Emergency Department Note ---
History of Present Illness General Chief complaint: Pelvic Pain Stated complaint: OVARIAN PAIN,PELVIC PAIN,LWR BACK PAIN Time Seen by Provider: 07/31/19 03:53 Source: patient Mode of arrival: ambulatory Limitations: no limitations History of Present Illness Maximum Pain Intensity: 8 This patient is a 29-year-old female who presents to the emergency department for evaluation of pelvic pain. Patient states that she developed pelvic pain last night. She reports that the pain radiates from the lower abdomen into the back. She states the pain is constant. She rates the discomfort an 8/10. She states the pain is sharp and she has a burning, bloated sensation in the upper abdomen. She has tried Tylenol and heat without relief. Her last menstrual period was 3 weeks ago. She reports a history of ovarian cysts and endometriosis. She denies any abnormal discharge or risk of STIs. She has been nauseous and vomited once last night. Home Medications Home Medications Medication Instructions Recorded Confirmed Type albuterol sulfate 2 puff INHALATION Q4H PRN 04/30/18 07/31/19 History ipratropium-albuterol 3 ml INHALATION Q4H PRN 04/30/18 07/31/19 History famotidine [Pepcid] 40 mg PO BID #14 tab 07/12/19 07/31/19 Rx Florastor 250 mg PO BID #20 cap 07/17/19 07/31/19 Rx ibuprofen 200 mg PO Q6H PRN 07/17/19 07/31/19 History doxycycline hyclate 100 mg PO BID #14 tab 07/18/19 07/31/19 Rx hydrocodone-acetaminophen 1 - 2 tab PO Q6H PRN #10 tab MDD 6 07/18/19 07/31/19 Rx hydrocodone-acetaminophen [[place]] 1 tab PO Q6H #14 tab 07/31/19 Rx ondansetron HCl (PF) 4 mg IV Q6H #12 ml 07/31/19 Rx Allergies Allergy/AdvReac Type Severity Reaction Status Date / Time amoxicillin Allergy Intermediate SWELLING Verified 07/31/19 04:08 codeine Allergy Intermediate Hives Verified 07/31/19 04:08 latex Allergy Intermediate HIVES Verified 07/31/19 04:08 levofloxacin Allergy Intermediate RASH, Verified 07/31/19 04:08 joint pain Penicillins Allergy Intermediate RASH Verified 07/31/19 04:08 Sulfa (Sulfonamide Allergy Intermediate hives Verified 07/31/19 04:08 Antibiotics) budesonide AdvReac Intermediate nausea Verified 07/31/19 04:08 egg AdvReac Intermediate HEADACHE Verified 07/31/19 04:08 formoterol AdvReac Intermediate nausea Verified 07/31/19 04:08 morphine AdvReac Intermediate HALLUCINATE Verified 07/31/19 04:08 S pseudoephedrine AdvReac Unknown FEVER Verified 07/31/19 04:08 Past Med/Surg History Medical History Anemia Asthma 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 (Acute) GERD (gastroesophageal reflux disease) Gestational diabetes (~02/14/18) History of PCOS (Acute) Hypoxemia Decreased oxygen sata at night. Uses two liters at night. SVT (supraventricular tachycardia) TIA (transient ischemic attack) Surgical History delivery delivered History of cardiac radiofrequency ablation Family History Other Kidney stone Social History Preferred Language: Maori Communication Ability: Effective Logistics/Shipper Required: No Beliefs That Will Affect Care: None marital status: Current Living Situation: Spouse and Family Other Information That Helps Us Care for You: No Feels Safe at Home: Yes Safety Concerns: Feels Safe At This Time Smoking Status: Never smoker Second Hand Exposure: No ; Hx Alcohol Use: No Hx Substance Use: Yes (has medical marijuana) substance use type: marijuana Last Used Substance: Hours (ago) Review of Systems A total of 10 systems reviewed and were otherwise negative Physical Exam Vital Signs Vital Signs - 24 hr 07/31/19 05:58 07/31/19 07:31 Pulse Rate [Right Finger] 108 H 117 H Respiratory Rate 18 20 Blood Pressure [Left Arm] 139/86 122/72 Blood Pressure Mean [Left Arm] 103 88 Blood Pressure Position [Left Arm] Sitting Pulse Oximetry 98 99 Oxygen Delivery Method Room Air Room Air VITALS: Vitals are noted on the nurse's note and reviewed by myself. Vital signs stable. GENERAL: This is a 29-year-old female, in no acute distress, well-developed well-nourished. SKIN: The skin was without rashes. EYES: Pupils equal round and reactive to light and accommodation. MOUTH: Mucous membranes moist. Tonsils are not enlarged. Pharynx without erythema or exudate. NECK: Supple without nuchal rigidity. No lymphadenopathy. HEART: Regular rate and rhythm without murmurs gallops or rubs. LUNGS: Clear to auscultation bilaterally without wheezes, rales or rhonchi. ABDOMEN: Positive bowel sounds x 4. Soft, moderate tenderness to palpation throughout the lower abdomen. No guarding or rebound tenderness. NEURO: Patient was alert and oriented to person place and time. Course Consultations Consultation #1: Dr. Cole - [facility] radiologist I received a call from the [facility] radiologist to discuss the case. Consultation #2: Dr. Theresa Hook SHEET METAL INSULATOR Administered Medications Discontinued Medications Albuterol (Duoneb) 3 ml INH Q4H PRN PRN Reason: Wheezing Stop: 08/30/19 10:37 Last Admin: 07/31/19 11:25 Dose: 3 ml Documented by: [id number] Doxycycline Hyclate (Vibramycin) 100 mg PO BID [facility]; Protocol Stop: 08/10/19 10:59 Last Admin: 07/31/19 12:31 Dose: 100 mg Documented by: [id number] Famotidine (Pepcid) 40 mg PO BID [facility] Stop: 08/30/19 10:37 Last Admin: 07/31/19 12:31 Dose: 40 mg Documented by: [id number] Hydromorphone HCl (Dilaudid) 1 mg IV Q15M PRN PRN Reason: Pain Stop: 08/14/19 08:57 Last Admin: 07/31/19 09:04 Dose: 1 mg Documented by: [id number] Sodium Chloride (Nss 1000ml) 1,000 mls @ 999 mls/hr IV .Q1H1M ONE Stop: 07/31/19 05:03 Last Infusion: 07/31/19 05:31 Dose: 0 mls/hr Documented by: [id number] Admin: 07/31/19 04:23 Dose: 999 mls/hr Documented by: [id number] Potassium Chloride/Dextrose/Sod Cl (D5w And 1/2nss + 20meq Kcl) 20 meq in 1,000 mls @ 125 mls/hr IV .Q8H JEFF Stop: 08/30/19 10:37 Last Infusion: 07/31/19 17:20 Dose: 0 mls/hr Documented by: [id number] Admin: 07/31/19 11:05 Dose: 125 mls/hr Documented by: [id number] Ketorolac Tromethamine (Toradol) 15 mg IV NOW STA Stop: 07/31/19 04:04 Last Admin: 07/31/19 04:23 Dose: 15 mg Documented by: [id number] Meperidine HCl (Demerol) 25 mg IV Q6 PRN PRN Reason: Pain Stop: 08/14/19 11:12 Last Admin: 07/31/19 15:58 Dose: 25 mg Documented by: [id number] Ondansetron HCl (Zofran) 4 mg IV NOW STA Stop: 07/31/19 04:04 Last Admin: 07/31/19 04:23 Dose: 4 mg Documented by: [id number] Ondansetron HCl (Zofran) Confirm Administered Dose 4 mg .ROUTE .RUST-MED ONE Stop: 07/31/19 09:09 Last Admin: 07/31/19 09:09 Dose: 4 mg Documented by: [id number] Ondansetron HCl (Zofran) 4 mg IV Q6H PRN PRN Reason: Nausea And Vomiting Stop: 08/30/19 10:37 Last Admin: 07/31/19 15:58 Dose: 4 mg Documented by: [id number] Briseyda Penndiasha (Florastor) 250 mg PO BID [facility] Stop: 08/30/19 10:37 Last Admin: 07/31/19 12:31 Dose: 250 mg Documented by: [id number] Medical Decision Making Differential Diagnosis Differential diagnosis includes ovarian cyst, ovarian torsion, ectopic , endometriosis, UTI, kidney stone, among others. Home Medications Current Medication List: was personally reviewed by me Laboratory Data Attestation: I reviewed the patient's lab results. Result diagrams: 07/31/19 12:36 07/31/19 04:16 Lab Results 07/31/19 07/31/19 07/31/19 Range/Units 04:16 04:16 04:25 WBC 8.74 (4.8-10.8) K/uL RBC 4.27 (4.2-5.4) M/uL Hgb 11.4 L (12.0-16.0) g/dL Hct 35.4 L (37-47) % MCV 82.9 (80-100) fL MCH 26.7 (25-34) pg MCHC 32.2 (32-36) g/dL RDW Std Deviation 45.0 (36.4-46.3) fL RDW Coeff of Jey 14.8 H (11.5-14.5) % Plt Count 290 (130-400) K/uL MPV 10.4 (7.4-10.4) fL Immature Gran % (Auto) 0.1 % Neut % (Auto) 75.3 % Lymph % (Auto) 15.2 % [place] % (Auto) 6.3 % Eos % (Auto) 2.9 % Baso % (Auto) 0.2 % Immature Gran # (Auto) 0.01 (0.00-0.02) K/uL Neut # (Auto) 6.58 H (1.4-6.5) K/uL Lymph # (Auto) 1.33 (1.2-3.4) K/uL [place] # (Auto) 0.55 (0.11-0.59) K/uL Eos # (Auto) 0.25 (0-0.5) K/uL Baso # (Auto) 0.02 (0-0.2) K/uL Sodium 140 (136-145) mmol/L Potassium 3.5 (3.5-5.1) mmol/L Chloride 109 H (98-107) mmol/L Carbon Dioxide 29 (21-32) mmol/L Anion Gap 2.0 L (3-11) BUN 9 (7-18) mg/dl Creatinine 0.86 (0.6-1.2) mg/dl Est Cr Clr Drug Dosing 93.6 ml/min Est GFR ( Amer) 107.3 Est GFR (Non-Af Amer) 92.6 BUN/Creatinine Ratio 10.7 (10-20) Glucose 95 (70-99) mg/dl Calcium 8.9 (8.5-10.1) mg/dl Total Bilirubin 0.4 (0.2-1) mg/dl AST 9 L (15-37) U/L ALT 20 (12-78) U/L Alkaline Phosphatase 77 (45-117) U/L Total Protein 7.3 (6.4-8.2) gm/dl Albumin 3.6 (3.4-5.0) gm/dl Globulin 3.7 (2.5-4.0) gm/dl Albumin/Globulin Ratio 1.0 (0.9-2) HCG, Quant mIU/ml Urine Color Urine Appearance (Clear) Urine pH (4.5-7.5) Ur Specific [place] (1.000-1.030) Urine Protein (Negative) Urine Glucose (UA) (Negative) Urine Ketones (Negative) Urine Blood (Negative) Urine Nitrite (Negative) Urine Bilirubin (Negative) Urine Urobilinogen (Negative) Ur Leukocyte Esterase (Negative) Urine WBC (Auto) (0-5) /hpf Urine RBC (Auto) (0-4) /hpf U Hyaline Cast (Auto) (0-5) /lpf U Epithel Cells (Auto) (0-5) /lpf Urine Bacteria (Auto) (Negative) POC Ur Test NEG (NEG) C.trachomatis RNA (NOT DETECTED) N.gonorrhoeae RNA (NOT DETECTED) Specimen Comment 07/31/19 07/31/19 07/31/19 Range/Units 04:25 07:20 07:48 WBC (4.8-10.8) K/uL RBC (4.2-5.4) M/uL Hgb (12.0-16.0) g/dL Hct (37-47) % MCV (80-100) fL MCH (25-34) pg MCHC (32-36) g/dL RDW Std Deviation (36.4-46.3) fL RDW Coeff of Jey (11.5-14.5) % Plt Count (130-400) K/uL MPV (7.4-10.4) fL Immature Gran % (Auto) % Neut % (Auto) % Lymph % (Auto) % [place] % (Auto) % Eos % (Auto) % Baso % (Auto) % Immature Gran # (Auto) (0.00-0.02) K/uL Neut # (Auto) (1.4-6.5) K/uL Lymph # (Auto) (1.2-3.4) K/uL [place] # (Auto) (0.11-0.59) K/uL Eos # (Auto) (0-0.5) K/uL Baso # (Auto) (0-0.2) K/uL Sodium (136-145) mmol/L Potassium (3.5-5.1) mmol/L Chloride (98-107) mmol/L Carbon Dioxide (21-32) mmol/L Anion Gap (3-11) BUN (7-18) mg/dl Creatinine (0.6-1.2) mg/dl Est Cr Clr Drug Dosing ml/min Est GFR ( Amer) Est GFR (Non-Af Amer) BUN/Creatinine Ratio (10-20) Glucose (70-99) mg/dl Calcium (8.5-10.1) mg/dl Total Bilirubin (0.2-1) mg/dl AST (15-37) U/L ALT (12-78) U/L Alkaline Phosphatase (45-117) U/L Total Protein (6.4-8.2) gm/dl Albumin (3.4-5.0) gm/dl Globulin (2.5-4.0) gm/dl Albumin/Globulin Ratio (0.9-2) HCG, Quant < 1 mIU/ml Urine Color Yellow Urine Appearance Cloudy A (Clear) Urine pH 6.0 (4.5-7.5) Ur Specific [place] 1.021 (1.000-1.030) Urine Protein Negative (Negative) Urine Glucose (UA) Negative (Negative) Urine Ketones Negative (Negative) Urine Blood Negative (Negative) Urine Nitrite Negative (Negative) Urine Bilirubin Negative (Negative) Urine Urobilinogen Negative (Negative) Ur Leukocyte Esterase Negative (Negative) Urine WBC (Auto) 1-5 (0-5) /hpf Urine RBC (Auto) 0-4 (0-4) /hpf U Hyaline Cast (Auto) 1-5 (0-5) /lpf U Epithel Cells (Auto) >30 H (0-5) /lpf Urine Bacteria (Auto) Negative (Negative) POC Ur Test (NEG) C.trachomatis RNA NOT DETECTED (NOT DETECTED) N.gonorrhoeae RNA NOT DETECTED (NOT DETECTED) Specimen Comment SEE NOTE Imaging Data Attestation: I personally reviewed and interpreted this imaging study as follows: Radiologist's Impression: US PELVIC/ENDOVAG: Uterine nabothian cysts. Scarring anterior uterine wall. Blood flow visualized in both ovaries. 2.9 cm complex cyst within the right ovary may be hemorrhagic cyst. Free fluid in the right adnexa extending into the cul-de-sac. Nonvascular heterogeneous complex area within the adnexal fluid measures approximately 2.9 cm. Possible blood clot. 2.4 x 1.4 x 1.3 cm echogenic structure in the left adnexal region with central 6 mm cystic structure. Query if part of the ovary or adjacent to it. Echogenic structure described could represent an ectopic or possibly ovarian corpus luteum. Complex fluid also in the left adnexa. Complex fluid described above in the adnexal regions and cul-de-sac. May represent blood products and possible ruptured ectopic . If negative , consider ruptured cyst or other etiology. Consider follow-up/further workup. Radiologist: Quintin Cole M.D. Blood Pressure Blood Pressure Findings: Normal blood pressure Blood Pressure Disposition: did not require urgent referral MDM Narrative The patient is a 29-year-old female who presents today complaining of pelvic pain. Labs revealed no leukocytosis, stable H&H. Urinalysis was not suggestive of infection. Urine was negative. Pelvic ultrasound was performed and reviewed by stat [facility] and shows a right-sided complex ovarian cyst with free fluid in the right adnexa. Patient additionally has an echogenic structure in the left adnexal region which may be an ovarian corpus luteum versus ectopic . There was additional complex fluid in the left adnexa and cul-de-sac. Patient with negative urine test. A quantitative beta- hCG was ordered to confirm this. I spoke with the on-call SHEET METAL INSULATOR, who elected to come and evaluate the patient and likely keep her for observation. Care of the patient was signed out to PETROS Diamond at change of shift pending disposition. Impression & Plan Ovarian cyst, Pelvic pain, Free fluid in pelvis Discharge Plan Visit Data *Final* Discharge Date/Time: 07/31/19 10:23 Chief Complaint: Pelvic Pain Stated Complaint: OVARIAN PAIN,PELVIC PAIN,LWR BACK PAIN ED Provider: Theo Ghotra ED Midlevel Provider: Kaitlynn New Discharge Problem: Ovarian cyst, Pelvic pain, Free fluid in pelvis Patient Disposition: Admitted As Inpatient Condition: Good Discharge Instructions Interventions: ED Discharge Assessment Last Done: 07/31/19 10:23 Discharge Problem: Ovarian cyst Qualifiers: Laterality: unspecified laterality Qualified Code(s): N83.209 - Unspecified ovarian cyst, unspecified side
[2019-07-31 04:32] LABS: Basophils # (auto) 0.02 K/uL (0-0.2); Basophils % (auto) 0.2 %; Eosinophils # (auto) 0.25 K/uL (0-0.5); Eosinophils % (auto) 2.9 %; Hematocrit (blood only) 35.4 % (37-47); Hemoglobin 11.4 g/dL (12.0-16.0); Immature Granulocytes # (auto) 0.01 K/uL (0.00-0.02); Immature Granulocytes % (auto) 0.1 %; Lymphocytes # (auto) 1.33 K/uL (1.2-3.4); Lymphocytes % (auto) 15.2 %; Mean Corpuscular Hemoglobin 26.7 pg (25-34); Mean Corpuscular Hgb Conc 32.2 g/dL (32-36); Mean Corpuscular Volume 82.9 fL (80-100); Mean Platelet Volume 10.4 fL (7.4-10.4); Monocytes # (auto) 0.55 K/uL (0.11-0.59); Monocytes % (auto) 6.3 %; Neutrophils # (auto) 6.58 K/uL (1.4-6.5); Neutrophils % (auto) 75.3 %; Platelet Count 290 K/uL (130-400); RDW Coefficient of Variation 14.8 % (11.5-14.5); Red Blood Count 4.27 M/uL (4.2-5.4); White Blood Count 8.74 K/uL (4.8-10.8)
[2019-07-31 04:44] LABS: Appearance Urine Cloudy (Clear); Bacteria Urine Automated Negative (Negative); Bilirubin Urine Negative (Negative); Blood Urine Negative (Negative); Color Urine Yellow; Epithelial Cell Urine Auto >30 /lpf (0-5); Glucose Urine UA Negative (Negative); Ketones Urine Negative (Negative); Leukocyte Esterase Urine Negative (Negative); Nitrite Urine Negative (Negative); Protein Urine Negative (Negative); RBC Urine Automated 0-4 /hpf (0-4); Specific Gravity Urine 1.021 (1.000-1.030); Urobilinogen Urine Negative (Negative)
[2019-07-31 04:56] LABS: Albumin Level 3.6 gm/dl (3.4-5.0); BUN Creatinine Ratio 10.7 (10-20); Calcium 8.9 mg/dl (8.5-10.1); Creatinine Clr Calc Pharmacy 93.6 ml/min; Est GFR (African American) 107.3; Est GFR (Non-African American) 92.6; Potassium 3.5 mmol/L (3.5-5.1)
[2019-07-31 04:59] LABS: Bilirubin,Total 0.4 mg/dl (0.2-1); Globulin 3.7 gm/dl (2.5-4.0); Total Protein 7.3 gm/dl (6.4-8.2)
--- NOTE | 2019-07-31 07:10 | Ultrasound Report ---
PELVIC ULTRASOUND CLINICAL HISTORY: pelvic pain, hx cysts, endometriosis COMPARISON STUDY: Pelvic ultrasound February 13, 2015. CT of the abdomen and pelvis May 16, 2019. TECHNIQUE: Transabdominal and transvaginal sonography of the pelvis was performed. FINDINGS: Uterus measures 10.3 x 4.5 x 5.6 cm. There is anterior uterine scarring. A few nabothian cy sts are noted. There is color flow within each ovary. The right ovary measures 2.8 x 3.1 x 3.6 cm and the left ovary measures 2.6 x 2.3 x 2.1 cm. There is a 2.9 cm complex right ovarian cyst. Free fluid within the right adnexa is noted. Hypoechoic material within the cul-de-sac and right adnexa favors clot. Note is made of a 2.4 x 1.4 x 1.3 cm echogenic structure in the left adnexa with a central 6 mm cystic focus. This appears to arise from the left ovary. There is also complex fluid within the left adnexa. IMPRESSION: 1. No sonographic evidence of ovarian torsion. 2. 2.9 cm complex right ovarian cyst which favors a hemorrhagic cyst. Complex fluid within the right adnexa and cul-de-sac which favors clot. 3. 2.4 cm echogenic structure within the left adnexa with a central 6 mm cystic focus. This likely ar ises from the left ovary. This may reflect a corpus luteum cyst. However, correlation with beta hCG l evels is recommended to exclude the possibility of an ectopic . ACT 112: Negative or not required by law. Electronically signed by: Geoffrey San M.D. 07/31/2019 7:09 AM
--- NOTE | 2019-07-31 07:30 | Emergency Department Note ---
ED Visit Note I received sign out from Christina Scott PA-C at 0730. Pt presented with pelvic pain. The patient is a reportedly feeling better after Toradol. Pelvic ultrasound noting hemorrhagic right ovarian cyst with complex fluid in the right adnexa and cul-de-sac favoring a clot. Urine was negative, a serum beta quant is pending to fully rule out the possibility of ectopic . Dr. Cardenas with FOOD DEHYDRATOR OPERATOR is coming to evaluate the patient, disposition to be per her recommendations. I evaluated the patient, she is well-appearing and reports that her pain is adequately controlled at this time. Awaiting evaluation by FOOD DEHYDRATOR OPERATOR. PELVIC ULTRASOUND IMPRESSION: 1. No sonographic evidence of ovarian torsion. 2. 2.9 cm complex right ovarian cyst which favors a hemorrhagic cyst. Complex fluid within the right adnexa and cul-de-sac which favors clot. 3. 2.4 cm echogenic structure within the left adnexa with a central 6 mm cystic focus. This likely arises from the left ovary. This may reflect a corpus luteum cyst. However, correlation with beta hCG levels is recommended to exclude the possibility of an ectopic . I spoke with Dr. Cardenas after her evaluation of the patient, she plans to admit for observation. Patient was aware of this plan and is agreeable. The chart was completed utilizing bContext voice recognition software. Grammatical errors, random word insertions, pronoun errors, and incomplete sentences are an occasional consequence of this system due to software limitations, ambient noise, and hardware issues. Any formal questions or concerns about the content, text, or information contained within the body of this dictation should be directly addressed to the nurse practitioner for clarification.
--- NOTE | 2019-07-31 07:56 | History & Physical Report ---
Date of Service July 31, 2019 Assessment & Plan (1) Pelvic pain: 29 yo female with h/o endometriosis, pelvic pain Now with pelvic pain, fluid in pelvis, most likely hemorrhagic corpus luteum VSS Afebrile H&H stable Recommended observation for pain control, repeat H&H and US and then plan Discussed treatment options of endometriosis like BCP, IUD, Depo provera, she declined (2) 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: (3) Hemorrhage of corpus luteum cyst: (4) Tenderness of female pelvic organs: History of Present Illness Primary Care Provider: Nehemias Ceja DO Patient is a 29 yo female with h/o endometriosis/ pelvic pain, ( has not been on nay treatment) presented to ER with pelvic pain which started last night while she was sitting She had N&V one time with it, took tylenol with no help No problems with urination nor BM No fever/ chills She had pelvic US here: IMPRESSION: 1. No sonographic evidence of ovarian torsion. 2. 2.9 cm complex right ovarian cyst which favors a hemorrhagic cyst. Complex fluid within the right adnexa and cul-de-sac which favors clot. 3. 2.4 cm echogenic structure within the left adnexa with a central 6 mm cystic focus. This likely arises from the left ovary. This may reflect a corpus luteum cyst. However, correlation with beta hCG levels is recommended to exclude the possibility of an ectopic . I was called to see her Her UPT is negative serum BHCG is pending I performed her repeat Csection on 03/2018 and noted endometriosis and endometrioma She used IUD for 2-3 month but then it was removed due to abnormal bleeding She has not not been on contraception Last period was 1/3 They last for 3-5 days with heavy flow and pain/ cramping Allergies Allergy/AdvReac Type Severity Reaction Status Date / Time amoxicillin Allergy Intermediate SWELLING Verified 07/31/19 04:08 codeine Allergy Intermediate Hives Verified 07/31/19 04:08 latex Allergy Intermediate HIVES Verified 07/31/19 04:08 levofloxacin Allergy Intermediate RASH, Verified 07/31/19 04:08 joint pain Penicillins Allergy Intermediate RASH Verified 07/31/19 04:08 Sulfa (Sulfonamide Allergy Intermediate hives Verified 07/31/19 04:08 Antibiotics) budesonide AdvReac Intermediate nausea Verified 07/31/19 04:08 egg AdvReac Intermediate HEADACHE Verified 07/31/19 04:08 formoterol AdvReac Intermediate nausea Verified 07/31/19 04:08 morphine AdvReac Intermediate HALLUCINATE Verified 07/31/19 04:08 S pseudoephedrine AdvReac Unknown FEVER Verified 07/31/19 04:08 Home Medications Home Medications Medication Instructions Recorded Confirmed Type albuterol sulfate 2 puff INHALATION Q4H PRN 04/30/18 07/31/19 History ipratropium-albuterol 3 ml INHALATION Q4H PRN 04/30/18 07/31/19 History famotidine [Pepcid] 40 mg PO BID #14 tab 07/12/19 07/31/19 Rx Saccharomyces boulardii [Florastor] 250 mg PO BID #20 cap 07/17/19 07/31/19 Rx ibuprofen 200 mg PO Q6H PRN 07/17/19 07/31/19 History doxycycline hyclate 100 mg PO BID #14 tab 07/18/19 07/31/19 Rx hydrocodone-acetaminophen 1 - 2 tab PO Q6H PRN #10 tab MDD 6 07/18/19 07/31/19 Rx Patient History Medical History Anemia Asthma 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 (Acute) GERD (gastroesophageal reflux disease) Gestational diabetes (~02/14/18) History of PCOS (Acute) Hypoxemia Decreased oxygen sata at night. Uses two liters at night. 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 HSV II, 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 Review of Systems All systems reviewed & are unremarkable except as noted in HPI & below Physical Exam Constitutional: WD/WN, vitals as above well developed and well nourished NAD Gastrointestinal (Abdomen): normal bowel sounds, soft, nontender, no hepatosplenomegaly (TENDERNESS ON LOWER QUADRANTS+) Genitourinary: normal external appearance Speculum/Bimanual Exam: normal appearance of the vagina, normal appearance of the cervix, + cervical tenderness (CMT+), + adnexal tenderness, normal vaginal palpation, + cervical motion tenderness, + uterus boggy, + uterus tender and + cul-de-sac fullness Results & Data Vital Signs (Past 12 Hours) Vital Signs Temp Pulse Pulse Resp BP BP Pulse Ox 07/31/19 07:31 117 H 20 122/72 99 07/31/19 05:58 108 H 18 139/86 98 07/31/19 03:49 36.8 C 134 H 18 157/85 H 98 Laboratory Results Lab Results 07/31/19 07/31/19 07/31/19 Range/Units 04:16 04:16 04:25 WBC 8.74 (4.8-10.8) K/uL RBC 4.27 (4.2-5.4) M/uL Hgb 11.4 L (12.0-16.0) g/dL Hct 35.4 L (37-47) % MCV 82.9 (80-100) fL MCH 26.7 (25-34) pg MCHC 32.2 (32-36) g/dL RDW Std Deviation 45.0 (36.4-46.3) fL RDW Coeff of Jey 14.8 H (11.5-14.5) % Plt Count 290 (130-400) K/uL MPV 10.4 (7.4-10.4) fL Immature Gran % (Auto) 0.1 % Neut % (Auto) 75.3 % Lymph % (Auto) 15.2 % [place] % (Auto) 6.3 % Eos % (Auto) 2.9 % Baso % (Auto) 0.2 % Immature Gran # (Auto) 0.01 (0.00-0.02) K/uL Neut # (Auto) 6.58 H (1.4-6.5) K/uL Lymph # (Auto) 1.33 (1.2-3.4) K/uL [place] # (Auto) 0.55 (0.11-0.59) K/uL Eos # (Auto) 0.25 (0-0.5) K/uL Baso # (Auto) 0.02 (0-0.2) K/uL Sodium 140 (136-145) mmol/L Potassium 3.5 (3.5-5.1) mmol/L Chloride 109 H (98-107) mmol/L Carbon Dioxide 29 (21-32) mmol/L Anion Gap 2.0 L (3-11) BUN 9 (7-18) mg/dl Creatinine 0.86 (0.6-1.2) mg/dl Est Cr Clr Drug Dosing 93.6 ml/min Est GFR ( Amer) 107.3 Est GFR (Non-Af Amer) 92.6 BUN/Creatinine Ratio 10.7 (10-20) Glucose 95 (70-99) mg/dl Calcium 8.9 (8.5-10.1) mg/dl Total Bilirubin 0.4 (0.2-1) mg/dl AST 9 L (15-37) U/L ALT 20 (12-78) U/L Alkaline Phosphatase 77 (45-117) U/L Total Protein 7.3 (6.4-8.2) gm/dl Albumin 3.6 (3.4-5.0) gm/dl Globulin 3.7 (2.5-4.0) gm/dl Albumin/Globulin Ratio 1.0 (0.9-2) Urine Color Urine Appearance (Clear) Urine pH (4.5-7.5) Ur Specific [place] (1.000-1.030) Urine Protein (Negative) Urine Glucose (UA) (Negative) Urine Ketones (Negative) Urine Blood (Negative) Urine Nitrite (Negative) Urine Bilirubin (Negative) Urine Urobilinogen (Negative) Ur Leukocyte Esterase (Negative) Urine WBC (Auto) (0-5) /hpf Urine RBC (Auto) (0-4) /hpf U Hyaline Cast (Auto) (0-5) /lpf U Epithel Cells (Auto) (0-5) /lpf Urine Bacteria (Auto) (Negative) POC Ur Test NEG (NEG) 07/31/19 Range/Units 04:25 WBC (4.8-10.8) K/uL RBC (4.2-5.4) M/uL Hgb (12.0-16.0) g/dL Hct (37-47) % MCV (80-100) fL MCH (25-34) pg MCHC (32-36) g/dL RDW Std Deviation (36.4-46.3) fL RDW Coeff of Jey (11.5-14.5) % Plt Count (130-400) K/uL MPV (7.4-10.4) fL Immature Gran % (Auto) % Neut % (Auto) % Lymph % (Auto) % [place] % (Auto) % Eos % (Auto) % Baso % (Auto) % Immature Gran # (Auto) (0.00-0.02) K/uL Neut # (Auto) (1.4-6.5) K/uL Lymph # (Auto) (1.2-3.4) K/uL [place] # (Auto) (0.11-0.59) K/uL Eos # (Auto) (0-0.5) K/uL Baso # (Auto) (0-0.2) K/uL Sodium (136-145) mmol/L Potassium (3.5-5.1) mmol/L Chloride (98-107) mmol/L Carbon Dioxide (21-32) mmol/L Anion Gap (3-11) BUN (7-18) mg/dl Creatinine (0.6-1.2) mg/dl Est Cr Clr Drug Dosing ml/min Est GFR ( Amer) Est GFR (Non-Af Amer) BUN/Creatinine Ratio (10-20) Glucose (70-99) mg/dl Calcium (8.5-10.1) mg/dl Total Bilirubin (0.2-1) mg/dl AST (15-37) U/L ALT (12-78) U/L Alkaline Phosphatase (45-117) U/L Total Protein (6.4-8.2) gm/dl Albumin (3.4-5.0) gm/dl Globulin (2.5-4.0) gm/dl Albumin/Globulin Ratio (0.9-2) Urine Color Yellow Urine Appearance Cloudy A (Clear) Urine pH 6.0 (4.5-7.5) Ur Specific [place] 1.021 (1.000-1.030) Urine Protein Negative (Negative) Urine Glucose (UA) Negative (Negative) Urine Ketones Negative (Negative) Urine Blood Negative (Negative) Urine Nitrite Negative (Negative) Urine Bilirubin Negative (Negative) Urine Urobilinogen Negative (Negative) Ur Leukocyte Esterase Negative (Negative) Urine WBC (Auto) 1-5 (0-5) /hpf Urine RBC (Auto) 0-4 (0-4) /hpf U Hyaline Cast (Auto) 1-5 (0-5) /lpf U Epithel Cells (Auto) >30 H (0-5) /lpf Urine Bacteria (Auto) Negative (Negative) POC Ur Test (NEG) Diagnostic Findings PELVIC US:
[2019-07-31] MEDS ORDERED: HYDROmorphone INJ 1 MG/ML SYRINGE IV PRN (08:58)
[2019-07-31] MEDS ORDERED: ONDANSETRON INJ 2 MG/ML 2 ML VIAL ONE (09:08)
[2019-07-31] MEDS ORDERED: ONDANSETRON INJ 2 MG/ML 2 ML VIAL IV PRN (10:38)
[2019-07-31] MEDS ORDERED: D5W AND 1/2NSS + 20MEQ KCL 20 MEQ/1,000 ML BAG IV SCH (10:38)
[2019-07-31] MEDS ORDERED: FAMOTIDINE 40 MG TABLET PO SCH (10:38)
[2019-07-31] MEDS ORDERED: SACCHAROMYCES BOULARDII 250 MG CAP PO SCH (10:38)
[2019-07-31] MEDS ORDERED: ALBUTEROL HFA 8 GM INHALER INH PRN (10:38)
[2019-07-31] MEDS ORDERED: ALBUT/IPRATROP 3MG/0.5MG NEB 3 ML VIAL INH PRN (10:38)
[2019-07-31] MEDS ORDERED: KETOROLAC TROMETHAMINE 15 MG/ML VIAL IV PRN (10:38)
[2019-07-31] MEDS ORDERED: IBUPROFEN 200 MG TAB PO PRN (10:38)
[2019-07-31] MEDS ORDERED: DOXYCYCLINE HYCLATE 100 MG CAP PO SCH (11:00)
[2019-07-31] MEDS ORDERED: MEPERIDINE HCL 50 MG/ML CARP IV PRN (11:13)
[2019-07-31] MEDS ORDERED: HYDROCODONE/ACETAMOPHEN 5/325MG TAB PO PRN (11:25)
[2019-07-31 12:54] LABS: Basophils # (auto) 0.01 K/uL (0-0.2); Basophils % (auto) 0.1 %; Eosinophils # (auto) 0.17 K/uL (0-0.5); Eosinophils % (auto) 1.6 %; Hematocrit (blood only) 33.6 % (37-47); Hemoglobin 10.5 g/dL (12.0-16.0); Immature Granulocytes # (auto) 0.02 K/uL (0.00-0.02); Immature Granulocytes % (auto) 0.2 %; Lymphocytes # (auto) 1.02 K/uL (1.2-3.4); Lymphocytes % (auto) 9.3 %; Mean Corpuscular Hemoglobin 26.3 pg (25-34); Mean Corpuscular Hgb Conc 31.3 g/dL (32-36); Mean Platelet Volume 10.7 fL (7.4-10.4); Monocytes # (auto) 0.83 K/uL (0.11-0.59); Monocytes % (auto) 7.6 %; Neutrophils # (auto) 8.88 K/uL (1.4-6.5); Neutrophils % (auto) 81.2 %; Platelet Count 278 K/uL (130-400); RDW Standard Deviation 46.1 fL (36.4-46.3); White Blood Count 10.93 K/uL (4.8-10.8)
--- NOTE | 2019-07-31 14:37 | Ultrasound Report ---
PELVIC ULTRASOUND CLINICAL HISTORY: pelvic pain, fluid in pelvis COMPARISON STUDY: Pelvic ultrasound July 31, 2019 5:04 AM. TECHNIQUE: Transabdominal and transvaginal sonography of the pelvis was performed. FINDINGS: Uterus measures 10.4 x 4.7 x 6.1 cm. Endometrium measures 1.1 cm in thickness. The right ov jonathon measures 2.8 x 3.1 x 3.8 cm and contains a 2.8 cm hypoechoic lesion. There is color flow within e ach ovary. The left ovary measures 2.5 x 2.7 x 2.7 cm and contains a 1.6 cm echogenic focus. Small am ount of fluid within the pelvis has decreased since prior ultrasound. IMPRESSION: 1. No sonographic evidence of ovarian torsion. 2. Small amount of fluid within the pelvis which is decreased since prior ultrasound. 3. 2.8 cm right ovarian lesion suggestive of a corpus luteal cyst. 4. Nonspecific 1.6 cm echogenic focus within the left ovary. ACT 112: Negative or not required by law. Electronically signed by: Geoffrey San M.D. 07/31/2019 2:36 PM
--- NOTE | 2019-07-31 17:13 | Gynecologic Progress Note ---
Date of Service July 31, 2019 Subjective feeling much better had small lunch and kept everything down got up to bathroom and continued to have moderate pain Physical Exam Constitutional: WD/WN, vitals as above comfortable Gastrointestinal (Abdomen): Percussion/Palpation: + abdomen tender no guarding or rebound repeat ultrasound with probable ruptured corpus luteum cyst will discharge home follow up in office Results & Data Vital Signs (Past 12 Hours) Vital Signs Temp Pulse Pulse Pulse Resp BP BP 07/31/19 16:00 36.7 C 140 H 20 135/75 07/31/19 12:40 36.6 C 120 H 18 115/74 07/31/19 11:29 112 H 16 07/31/19 10:30 36.5 C 118 H 18 131/87 07/31/19 10:23 127 H 18 114/69 07/31/19 08:56 129 H 18 115/70 07/31/19 07:31 117 H 20 122/72 07/31/19 05:58 108 H 18 139/86 Pulse Ox 07/31/19 16:00 100 07/31/19 12:40 99 07/31/19 11:29 98 07/31/19 10:30 98 07/31/19 10:23 98 07/31/19 08:56 98 07/31/19 07:31 99 07/31/19 05:58 98 Laboratory Results 07/31/19 07/31/19 07/31/19 04:16 04:16 04:25 WBC 8.74 RBC 4.27 Hgb 11.4 L Hct 35.4 L MCV 82.9 MCH 26.7 MCHC 32.2 RDW Std Deviation 45.0 RDW Coeff of Jey 14.8 H Plt Count 290 MPV 10.4 Immature Gran % (Auto) 0.1 Neut % (Auto) 75.3 Lymph % (Auto) 15.2 [place] % (Auto) 6.3 Eos % (Auto) 2.9 Baso % (Auto) 0.2 Immature Gran # (Auto) 0.01 Neut # (Auto) 6.58 H Lymph # (Auto) 1.33 Mineral # (Auto) 0.55 Eos # (Auto) 0.25 Baso # (Auto) 0.02 Sodium 140 Potassium 3.5 Chloride 109 H Carbon Dioxide 29 Anion Gap 2.0 L BUN 9 Creatinine 0.86 Est Cr Clr Drug Dosing 93.6 Est GFR ( Amer) 107.3 Est GFR (Non-Af Amer) 92.6 BUN/Creatinine Ratio 10.7 Glucose 95 Calcium 8.9 Total Bilirubin 0.4 AST 9 L ALT 20 Alkaline Phosphatase 77 Total Protein 7.3 Albumin 3.6 Globulin 3.7 Albumin/Globulin Ratio 1.0 HCG, Quant Urine Color Urine Appearance Urine pH Ur Specific [place] Urine Protein Urine Glucose (UA) Urine Ketones Urine Blood Urine Nitrite Urine Bilirubin Urine Urobilinogen Ur Leukocyte Esterase Urine WBC (Auto) Urine RBC (Auto) U Hyaline Cast (Auto) U Epithel Cells (Auto) Urine Bacteria (Auto) POC Ur Test NEG 07/31/19 07/31/19 07/31/19 04:25 07:20 12:36 WBC 10.93 H RBC 4.00 L Hgb 10.5 L Hct 33.6 L MCV 84.0 MCH 26.3 MCHC 31.3 L RDW Std Deviation 46.1 RDW Coeff of Jey 15.0 H Plt Count 278 MPV 10.7 H Immature Gran % (Auto) 0.2 Neut % (Auto) 81.2 Lymph % (Auto) 9.3 [place] % (Auto) 7.6 Eos % (Auto) 1.6 Baso % (Auto) 0.1 Immature Gran # (Auto) 0.02 Neut # (Auto) 8.88 H Lymph # (Auto) 1.02 L [place] # (Auto) 0.83 H Eos # (Auto) 0.17 Baso # (Auto) 0.01 Sodium Potassium Chloride Carbon Dioxide Anion Gap BUN Creatinine Est Cr Clr Drug Dosing Est GFR ( Amer) Est GFR (Non-Af Amer) BUN/Creatinine Ratio Glucose Calcium Total Bilirubin AST ALT Alkaline Phosphatase Total Protein Albumin Globulin Albumin/Globulin Ratio HCG, Quant < 1 Urine Color Yellow Urine Appearance Cloudy A Urine pH 6.0 Ur Specific [place] 1.021 Urine Protein Negative Urine Glucose (UA) Negative Urine Ketones Negative Urine Blood Negative Urine Nitrite Negative Urine Bilirubin Negative Urine Urobilinogen Negative Ur Leukocyte Esterase Negative Urine WBC (Auto) 1-5 Urine RBC (Auto) 0-4 U Hyaline Cast (Auto) 1-5 U Epithel Cells (Auto) >30 H Urine Bacteria (Auto) Negative POC Ur Test Diagnostic Findings All Values
[2019-08-01 14:42] LABS: Chlamydia Trach RNA NOT DETECTED (NOT DETECTED); GC (Neis gonorrhoeae) RNA NOT DETECTED (NOT DETECTED)
--- NOTE | 2019-08-11 22:54 | Discharge Summary ---
REASON FOR ADMISSION AND HOSPITAL COURSE: The patient is a 29-year-old G2, P2 female with history of endometriosis and pelvic pain. She presents with pelvic pain. Ultrasound report reveals most likely hemorrhagic corpus luteum cyst. The patient was stable. She was given pain medication and IV fluids. Ultrasound revealed possible hemorrhagic corpus luteum cyst. Otherwise the patient was doing well, tolerating diet. The patient was discharged home. She was given pain medication on discharge and to be followed up in the office in 1 week. CONDITION ON DISCHARGE: Stable. DIET: Regular diet on discharge. FINAL DISCHARGE DIAGNOSIS: Hemorrhagic corpus luteum cyst.
== END 2019-07-31 17:35 | disposition home or self-care (01) ==
LOC: 4N 03:47 → ED 03:47 → 4N 10:23